=== PATIENT | female | born 1970 | race Caucasian/White ===

== ENCOUNTER 2018-07-07 16:03 | Emergency (ER) | payer SELFPAY ==
--- NOTE | 2018-07-07 17:45 | ER ---
Nurse's Notes [facility] Name: Lin Farley Age: 47 yrs Sex: Female : 1970 Arrival Date: 07/07/2018 Time: 16:04 Bed Waiting Private MD: Diagnosis: Presentation: 07/07 16:16 Presenting complaint: Productive cough with white sputum, body aches, headache, chills, hb sore throat x 3 days, N/V today. Not tolerating liquids. Transition of care: patient was not received from another setting of care. Onset of symptoms was July 04, 2018. Risk Assessment: Do you want to hurt yourself or someone else? Patient reports no desire to harm self or others. Care prior to arrival: None. 16:16 Method Of Arrival: Ambulatory hb 16:16 Acuity: IAN 3 hb Historical: - Allergies: 16:19 novahistamine; hb - PMHx: 16:19 gastric ulcer; GERD; hb - PSHx: 16:19 Cholecystectomy; hb - Immunization history:: Adult Immunizations up to date. - Social history:: Smoking status: Patient/guardian denies using tobacco. - Ebola Screening: : No symptoms or risks identified at this time. Vital Signs: 16:18 BP 156 / 102; Pulse 98; Resp 16; Temp 99(TE); Pulse Ox 100% on R/A; Pain 8/10; hb ED Course: 16:04 Patient arrived in ED. as 16:18 Triage completed. hb 16:19 Arm band placed on. hb 17:10 Patient's name was called from ER lobby. No response. aa5 17:25 Patient's name was called from ER lobby. No response. aa5 17:32 Sarah Crenshaw FNP-C [facility]. snw 17:32 Golden Souza MD is Attending Physician. snw 17:43 Patient's name was called from ER lobby. No response. aa5 Administered Medications: No medications were administered Outcome: 17:44 Patient left the ED. aa5 Signatures: Sarah Crenshaw FNP-C EXERCISE PHYSIOLOGIST-Leona Mari Audri RN RN aa5 Kelin Membreno RN RN hb
== END 2018-07-07 17:44 | disposition left against medical advice (07) ==
LOC: ER 16:03
DX: R05 Cough (principal); R11.2 Nausea with vomiting, unspecified; K21.9 Gastro-esophageal reflux disease without esophagitis; Z53.21 Procedure and treatment not carried out due to patient leaving prior to being seen by health care provider
CPT/HCPCS: 99281

== ENCOUNTER 2019-12-07 09:19 | Emergency (ER) | payer OTHER, SELFPAY ==
[2019-12-07] MEDS ORDERED: NA CHLORIDE 0.9% 1,000 ML ONE ×2 (09:47→12:19)
[2019-12-07] MEDS ORDERED: ONDANSETRON 4 MG/2 ML VIAL ONE ×2 (09:47→11:26)
[2019-12-07] MEDS ORDERED: MORPHINE 4 MG/ML SYR ONE (09:47)
[2019-12-07 09:53] LABS: Absolute Lymphocytes (CBC) 0.6 K/uL (0.7-4.9); Basophils % 0.3 % (0-1.3); Lymphocytes % 9.5 % (15.3-44.8); MPV 7.9 fL (7.6-11.3); RBC Red Blood Cell Count 4.05 M/uL (3.86-4.86)
[2019-12-07 09:58] LABS: Protime INR 1.36
[2019-12-07 10:30] LABS: ALT/SGPT 98 U/L (12-78); Albumin 2.8 g/dL (3.4-5.0); Alkaline Phosphatase 111 U/L (45-117); BUN Blood Urea Nitrogen 7 mg/dL (7-18); Bicarbonate 23 mmol/L (21-32); Bilirubin Direct 1.2 mg/dL (0-0.2); Bilirubin Total 2.4 mg/dL (0.2-1.0); Glucose Level 61 mg/dL (74-106); Lipase 91 U/L (73-393); NT PRO-BNP 149 pg/mL (<125); Protein, Total 6.9 g/dL (6.4-8.2); Sodium Level 141 mmol/L (136-145); Troponin (Emerg Dept Use Only) < 0.02 ng/mL (0.0-0.045)
[2019-12-07 10:37] LABS: Magnesium 2.2 mg/dL (1.8-2.4); Potassium 3.1 mmol/L (3.5-5.1)
[2019-12-07 10:39] LABS: AST/SGOT 366 U/L (15-37)
--- NOTE | 2019-12-07 10:44 | RAD REPORT ---
EXAM DESCRIPTION: RAD - Chest Single View - 12/07/2019 10:13 am CLINICAL HISTORY: chest pain COMPARISON: Portable December 2010 TECHNIQUE: AP portable chest image was obtained 12/07/2019 10:13 am . FINDINGS: No focal lung parenchymal process. Interstitial markings are accentuated due to a more sha llow inspiratory effort. No significant failure or volume overload. A minimal interstitial edema or i nfiltrate could be masked. Heart and vasculature are normal. No measurable pleural effusion and no pneumothorax. No acute bony abnormality seen. No acute aortic findings suspected. IMPRESSION: No focal lung parenchymal process and no significant failure or volume overload. Shallow inspiration accentuates lung markings potentially masking very minimal edema or infiltrate.
--- NOTE | 2019-12-07 11:40 | RAD REPORT ---
EXAM DESCRIPTION: CT - Abdomen Pelvis W Contrast - 12/07/2019 11:27 am CLINICAL HISTORY: Elevated liver enzymes;Abd pain COMPARISON: CT ABD PELVIS W CONTRAST dated 09/02/2011 TECHNIQUE: Biphasic, helical CT imaging of the abdomen and pelvis was performed following 100 ml non -ionic IV contrast. Oral contrast was given. All CT scans are performed using dose optimization technique as appropriate and may include automated exposure control or mA/KV adjustment according to patient size. FINDINGS: Lung base findings are detailed in separate CT chest report. Liver is grossly abnormal. No one focal suspicious liver lesions seen. Nodularity of the capsule is p resent. Fibrotic changes the liver are suspected and there is geographic fatty infiltration change. N o portal vein abnormality identified. Spleen and pancreas show no suspicious findings. Gallbladder is absent. Biliary tree within normal li mits for a post cholecystectomy patient. Symmetric renal function is seen with no hydronephrosis or suspicious renal mass. No pyelonephritis o r acute parenchymal process. Well filled urinary bladder shows no suspicious finding. No adrenal abno rmalities. No uterine or ovarian acute finding. Partially imaged distal esophagus shows circumferential wall thickening. Gastric antrum salmon are mil dly prominent. This can be true wall thickening or an artifact of peristalsis. Prominent wall thicken ing and edema present in the third and fourth portions of the duodenum. Multiple small bowel loops sh ow prominent wall thickening and edema. This is primarily jejunum. There is circumferential wall thic kening of the terminal ileum. Wall thickening and edema are present in the right-side of the colon wi th a more mild wall thickening and edema pattern seen in the sigmoid colon and rectum. A focal mass o f the colon is not identifiable although the cecum and ascending colon assessment are limited. No free air or pneumatosis. A mild to moderate volume of ascites is present. No omental thickening or bulky lymphadenopathy. No suspicious bony findings. Numerous dilated veins are seen around the liver. Umbilical vein is recannulized. IMPRESSION: Abnormal appearing liver with cirrhosis or other diffuse hepatic parenchymal disease pro cess present. Patient has geographic fatty infiltration but no focal liver lesion. Numerous large and small bowel loops show circumferential wall thickening and edema. This is probably secondary to the hepatic parenchymal disease and subsequent electrolyte or metabolic disorder. The c olon mass is not seen though the assessment of the cecum and ascending colon is somewhat limited. Mild to moderate amount of ascites.
--- NOTE | 2019-12-07 11:43 | RAD REPORT ---
EXAM DESCRIPTION: CT - Chest For Pe Angio - 12/07/2019 11:27 am CLINICAL HISTORY: Chest pain;SOB COMPARISON: Chest Single View dated 12/07/2019 TECHNIQUE: Dynamically enhanced 3 mm thick images of the chest were obtained during administration o f approximately 150mL Isovue 370 IV contrast. Coronal and oblique MIP reconstruction images were gene rated and reviewed. Exam utilizes a protocol to evaluate the pulmonary arterial tree. All CT scans are performed using dose optimization technique as appropriate and may include automated exposure control or mA/KV adjustment according to patient size. FINDINGS: No pulmonary emboli are identified. The aorta as imaged shows no acute or suspicious finding. No pericardial thickening or effusion. No infiltrate or mass in the lung parenchyma. No pleural effusion or pleural thickening. No mediastinal or hilar suspicious masses. No chest wall masses or abnormal axillary lymphadenopathy. Prominent circumferential wall thickening involves the distal 2/3 of the esophagus. The liver is alberto sly abnormal and detailed on the separate CT abdomen and pelvis report. IMPRESSION: No pulmonary emboli identified. No lung parenchymal, mediastinal or hilar acute chest finding seen. Patient has very prominent circumferential wall thickening of the distal esophagus. This is seen in c onjunction with large and small bowel wall thickening and edema. Infectious/ inflammatory bowel etiologies are certainly possible. The bowel changes are probably seco ndary to liver function abnormality.
--- NOTE | 2019-12-07 12:38 | EDPHYS ---
Physician Documentation [facility] Name: Lin Farley Age: 49 yrs Sex: Female : 1970 Arrival Date: 12/07/2019 Time: 09:22 Bed 8 Private MD: Keon Gant H ED Physician Claudio Patterson HPI: 12/06 09:58 This 49 yrs old Female presents to ER via Ambulatory with complaints of Chest pm1 Pain, Abdominal Pain. 09:58 The patient or guardian reports chest pain that is located primarily in the mid-sternal pm1 area. Onset: 2 day(s) ago. The pain does not radiate. Associated signs and symptoms: Pertinent positives: shortness of breath, Abdominal pain and diarrhea that started two days ago that has resolved. Patient with chronic abdominal pain for the past two years. Has appointment with Dr. Patel tomorrow for her abdominal pain, Pertinent negatives: cough, headache. Duration: The patient or guardian reports a single episode, that is still ongoing. Modifying factors: The symptoms are alleviated by nothing. the symptoms are aggravated by activity, deep breath, palpation of area. The patient has not recently seen a physician, has an appointment scheduled, tomorrow. Historical: - Allergies: 09:28 novahistamine; ph - PMHx: 09:28 gastric ulcer; GERD; ph - PSHx: 09:28 Cholecystectomy; ph - Immunization history:: Adult Immunizations up to date. - Social history:: Smoking status: Patient reports the use of cigarette tobacco products, 2 cigarettes/ day. ROS: 10:02 Constitutional: Negative for fever, chills, and weight loss. pm1 10:02 ENT: Negative for injury, pain, and discharge, Neck: Negative for injury, pain, and swelling. 10:02 Back: Negative for injury and pain, : Negative for injury, bleeding, discharge, and swelling, MS/Extremity: Negative for injury and deformity, Skin: Negative for injury, rash, and discoloration, Neuro: Negative for headache, weakness, numbness, tingling, and seizure. 10:02 Cardiovascular: Positive for chest pain, of the mid-sternal area, Negative for edema, orthopnea. 10:02 Respiratory: Positive for shortness of breath, Negative for cough. 10:02 Abdomen/GI: Positive for nausea, diarrhea, Negative for vomiting. 10:02 Abdomen/GI: Positive for abdominal pain, that has resolved. pm1 Exam: 10:02 Constitutional: This is a well developed, well nourished patient who is awake, alert, pm1 and in no acute distress. Head/Face: Normocephalic, atraumatic. 10:02 Back: No spinal tenderness. No costovertebral tenderness. Full range of motion. Skin: Warm, dry with normal turgor. Normal color with no rashes, no lesions, and no evidence of cellulitis. MS/ Extremity: Pulses equal, no cyanosis. Neurovascular intact. Full, normal range of motion. 10:02 Chest/axilla: Inspection: normal, Palpation: crepitus, is not appreciated, tenderness, that is moderate, of the mid-sternal area, that totally reproduces the patient's complaints. 10:02 Cardiovascular: Rate: tachycardic, Rhythm: regular, Pulses: no pulse deficits are appreciated, Heart sounds: normal, Edema: is not appreciated. 10:02 Respiratory: Exam negative for acute changes, respiratory distress, shortness of breath. 10:02 Abdomen/GI: Inspection: abdomen appears normal, Palpation: abdomen is soft and non-tender, in all quadrants, mass, is not appreciated, rebound tenderness, is not appreciated. 10:02 Neuro: Exam negative for acute changes, Orientation: is normal, Mentation: is normal, Motor: is normal, moves all fours. Vital Signs: 09:32 BP 109 / 91; Pulse 119; Resp 16; Temp 98.4(O); Pulse Ox 99% on R/A; Weight 47.63 kg; ss Height 5 ft. 4 in. (162.56 cm); Pain 10/10; 10:30 BP 115 / 77; Pulse 101; Resp 20; Pulse Ox 96% on R/A; ph 11:30 BP 126 / 84; Pulse 102; Resp 18; Pulse Ox 95% on R/A; ph 13:00 BP 118 / 78; Pulse 97; Resp 18; Temp 98.0; Pulse Ox 96% on R/A; ph 09:32 Body Mass Index 18.02 (47.63 kg, 162.56 cm) MDM: 09:24 Patient medically screened. pm1 11:52 ED course: Reviewed CT results and work up with Dr. Patterson. Patient without fever or pm1 white count elevation. He does not recommend antibiotics for the patient. Patient has follow up with GI tomorrow and recommends she needs to keep follow up and get EGD. 12:06 Data reviewed: vital signs. Data interpreted: Pulse oximetry: on room air is 95 %. pm1 Interpretation: normal. 12:06 Counseling: I had a detailed discussion with the patient and/or guardian regarding: the pm1 historical points, exam findings, and any diagnostic results supporting the discharge/admit diagnosis, lab results, radiology results, the need for outpatient follow up, for definitive care, a color strainer, EGD, to return to the emergency department if symptoms worsen or persist or if there are any questions or concerns that arise at home. 12/06 09:32 Order name: Basic Metabolic Panel pm1 12/06 09:32 Order name: CBC with Diff pm1 12/06 09:32 Order name: LFT's pm1 12/06 09:32 Order name: Magnesium pm12/06 09:32 Order name: NT PRO-BNP pm1 12/06 09:32 Order name: PT-INR pm1 12/06 09:32 Order name: Troponin (emerg Dept Use Only) pm1 12/06 09:32 Order name: Lipase pm1 12/06 09:53 Order name: CBC with Automated Diff; Complete Time: 09:56 EDMS 12/06 10:12 Order name: Protime (+INR); Complete Time: 10:37 EDMS 12/06 10:39 Order name: Basic Metabolic Panel; Complete Time: 10:55 EDMS 12/06 10:39 Order name: Liver (Hepatic) Function; Complete Time: 10:55 EDMS 12/06 10:39 Order name: Troponin (Emerg Dept Use Only); Complete Time: 10:55 EDMS 12/06 10:39 Order name: NT PRO-BNP; Complete Time: 10:55 EDMS 12/06 09:32 Order name: XRAY Chest (1 view) pm12/06 09:32 Order name: EKG; Complete Time: 10:46 pm1 12/06 10:39 Order name: Magnesium; Complete Time: 10:55 EDMS 12/06 10:39 Order name: Lipase; Complete Time: 10:55 EDMS 12/06 10:45 Order name: RAD; Complete Time: 10:55 EDMS 12/06 11:06 Order name: CT Chest For PE Angio pm1 12/06 11:06 Order name: CT Abd/Pelvis - IV Contrast Only pm1 12/06 11:41 Order name: CT; Complete Time: 11:42 EDMS 12/06 11:44 Order name: CT; Complete Time: 11:46 EDMS 12/06 09:32 Order name: Cardiac monitoring; Complete Time: 09:50 pm1 12/06 09:32 Order name: EKG - Nurse/Tech; Complete Time: 09:50 pm1 12/06 09:32 Order name: IV Saline Lock; Complete Time: 09:50 pm1 12/06 09:32 Order name: Labs collected and sent; Complete Time: 09:50 pm1 12/06 09:32 Order name: O2 Per Protocol; Complete Time: 09:50 pm1 12/06 09:32 Order name: O2 Sat Monitoring; Complete Time: 09:50 pm1 Administered Medications: 09:49 Drug: Zofran (Ondansetron) 4 mg Route: IVP; Site: right forearm; ph 11:23 Follow up: Response: No adverse reaction ph 12:14 Follow up: Response: No adverse reaction ph 09:49 Drug: NS 0.9% 1000 ml Route: IV; Rate: 1000 ml; Site: right forearm; ph 12:14 Follow up: Response: No adverse reaction; IV Status: Completed infusion; IV Intake: ph 1000ml 09:50 Drug: morphine 4 mg Route: IVP; Site: right forearm; ph 11:22 Follow up: Response: No adverse reaction ph 12:14 Follow up: Response: No adverse reaction ph 11:18 Drug: Zofran (Ondansetron) 4 mg Route: IVP; Site: right forearm; em 12:14 Follow up: Response: No adverse reaction; Nausea is decreased ph 12:00 Drug: NS 0.9% 1000 ml Route: IV; Rate: 1000 ml; Site: right forearm; ph 13:16 Drug: Phenergan 12.5 mg Route: IVP; Site: right antecubital; em 13:25 Follow up: Response: No adverse reaction; Marked relief of symptoms; Nausea is decreasedem 13:27 Drug: Bentyl 20 mg Route: PO; em 13:35 Follow up: Response: No adverse reaction ph Disposition: 19:00 Co-signature as Attending Physician, Claudio Patterson MD Signing chart for administrative ps1 purposes. Did not see or evaluate patient. Not an endorsement of care. . Disposition: 12/07/19 12:37 Discharged to Home. Impression: Chest pain, unspecified, Unspecified abdominal pain, Alcoholic cirrhosis of liver with ascites, Esophagitis. - Condition is Stable. - Discharge Instructions: Abdominal Pain, Adult, Nonspecific Chest Pain, Clear Liquid Diet, Adult. - Prescriptions for Zofran ODT 4 mg Oral tablet,disintegrating - place 1 tablet by TRANSLINGUAL route every 8 hours As needed; 12 tablet. Bentyl 20 mg Oral Tablet - take 1 tablet by ORAL route every 6 hours As needed; 20 tablet. promethazine 25 mg Oral Tablet - take 1 tablet by ORAL route every 6 hours As needed; 20 tablet. - Medication Reconciliation Form, Thank You Letter, Antibiotic Education, Prescription Opioid Use form. - Follow up: Emergency Department; When: As needed; Reason: Worsening of condition. Follow up: Private Physician; When: Tomorrow; Reason: Recheck today's complaints, Continuance of care, Re-evaluation by your physician. - Problem is new. - Symptoms have improved. Signatures: Dispatcher [employer] Lee Recio RN RN em Smirch, Shelby, RN RN ss Hall, Patricia, CODEY RN Sushant Gallardo, ATLASSIAN ADMINISTRATOR ATLASSIAN ADMINISTRATOR pm1 Claudio Patterson MD MD ps1 Corrections: (The following items were deleted from the chart) 14:15 12:37 12/07/2019 12:37 Discharged to Home. Impression: Chest pain, ss unspecifiedUnspecified abdominal pain; Alcoholic cirrhosis of liver with ascites; Esophagitis. Condition is Stable. Forms are Medication Reconciliation Form, Thank You Letter, Antibiotic Education, Prescription Opioid Use. Follow up: Emergency Department; When: As needed; Reason: Worsening of condition. Follow up: Private Physician; When: Tomorrow; Reason: Recheck today's complaints, Continuance of care, Re-evaluation by your physician. Problem is new. Symptoms have improved. pm1
--- NOTE | 2019-12-07 12:38 | ER ---
Nurse's Notes [facility] Name: Lin Farley Age: 49 yrs Sex: Female : 1970 Arrival Date: 12/07/2019 Time: 09:22 Bed 8 Private MD: Keon Gant H Diagnosis: Unspecified abdominal pain;Chest pain, unspecified;Alcoholic cirrhosis of liver with ascites;Esophagitis Presentation: 12/06 09:29 Ebola Screen: No symptoms or risks identified at this time. Risk Assessment: Do you want to hurt yourself or someone else? Patient reports no desire to harm self or others. Onset of symptoms was December 07, 2019. 09:29 Method Of Arrival: Ambulatory ph 09:32 Chief complaint: Patient states: abd pain, N/V/D that has been intermittent for 2 ss years, episode began 4 days ago. Chest pain that began 2 days ago is worrying her because she has never experienced chest pain with these GI symptoms. Coronavirus screen: Client denies travel out of the [place] in the last 14 days. Initial Sepsis Screen: Does the patient meet any 2 criteria? HR > 90 bpm. Does the patient have a suspected source of infection? No. Patient's initial sepsis screen is negative. 09:32 Acuity: IAN 3 ss Historical: - Allergies: 09:28 novahistamine; ph - PMHx: 09:28 gastric ulcer; GERD; ph - PSHx: 09:28 Cholecystectomy; ph - Immunization history:: Adult Immunizations up to date. - Social history:: Smoking status: Patient reports the use of cigarette tobacco products, 2 cigarettes/ day. Screenin:25 Abuse screen: Denies threats or abuse. Denies injuries from another. Nutritional ph screening: No deficits noted. Tuberculosis screening: No symptoms or risk factors identified. Fall Risk None identified. Assessment: 09:47 General: Appears in no apparent distress. uncomfortable, slender, well groomed, ph Behavior is calm, cooperative, appropriate for age, Denies fever. Pain: Complains of pain in chest and abdomen. Neuro: Level of Consciousness is awake, alert, obeys commands, Oriented to person, place, time, situation. Cardiovascular: Capillary refill < 3 seconds in bilateral fingers Patient's skin is warm and dry. Respiratory: Airway is patent Respiratory effort is even, unlabored, Respiratory pattern is regular, symmetrical, Denies cough. GI: Reports lower abdominal pain, upper abdominal pain, diarrhea, nausea, vomiting. Derm: Skin is intact, Skin is pink, warm \T\ dry. Musculoskeletal: Circulation, motion, and sensation intact. Range of motion: intact in all extremities. 11:14 Reassessment: inorganic chemical technician called and stated pt was in dept. vomiting prior to CT scan, em provider notified, received new verbal orders to repeat Zofran 4 mg IV x 1. 12:41 Reassessment: Patient appears in no apparent distress at this time. Patient and/or ph family updated on plan of care and expected duration. Pain level reassessed. Patient is alert, oriented x 3, equal unlabored respirations, skin warm/dry/pink. D/C pending completion of IV fluids. 13:20 Reassessment: Patient appears in no apparent distress at this time. Patient and/or ph family updated on plan of care and expected duration. Pain level reassessed. Patient is alert, oriented x 3, equal unlabored respirations, skin warm/dry/pink. Attempted to d/c pt, noted to be actively vomiting, ERP notified, see MAR. Vital Signs: 09:32 BP 109 / 91; Pulse 119; Resp 16; Temp 98.4(O); Pulse Ox 99% on R/A; Weight 47.63 kg; ss Height 5 ft. 4 in. (162.56 cm); Pain 10/10; 10:30 BP 115 / 77; Pulse 101; Resp 20; Pulse Ox 96% on R/A; ph 11:30 BP 126 / 84; Pulse 102; Resp 18; Pulse Ox 95% on R/A; ph 13:00 BP 118 / 78; Pulse 97; Resp 18; Temp 98.0; Pulse Ox 96% on R/A; ph 09:32 Body Mass Index 18.02 (47.63 kg, 162.56 cm) ED Course: 09:22 Patient arrived in ED. mr 09:22 Keon Gant DO is Private Physician. mr 09:24 Sushant Gallardo NP is PHCP. pm1 09:24 Claudio Patterson MD is Attending Physician. pm1 09:24 Sabillon, Od[place], RN is Primary Nurse. ph 09:28 Patient has correct armband on for positive identification. Placed in gown. Bed in low ph position. Call light in reach. Side rails up X 1. quality assurance monitor chassis on. Pulse ox on. NIBP on. Door closed. Noise minimized. Warm blanket given. 09:29 Arm band placed on Patient placed in an exam room. ph 09:33 Triage completed. ss 09:46 Initial lab(s) drawn, by ED staff, sent to lab. EKG done. Inserted saline lock: 22 ph gauge in right forearm, using aseptic technique. Blood collected. Patient maintains SpO2 saturation greater than 95% on room air. 12:05 No provider procedures requiring assistance completed. ph 14:00 IV discontinued, intact, bleeding controlled, No redness/swelling at site. Pressure ph dressing applied. Administered Medications: 09:49 Drug: Zofran (Ondansetron) 4 mg Route: IVP; Site: right forearm; ph 11:23 Follow up: Response: No adverse reaction ph 12:14 Follow up: Response: No adverse reaction ph 09:49 Drug: NS 0.9% 1000 ml Route: IV; Rate: 1000 ml; Site: right forearm; ph 12:14 Follow up: Response: No adverse reaction; IV Status: Completed infusion; IV Intake: ph 1000ml 09:50 Drug: morphine 4 mg Route: IVP; Site: right forearm; ph 11:22 Follow up: Response: No adverse reaction ph 12:14 Follow up: Response: No adverse reaction ph 11:18 Drug: Zofran (Ondansetron) 4 mg Route: IVP; Site: right forearm; em 12:14 Follow up: Response: No adverse reaction; Nausea is decreased ph 12:00 Drug: NS 0.9% 1000 ml Route: IV; Rate: 1000 ml; Site: right forearm; ph 13:16 Drug: Phenergan 12.5 mg Route: IVP; Site: right antecubital; em 13:25 Follow up: Response: No adverse reaction; Marked relief of symptoms; Nausea is decreasedem 13:27 Drug: Bentyl 20 mg Route: PO; em 13:35 Follow up: Response: No adverse reaction ph Intake: 12:14 IV: 1000ml; Total: 1000ml. ph Outcome: 12:37 Discharge ordered by . pm1 14:15 Patient left the ED. ss 14:15 Discharged to home via wheelchair, with family. 14:15 Condition: improved 14:15 Discharge instructions given to patient, Instructed on discharge instructions, follow up and referral plans. medication usage, Demonstrated understanding of instructions, follow-up care, medications, Prescriptions given X 3. Signatures: Rosalinda SingletaryozLee RN Chanell Polanco RN RN Odessa Sabillon RN RN Sushant Gallardo, PHILL SOLAR ENERGY SYSTEM INSTALLER pm1
[2019-12-07] MEDS ORDERED: PROMETHAZINE INJ 25 MG/ML AMP ONE (13:13)
[2019-12-07] MEDS ORDERED: DICYCLOMINE HCL 10 MG CAP ONE (13:13)
[2019-12-07 14:21] VITALS: TEMP 98.4
[2019-12-07 14:24] VITALS: BP 126/84; O2SAT 95
== END 2019-12-07 14:15 | disposition home or self-care (01) ==
LOC: ER 09:19
DX: K70.31 Alcoholic cirrhosis of liver with ascites (principal); K20.9 Esophagitis, unspecified; R10.9 Unspecified abdominal pain; F17.210 Nicotine dependence, cigarettes, uncomplicated; Z88.8 Allergy status to other drugs, medicaments and biological substances
CPT/HCPCS: 85025; 80048; 36415; 83735; 85610; 80076; 84484; 83690; 83880; 71275; 74177; 71045; Q9967; J2550; J7030 ×2; J2405 ×2; 93005; 99285

== ENCOUNTER 2020-01-20 21:45 | Observation (INO) | payer OTHER ==
[2020-01-20] MEDS ORDERED: METHYLPREDNISOLONE 125 MG INJ ONE (22:40)
[2020-01-20] MEDS ORDERED: NA CHLORIDE 0.9% 100 ML IV ONE (22:40)
[2020-01-20] MEDS ORDERED: NA CHLORIDE 0.9% 1,000 ML ONE (22:40)
[2020-01-20] MEDS ORDERED: FAMOTIDINE 20 MG/2 ML VIAL IV ONE (22:40)
[2020-01-20] MEDS ORDERED: DIPHENHYDRAMINE 50 MG/ML VIAL ONE (22:40)
[2020-01-20] MEDS ORDERED: ACETAMINOPHEN 500 MG TAB ONE (22:40)
[2020-01-20 23:04] LABS: BUN Blood Urea Nitrogen 6 mg/dL (7-18); Bicarbonate 23 mmol/L (21-32); Glucose Level 80 mg/dL (74-106); Potassium 3.6 mmol/L (3.5-5.1); Sodium Level 138 mmol/L (136-145)
[2020-01-20] MEDS ORDERED: ONDANSETRON 4 MG/2 ML VIAL ONE (23:10)
[2020-01-20 23:37] LABS: Absolute Lymphocytes (CBC) 0.7 K/uL (0.7-4.9); Basophils % 0.5 % (0-1.3); Hematocrit 34.1 % (36.0-45.0); Lymphocytes % 10.1 % (15.3-44.8); MPV 8.1 fL (7.6-11.3); RBC Red Blood Cell Count 3.63 M/uL (3.86-4.86)
--- NOTE | 2020-01-21 00:27 | EDPHYS ---
Physician Documentation [facility] Name: Lin Farley Age: 49 yrs Sex: Female : 1970 Arrival Date: 01/20/2020 Time: 21:48 Bed 13 Private MD: GILL Physician Meet Fink HPI: 01/20 00:07 This 49 yrs old Female presents to ER via Wheelchair with complaints of kb Swollen Face, Difficulty Breathing. 00:07 The patient presents with localized swelling, redness of skin. Onset: The kb symptoms/episode began/occurred yesterday. Associated signs and symptoms: Pertinent positives: rash, swelling. Possible causes: At home the patient or guardian has treated the symptoms with Benadryl. Severity of symptoms: At their worst the symptoms were moderate in the emergency department the symptoms are unchanged. The patient has not experienced similar symptoms in the past. The patient has not recently seen a physician. Pt reports they are having the bathroom remodeled and after they sprayed red paint in there her face started to swell. Reports cough for 2 weeks and low grade fever started yesterday. . 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 - Social history:: Smoking status: Patient reports the use of cigarette tobacco products, i stick, Patient/guardian denies using alcohol, street drugs, IV drugs. ROS: 01/20 00:06 Cardiovascular: Negative for chest pain, palpitations, and edema, Abdomen/GI: Negative kb for abdominal pain, nausea, vomiting, diarrhea, and constipation, Back: Negative for injury and pain, MS/Extremity: Negative for injury and deformity, Neuro: Negative for headache, weakness, numbness, tingling, and seizure. Constitutional: Positive for fever, Negative for body aches, chills, fatigue, malaise, poor PO intake, weight loss. Respiratory: Positive for cough, Negative for dyspnea on exertion, hemoptysis, orthopnea, pleurisy, shortness of breath, sputum production, wheezing. Skin: Positive for erythema, swelling, of the face. Exam: 00:06 Constitutional: This is a well developed, well nourished patient who is awake, alert, kb and in no acute distress. Head/Face: Normocephalic, atraumatic. Chest/axilla: Normal chest wall appearance and motion. Nontender with no deformity. No lesions are appreciated. Cardiovascular: Regular rate and rhythm with a normal S1 and S2. No gallops, murmurs, or rubs. Normal PMI, no JVD. No pulse deficits. Respiratory: Lungs have equal breath sounds bilaterally, clear to auscultation and percussion. No rales, rhonchi or wheezes noted. No increased work of breathing, no retractions or nasal flaring. Abdomen/GI: Soft, non-tender, with normal bowel sounds. No distension or tympany. No guarding or rebound. No evidence of tenderness throughout. MS/ Extremity: Pulses equal, no cyanosis. Neurovascular intact. Full, normal range of motion. Neuro: Awake and alert, GCS 15, oriented to person, place, time, and situation. Cranial nerves II-XII grossly intact. Motor strength 5/5 in all extremities. Sensory grossly intact. Cerebellar exam normal. Normal gait. 00:06 Skin: Appearance: normal except for affected area, Color: erythematous, swelling, noted on the face, that are moderate. Vital Signs: 01/19 22:04 BP 117 / 78; Pulse 115; Resp 18; Temp 100.7; Pulse Ox 98% on R/A; Weight 50.8 kg; mg2 Height 5 ft. 4 in. (162.56 cm); 23:42 BP 107 / 74; Pulse 82; Resp 18; Pulse Ox 98% on R/A; mg2 01/20 01:24 BP 104 / 76; Pulse 90; Resp 18; Temp 99.1; Pulse Ox 96% on R/A; mg2 02:47 BP 99 / 69; Pulse 85; Resp 18; Temp 99; Pulse Ox 95% on R/A; mg2 01/19 22:04 Body Mass Index 19.22 (50.80 kg, 162.56 cm) mg2 MDM: 01/19 22:16 Patient medically screened. kb 01/20 00:05 Data reviewed: vital signs, nurses notes. Data interpreted: Pulse oximetry: on room air kb is 98 %. Interpretation: normal. 00:20 Counseling: I had a detailed discussion with the patient and/or guardian regarding: the kb historical points, exam findings, and any diagnostic results supporting the discharge/admit diagnosis, lab results, radiology results, the need for further work-up and treatment in the hospital. 00:22 Physician consultation: Seth COE was contacted at 00:22, regarding kb admission, to the medical/surgical unit. patient's condition, and will see patient in ED, shortly. 01/19 22:23 Order name: CBC with Diff; Complete Time: 01:54 kb 01/19 22:23 Order name: Basic Metabolic Panel; Complete Time: 23:05 kb 01/19 22:25 Order name: Blood Culture Adult (2) 01/19 22:25 Order name: Procalcitonin; Complete Time: 23:49 kb 01/19 22:25 Order name: Flu; Complete Time: 23:15 kb 01/19 23:41 Order name: CBC Smear Scan; Complete Time: 01:54 ED[facility] 01/19 22:23 Order name: Chest Single View XRAY 01/20 01:52 Order name: SARS-COV-2 RT PCR [facility] 01/20 01:54 Order name: Urine Culture [facility] 01/20 02:29 Order name: Urine Dipstick--Ancillary (enter results) [facility] 01/20 02:29 Order name: Urine --Ancillary (enter results) [facility] 01/20 02:41 Order name: Vancomycin Level Trough [facility] 01/20 02:41 Order name: Vancomycin Peak [facility] 01/19 22:23 Order name: IV Start; Complete Time: 22:43 kb 01/20 00:10 Order name: Vital Signs; Complete Time: 00:13 kb Administered Medications: 01/19 22:43 Drug: Tylenol 1000 mg Route: PO; mg2 23:43 Follow up: Response: No adverse reaction mg2 22:43 Drug: SOLU-Medrol 125 mg Route: IVP; Site: left antecubital; mg2 23:43 Follow up: Response: No adverse reaction mg2 22:43 Drug: Pepcid 20 mg Route: IVP; Site: left antecubital; mg2 23:43 Follow up: Response: No adverse reaction mg2 22:43 Drug: NS 0.9% 1000 ml Route: IV; Rate: 1000 ml; Site: left antecubital; mg2 01/20 00:23 Follow up: Response: No adverse reaction; IV Status: Completed infusion; IV Intake: mg2 1000ml 01/19 23:03 Drug: Benadryl 25 mg Route: IVP; Site: left antecubital; mg2 23:42 Follow up: Response: No adverse reaction mg2 01/20 00:48 Drug: Unasyn 3 grams Route: IVPB; Infused Over: 30 mins; Site: left antecubital; mg2 02:21 Follow up: Response: No adverse reaction; IV Status: Completed infusion mg2 01:24 Drug: vancoMYCIN 1 grams Route: IVPB; Infused Over: 2 hrs; Site: left antecubital; mg2 03:37 Follow up: Response: No adverse reaction; IV Status: Completed infusion mg2 01:36 Drug: Zofran (Ondansetron) 4 mg Route: IVP; Site: left antecubital; mg2 02:20 Follow up: Response: No adverse reaction mg2 Disposition: 11:09 Co-signature as Attending Physician, Meet Fink MD I agree with the assessment and edgar plan of care. Disposition: 01/21/20 00:26 Hospitalization ordered by Antony Padilla for Inpatient Admission. Preliminary diagnosis are Cellulitis of face, Urinary tract infection, site not specified. - Bed requested for Telemetry/MedSurg (Inpatient). - Status is Inpatient Admission. mg2 - Condition is Stable. - Problem is new. - Symptoms are unchanged. Signatures: Dispatcher [employer] [facility]ILL[facility] Danyelle Romo, BUCKLE SEWER MACHINE-C BUCKLE SEWER MACHINE-Danieb Meet Fink MD MD cha Lasagna, Tonya RN RN tl1 Deon Yates RN RN mg2 Corrections: (The following items were deleted from the chart) 00:20 00:05 Counseling: I had a detailed discussion with the patient and/or guardian rica regarding: the historical points, exam findings, and any diagnostic results supporting the discharge/admit diagnosis, lab results, radiology results, the need for outpatient follow up, a family practitioner, to return to the emergency department if symptoms worsen or persist or if there are any questions or concerns that arise at home, rica 01:52 00:32 CORONAVIRUS+[facility]LAB[facility]26 Hospitalization Ordered by Antony Padilla for Inpatient Admission. Preliminary edgar diagnosis is Cellulitis of face. Bed requested for Telemetry/MedSurg (Inpatient). Status is Inpatient Admission. Condition is Stable. Problem is new. Symptoms are unchanged. kb 03:11 01:54 01/21/2020 00:26 Hospitalization Ordered by Antony Padilla for Inpatient tl1 Admission. Preliminary diagnosis is Cellulitis of face; Urinary tract infection, site not specified. Bed requested for Telemetry/MedSurg (Inpatient). Status is Inpatient Admission. Condition is Stable. Problem is new. Symptoms are unchanged. edgar 03:36 03:11 01/21/2020 00:26 Hospitalization Ordered by Antony Padilla for Inpatient mg2 Admission. Preliminary diagnosis is Cellulitis of face; Urinary tract infection, site not specified. Bed requested for Telemetry/MedSurg (Inpatient). Status is Inpatient Admission. Condition is Stable. Problem is new. Symptoms are unchanged. tl1
--- NOTE | 2020-01-21 00:27 | ER ---
Nurse's Notes [facility] Name: Lin Farley Age: 49 yrs Sex: Female : 1970 Arrival Date: 01/20/2020 Time: 21:48 Bed 13 Private MD: Diagnosis: Cellulitis of face;Urinary tract infection, site not specified Presentation: 01/19 22:04 Chief complaint: Patient states: we were doing construction at home and i think i was mg2 exposed to some chemical spray, dust or paint. my face is so swollen, breathing heavy. Coronavirus screen: Client denies travel out of the [place] in the last 14 days. At this time, the client does not indicate any symptoms associated with coronavirus-19. Ebola Screen: No symptoms or risks identified at this time. Initial Sepsis Screen:. Risk Assessment: Do you want to hurt yourself or someone else? Patient reports no desire to harm self or others. Onset of symptoms was January 20, 2020. 22:04 Method Of Arrival: Wheelchair mg2 22:04 Acuity: IAN 3 mg2 22:50 Initial Sepsis Screen: Does the patient meet any 2 criteria? Temp <36.0*C (96.8*F)) or mg2 > 38.3*C (100.9*F). HR > 90 bpm. Does the patient have a suspected source of infection? Yes: Productive cough/pneumonia. Triage Assessment: 22:50 General: Appears in no apparent distress. comfortable, Behavior is calm, cooperative. mg2 Pain: Denies pain. EENT: Reports throat pain. Neuro: Level of Consciousness is awake, alert, obeys commands, Oriented to person, place, time, situation. Cardiovascular: Capillary refill < 3 seconds Patient's skin is warm and dry. Respiratory: Airway is patent Respiratory effort is even, unlabored, Respiratory pattern is regular, symmetrical. Respiratory: Reports cough that is. GI: No signs and/or symptoms were reported involving the gastrointestinal system. : No signs and/or symptoms were reported regarding the genitourinary system. Derm: swelling and redness in the face noted. Musculoskeletal: Circulation, motion, and sensation intact. Capillary refill < 3 seconds. 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 - Social history:: Smoking status: Patient reports the use of cigarette tobacco products, i stick, Patient/guardian denies using alcohol, street drugs, IV drugs. Screenin:49 Abuse screen: Denies threats or abuse. Denies injuries from another. Nutritional mg2 screening: No deficits noted. Tuberculosis screening: No symptoms or risk factors identified. Fall Risk IV access (20 points). Assessment: 22:25 General: code sepsis called. mg2 22:25 General: Appears in no apparent distress. comfortable, Behavior is calm, cooperative. mg2 Pain: Denies pain. Neuro: Level of Consciousness is awake, alert, obeys commands, Oriented to person, place, time, situation. Cardiovascular: Capillary refill < 3 seconds Patient's skin is warm and dry. Respiratory: Airway is patent Respiratory effort is even, unlabored, Respiratory pattern is regular, symmetrical. Respiratory: Reports shortness of breath cough that is productive. GI: Reports nausea. : No signs and/or symptoms were reported regarding the genitourinary system. EENT: No signs and/or symptoms were reported regarding the EENT system. Derm: Skin is pink, warm \T\ dry. normal, Rash noted that is red, raised, on face. Musculoskeletal: Circulation, motion, and sensation intact. Capillary refill < 3 seconds. 01/20 01:25 Reassessment: Patient appears in no apparent distress at this time. Patient and/or mg2 family updated on plan of care and expected duration. Pain level reassessed. Patient is alert, oriented x 3, equal unlabored respirations, skin warm/dry/pink. patient still nauseated. agreed to be admitted. 02:23 Reassessment: Patient appears in no apparent distress at this time. Patient and/or mg2 family updated on plan of care and expected duration. Pain level reassessed. Patient is alert, oriented x 3, equal unlabored respirations, skin warm/dry/pink. 02:23 Reassessment: seen by hospitalist. mg2 Vital Signs: 01/19 22:04 BP 117 / 78; Pulse 115; Resp 18; Temp 100.7; Pulse Ox 98% on R/A; Weight 50.8 kg; mg2 Height 5 ft. 4 in. (162.56 cm); 23:42 BP 107 / 74; Pulse 82; Resp 18; Pulse Ox 98% on R/A; mg2 01/20 01:24 BP 104 / 76; Pulse 90; Resp 18; Temp 99.1; Pulse Ox 96% on R/A; mg2 02:47 BP 99 / 69; Pulse 85; Resp 18; Temp 99; Pulse Ox 95% on R/A; mg2 01/19 22:04 Body Mass Index 19.22 (50.80 kg, 162.56 cm) mg2 ED Course: 01/19 21:48 Patient arrived in ED. ag3 22:07 Triage completed. mg2 22:07 Arm band placed on. mg2 22:15 Deon Yates, CODEY is Primary Nurse. mg2 22:16 Danyelle Romo FNP-C is PHCP. kb 22:16 Meet Fink MD is Attending Physician. kb 22:45 Inserted saline lock: 20 gauge in left antecubital area, using aseptic technique. Blood mg2 collected. 22:49 No provider procedures requiring assistance completed. mg2 22:50 Patient has correct armband on for positive identification. front desk monitor on. Pulse mg2 ox on. NIBP on. 22:54 Chest Single View XRAY In Process Unspecified. EDMS 01/20 00:26 Antony Padilla is Hospitalizing Provider. kb 01:25 Patient admitted, IV remains in place. mg2 Administered Medications: 01/19 22:43 Drug: Tylenol 1000 mg Route: PO; mg2 23:43 Follow up: Response: No adverse reaction mg2 22:43 Drug: SOLU-Medrol 125 mg Route: IVP; Site: left antecubital; mg2 23:43 Follow up: Response: No adverse reaction mg2 22:43 Drug: Pepcid 20 mg Route: IVP; Site: left antecubital; mg2 23:43 Follow up: Response: No adverse reaction mg2 22:43 Drug: NS 0.9% 1000 ml Route: IV; Rate: 1000 ml; Site: left antecubital; mg2 01/20 00:23 Follow up: Response: No adverse reaction; IV Status: Completed infusion; IV Intake: mg2 1000ml 01/19 23:03 Drug: Benadryl 25 mg Route: IVP; Site: left antecubital; mg2 23:42 Follow up: Response: No adverse reaction mg2 01/20 00:48 Drug: Unasyn 3 grams Route: IVPB; Infused Over: 30 mins; Site: left antecubital; mg2 02:21 Follow up: Response: No adverse reaction; IV Status: Completed infusion mg2 01:24 Drug: vancoMYCIN 1 grams Route: IVPB; Infused Over: 2 hrs; Site: left antecubital; mg2 03:37 Follow up: Response: No adverse reaction; IV Status: Completed infusion mg2 01:36 Drug: Zofran (Ondansetron) 4 mg Route: IVP; Site: left antecubital; mg2 02:20 Follow up: Response: No adverse reaction mg2 Intake: 00:23 IV: 1000ml; Total: 1000ml. mg2 Outcome: 00:26 Decision to Hospitalize by Provider. kb 03:21 Admitted to Med/surg accompanied by tech, room 219, with chart, Report called to betty Potts RN 03:21 Condition: stable 03:21 Instructed on the need for admit, Demonstrated understanding of instructions. 03:36 Patient left the ED. mg2 Signatures: Dispatcher [employer] EDDanyelle Stahl, ZEKE-Craig ALANIS-Deon Tellez, CODEY RN [facility] Brandy Soto ag3
[2020-01-21] MEDS ORDERED: NA CHLORIDE 0.9% 100 ML IV ONE (00:45)
[2020-01-21] MEDS ORDERED: NA CHLORIDE 0.9% 250 ML ONE (00:45)
[2020-01-21] MEDS ORDERED: VANCOMYCIN 1 GM/VIAL ONE (00:45)
[2020-01-21] MEDS ORDERED: AMPICILLIN/SULBACTAM 3GM/VIAL ONE ×2 (00:45→06:01)
[2020-01-21 01:00] LABS: White Blood Cell Scan OK (OK)
[2020-01-21 01:01] LABS: Blood Morphology Comment NOT SEEN (NOT SEEN); Platelet Estimate DECR
[2020-01-21] MEDS ORDERED: ONDANSETRON 4 MG/2 ML VIAL ONE (01:38)
[2020-01-21 02:41] LABS: Urine Blood 1+ (NEG); Urine Glucose NEGATIVE (NEG); Urine Protein 1+ (NEG)
--- NOTE | 2020-01-21 02:42 | P.HP ---
Certification for Inpatient With expected LOS: >2 Midnights Patient will require the following post-hospital care: None Practitioner: I am a practitioner with admitting privileges, knowledge of patient current condition, hospital course, and medical plan of care. Services: Services provided to patient in accordance with Admission requirements found in Title 42 Section 412.3 of the Code of Federal Regulations <Seth Bonilla - Last Filed: 01/21/20 02:42> Patient History Date of Service: 01/21/20 Reason for admission: Facial cellulitis/UTI History of Present Illness: 49-year-old female with a past medical history of asthma, GERD and gastric ulcer disease on PPI presents to the emergency room with complaints of localized swelling of the face with erythema. Patient states they have been remodeling the house in particular her bathroom. States that she has been in and out of the remodeling area with no mask on. States that she started noticed some redness and swelling around the frontal area ever face down in to the cheeks on either side yesterday. States that it progressively worsened. She has also been complaining of a cough for 2 weeks. Also low-grade fever and urinary symptoms. In the emergency room patient is noted to have significant redness in the frontal area of her face extending down through the bridge of the nose into the right and left cheeks with some swelling around the left eyelid. No orbital swelling. Findings are consistent with facial cellulitis. Diffuse in the area described earlier. UA also shows a urinary tract infection. Rest of lab work is fairly unremarkable. Patient is alert and oriented x4. She is in no distress. She is calm and cooperative. Patient will be admitted and further evaluated. Home medications list reviewed: Yes - Past Medical/Surgical History -: Gerd -: Gastric ulcer -: Asthma -: Cholecystectomy Psychosocial/ Personal History: Lives at home with . - Family History Family History: Reviewed- Non-Contributory - Social History Smoking Status: Current every day smoker Smoking therapy provided: No (Refused) Patient receptive to therapy: No (No) Alcohol use: Yes CD- Drugs: No Caffeine use: No Place of Residence: Home <Seth Bonilla - Last Filed: 01/21/20 02:42> Date of Service: 01/22/20 <kathy baird - Last Filed: 01/22/20 07:59> Allergies novahistamine Allergy (Uncoded 01/21/20 04:10) Anaphylaxis Review of Systems General: Fever, As per HPI Eyes: Eyelid Inflammation, Redness, As per HPI ENT: As per HPI Respiratory: Cough, As per HPI Cardiovascular: Unremarkable Gastrointestinal: Unremarkable Genitourinary: Dysuria, As per HPI Musculoskeletal: Unremarkable Integumentary: Unremarkable Neurological: Unremarkable Lymphatics: Unremarkable <Seth Bonilla - Last Filed: 01/21/20 02:42> Physical Examination - Vital Signs Temperature: 100.7 F Blood Pressure: 117/78 Pulse: 115 Respirations: 18 Pulse Ox (%): 98 (RA) - Physical Exam General: Alert, In no apparent distress, Oriented x3 HEENT: Atraumatic, Normocephalic, PERRLA, Mucous membr. moist/pink, Other (Diffuse facial swelling in the forehead and bilateral cheeks) Neck: Supple, No Thyromegaly, Other (Trachea midline) Respiratory: Clear to auscultation bilaterally, Normal air movement, Other (Cough) Cardiovascular: No edema, Normal pulses, Normal S1 S2, Other (Tachycardia) Capillary refill: <2 Seconds Gastrointestinal: Normal bowel sounds, Soft and benign, Non-distended Musculoskeletal: No clubbing, No swelling, No contractures, No erythema Integumentary: Tenderness/swelling (Facial), Erythema (Facial) Neurological: Normal gait, Normal speech, Normal strength at 5/5 x4 extr, Normal tone - Studies Laboratory Data (last 24 hrs) 01/20/20 23:20: WBC 7.4, Hgb 11.8 L, Hct 34.1 L, Plt Count 71 L 01/20/20 22:35: Sodium 138, Potassium 3.6, BUN 6 L, Creatinine 0.53 L, Glucose 80 Microbiology Data (last 24 hrs): 01/20/20 22:25 Nasopharnyx Influenza Type A Antigen Screen - Final 01/20/20 22:25 Nasopharnyx Influenza Type B Antigen Screen - Final <Seth Bonilla - Last Filed: 01/21/20 02:42> Assessment and Plan - Plan Impression: Facial cellulitis: Urinary tract infection: Sepsis: Gastroesophageal reflux disease with history of gastric ulcer: Nicotine dependence with history of smoking half a pack of cigarettes a day and chronic cough: Plan: Facial cellulitis: Patient be started on IV antibiotics vancomycin and Unasyn. Monitor facial swelling. Urinary tract infection: UA positive for urinary tract infection. Covered with above antibiotics. Monitor Sepsis: Patient noted to have an elevated heart rate temperature above 100 and source of infection facial cellulitis an UTI. Patient received IV fluids in the ER. Will continue IV fluids and IV antibiotics as above. Continuous telemetry. Monitor. Gastroesophageal reflux disease with history of gastric ulcer: Will resume all medications once verified. No complaints of reflux disease at this time. Nicotine dependence with history of smoking half a pack of cigarettes a day and chronic cough: Counseled. Does not want nicotine patch. Discharge Plan: Home Plan to discharge in: Greater than 2 days - Advance Directives Does patient have a Living Will: No Does patient have a Durable POA for Healthcare: No - Code Status/Comfort Care Code Status Assessed: Yes Time Spent Managing Pts Care (In Minutes): 55 <Seth Bonilla - Last Filed: 01/21/20 02:42> - Problems (Diagnosis) (1) Contact dermatitis Status: Acute (2) Allergic reaction Status: Acute Physician Review: Patient Assessed, Agree with Above Assessment and Plan Physician Review Additional Text: Cellulitis versus contact dermatitis. I would favor contact dermatitis. UTI IV antibiotics Monitor. <kathy baird - Last Filed: 01/22/20 07:59>
--- NOTE | 2020-01-21 03:27 | P.INFCA ---
Sepsis Focused Assessment - Sepsis Screen Result Severe Sepsis: Positive - Evaluation Current stage of sepsis: Severe sepsis - Vital Signs Reviewed: Yes Temperature: 100.7 F Heart rate: 115 Blood Pressure: 117/78 Respiratory Rate: 18 O2 Sat by Pulse Oximetry: 98 (RA) - Examination Date exam was performed: 01/21/20 Time exam was performed: 03:26 Heart: Tachycardia Lungs: Clear bilaterally Peripheral pulses: 3+ Normal Peripheral pulse location: Posterior tibial Capillary refill: <2 Seconds Skin examination: Normal turgor
[2020-01-21] MEDS ORDERED: ACETAMINOPHEN 500 MG TAB PO PRN (03:46)
[2020-01-21] MEDS ORDERED: POTASSIUM 25 MEQ EFFERV TAB PO ONE (04:14)
[2020-01-21 04:29] VITALS: O2SAT 95
[2020-01-21] MEDS: NA CHLORIDE 0.9% 1,000 ML IV SCH ×2 (04:47→15:18)
[2020-01-21 05:36] VITALS: BMI 18.0
[2020-01-21] MEDS ORDERED: SODIUM CHL 0.9% 100 ML BAG IV ONE (06:00)
[2020-01-21] MEDS ORDERED: AMPICILLIN/SULBACTAM 3GM/VIAL IV ONE (06:00)
[2020-01-21] MEDS: WATER FOR INJ,STERILE 10 ML IV ONE (06:09)
[2020-01-21] MEDS ORDERED: NA CHLORIDE 0.9% 100 ML ONE (06:19)
--- NOTE | 2020-01-21 07:19 | RAD REPORT ---
EXAM DESCRIPTION: Marcela Single View01/20/2020 10:54 pm CLINICAL HISTORY: cough COMPARISON: November 2019 FINDINGS: The lungs appear clear of acute infiltrate. The heart is normal size IMPRESSION: No acute abnormalities displayed
[2020-01-21] MEDS ORDERED: VANCOMYCIN 1 GM in NA CHLORIDE 0.9% 500 ML IVPB SCH (09:00)
[2020-01-21] MEDS ORDERED: ENOXAPARIN 40 MG/0.4 ML SQ SCH (09:00)
[2020-01-21] MEDS ORDERED: VANCOMYCIN/NS 1 gm 1 GM/250 ML BAG IV SCH (12:00)
[2020-01-21] MEDS ORDERED: AMPICILLIN/SULBACT 3 GM in NA CHLORIDE 0.9% 100 ML IVPB SCH (12:00)
[2020-01-21 15:47] VITALS: BP 109/59; TEMP 98.5
--- NOTE | 2020-01-21 16:44 | P.DS ---
Admission Date: 01/21/20 Discharge Date: 01/21/20 Disposition: ROUTINE DISCHARGE Discharge Condition: FAIR Reason for Admission: Facial cellulitis/UTI Consultations: None - Problems (1) Contact dermatitis Current Visit: Yes Status: Acute (2) Allergic reaction Current Visit: Yes Status: Acute Brief History of Present Illness: 49-year-old woman presented to the emergency department because she did well redness and swelling of her face which occurred while she was tiling her bathroom. She also reported some shortness of breath. The swelling got worse over a matter of hours. She had low-grade fever on presentation. No leukocytosis. Her urinalysis suggested the presence of UTI. Patient is admitted for further management. Hospital Course: She was admitted to the medical floor and treated with antibiotic therapy. Her facial redness and swelling remarkably improved. Patient's symptoms small suggestive of allergic reaction/contact dermatitis rather than cellulitis given the rapid development followed by a rapid improvement. She had no leukocytosis. She she is now asymptomatic. Patient is discharged with antihistamine and oral prednisone to treat the allergic reaction. She is also prescribed Augmentin for UTI form to see her PCP within 1 week for follow up. Vital Signs/Physical Exam: Temp Pulse Resp BP Pulse Ox 98.5 F 90 16 109/59 L 100 01/21/20 15:46 01/21/20 15:46 01/21/20 15:46 01/21/20 15:46 01/21/20 15:46 General: Alert, In no apparent distress HEENT: Mucous membr. moist/pink Neck: Supple Respiratory: Clear to auscultation bilaterally, Normal air movement Cardiovascular: No edema, Regular rate/rhythm, Normal S1 S2 Capillary refill: <2 Seconds Gastrointestinal: Normal bowel sounds, Soft and benign, Non-distended, No tenderness Musculoskeletal: No swelling Integumentary: Erythema (Erythema-nose, forehead, and bilateral maxillary area) Neurological: Normal speech, Normal strength at 5/5 x4 extr Laboratory Data at Discharge: WBC 7.4 K/uL (4.3-10.9) 01/20/20 23:20 Hgb 11.8 g/dL (12.0-15.0) L 01/20/20 23:20 Hct 34.1 % (36.0-45.0) L 01/20/20 23:20 Plt Count 71 K/uL (152-406) L 01/20/20 23:20 Sodium 138 mmol/L (136-145) 01/20/20 22:35 Potassium 3.6 mmol/L (3.5-5.1) 01/20/20 22:35 BUN 6 mg/dL (7-18) L 01/20/20 22:35 Creatinine 0.53 mg/dL (0.55-1.3) L 01/20/20 22:35 Glucose 80 mg/dL (74-106) 01/20/20 22:35 Home Medications: Amox/Clavulanate [Augmentin 875-125 Tab] 1 each PO BID #10 tab 01/21/20 Cetirizine HCl [Zyrtec] 10 mg PO DAILY #5 tablet 01/21/20 Diphenhydramine [Benadryl Tab/Cap] 25 mg PO Q6HP PRN #20 tab 01/21/20 Omeprazole Magnesium 40 mg PO DAILY 01/21/20 predniSONE [Deltasone] 20 mg PO DAILY #3 tab 01/21/20 New Medications: Diphenhydramine [Benadryl Tab/Cap] 25 mg PO Q6HP PRN #20 tab PRN Reason: Itching Amox/Clavulanate [Augmentin 875-125 Tab] 1 each PO BID #10 tab predniSONE [Deltasone] 20 mg PO DAILY #3 tab Cetirizine HCl [Zyrtec] 10 mg PO DAILY #5 tablet Diet: Regular Activity: Ad leobardo Followup: Keon Gant DO, DO [Primary Care Provider] - 1-2 Weeks
[2020-01-21] MEDS ORDERED: ENSURE ENLIVE 237 ML CAN PO SCH (21:00)
[2020-01-22] MEDS ORDERED: OMEPRAZOLE MAGNESIUM 40 MG PO SCH (09:00)
[2020-01-22] MEDS ORDERED: PANTOPRAZOLE 40MG TABLET PO SCH (09:00)
== END 2020-01-21 18:00 | disposition home or self-care (01) ==
LOC: ER 21:45 → INTOOBSV 01-21 02:42 → ERHOLD 01-21 02:42 → 2ND 01-21 03:34
PROVIDERS: ADMIT Internal Medicine; ATTEND Internal Medicine
DX: L23.9 Allergic contact dermatitis, unspecified cause (principal); N39.0 Urinary tract infection, site not specified; A41.9 Sepsis, unspecified organism; R05 Cough; K21.9 Gastro-esophageal reflux disease without esophagitis; K25.9 Gastric ulcer, unspecified as acute or chronic, without hemorrhage or perforation; J45.909 Unspecified asthma, uncomplicated; F17.210 Nicotine dependence, cigarettes, uncomplicated; Z88.8 Allergy status to other drugs, medicaments and biological substances; Z90.49 Acquired absence of other specified parts of digestive tract; Z71.6 Tobacco abuse counseling; Z20.828 Contact with and (suspected) exposure to other viral communicable diseases
CPT/HCPCS: 96365; 96361; 87040 ×2; 87088; 85025; 87086; 80048; 36415; 81025; 83605 ×2; 87077; 87186; 81003; 80202 ×2; 84145; 87804 ×2; 71045; 96375; 99285; 96366; U0003; J1200; J1650; J3370 ×2; J7050; J7030 ×3; J2930; J0295 ×3; J2405 ×2; G0378 ×2

== ENCOUNTER 2020-02-24 10:47 | Emergency (ER) | payer OTHER ==
[2020-02-24 11:39] LABS: Absolute Lymphocytes (CBC) 1.1 K/uL (0.7-4.9); Basophils % 0.7 % (0-1.3); Hematocrit 40.4 % (36.0-45.0); Lymphocytes % 24.3 % (15.3-44.8); MPV 7.4 fL (7.6-11.3)
[2020-02-24 11:48] LABS: ALT/SGPT 47 U/L (12-78); AST/SGOT 99 U/L (15-37); Albumin 3.6 g/dL (3.4-5.0); Alkaline Phosphatase 133 U/L (45-117); BUN Blood Urea Nitrogen 9 mg/dL (7-18); Bicarbonate 27 mmol/L (21-32); Bilirubin Direct 0.5 mg/dL (0-0.2); Bilirubin Total 1.3 mg/dL (0.2-1.0); Glucose Level 72 mg/dL (74-106); Lipase 156 U/L (73-393); Potassium 3.2 mmol/L (3.5-5.1); Protein, Total 8.5 g/dL (6.4-8.2); Sodium Level 142 mmol/L (136-145)
[2020-02-24] MEDS ORDERED: ONDANSETRON 4 MG/2 ML VIAL ONE (11:51)
[2020-02-24] MEDS ORDERED: KETOROLAC 30 MG/ML INJ ONE (11:51)
[2020-02-24] MEDS ORDERED: NA CHLORIDE 0.9% 500 ML ONE (11:52)
[2020-02-24] MEDS ORDERED: FAMOTIDINE 20 MG/2 ML VIAL IV ONE (11:52)
--- NOTE | 2020-02-24 12:20 | RAD REPORT ---
EXAM DESCRIPTION: CT - Head Brain Wo Cont - 02/24/2020 11:53 am CLINICAL HISTORY: Headache COMPARISON: 2008 TECHNIQUE: Computed axial tomography of the head was obtained. IV contrast was not requested. All CT scans are performed using dose optimization technique as appropriate and may include automated exposure control or mA/KV adjustment according to patient size. FINDINGS: An intracranial bleed is not seen . The ventricles are normal in caliber. No extra-axial fluid collection is noted. Fluid within the sinuses/ mastoids is not seen. IMPRESSION: No acute intracranial abnormality is seen. If patient's symptoms persist MRI of the bra in would be recommended.
[2020-02-24] MEDS ORDERED: NA CHLORIDE 0.9% 1,000 ML ONE (12:49)
[2020-02-24] MEDS ORDERED: POTASSIUM CL SA 10 MEQ TAB PO ONE (12:49)
[2020-02-24] MEDS ORDERED: KCL 20 MEQ/100 mL IVPB 20 MEQ/100 ML BAG IV ONE (12:49)
--- NOTE | 2020-02-24 14:50 | ER ---
Nurse's Notes [facility] Name: Lin Farley Age: 49 yrs Sex: Female : 1970 Arrival Date: 02/24/2020 Time: 10:50 Bed 4 Private MD: Diagnosis: Nausea and vomiting;Diarrhea, unspecified;Hypokalemia Presentation: 02/23 10:57 Chief complaint: Patient states: generalized weakness, nausea, nose bleeds, dizziness x sv 2 days. Coronavirus screen: Client denies travel out of the [place] in the last 14 days. At this time, the client does not indicate any symptoms associated with coronavirus-19. Ebola Screen: No symptoms or risks identified at this time. Risk Assessment: Do you want to hurt yourself or someone else? Patient reports no desire to harm self or others. Onset of symptoms was February 22, 2020. 10:57 Method Of Arrival: Ambulatory sv 10:57 Acuity: IAN 2 sv 10:58 Initial Sepsis Screen: Does the patient meet any 2 criteria? HR > 90 bpm. No. Patient's sv initial sepsis screen is negative. Does the patient have a suspected source of infection? No. Patient's initial sepsis screen is negative. 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 - Social history:: Smoking status: Patient reports the use of cigarette tobacco products, denies chronic smoking, but will smoke occasionally. Screenin:13 Abuse screen: Denies threats or abuse. Nutritional screening: No deficits noted. ll1 Tuberculosis screening: No symptoms or risk factors identified. Fall Risk IV access (20 points). Total Schaeffer Fall Scale indicates No Risk (0-24 pts). Assessment: 11:11 General: Appears ill, Behavior is calm, cooperative. Pain: Complains of pain in abdomen ll1 Quality of pain is described as crampy, Pain began 2-3 days ago. Neuro: Level of Consciousness is awake, alert, obeys commands, Oriented to person, place, time, situation, Appropriate for age Chief Radiology are equal bilaterally Moves all extremities. Full function Gait is steady, Speech is normal, Facial symmetry appears normal, Reports dizziness, with position changes. Cardiovascular: No deficits noted. Respiratory: No deficits noted. GI: Abdomen is flat, Bowel sounds present X 4 quads. Abd is soft and non tender X 4 quads. Reports cramping, nausea, vomiting. : No signs and/or symptoms were reported regarding the genitourinary system. Denies burning with urination. 12:10 Reassessment: Patient and/or family updated on plan of care and expected duration. Pain ll1 level reassessed. Patient is alert, oriented x 3, equal unlabored respirations, skin warm/dry/pink. Patient states feeling better. 13:10 Reassessment: Patient and/or family updated on plan of care and expected duration. Pain ll1 level reassessed. Patient is alert, oriented x 3, equal unlabored respirations, skin warm/dry/pink. 14:10 Reassessment: Patient and/or family updated on plan of care and expected duration. Pain ll1 level reassessed. Patient is alert, oriented x 3, equal unlabored respirations, skin warm/dry/pink. Patient states feeling better. 15:00 General: Appears in no apparent distress. Behavior is calm, cooperative, appropriate ll1 for age. Pain: Denies pain. GI: Abdomen is flat, Bowel sounds present X 4 quads. Abd is soft and non tender X 4 quads. no N/V at this time. Vital Signs: 10:58 BP 135 / 89; Pulse 110; Resp 20; Temp 98.1(O); Pulse Ox 100% ; Height 5 ft. 4 in. sv (162.56 cm); 12:46 BP 117 / 85; Pulse 95; Resp 18; Pulse Ox 98% ; ll1 14:16 BP 113 / 72; Pulse 87; Resp 17; Pulse Ox 98% ; ll1 14:46 BP 119 / 81; Pulse 88; Resp 17; Pulse Ox 97% ; ll1 ED Course: 10:50 Patient arrived in ED. rg4 10:54 Juan Diego Cardona MD is Attending Physician. kdr 10:56 Arm band placed on. sv 10:57 Triage completed. sv 11:01 Joel Coluter RN is Primary Nurse. ll1 11:05 Inserted saline lock: 20 gauge in left forearm, using aseptic technique. Blood ll1 collected. 11:13 Patient has correct armband on for positive identification. Bed in low position. Call ll1 light in reach. Side rails up X 1. Pulse ox on. NIBP on. 11:53 CT Head Brain wo Cont In Process Unspecified. EDMS 12:05 EKG done, by ED staff, reviewed by Juan Diego Cardona MD. dh3 15:00 IV discontinued, intact, bleeding controlled, No redness/swelling at site. Pressure ll1 dressing applied. 15:01 No provider procedures requiring assistance completed. ll1 Administered Medications: 11:46 Drug: Zofran (Ondansetron) 4 mg Route: IVP; Site: left forearm; ll1 12:45 Follow up: Response: No adverse reaction; RASS: Alert and Calm (0) ll1 11:46 Drug: Pepcid 20 mg Route: IVP; Site: left forearm; ll1 12:45 Follow up: Response: No adverse reaction; RASS: Alert and Calm (0) ll1 11:46 Drug: TORadol - Ketorolac 15 mg Route: IVP; Site: left forearm; ll1 12:45 Follow up: Response: No adverse reaction; Pain is decreased; RASS: Alert and Calm (0) ll1 11:47 Drug: NS 0.9% 500 ml Route: IV; Rate: bolus; Site: left forearm; ll1 12:45 Follow up: Response: No adverse reaction; RASS: Alert and Calm (0); IV Status: ll1 Completed infusion; IV Intake: 500ml 12:44 Drug: Potassium Chloride 20 mEq Route: IV; Rate: 50 ml/hr; Site: left forearm; ll1 14:36 Follow up: Response: No adverse reaction; RASS: Alert and Calm (0); IV Status: ll1 Completed infusion; IV Intake: 100ml 12:44 Drug: Potassium Chloride 40 mEq Route: PO; ll1 14:37 Follow up: Response: No adverse reaction; RASS: Alert and Calm (0) ll1 Intake: 12:45 IV: 500ml; Total: 500ml. ll1 14:36 IV: 100ml; Total: 600ml. ll1 Outcome: 14:50 Discharge ordered by . kdr 15:01 Discharged to home ambulatory. ll1 15:01 Condition: stable 15:01 Discharge instructions given to patient, Instructed on discharge instructions, follow up and referral plans. medication usage, Demonstrated understanding of instructions, follow-up care, medications, Prescriptions given X 2. 15:02 Patient left the ED. ll1 Signatures: Dispatcher [employer] EDLeslie Mandel RN RN sv Juan Diego Cardona MD MD kdr Garcia, Rubi 4 Cynthia Walker [facility] Joel Coulter RN RN ll1 Corrections: (The following items were deleted from the chart) 11:00 10:57 Chief complaint: Patient states: generalized weakness, nausea, dizziness x 2 sv days. sv 11:00 10:57 Acuity: IAN 3 sv sv
--- NOTE | 2020-02-24 14:51 | EDPHYS ---
Physician Documentation [facility] Name: Lin Farley Age: 49 yrs Sex: Female : 1970 Arrival Date: 02/24/2020 Time: 10:50 Bed 4 Private MD: ED Physician Juan Diego Cardona HPI: 02/23 12:08 This 49 yrs old Female presents to ER via Ambulatory with complaints of kdr Doesn't Feel Right, Vomiting. 12:08 The patient presents to the emergency department with nausea, that is mild, vomiting, kdr that is intermittent, diarrhea, that is intermittent. Onset: The symptoms/episode began/occurred gradually, 3 day(s) ago. Possible causes: unknown. The symptoms are aggravated by food , The symptoms are alleviated by nothing. Associated signs and symptoms: Pertinent positives: diarrhea, nausea, vomiting. Severity of symptoms: At their worst the symptoms were mild just prior to arrival, in the emergency department the symptoms are unchanged. The patient has not recently seen a physician. 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 - Social history:: Smoking status: Patient reports the use of cigarette tobacco products, denies chronic smoking, but will smoke occasionally. ROS: 12:08 Constitutional: Negative for fever, chills, and weight loss, Eyes: Negative for injury, kdr pain, redness, and discharge, Neck: Negative for injury, pain, and swelling, Cardiovascular: Negative for chest pain, palpitations, and edema, Respiratory: Negative for shortness of breath, cough, wheezing, and pleuritic chest pain, Back: Negative for injury and pain, : Negative for injury, bleeding, discharge, and swelling, MS/Extremity: Negative for injury and deformity, Skin: Negative for injury, rash, and discoloration, Neuro: Negative for headache, weakness, numbness, tingling, and seizure activity. Psych: Negative for depression, anxiety, suicide ideation, homicidal ideation, and hallucinations, Allergy/Immunology: Negative for hives, rash, and allergies, Endocrine: Negative for neck swelling, polydipsia, polyuria, polyphagia, and marked weight changes, Hematologic/Lymphatic: Negative for swollen nodes, abnormal bleeding, and unusual bruising. 12:08 Abdomen/GI: Positive for nausea and vomiting, nausea, vomiting, and diarrhea, nausea, Negative for abdominal pain, abdominal cramps, abdominal distension, anorexia, dysphagia, hematemesis, black/tarry stool, rectal pain, rectal bleeding. Exam: 12:08 Constitutional: This is a well developed, well nourished patient who is awake, alert, kdr and in no acute distress. Head/Face: Normocephalic, atraumatic. Eyes: Pupils equal round and reactive to light, extra-ocular motions intact. Lids and lashes normal. Conjunctiva and sclera are non-icteric and not injected. Cornea within normal limits. Periorbital areas with no swelling, redness, or edema. Neck: Trachea midline, no thyromegaly or masses palpated, and no cervical lymphadenopathy. Supple, full range of motion without nuchal rigidity, or vertebral point tenderness. No Meningismus. Chest/axilla: Normal chest wall appearance and motion. Nontender with no deformity. No lesions are appreciated. Cardiovascular: Regular rate and rhythm with a normal S1 and S2. No gallops, murmurs, or rubs. Normal PMI, no JVD. No pulse deficits. Respiratory: Lungs have equal breath sounds bilaterally, clear to auscultation and percussion. No rales, rhonchi or wheezes noted. No increased work of breathing, no retractions or nasal flaring. Abdomen/GI: Soft, non-tender, with normal bowel sounds. No distension or tympany. No guarding or rebound. No evidence of tenderness throughout. Back: No spinal tenderness. No costovertebral tenderness. Full range of motion. Skin: Warm, dry with normal turgor. Normal color with no rashes, no lesions, and no evidence of cellulitis. MS/ Extremity: Pulses equal, no cyanosis. Neurovascular intact. Full, normal range of motion. Neuro: Awake and alert, GCS 15, oriented to person, place, time, and situation. Cranial nerves II-XII grossly intact. Motor strength 5/5 in all extremities. Sensory grossly intact. Cerebellar exam normal. Normal gait. Psych: Awake, alert, with orientation to person, place and time. Behavior, mood, and affect are within normal limits. 14:56 ECG was reviewed by the Attending Physician. kdr Vital Signs: 10:58 BP 135 / 89; Pulse 110; Resp 20; Temp 98.1(O); Pulse Ox 100% ; Height 5 ft. 4 in. sv (162.56 cm); 12:46 BP 117 / 85; Pulse 95; Resp 18; Pulse Ox 98% ; ll1 14:16 BP 113 / 72; Pulse 87; Resp 17; Pulse Ox 98% ; ll1 14:46 BP 119 / 81; Pulse 88; Resp 17; Pulse Ox 97% ; ll1 MDM: 12:08 Data reviewed: vital signs, nurses notes, lab test result(s), radiologic studies. kdr Counseling: I had a detailed discussion with the patient and/or guardian regarding: the historical points, exam findings, and any diagnostic results supporting the discharge/admit diagnosis, lab results, radiology results. 14:50 Patient medically screened. [facility] 02/23 11:18 Order name: Basic Metabolic Panel; Complete Time: 12:15 02/23 11:18 Order name: CBC with Diff; Complete Time: 12:15 02/23 11:18 Order name: Hepatic Function; Complete Time: 12:15 02/23 11:18 Order name: Lipase; Complete Time: 12:15 02/23 11:29 Order name: CT Head Brain wo Cont; Complete Time: 13:01 [facility] 02/23 11:30 Order name: Troponin (emerg Dept Use Only); Complete Time: 14:42 [facility] 02/23 11:18 Order name: IV Saline Lock; Complete Time: 11:20 02/23 11:18 Order name: Labs collected and sent; Complete Time: 11:20 02/23 11:30 Order name: EKG - Nurse/Tech; Complete Time: 12:06 kdr EC:56 Rate is 87 beats/min. Rhythm is regular, Sinus Rhythm with No ectopy. QRS [place] is kdr Normal. [place] interval is normal. QRS interval is normal. QT interval is normal. Clinical impression: NSR w/ Non-specific ST/T Changes. Administered Medications: 11:46 Drug: Zofran (Ondansetron) 4 mg Route: IVP; Site: left forearm; ll1 12:45 Follow up: Response: No adverse reaction; RASS: Alert and Calm (0) 1 11:46 Drug: Pepcid 20 mg Route: IVP; Site: left forearm; 1 12:45 Follow up: Response: No adverse reaction; RASS: Alert and Calm (0) 1 11:46 Drug: TORadol - Ketorolac 15 mg Route: IVP; Site: left forearm; 1 12:45 Follow up: Response: No adverse reaction; Pain is decreased; RASS: Alert and Calm (0) [facility] 11:47 Drug: NS 0.9% 500 ml Route: IV; Rate: bolus; Site: left forearm; 1 12:45 Follow up: Response: No adverse reaction; RASS: Alert and Calm (0); IV Status: ll1 Completed infusion; IV Intake: 500ml 12:44 Drug: Potassium Chloride 20 mEq Route: IV; Rate: 50 ml/hr; Site: left forearm; 1 14:36 Follow up: Response: No adverse reaction; RASS: Alert and Calm (0); IV Status: 1 Completed infusion; IV Intake: 100ml 12:44 Drug: Potassium Chloride 40 mEq Route: PO; 1 14:37 Follow up: Response: No adverse reaction; RASS: Alert and Calm (0) [facility] Disposition: 02/24/20 14:50 Discharged to Home. Impression: Nausea and vomiting, Diarrhea, unspecified, Hypokalemia. - Condition is Stable. - Discharge Instructions: Food Choices to Help Relieve Diarrhea, Adult, Potassium Content of Foods, Nausea and Vomiting, Adult, [id number], Diarrhea, Adult, [id number], Hypokalemia. - Prescriptions for Zofran 4 mg Oral Tablet - take 1 tablet by ORAL route every 4-6 hours As needed; 20 tablet. Pepcid 20 mg Oral Tablet - take 1 tablet by ORAL route once daily; 20 tablet. - Medication Reconciliation Form, Thank You Letter form. - Follow up: Private Physician; When: 2 - 3 days; Reason: If symptoms return, Further diagnostic work-up, Recheck today's complaints, Continuance of care, Re-evaluation by your physician. - Problem is an ongoing problem. - Symptoms have improved. Signatures: Dispatcher [employer] EDLeslie Mandel RN RN sv Rittger, Kevin, MD MD [facility] Membreno, Kelin, RN RN hb Yfn, Lynsay, RN RN ll1 Corrections: (The following items were deleted from the chart) 15:02 14:50 02/24/2020 14:50 Discharged to Home. Impression: Nausea and vomiting; Diarrhea, ll1 unspecified; Hypokalemia. Condition is Stable. Forms are Medication Reconciliation Form, Thank You Letter, Antibiotic Education, Prescription Opioid Use. Follow up: Private Physician; When: 2 - 3 days; Reason: If symptoms return, Further diagnostic work-up, Recheck today's complaints, Continuance of care, Re-evaluation by your physician. Problem is an ongoing problem. Symptoms have improved. kdr
[2020-02-24 15:16] VITALS: TEMP 98.1
[2020-02-24 15:21] VITALS: BP 119/81; O2SAT 97
--- NOTE | 2020-02-25 17:53 | EKG ---
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
== END 2020-02-24 15:02 | disposition home or self-care (01) ==
LOC: ER 10:47
DX: E87.6 Hypokalemia (principal); R19.7 Diarrhea, unspecified; F17.210 Nicotine dependence, cigarettes, uncomplicated; Z88.8 Allergy status to other drugs, medicaments and biological substances
CPT/HCPCS: 96365; 96361; 93005; 85025; 80048; 36415; 80076; 84484; 83690; 70450; 96375; 99284; 96366; J3480; J7040; J7030; J2405

== ENCOUNTER 2020-06-23 16:09 | Emergency (ER) | payer OTHER, SELFPAY ==
--- NOTE | 2020-06-23 16:52 | ER ---
Nurse's Notes [facility] Name: Lin Farley Age: 49 yrs Sex: Female : 1970 Arrival Date: 06/23/2020 Time: 16:12 Bed Waiting Private MD: Diagnosis: Presentation: 06/23 16:17 Chief complaint: Patient states: Cough, fever, fatigue, weak, body aches for 3 weeks. ll1 Covid positive 3 weeks ago. + SOB. Cant sleep or eat. Coronavirus screen: Client denies travel out of the [place] in the last 14 days. congestion, cough unrelated to allergies, difficulty breathing, fatigue, fever, shortness of breath, Client presents with at least one sign or symptom that may indicate coronavirus-19. Standard/surgical mask placed on the client. Ebola Screen: Patient denies travel to an Ebola-affected area in the 21 days before illness onset. Initial Sepsis Screen: Does the patient meet any 2 criteria? HR > 90 bpm. No. Patient's initial sepsis screen is negative. Does the patient have a suspected source of infection? Yes: Productive cough/pneumonia. Risk Assessment: Do you want to hurt yourself or someone else? Patient reports no desire to harm self or others. Onset of symptoms was June 02, 2020. 16:17 Method Of Arrival: Ambulatory [facility] 16:17 Acuity: IAN 3 ll1 Historical: - Allergies: 16:18 novahistamine; ll1 - PMHx: 16:18 gastric ulcer; GERD; ll1 - PSHx: 16:18 Cholecystectomy; ll1 - Immunization history:: Flu vaccine is not up to date. - Social history:: Smoking status: Patient reports the use of cigarette tobacco products, denies chronic smoking, but will smoke occasionally. Vital Signs: 16:17 BP 127 / 93; Pulse 112; Resp 17; Temp 98.4; Pulse Ox 96% ; Weight 48.99 kg; Height 5 ll1 ft. 4 in. (162.56 cm); Pain 10/10; 16:17 Body Mass Index 18.54 (48.99 kg, 162.56 cm) 1 ED Course: 16:12 Patient arrived in ED. mr 16:18 Triage completed. ll1 16:19 Arm band placed on Patient placed in an exam room, on a stretcher. ll1 16:23 Demetrius, Danyelle, LABEL PRINTING MACHINIST-C is [facility]. kb 16:23 Juan Diego Cardona MD is Attending Physician. kb Administered Medications: No medications were administered Outcome: 16:51 Patient left the ED. ll1 16:55 Patient left the ED. kb Signatures: Danyelle Romo FNP-C FNP-Ckb Rosalinda Singletary mr Joel Coulter, RN RN ll1
--- NOTE | 2020-06-23 16:55 | EDPHYS ---
Physician Documentation [facility] Name: Lin Farley Age: 49 yrs Sex: Female : 1970 Arrival Date: 06/23/2020 Time: 16:12 Bed Waiting Private MD: GILL Physician Historical: - Allergies: 06/23 16:18 novahistamine; ll1 - PMHx: 16:18 gastric ulcer; GERD; ll1 - PSHx: 16:18 Cholecystectomy; ll1 - Immunization history:: Flu vaccine is not up to date. - Social history:: Smoking status: Patient reports the use of cigarette tobacco products, denies chronic smoking, but will smoke occasionally. Vital Signs: 16:17 BP 127 / 93; Pulse 112; Resp 17; Temp 98.4; Pulse Ox 96% ; Weight 48.99 kg; Height 5 ll1 ft. 4 in. (162.56 cm); Pain 10/10; 16:17 Body Mass Index 18.54 (48.99 kg, 162.56 cm) ll1 MDM: 16:55 Medical screening is not applicable. kb Administered Medications: No medications were administered Disposition: 06/23/20 16:51 Patient left the facility post triage evaluation and consult. - Patient left due to feeling better. Signatures: Danyelle Romo, ZEKE-C PRODUCT MARKETING ENGINEER-Danieb Joel Coulter, RN RN ll1 Corrections: (The following items were deleted from the chart) 16:55 16:51 06/23/2020 16:51 Patient left the facility post triage evaluation and consult. kb Reason stated they are leaving due to feeling better. ll1
[2020-06-23 16:57] VITALS: BP 127/93; TEMP 98.4; O2SAT 96
== END 2020-06-23 16:55 | disposition left against medical advice (07) ==
LOC: ER 16:09
DX: R06.02 Shortness of breath (principal); Z86.16 Personal history of COVID-19; F17.210 Nicotine dependence, cigarettes, uncomplicated; Z88.8 Allergy status to other drugs, medicaments and biological substances
CPT/HCPCS: 99281

== ENCOUNTER 2020-06-26 12:30 | Emergency (ER) | payer SELFPAY ==
[2020-06-26] MEDS ORDERED: ONDANSETRON 4 MG/2 ML VIAL ONE (14:14)
[2020-06-26] MEDS ORDERED: NA CHLORIDE 0.9% 1,000 ML ONE ×2 (14:14→15:46)
[2020-06-26 14:43] LABS: BUN Blood Urea Nitrogen 8 mg/dL (7-18); Bicarbonate 25 mmol/L (21-32); Glucose Level 83 mg/dL (74-106); Potassium 3.4 mmol/L (3.5-5.1); Sodium Level 138 mmol/L (136-145)
[2020-06-26] MEDS ORDERED: CALCIUM GLUCONATE 1 GM IVPB 1 GM/50 ML BAG IV ONE (15:47)
[2020-06-26 15:51] LABS: Absolute Lymphocytes (CBC) 0.7 K/uL (0.7-4.9); Basophils % 0.7 % (0-1.3); Hematocrit 33.3 % (36.0-45.0); Lymphocytes % 15.9 % (15.3-44.8); MPV 8.4 fL (7.6-11.3); RBC Red Blood Cell Count 3.47 M/uL (3.86-4.86)
[2020-06-26 17:11] LABS: SARS-COV-2 RT PCR NEGATIVE (NEGATIVE)
[2020-06-26 17:13] LABS: Platelet Estimate DECR; White Blood Cell Scan OK (OK)
[2020-06-26 17:14] LABS: Anisocytosis 1+; Blood Morphology Comment NOT SEEN (NOT SEEN); Poikilocytosis 1+
[2020-06-26 17:59] LABS: Albumin 2.7 g/dL (3.4-5.0); Bilirubin Direct 1.4 mg/dL (0-0.2)
[2020-06-26 18:03] LABS: Protime INR 1.27
--- NOTE | 2020-06-26 19:17 | RAD REPORT ---
EXAM DESCRIPTION: CTAbdomen Pelvis W Contrast - 06/26/2020 6:45 pm CLINICAL HISTORY: Abdominal pain. ABD PAIN COMPARISON: Abdomen Pelvis W Contrast dated 12/07/2019 TECHNIQUE: Biphasic CT imaging of the abdomen and pelvis was performed with 100 ml non-ionic IV cont rast. All CT scans are performed using dose optimization technique as appropriate and may include automated exposure control or mA/KV adjustment according to patient size. FINDINGS: The lung bases are clear. Diffusely abnormal appearance to the liver parenchyma is again seen with poorly defined hypodensity t hroughout the liver parenchyma. Mild free fluid is seen along the right hepatic edge. The spleen, kidneys, adrenal glands are within normal limits. No hydronephrosis or solid renal mass. Moderate fluid is seen surrounding the pancreas and duodenal C-loop this could indicate pancreatitis. There are numerous varicosities seen throughout the abdomen pelvis. Several thickened small bowel and colon loops are present. Mild free fluid is seen in the abdomen. Normal appendix. No lytic or blastic bone lesion. IMPRESSION: Moderate acute pancreatitis is a possibility, advise correlation with amylase and lipase levels. Markedly abnormal parenchymal appearance to the liver with mild free fluid in the abdomen pelvis and numerous varicosities again noted, unchanged since prior study. The mild nonspecific small bowel and colon thickening may represent enteropathy or colopathy related to liver disease.
--- NOTE | 2020-06-26 19:43 | EDPHYS ---
Physician Documentation [facility] Name: Lin Farley Age: 49 yrs Sex: Female : 1970 Arrival Date: 06/26/2020 Time: 12:31 Bed 6 Private MD: ED Physician Golden Souza HPI: 06/26 17:27 This 49 yrs old Female presents to ER via Ambulatory with complaints of kb Nausea, Weakness. 17:27 The patient presents to the emergency department with nausea, diarrhea. Onset: The kb symptoms/episode began/occurred 2 week(s) ago. Possible causes: unknown. The symptoms are aggravated by nothing. The symptoms are alleviated by nothing. Associated signs and symptoms: Pertinent positives: diarrhea, nausea, weakness, dizziness. Severity of symptoms: At their worst the symptoms were moderate in the emergency department the symptoms are unchanged. The patient has not experienced similar symptoms in the past. The patient has not recently seen a physician. 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 - Social history:: Smoking status: Patient reports the use of cigarette tobacco products, denies chronic smoking, but will smoke occasionally. ROS: 17:23 Cardiovascular: Negative for chest pain, palpitations, and edema, Respiratory: Negative kb for shortness of breath, cough, wheezing, and pleuritic chest pain, MS/Extremity: Negative for injury and deformity, Skin: Negative for injury, rash, and discoloration. 17:23 Constitutional: Positive for body aches, fatigue, malaise. 17:23 Abdomen/GI: Positive for nausea, diarrhea. 17:23 Neuro: Positive for dizziness, weakness. Exam: 17:24 Head/Face: Normocephalic, atraumatic. Cardiovascular: Regular rate and rhythm with a kb normal S1 and S2. No gallops, murmurs, or rubs. Normal PMI, no JVD. No pulse deficits. Respiratory: Lungs have equal breath sounds bilaterally, clear to auscultation and percussion. No rales, rhonchi or wheezes noted. No increased work of breathing, no retractions or nasal flaring. Abdomen/GI: Soft, non-tender, with normal bowel sounds. No distension or tympany. No guarding or rebound. No evidence of tenderness throughout. Skin: Warm, dry with normal turgor. Normal color with no rashes, no lesions, and no evidence of cellulitis. MS/ Extremity: Pulses equal, no cyanosis. Neurovascular intact. Full, normal range of motion. Neuro: Awake and alert, GCS 15, oriented to person, place, time, and situation. Cranial nerves II-XII grossly intact. Motor strength 5/5 in all extremities. Sensory grossly intact. Cerebellar exam normal. Normal gait. 17:24 Constitutional: The patient appears alert, awake. Vital Signs: 12:51 BP 110 / 76; Pulse 93; Resp 16 S; Temp 97.8(TE); Pulse Ox 99% on R/A; Weight 48.99 kg ca1 (R); Height 5 ft. 4 in. (162.56 cm) (R); 13:11 BP 113 / 72 Supine; Pulse 82; Resp 16; Pulse Ox 100% on R/A; mh5 13:13 BP 109 / 69 Sitting; Pulse 92; Resp 17; Pulse Ox 100% on R/A; mh5 13:15 BP 86 / 63 Standing; Pulse 94; Resp 18; Pulse Ox 97% on R/A; mh5 14:30 BP 118 / 75; Pulse 71; Resp 16; Pulse Ox 100% ; bp 15:00 BP 114 / 77; Pulse 75; Resp 15; Pulse Ox 100% ; bp 16:00 BP 110 / 71; Pulse 75; Resp 17; Pulse Ox 100% ; bp 17:00 BP 103 / 72; Pulse 84; Resp 17; Pulse Ox 100% ; bp 18:00 BP 107 / 64; Pulse 77; Resp 15; Pulse Ox 99% ; bp 19:20 BP 102 / 65; Pulse 76; Resp 16; Pulse Ox 98% ; rr5 20:00 BP 115 / 70; Pulse 70; Resp 16; Temp 98; Pulse Ox 98% ; rr5 12:51 Body Mass Index 18.54 (48.99 kg, 162.56 cm) ca1 MDM: 13:06 Patient medically screened. kb 17:19 Data reviewed: vital signs, nurses notes. Data interpreted: Pulse oximetry: on room air kb is 100 %. Interpretation: normal. 17:49 ED course: Called for 3rd time to check on lab results. They stated they did not have kb the specimen for the test then called back and reported they do have it and will run it now. . 19:22 ED course: Lipase added after CT results reviewed. Spoke to Js about add-on. Pt kb denies abd pain.. 19:26 ED course: Pt appears much better after treatments. Pt states she is ready to go home kb and that she is feeling better. . 19:33 Counseling: I had a detailed discussion with the patient and/or guardian regarding: the kb historical points, exam findings, and any diagnostic results supporting the discharge/admit diagnosis, lab results, radiology results, the need for further work-up and treatment in the hospital. 19:44 Refusal of service: The patient/guardian displays adequate decision making capability kb and despite a detailed discussion of alternatives, benefits, risks, and consequences refuses: Admission to the hospital for further work-up and treatment. ED course: Discussed findings with Dr Fink, recommends admission. Discussed plan with pt, but she reports she is feeling better and is not staying in the hospital. Discussed risks of leaving AMA. Pt states she will return if symptoms worsen, but she cannot stay at this time. . 06/26 13:30 Order name: CBC with Diff; Complete Time: 17:15 kb 06/26 13:30 Order name: Basic Metabolic Panel; Complete Time: 15:05 kb 06/26 15:08 Order name: LFT's; Complete Time: 19:33 kb 06/26 15:08 Order name: PT-INR; Complete Time: 18:12 kb 06/26 15:58 Order name: CBC Smear Scan; Complete Time: 17:15 EDMS 06/26 17:12 Order name: COVID-19/FLU A+B; Complete Time: 17:14 EDMS 06/26 17:49 Order name: CT Abd/Pelvis - IV Contrast Only; Complete Time: 19:21 kb 06/26 19:24 Order name: Lipase; Complete Time: 19:33 EDMS 06/26 13:06 Order name: Orthostatics; Complete Time: 13:21 kb 06/26 13:30 Order name: IV Start; Complete Time: 14:24 kb Administered Medications: 13:45 Drug: NS 0.9% 1000 ml Route: IV; Rate: 1000 ml; Site: right antecubital; bp 13:45 Drug: Zofran (Ondansetron) 4 mg Route: IVP; Site: right antecubital; bp 16:18 Follow up: Response: Nausea is decreased bp 15:35 Drug: Calcium Gluconate 1 grams Route: IVPB; Infused Over: 60 mins; Site: right jl7 antecubital; 15:35 Drug: NS 0.9% 1000 ml Route: IV; Rate: 1000 ml; Site: right antecubital; jl7 Disposition: 06/27 07:02 Co-signature as Attending Physician, Golden Souza MD. rn Disposition: 06/26/20 19:43 Patient has left against medical advice. Impression: Abnormal results of liver function studies, Dehydration, Hypocalcemia. - Patients states they are going to Home. - Condition is Stable. - Discharge Instructions: Acute Pancreatitis, [id number], Dehydration, Adult, [id number]. - Prescriptions for Zofran 4 mg Oral Tablet - take 1 tablet by ORAL route every 6 hours As needed; 20 tablet. Follow up: Emergency Department; When: As needed; Reason: Worsening of condition. Follow up: Private Physician; When: 2 - 3 days; Reason: Recheck today's complaints, Continuance of care, Re-evaluation by your physician. - Problem is new. - Symptoms are unchanged. Signatures: Dispatcher [employer] EDNJ Danyelle Romo, FACE CLEANER-C FACE CLEANER-Ckb Golden Souza MD MD rn Leal, Jahala, RN RN jl7 Thuan Trevino RN RN Rakesh Francis, RN RN rr5 Megan Palma RN RN ca1 Corrections: (The following items were deleted from the chart) 03 16:26 13:32 CORONAVIRUS+MR.LAB.BRZ ordered. EDNJ EDMS 16:27 13:32 Influenza Screen (A \T\ B)+BA.LAB.BRZ ordered. [facility] EDN[facility] 17:24 17:23 Neuro: Positive for weakness, rica strauss 19:45 19:33 Counseling: I had a detailed discussion with the patient and/or guardian rica regarding: the historical points, exam findings, and any diagnostic results supporting the discharge/admit diagnosis, lab results, radiology results, the need for outpatient follow up, a family practitioner, a theatre instructor, to return to the emergency department if symptoms worsen or persist or if there are any questions or concerns that arise at home, kb 20:00 19:43 06/26/2020 19:43 Patients has left against medical advice. Impression: Abnormal rr5 results of liver function studies; Dehydration; Hypocalcemia. Patient states they are going to Home. Condition is Stable. Follow up: Emergency Department; When: As needed; Reason: Worsening of condition. Follow up: Private Physician; When: 2 - 3 days; Reason: Recheck today's complaints, Continuance of care, Re-evaluation by your physician. Problem is new. Symptoms are unchanged. kb
--- NOTE | 2020-06-26 19:43 | ER ---
Nurse's Notes [facility] Name: Lin Farley Age: 49 yrs Sex: Female : 1970 Arrival Date: 06/26/2020 Time: 12:31 Bed 6 Private MD: Diagnosis: Abnormal results of liver function studies;Dehydration;Hypocalcemia Presentation: 06/26 12:51 Chief complaint: Patient states: Can't eat, can't sleep, N/V. Dizzy when getting up. ca1 Diarrhea, aching all over. Coronavirus screen: Client denies travel out of the [place] in the last 14 days. diarrhea, fatigue, muscle pain, nausea, vomiting. Client presents with at least one sign or symptom that may indicate coronavirus-19. Standard/surgical mask placed on the client. Provider contacted for isolation considerations. Client reports previous positive COVID test result. Date of collection: May 2020. Ebola Screen: Patient negative for fever greater than or equal to 101.5 degrees Fahrenheit, and additional compatible Ebola Virus Disease symptoms Patient denies exposure to infectious person. Patient denies travel to an Ebola-affected area in the 21 days before illness onset. No symptoms or risks identified at this time. Initial Sepsis Screen: Does the patient meet any 2 criteria? No. Patient's initial sepsis screen is negative. Does the patient have a suspected source of infection? No. Patient's initial sepsis screen is negative. Risk Assessment: Do you want to hurt yourself or someone else? Patient reports no desire to harm self or others. Onset of symptoms was June 26, 2020. 12:51 Method Of Arrival: Ambulatory ca1 12:51 Acuity: IAN 3 ca1 Triage Assessment: 13:00 General: Appears distressed, uncomfortable, Behavior is cooperative, appropriate for bp age, anxious. Pain: Complains of pain in GENERAL [place]AL[place]. EENT: No deficits noted. Neuro: Reports dizziness. Cardiovascular: No deficits noted. Respiratory: No deficits noted. GI: Reports nausea, vomiting. : No signs and/or symptoms were reported regarding the genitourinary system. Derm: No deficits noted. Musculoskeletal: No deficits noted. 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 - Social history:: Smoking status: Patient reports the use of cigarette tobacco products, denies chronic smoking, but will smoke occasionally. Screenin:00 Abuse screen: Denies threats or abuse. Denies injuries from another. Nutritional bp screening: No deficits noted. Tuberculosis screening: No symptoms or risk factors identified. Fall Risk None identified. Assessment: 13:00 General: SEE TRIAGE NOTE. bp 14:00 Reassessment: No changes from previously documented assessment. Patient and/or family bp updated on plan of care and expected duration. Pain level reassessed. Patient is alert, oriented x 3, equal unlabored respirations, skin warm/dry/pink. GI: Abdomen is non-distended, Abd is soft X 4 quads. 15:00 Reassessment: No changes from previously documented assessment. Patient and/or family bp updated on plan of care and expected duration. Pain level reassessed. Patient is alert, oriented x 3, equal unlabored respirations, skin warm/dry/pink. IVF INFUSING. 16:00 Reassessment: No changes from previously documented assessment. Patient and/or family bp updated on plan of care and expected duration. Pain level reassessed. Patient is alert, oriented x 3, equal unlabored respirations, skin warm/dry/pink. 17:00 Reassessment: Patient appears in no apparent distress at this time. Patient is alert, bp oriented x 3, equal unlabored respirations, skin warm/dry/pink. Patient is alert/active/playful, equal unlabored respirations, skin warm/dry/pink. RESULTS PENDING FOR DISPO Patient states symptoms have improved. 18:00 Reassessment: No changes from previously documented assessment. Patient and/or family bp updated on plan of care and expected duration. Pain level reassessed. Patient is alert, oriented x 3, equal unlabored respirations, skin warm/dry/pink. CT A/P PENDING. 19:30 Reassessment: Patient appears in no apparent distress at this time. Patient and/or rr5 family updated on plan of care and expected duration. Pain level reassessed. Patient is alert, oriented x 3, equal unlabored respirations, skin warm/dry/pink. 20:00 Reassessment: Patient appears in no apparent distress at this time. Patient is alert, rr5 oriented x 3, equal unlabored respirations, skin warm/dry/pink. discharge instruction given and explained without complaints made, AMA form signed. Vital Signs: 12:51 BP 110 / 76; Pulse 93; Resp 16 S; Temp 97.8(TE); Pulse Ox 99% on R/A; Weight 48.99 kg ca1 (R); Height 5 ft. 4 in. (162.56 cm) (R); 13:11 BP 113 / 72 Supine; Pulse 82; Resp 16; Pulse Ox 100% on R/A; mh5 13:13 BP 109 / 69 Sitting; Pulse 92; Resp 17; Pulse Ox 100% on R/A; mh5 13:15 BP 86 / 63 Standing; Pulse 94; Resp 18; Pulse Ox 97% on R/A; mh5 14:30 BP 118 / 75; Pulse 71; Resp 16; Pulse Ox 100% ; bp 15:00 BP 114 / 77; Pulse 75; Resp 15; Pulse Ox 100% ; bp 16:00 BP 110 / 71; Pulse 75; Resp 17; Pulse Ox 100% ; bp 17:00 BP 103 / 72; Pulse 84; Resp 17; Pulse Ox 100% ; bp 18:00 BP 107 / 64; Pulse 77; Resp 15; Pulse Ox 99% ; bp 19:20 BP 102 / 65; Pulse 76; Resp 16; Pulse Ox 98% ; rr5 20:00 BP 115 / 70; Pulse 70; Resp 16; Temp 98; Pulse Ox 98% ; rr5 12:51 Body Mass Index 18.54 (48.99 kg, 162.56 cm) ca1 ED Course: 12:31 Patient arrived in ED. ds1 12:52 Triage completed. ca1 12:53 Arm band placed on right wrist. ca1 13:00 Patient has correct armband on for positive identification. Bed in low position. Call bp light in reach. Side rails up X2. 13:05 Danyelle Romo FNP-C is [facility]. kb 13:05 Golden Souza MD is Attending Physician. kb 13:09 Thuan Trevino, CODEY is Primary Nurse. bp 13:39 Warm blanket given. Socks provided to pt. bw 14:23 Initial lab(s) drawn, by me, sent to lab. COVID swab sent to lab. Flu and/or RSV swab [facility] sent to lab. Inserted saline lock: 22 gauge in right antecubital area, using aseptic technique. Blood collected. 14:24 Basic Metabolic Panel Sent. [facility] 14:24 CBC with Diff Sent. 5 18:45 CT Abd/Pelvis - IV Contrast Only In Process Unspecified. EDHI 19:07 Primary Nurse role handed off by Thuan Trevino, RN tt3 20:00 No provider procedures requiring assistance completed. IV discontinued, intact, rr5 bleeding controlled, No redness/swelling at site. Pressure dressing applied. Administered Medications: 13:45 Drug: NS 0.9% 1000 ml Route: IV; Rate: 1000 ml; Site: right antecubital; bp 13:45 Drug: Zofran (Ondansetron) 4 mg Route: IVP; Site: right antecubital; bp 16:18 Follow up: Response: Nausea is decreased bp 15:35 Drug: Calcium Gluconate 1 grams Route: IVPB; Infused Over: 60 mins; Site: right jl7 antecubital; 15:35 Drug: NS 0.9% 1000 ml Route: IV; Rate: 1000 ml; Site: right antecubital; jl7 Outcome: 20:00 Patient left the ED. rr5 20:00 AMA AMA form signed rr5 20:00 Condition: stable 20:00 Discharge instructions given to patient, Instructed on discharge instructions, follow up and referral plans. medication usage, Demonstrated understanding of instructions, follow-up care, medications, Prescriptions given X 1. Signatures: Dispatcher [employer] [facility] Danyelle Romo, TIRE BUFFER-C TIRE BUFFER-Danieb Alexandrea Chong dsClaudia Daniels 5 Tasha Hough RN RN jl7 Thuan Trevino, RN RN Rakesh Francis RN RN rr5 Megan Palma RN RN ca1 Ramon Whipple tt3 Rachael Ford RN RN Corrections: (The following items were deleted from the chart) 12:54 12:51 Coronavirus screen: Client denies travel out of the [place] in the last 14 days. ca1 diarrhea, fatigue, muscle pain, nausea, vomiting. Client presents with at least one sign or symptom that may indicate coronavirus-19. Standard/surgical mask placed on the client. Provider contacted for isolation considerations. ca1 16:26 14:24 CORONAVIRUS+MR.STACEY.EUSEBIO drawn and sent. 5 EDMS 16:27 14:23 Influenza Screen (A \T\ B)+BA.STACEY.EUSEBIO drawn and sent. [address]
== END 2020-06-26 20:00 | disposition left against medical advice (07) ==
LOC: ER 12:30
DX: E86.0 Dehydration (principal); E83.51 Hypocalcemia; R94.5 Abnormal results of liver function studies; F17.210 Nicotine dependence, cigarettes, uncomplicated; Z20.822 Contact with and (suspected) exposure to COVID-19; Z88.8 Allergy status to other drugs, medicaments and biological substances
CPT/HCPCS: 0240U; 36415; 74177; 80048; 80076; 83690; 85025; 85610; 96374; 96375; 99284; J0610; J2405; J7030; Q9967

== ENCOUNTER 2021-06-03 14:35 | Emergency (ER) | payer SELFPAY ==
[2021-06-03] MEDS ORDERED: ONDANSETRON 4 MG/2 ML VIAL ONE (15:15)
[2021-06-03] MEDS ORDERED: NA CHLORIDE 0.9% 1,000 ML ONE (15:15)
[2021-06-03 15:29] LABS: Absolute Lymphocytes (CBC) 1.1 K/uL (0.7-4.9); Hematocrit 41.3 % (36.0-45.0); Lymphocytes % 30.7 % (15.3-44.8); MPV 6.8 fL (7.6-11.3); RBC Red Blood Cell Count 4.35 M/uL (3.86-4.86)
[2021-06-03 15:48] LABS: ALT/SGPT 86 U/L (12-78); AST/SGOT 231 U/L (15-37); Albumin 3.4 g/dL (3.4-5.0); Alkaline Phosphatase 180 U/L (45-117); BUN Blood Urea Nitrogen 7 mg/dL (7-18); Bicarbonate 25 mmol/L (21-32); Bilirubin Direct 0.9 mg/dL (0-0.2); Bilirubin Total 1.4 mg/dL (0.2-1.0); Glucose Level 108 mg/dL (74-106); Lipase 116 U/L (73-393); Potassium 3.4 mmol/L (3.5-5.1); Protein, Total 7.9 g/dL (6.4-8.2); Sodium Level 142 mmol/L (136-145)
[2021-06-03 16:04] LABS: SARS-COV-2 RT PCR NEGATIVE (NEGATIVE)
--- NOTE | 2021-06-03 16:09 | EDPHYS ---
Physician Documentation [facility] Name: Lin Farley Age: 50 yrs Sex: Female : 1970 Arrival Date: 06/03/2021 Time: 14:36 Bed 19 Private MD: ED Physician Golden Souza HPI: 06/03 15:03 This 50 yrs old Female presents to ER via Wheelchair with complaints of Flu Symptoms, pm1 r/o covid. 15:03 The patient presents to the emergency department with weakness of the entire body, pm1 generalized weakness, diarrhea. Onset: The symptoms/episode began/occurred 5-6 weeks . Context: Patient's family members all sick with covid 5-6 weeks ago and they all got better but she has not improved since then. Associated signs and symptoms: Pertinent negatives: fever, cough, chest pain, shortness of breath. Severity of symptoms: in the emergency department the symptoms are unchanged. Patient's baseline: Neuro: alert and fully oriented, Motor: no deficits, Ambulation: walks without assistance. Current symptoms: generalized weakness and body aches, diarrhea. The patient has not recently seen a physician. Patient is presenting to the ER with complaints of flu-like symptoms and request to rule out covid. 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 - Social history:: Smoking status: Patient denies any tobacco usage or history of. Patient/guardian denies using alcohol. ROS: 15:03 Cardiovascular: Negative for chest pain, palpitations, and edema, Respiratory: Negative pm1 for shortness of breath, cough, wheezing, and pleuritic chest pain. 15:03 Back: Negative for injury and pain, MS/Extremity: Negative for injury and deformity, Skin: Negative for injury, rash, and discoloration. 15:03 Constitutional: Positive for body aches, poor PO intake. 15:03 Abdomen/GI: Positive for diarrhea, Negative for abdominal pain, nausea and vomiting. 15:03 Neuro: Positive for generalized weakness. 15:03 All other systems are negative. Exam: 15:03 Constitutional: This is a well developed, well nourished patient who is awake, alert, pm1 and in no acute distress. Head/Face: Normocephalic, atraumatic. Chest/axilla: Normal chest wall appearance and motion. Nontender with no deformity. No lesions are appreciated. Cardiovascular: Regular rate and rhythm with a normal S1 and S2. No gallops, murmurs, or rubs. Normal PMI, no JVD. No pulse deficits. 15:03 Back: No spinal tenderness. No costovertebral tenderness. Full range of motion. Skin: Warm, dry with normal turgor. Normal color with no rashes, no lesions, and no evidence of cellulitis. MS/ Extremity: Pulses equal, no cyanosis. Neurovascular intact. Full, normal range of motion. 15:03 Eyes: Exam is negative for acute changes, Pupils: no acute changes, Conjunctiva: no acute changes, no injection, Sclera: no acute changes, icterus, is not appreciated. 15:03 Respiratory: Exam negative for acute changes, respiratory distress, shortness of breath, Breath sounds: are clear throughout. 15:03 Abdomen/GI: Inspection: abdomen appears normal, Palpation: abdomen is soft and non-tender, in all quadrants. 15:03 Neuro: Exam negative for acute changes, Orientation: is normal, Mentation: is normal, Motor: is normal, moves all fours. Vital Signs: 14:44 BP 102 / 77; Pulse 113; Resp 20; Temp 98.6(O); Pulse Ox 99% on R/A; Weight 44 kg; ld1 Height 5 ft. 4 in. (162.56 cm); Pain 0/10; 14:44 Body Mass Index 16.65 (44.00 kg, 162.56 cm) ld1 MDM: 15:01 Patient medically screened. pm1 16:07 Data reviewed: vital signs. Data interpreted: Pulse oximetry: on room air is 99 %. pm1 Interpretation: normal. 16:07 Refusal of service: The patient/guardian displays adequate decision making capability pm1 and despite a detailed discussion of alternatives, benefits, risks, and consequences refuses: to wait for lab results and further evaluation and diagnosis. Patient left with her friend. Patient did not want to stay for lab results and treatment. Patient just wanted IV fluids and wanted to go home. 06/03 15:02 Order name: COVID-19/FLU A+B (Document "Date of Onset" if Symptomatic) pm1 06/03 15:02 Order name: Basic Metabolic Panel pm1 06/03 15:02 Order name: CBC with Diff pm1 06/03 15:02 Order name: Hepatic Function pm1 06/03 15:02 Order name: Lipase pm1 06/03 15:02 Order name: IV Saline Lock pm1 06/03 15:03 Order name: ETOH Level; Complete Time: 17:05 pm1 06/03 15:03 Order name: COVID-19/FLU A+B; Complete Time: 16:09 EDMS 06/03 15:03 Order name: Basic Metabolic Panel; Complete Time: 16:09 EDMS 06/03 15:03 Order name: Liver (Hepatic) Function; Complete Time: 16:09 EDMS 06/03 15:03 Order name: Lipase; Complete Time: 16:09 EDMS 06/03 15:02 Order name: Labs collected and sent pm1 06/03 15:03 Order name: Urine Dipstick-Ancillary (obtain specimen) pm1 Administered Medications: 15:23 Drug: NS 0.9% 1000 ml Route: IV; Rate: 1000 ml; Site: right forearm; [facility] 15:23 Drug: Zofran (Ondansetron) 4 mg Route: IVP; Site: right antecubital; 6 Disposition: 16:35 Co-signature as Attending Physician, Golden Souza MD. rn Disposition Summary: 06/03/21 16:09 Eloped Disposition: after being seen by provider pm1 Problem: new pm1 Symptoms: are unchanged pm1 Reason: (see nurse's notes) pm1 Condition: Undetermined pm1 Diagnosis - Weakness pm1 - Diarrhea, unspecified pm1 Followup: pm1 - With: Emergency Department - When: As needed - Reason: Worsening of condition Followup: pm1 - With: Private Physician - When: 2 - 3 days - Reason: Recheck today's complaints, Continuance of care, Re-evaluation by your physician Signatures: Dispatcher [employer] EDHI Golden Souza MD MD rn Marinas, Patrick, CRUSHER DRY GROUND MICA CRUSHER DRY GROUND MICA pm1 Jackie Jacques RN RN ld1 Randa Bryantnifer, RN RN jh6
--- NOTE | 2021-06-03 16:09 | ER ---
Nurse's Notes [facility] Name: Lin Farley Age: 50 yrs Sex: Female : 1970 Arrival Date: 06/03/2021 Time: 14:36 Bed 19 Private MD: Diagnosis: Weakness;Diarrhea, unspecified Presentation: 06/03 14:43 Chief complaint:. ld1 14:44 Chief complaint: Patient states: I am weak and I can't sleep. Reports N/V/D. Friend ld1 states pt has been sick for the past 4 weeks. Coronavirus screen: At this time, the client does not indicate any symptoms associated with coronavirus-19. Ebola Screen: No symptoms or risks identified at this time. Initial Sepsis Screen: Does the patient meet any 2 criteria? No. Patient's initial sepsis screen is negative. Does the patient have a suspected source of infection? No. Patient's initial sepsis screen is negative. Risk Assessment: Do you want to hurt yourself or someone else? Patient reports no desire to harm self or others. Onset of symptoms was June 03, 2021. 14:44 Method Of Arrival: Wheelchair ld1 14:44 Acuity: IAN 3 ld1 Triage Assessment: 14:44 General: Appears in no apparent distress. uncomfortable, slender, Behavior is ld1 cooperative, anxious, crying, drowsy, fussy. Pain: Denies pain. Neuro: Level of Consciousness is awake, alert, obeys commands, Oriented to person, place, time, situation. Cardiovascular: Capillary refill < 3 seconds Patient's skin is warm and dry. Respiratory: Airway is patent Respiratory effort is even, unlabored. GI: Abdomen is flat, non-distended. 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 - Social history:: Smoking status: Patient denies any tobacco usage or history of. Patient/guardian denies using alcohol. Screenin:00 Fall Risk Gait- Weak (10 pts.). Mental Status- Overestimates/Forgets Limitations (15 jh6 pts.). 15:00 Abuse screen: Denies threats or abuse. Nutritional screening: pt admits to ETOH abuse jh6 but also states that she has had nausea and unable to eat well for 2mo. Tuberculosis screening: No symptoms or risk factors identified. Assessment: 14:50 General: Appears uncomfortable, unkempt, Behavior is anxious, Reports feeling ill for > jh6 3 days. 15:50 Reassessment: Patient and/or family updated on plan of care and expected duration. Pain jh6 level reassessed. pt pulled out iv and stated that she was going to go home. When asked what she needed to go home for she said so she could sleep. Stated that she did not want to wait for ant further tests and that she will be fine. Vital Signs: 14:44 BP 102 / 77; Pulse 113; Resp 20; Temp 98.6(O); Pulse Ox 99% on R/A; Weight 44 kg; ld1 Height 5 ft. 4 in. (162.56 cm); Pain 0/10; 14:44 Body Mass Index 16.65 (44.00 kg, 162.56 cm) ld1 ED Course: 14:36 Patient arrived in ED. am2 14:44 Arm band placed on left wrist. ld1 14:46 Triage completed. ld1 14:52 Sushant Gallardo NP is PHCP. pm1 14:52 Golden Souza MD is Attending Physician. pm1 14:59 Inserted saline lock: 20 gauge in right forearm, using aseptic technique. jh6 15:00 Gia Bryant, CODEY is Primary Nurse. jh6 15:00 No provider procedures requiring assistance completed. jh6 15:55 IV discontinued, intact, bleeding controlled, Pressure dressing applied, Pt pulled iv jh6 out without knowledge of nursing staff. minimal swelling noted to rt fa. Administered Medications: 15:23 Drug: NS 0.9% 1000 ml Route: IV; Rate: 1000 ml; Site: right forearm; jh6 15:23 Drug: Zofran (Ondansetron) 4 mg Route: IVP; Site: right antecubital; jh6 Outcome: 16:10 Eloped from patient exam room, after seeing physician dhara 16:10 Condition: stable 16:19 Patient left the ED. ss Signatures: Chanell Lainez, RN RN ss Sushant Gallardo, MAINTENANCE ENGINEER MAINTENANCE ENGINEER pm1 Silke Kendrick am2 Jackie Jacques RN RN ld1 Gia Bryant RN RN jh6
[2021-06-03 16:37] VITALS: BP 102/77; TEMP 98.6; O2SAT 99
[2021-06-03 18:40] LABS: Blood Morphology Comment NOTED (NOT SEEN); Platelet Estimate DECR; Poikilocytosis 1+; White Blood Cell Scan OK (OK)
--- NOTE | 2021-06-04 11:32 | EKG ---
Test Date: 2021-06-03 Test Time: 15:18:39 Senior Insight Manager International: ARLINE MEASUREMENT RESULTS: Intervals: Rate: 94 MT: QRSD: 84 QT: 396 QTc: 495 [place]: P: MT: QRS: -8 T: 44 INTERPRETIVE STATEMENTS: Accelerated Junctional rhythm Low voltage QRS Cannot rule out Anterior infarct, age undetermined Abnormal ECG Compared to ECG 02/24/2020 12:01:15 Accelerated junctional rhythm now present Low QRS voltage now present Sinus rhythm no longer present Prolonged QT interval no longer present Myocardial infarct finding still present Electronically Signed On 06-04-21 11:30:28 [employer]ALL [employer]IRE [employer] by Bernardo Taveras
== END 2021-06-03 16:19 | disposition left against medical advice (07) ==
LOC: ER 14:35
DX: R53.1 Weakness (principal); R19.7 Diarrhea, unspecified; Z88.8 Allergy status to other drugs, medicaments and biological substances; Z20.822 Contact with and (suspected) exposure to COVID-19
CPT/HCPCS: 0240U; 36415; 80048; 80076; 80320; 83690; 85025; 93005; 96374; 99283; J2405; J7030

== ENCOUNTER 2021-12-27 04:01 | Emergency (ER) | payer SELFPAY ==
[2021-12-27] MEDS ORDERED: ONDANSETRON 4 MG/2 ML VIAL ONE ×2 (05:10→08:43)
[2021-12-27] MEDS ORDERED: PANTOPRAZOLE 40 MG INJ ONE (05:11)
[2021-12-27] MEDS ORDERED: NA CHLORIDE 0.9% 250 ML ONE ×2 (05:11→08:13)
[2021-12-27] MEDS ORDERED: NA CHLORIDE 0.9% 500 ML ONE (05:11)
[2021-12-27] MEDS ORDERED: OCTREOTIDE ACETATE 500 MCG/ML ONE (05:12)
[2021-12-27] MEDS ORDERED: OCTREOTIDE ACETATE 100 MCG/ML ONE (05:12)
[2021-12-27] MEDS ORDERED: NA CHLORIDE 0.9% 1,000 ML ONE (05:13)
[2021-12-27 05:15] LABS: Urine Blood Trace-lysed (Negative); Urine Glucose Negative (Negative); Urine Protein 1+ (Negative); Urine Specific Gravity 1.015 (1.005-1.030)
[2021-12-27 05:16] LABS: Absolute Lymphocytes (CBC) 1.8 K/uL (0.7-4.9); Hematocrit 29.7 % (36.0-45.0); Lymphocytes % 18.8 % (15.3-44.8); MCV 98.7 fL (80-100); MPV 7.5 fL (7.6-11.3); RBC Red Blood Cell Count 3.01 M/uL (3.86-4.86)
[2021-12-27 05:20] LABS: Protime INR 3.21
[2021-12-27 05:26] LABS: Urine Bacteria 20-50 /HPF (<20)
[2021-12-27 05:27] LABS: Urine RBC <5 /HPF (None Seen)
[2021-12-27 05:33] LABS: Albumin 1.9 g/dL (3.4-5.0); Potassium 3.2 mmol/L (3.5-5.1); Protein, Total 5.6 g/dL (6.4-8.2)
[2021-12-27 05:35] LABS: Bilirubin Total 11.2 mg/dL (0.2-1.0)
[2021-12-27 05:43] LABS: SARS-CoV-2 Antigen Rapid Res Negative (Negative)
--- NOTE | 2021-12-27 05:47 | EDPHYS ---
Physician Documentation [facility] Name: Lin Farley Age: 51 yrs Sex: Female : 1970 Arrival Date: 12/27/2021 Time: 04:03 Bed 5 Private MD: ED Physician Golden Souza HPI: 12/27 04:23 This 51 yrs old Female presents to ER via Unassigned with complaints of Vomiting blood. rn 04:24 The patient presents to the emergency department vomiting blood. Onset: The rn symptoms/episode began/occurred last night. Abdominal pain: none is appreciated. Modifying factors: The symptoms are alleviated by nothing, the symptoms are aggravated by nothing. Associated signs and symptoms: Pertinent negatives: chest pain, fever. Severity of symptoms: At their worst the symptoms were moderate in the emergency department the symptoms are unchanged. The patient has not experienced similar symptoms in the past. The patient has been recently seen by a physician:. Mother reports patient just discharged from [facility], diagnosed with urosepsis, spent 3 days in hospital, has not filled medication, came in tonight because of 3 episodes of hematemesis. Also reports dark black stool. Known stomach ulcer. . Historical: - Allergies: 04:27 novahistamine; as6 - PMHx: 04:27 Asthma; gastric ulcer; GERD; Alcoholism; elevated liver enzymes; as6 - PSHx: 04:27 Cholecystectomy; as6 - Immunization history:: Client reports having NOT received the Covid vaccine. - Social history:: Smoking status: Patient/guardian denies using tobacco, Stopped _ months ago 2. - Family history:: not pertinent. - Hospitalizations: : Patient was recently seen at. ROS: 04:24 Constitutional: Negative for fever, chills, and weight loss, Eyes: Negative for injury, rn pain, redness, and discharge, Neck: Negative for injury, pain, and swelling, Cardiovascular: Negative for chest pain, palpitations, and edema, Respiratory: Negative for shortness of breath, cough, wheezing, and pleuritic chest pain, Abdomen/GI: Negative for diarrhea, and constipation, Back: Negative for injury and pain, MS/Extremity: Negative for injury and deformity, Skin: Negative for injury, rash, and discoloration, Neuro: Negative for headache, numbness, tingling, and seizure. Exam: 04:24 Constitutional: Jaundiced patient, no acute distress Head/Face: Normocephalic, rn atraumatic. Eyes: + scleral icterus, Periorbital areas with no swelling, redness, or edema. ENT: dry MM Cardiovascular: Tachycardic, regular Respiratory: No increased work of breathing, no retractions or nasal flaring. Abdomen/GI: soft, non-tender Skin: + jaundice MS/ Extremity: Pulses equal, no cyanosis. Neuro: Awake and alert, GCS 15, oriented to person, place, time, and situation. 04:37 ECG was reviewed by the Attending Physician. rn Vital Signs: 04:23 BP 119 / 78; Pulse 116; Resp 12 S; Temp 98.7(O); Pulse Ox 100% on R/A; Weight 52.16 kg as6 (R); Height 5 ft. 4 in. (162.56 cm) (R); Pain 8/10; 05:28 BP 100 / 73; Pulse 98; Resp 14 S; Pulse Ox 100% on R/A; aa9 06:19 BP 99 / 70; Pulse 107; Resp 20 S; Pulse Ox 100% on R/A; aa9 06:52 BP 97 / 60; Pulse 105; Resp 24 S; Pulse Ox 96% on R/A; aa9 07:15 BP 90 / 61; Pulse 98; Resp 15; Pulse Ox 97% on R/A; vg1 08:15 BP 94 / 69; Pulse 102; Resp 16; Pulse Ox 96% on R/A; vg1 09:05 BP 100 / 66; Pulse 98; Resp 15; Temp 98.8; Pulse Ox 98% on R/A; vg1 04:23 Body Mass Index 19.74 (52.16 kg, 162.56 cm) as6 MDM: 04:05 Patient medically screened. rn 05:44 Differential diagnosis: gastritis, varices, liver failure, alcoholic cirrhosis. Data rn reviewed: vital signs, nurses notes, lab test result(s), radiologic studies, plain films, and as a result, I will admit patient. Counseling: I had a detailed discussion with the patient and/or guardian regarding: the historical points, exam findings, and any diagnostic results supporting the discharge/admit diagnosis, lab results, radiology results, the need for further work-up and treatment in the hospital, the need to transfer to another facility, for higher level of care. Response to treatment: the patient's symptoms have mildly improved after treatment, and as a result, I will admit patient. Admission orders: after a detailed discussion of the patient's condition and case, the admit orders are written by me. 12/27 04:22 Order name: Blood Culture Adult (2) rn 12/27 04:22 Order name: CBC with Diff; Complete Time: 05:21 rn 12/27 04:22 Order name: CMP; Complete Time: 05:35 rn 12/27 04:22 Order name: Lactate; Complete Time: 05:35 rn 12/27 04:22 Order name: Protime (+inr); Complete Time: 05:21 rn 12/27 04:22 Order name: Ptt, Activated; Complete Time: 05:21 rn 12/27 04:22 Order name: Urine Culture rn 12/27 04:22 Order name: Urine Microscopic Only; Complete Time: 05:32 rn 12/27 04:22 Order name: Lipase; Complete Time: 05:35 rn 12/27 04:23 Order name: ETOH Level; Complete Time: 05:35 rn 12/27 04:23 Order name: AMMONIA; Complete Time: 05:35 rn 12/27 04:37 Order name: SARS RAPID; Complete Time: 05:44 rn 12/27 05:15 Order name: Urine Dipstick-Ancillary; Complete Time: 05:21 EDMS 12/27 05:16 Order name: Glucose, Ancillary Testing; Complete Time: 05:21 EDMS 12/27 04:22 Order name: Chest Single View XRAY rn 12/27 04:22 Order name: Accucheck; Complete Time: 05:05 rn 12/27 05:43 Order name: Type And Screen ll3 12/27 05:54 Order name: Fresh Frozen Plasma EDMS 12/27 07:07 Order name: EKG Electrocardiogram EDMS 12/27 08:46 Order name: Lactate Sepsis 2 HR Follow-up EDMS 12/27 04:22 Order name: Cardiac monitoring; Complete Time: 04:23 rn 12/27 04:22 Order name: EKG - Nurse/Tech; Complete Time: 05:05 rn 12/27 04:22 Order name: IV Saline Lock - Large Bore; Complete Time: 05:05 rn 12/27 04:22 Order name: Labs collected and sent; Complete Time: 05:05 rn 12/27 04:22 Order name: O2 Per Protocol; Complete Time: 04:23 rn 12/27 04:22 Order name: O2 Sat Monitoring; Complete Time: 04:23 rn 12/27 04:22 Order name: Urine Dipstick-Ancillary (obtain specimen); Complete Time: 05:15 rn 12/27 04:37 Order name: NPO; Complete Time: 04:37 rn EC:37 Rate is 115 beats/min. Rhythm is regular. QRS [place] is Normal. [place] interval is normal. rn QRS interval is normal. QT interval is normal. No Q waves. T waves are Normal. No ST changes noted. Clinical impression: Sinus tachycardia. Interpreted by me. Reviewed by me. Administered Medications: 05:10 Drug: Zofran (Ondansetron) 4 mg Route: IVP; Site: left forearm; aa9 06:17 Follow up: Response: No adverse reaction aa9 05:15 Drug: ProTONIX (pantoprazole) 40 mg Route: IVP; Site: left forearm; aa9 06:17 Follow up: Response: No adverse reaction aa9 05:20 Drug: Octreotide 50 mcg Route: IV; Rate: calculated rate; Site: left forearm; aa9 06:17 Follow up: Response: No adverse reaction; IV Status: Completed infusion aa9 05:27 Drug: NS 0.9% 1000 ml Route: IV; Rate: 1000 ml; Site: left forearm; aa9 06:18 Follow up: Response: No adverse reaction; IV Status: Completed infusion; IV Intake: aa9 975ml 05:27 Drug: ProTONIX (pantoprazole) 8 mg/hr Route: IV; Rate: 25 ml/hr; Site: left forearm; aa9 09:11 Follow up: IV Status: Infusion continued upon transfer vg1 05:27 Drug: Octreotide Infusion (50 mcg/hr) - (Octreotide 500 mcg, NS 0.9% 500 ml) Route: IV; aa9 Rate: 50 ml/hr; Site: left antecubital; 09:11 Follow up: IV Status: Infusion continued upon transfer vg1 06:13 Drug: Rocephin (cefTRIAXone) 1 grams Route: IV; Rate: calculated rate; Site: left aa9 jugular; 06:17 Follow up: Response: No adverse reaction; IV Status: Completed infusion; IV Intake: [id number] 06:17 Drug: D5-1/2 NS with KCl 20 mEq/L 1000 ml Route: IV; Rate: 100 ml/hr; Site: left aa9 antecubital; 09:10 Follow up: IV Status: Infusion continued upon transfer vg1 08:40 Drug: Zofran (Ondansetron) 4 mg Route: IVP; Site: left forearm; vg1 09:10 Follow up: Response: No adverse reaction; Marked relief of symptoms vg1 Disposition Summary: 12/27/21 05:46 Transfer Ordered Transfer Location: [facility] rn Reason: Higher level of care rn Condition: Stable rn Problem: new rn Symptoms: have improved rn Accepting Physician: (12/27/21 09:35) vg1 Diagnosis - Alcoholic cirrhosis of liver rn - Hematemesis rn - UTI/ Urinary tract infection, site not specified pattern carrier Instructions: - Discharge Summary Sheet dh3 Forms: - Medication Reconciliation Form rn - SBAR form rn Signatures: Dispatcher [employer] Golden Maher MD MD rn Smirch, Shelby RN RN Anai Hernandez RN RN vg1 Min Mackey RN CODEY as6 Tisha Brown, RN RN aa9 Corrections: (The following items were deleted from the chart) 09:35 05:46 rn vg1
--- NOTE | 2021-12-27 05:47 | ER ---
Nurse's Notes [facility] Name: Lin Farley Age: 51 yrs Sex: Female : 1970 Arrival Date: 12/27/2021 Time: 04:03 Bed 5 Private MD: Diagnosis: Alcoholic cirrhosis of liver;Hematemesis;UTI/ Urinary tract infection, site not specified Presentation: 12/27 04:23 Chief complaint: Patient states: "I was just in the hospital with a UTI and I was as6 septic. They just discharged me and now I'm vomiting blood" pt is weak, jaundiced. Coronavirus screen: At this time, the client does not indicate any symptoms associated with coronavirus-19. Ebola Screen: No symptoms or risks identified at this time. Initial Sepsis Screen: Does the patient meet any 2 criteria? HR > 90 bpm. Does the patient have a suspected source of infection? No. Patient's initial sepsis screen is negative. Risk Assessment: Do you want to hurt yourself or someone else? Patient reports no desire to harm self or others. Onset of symptoms was December 27, 2021. 04:23 Method Of Arrival: Wheelchair as6 04:23 Acuity: IAN 2 as6 Historical: - Allergies: 04:27 novahistamine; as6 - PMHx: 04:27 Asthma; gastric ulcer; GERD; Alcoholism; elevated liver enzymes; as6 - PSHx: 04:27 Cholecystectomy; as6 - Immunization history:: Client reports having NOT received the Covid vaccine. - Social history:: Smoking status: Patient/guardian denies using tobacco, Stopped _ months ago 2. - Family history:: not pertinent. - Hospitalizations: : Patient was recently seen at. Screenin:55 Abuse screen: Denies threats or abuse. Denies injuries from another. Nutritional as6 screening: No deficits noted. Tuberculosis screening: No symptoms or risk factors identified. Fall Risk Gait- Weak (10 pts.). Total Schaeffer Fall Scale indicates No Risk (0-24 pts). Assessment: 04:38 General: Appears uncomfortable, ill, Behavior is cooperative, quiet. GI: Abdomen is aa9 distended. 05:34 Pain: Complains of pain in abdomen. Neuro: Level of Consciousness is lethargic. aa9 Respiratory: Respiratory effort is even, unlabored. Derm: Skin is jaundiced. 06:19 General: Appears uncomfortable, ill, Behavior is cooperative. Neuro: Level of aa9 Consciousness is lethargic. Derm: Skin is jaundiced. 06:51 General: Appears ill, Behavior is cooperative. Neuro: Level of Consciousness is aa9 lethargic. Respiratory: Respiratory effort is even, unlabored. Derm: Skin is jaundiced. 07:15 Reassessment: Patient appears in no apparent distress at this time. Patient and/or vg1 family updated on plan of care and expected duration. Pain level reassessed. Patient is alert, oriented x 3, equal unlabored respirations, skin warm/dry/pink. c/o ABD pain 7/10. 07:43 Reassessment: report given nAgel FUENTES at [facility]. jd3 07:54 Reassessment: Pt has signed consent for FFP. vg1 08:15 Reassessment: administer of FFP; please refer to Transfusion record for vitals. vg1 09:05 Reassessment: Patient appears in no apparent distress at this time. Patient and/or vg1 family updated on plan of care and expected duration. Pain level reassessed. Patient is alert, oriented x 3, equal unlabored respirations, skin warm/dry/pink. transfusion completed. Vital Signs: 04:23 BP 119 / 78; Pulse 116; Resp 12 S; Temp 98.7(O); Pulse Ox 100% on R/A; Weight 52.16 kg as6 (R); Height 5 ft. 4 in. (162.56 cm) (R); Pain 8/10; 05:28 BP 100 / 73; Pulse 98; Resp 14 S; Pulse Ox 100% on R/A; aa9 06:19 BP 99 / 70; Pulse 107; Resp 20 S; Pulse Ox 100% on R/A; aa9 06:52 BP 97 / 60; Pulse 105; Resp 24 S; Pulse Ox 96% on R/A; aa9 07:15 BP 90 / 61; Pulse 98; Resp 15; Pulse Ox 97% on R/A; vg1 08:15 BP 94 / 69; Pulse 102; Resp 16; Pulse Ox 96% on R/A; vg1 09:05 BP 100 / 66; Pulse 98; Resp 15; Temp 98.8; Pulse Ox 98% on R/A; vg1 04:23 Body Mass Index 19.74 (52.16 kg, 162.56 cm) as6 ED Course: 04:03 Patient arrived in ED. ja2 04:05 Golden Souza MD is Attending Physician. rn 04:16 Tisha Brown, CODEY is Primary Nurse. aa9 04:27 Triage completed. as6 04:28 Arm band placed on. as6 04:46 Chest Single View XRAY In Process Unspecified. EDMS 05:00 Inserted saline lock: 20 gauge in left forearm, using aseptic technique. Blood aa9 collected. Inserted saline lock: 20 gauge in left antecubital area, using aseptic technique. 05:05 AMMONIA Sent. lg3 05:05 ETOH Level Sent. lg3 05:05 Lipase Sent. lg3 05:05 Blood Culture Adult (2) Sent. lg3 05:05 CBC with Diff Sent. lg3 05:05 CMP Sent. lg3 05:05 Lactate Sent. lg3 05:05 Protime (+inr) Sent. lg3 05:06 Ptt, Activated Sent. lg3 05:29 SARS RAPID Sent. aa9 05:46 initiated a transfer with John from [facility]. mw2 05:46 Initiated a transfer with John from [facility]. mw2 05:55 Bed in low position. Call light in reach. Side rails up X2. Client placed on continuous as6 cardiac and pulse oximetry monitoring. NIBP monitoring applied. 05:55 Inserted saline lock: 18 gauge in left EJ, using aseptic technique. as6 06:[address] Souza with the [employer] Technician from [facility]. mw2 06:50 administrative approval given by John Cameron/ patient has been accepted to [address] [place] [address] bed [id number]/ Dr. Menard accepted the patient in transfer/report to be called to [phone]. 08:25 spoke with Leonard with [facility] to transfer pt to [facility], eta 25 dh3 minutes. 09:10 No provider procedures requiring assistance completed. Patient transferred, IV remains vg1 in place. Administered Medications: 05:10 Drug: Zofran (Ondansetron) 4 mg Route: IVP; Site: left forearm; aa9 06:17 Follow up: Response: No adverse reaction aa9 05:15 Drug: ProTONIX (pantoprazole) 40 mg Route: IVP; Site: left forearm; aa9 06:17 Follow up: Response: No adverse reaction aa9 05:20 Drug: Octreotide 50 mcg Route: IV; Rate: calculated rate; Site: left forearm; aa9 06:17 Follow up: Response: No adverse reaction; IV Status: Completed infusion aa9 05:27 Drug: NS 0.9% 1000 ml Route: IV; Rate: 1000 ml; Site: left forearm; aa9 06:18 Follow up: Response: No adverse reaction; IV Status: Completed infusion; IV Intake: aa9 975ml 05:27 Drug: ProTONIX (pantoprazole) 8 mg/hr Route: IV; Rate: 25 ml/hr; Site: left forearm; aa9 09:11 Follow up: IV Status: Infusion continued upon transfer vg1 05:27 Drug: Octreotide Infusion (50 mcg/hr) - (Octreotide 500 mcg, NS 0.9% 500 ml) Route: IV; aa9 Rate: 50 ml/hr; Site: left antecubital; 09:11 Follow up: IV Status: Infusion continued upon transfer vg1 06:13 Drug: Rocephin (cefTRIAXone) 1 grams Route: IV; Rate: calculated rate; Site: left aa9 jugular; 06:17 Follow up: Response: No adverse reaction; IV Status: Completed infusion; IV Intake: [id number] 06:17 Drug: D5-1/2 NS with KCl 20 mEq/L 1000 ml Route: IV; Rate: 100 ml/hr; Site: left aa9 antecubital; 09:10 Follow up: IV Status: Infusion continued upon transfer vg1 08:40 Drug: Zofran (Ondansetron) 4 mg Route: IVP; Site: left forearm; vg1 09:10 Follow up: Response: No adverse reaction; Marked relief of symptoms vg1 Medication: 09:10 VIS not applicable for this client. vg1 Intake: 06:17 IV: 10ml; Total: 10ml. aa9 06:18 IV: 975ml; Total: 985ml. aa9 Outcome: 05:46 ER care complete, transfer ordered by MD. fuentes 09:09 Transferred by ground EMS to [facility]. vg1 09:09 Condition: stable 09:09 Instructed on the need for transfer. 09:35 Patient left the ED. vg1 Signatures: Dispatcher [employer] EDMS Golden Souza MD MD rn Herrera, Cynthia 3 Sreedhar Elkins RN RN jd3 Avis, Tiffanie 2 Rupinder Lim, RN RN lg3 Anai Delatorre RN RN vg1 Comfort Urbina Ashby, RN RN as6 Tisha Brown RN RN aa9 Corrections: (The following items were deleted from the chart) 08:46 08:15 Reassessment: administer of FFP vg1 vg1
[2021-12-27] MEDS ORDERED: CEFTRIAXONE 1000 MG/VIAL ONE (06:04)
[2021-12-27] MEDS ORDERED: D5.45NS W/KCL 20MEQ 1,000 ML IV ONE (06:05)
[2021-12-27 10:31] VITALS: BP 100/66; TEMP 98.8; O2SAT 98
--- NOTE | 2021-12-27 13:56 | EKG ---
Test Date: 2021-12-27 Test Time: 04:32:17 Java Developer Consultant: CRISTOFER MEASUREMENT RESULTS: Intervals: Rate: 115 MD: 122 QRSD: 74 QT: 352 QTc: 486 [place]: P: 41 MD: 122 QRS: 7 T: 19 INTERPRETIVE STATEMENTS: Sinus tachycardia Low voltage QRS Borderline ECG Compared to ECG 06/03/2021 15:18:39 Accelerated junctional rhythm no longer present Myocardial infarct finding no longer present Electronically Signed On 12-27-21 13:55:00 CDT by Johnathan Schilling
--- NOTE | 2021-12-27 14:35 | RAD REPORT ---
EXAM DESCRIPTION: RAD - Chest Single View - 12/27/2021 4:44 am CLINICAL HISTORY: The patient is 51 years old and is Female; hematemesis, sob TECHNIQUE: Frontal view of the chest. COMPARISON: No pertinent prior images available for comparison at time of dictation FINDINGS: LUNGS: Low lung volumes bilaterally, presumably expiratory or related to portable techni que and patient positioning. Lungs are otherwise well-aerated and clear bilaterally. PLEURAL SPACE: The left costophrenic angle is obscured, suggesting a pleural effusion or scarring. No pneumothorax. HEART: The heart size is within normal limits. MEDIASTINUM: Unremarkable. BONES/JOINTS: Unremarkable. IMPRESSION: Blunting of left costophrenic angle, suggestive of a pleural effusion or scarring. Other turcios, no acute chest findings. Electronically signed by: Emeka Lundberg MD 12/27/2021 5:14 AM CDT Due to temporary technical issues with the PACS/Fluency reporting system, reports are being signed by the in house radiologists without review as a courtesy to insure prompt reporting. The interpreting radiologist is fully responsible for the content of the report.
== END 2021-12-27 09:35 | disposition short-term general hospital (02) ==
LOC: ER 04:01
PROC: 30233K1 Transfusion of Nonautologous Frozen Plasma into Peripheral Vein, Percutaneous Approach (ICD-10-PCS; principal; 2021-12-27)
DX: K70.30 Alcoholic cirrhosis of liver without ascites (principal); N39.0 Urinary tract infection, site not specified; F10.20 Alcohol dependence, uncomplicated; Z20.822 Contact with and (suspected) exposure to COVID-19; Z88.8 Allergy status to other drugs, medicaments and biological substances
CPT/HCPCS: 36415; 71045; 80053; 80320; 81003; 81015; 82140; 82947; 83605; 83690; 85025; 85610; 85730; 86850; 86900; 86901; 87040; 87086; 87088; 87811; 93005; 99285; C9113; J2354; J2405; J7030; J7040; J7050; P9059

== ENCOUNTER 2022-01-08 19:46 | Emergency (ER) | payer OTHER, SELFPAY ==
--- OUTSIDE RECORDS SUMMARY | 2022-01-08 19:50 | XMS REPORT | Continuity of Care Document ---
:1970 Author Organization [facility] t Address [address] [place] [address] Care Team Providers Name Role Phone JOSH MENARD Attending Clinician Unavailable MIKHAIL GOMEZ Attending Clinician Unavailable Josh Menard MD Attending Clinician Unavailable Dee Hale MD Attending Clinician Mikhail Gomez MD Attending Clinician Thea Chaudhry MD Attending Clinician THEA CHAUDHRY Attending Clinician Unavailable Deshawn Sher MD Attending Clinician Fei Garcia MD Attending Clinician Comfort Mcbride MD Attending Clinician [phone] THEA CHAUDHRY Admitting Clinician Unavailable Problems Condition Condition Condition Status Onset Resolution Last Treating Co mments Source Name Details Category Date Date Treatment Clinician Date Hemoptysis Hemoptysis Disease [facility] Hematemesi Hematemesi Disease Active [facility] Allergies, Adverse Reactions, Alerts Allergy Allergy Status Severity Reaction(s) Onset Inactive Treating Comm ents Source Name Type Date Date Clinician CHLORPHE Allergy Active High Swelling [facility] Medical PHRINE 00 Center Chlorphe Propensi Active Swelling [facility] -Phenyle adverse 00:00: Medical phrine reaction 00 Center s NO KNOWN Allergy Active [facility] Social History Social Habit Start Date Stop Date Quantity Comments Source History [facility]Med [facility] Alcohol intake 2021-12-28 2021-12-28 [facility]00 of alcohol Medical Center (finding) History [facility] 2021-12-28 2021-12-[address] [facility] Transport Med 00:00:00 00:00:[address] History [facility] 2021-12-28 2021-12-[address] [facility] Housing Unable to 00:00:00 00:00:00 Medical Center Pay History [facility] 2021-12-28 2021-12-[address] [facility] Housing Places 00:00:00 00:00:00 Medical Ce nter Lived History [facility] 2021-12-28 2021-12-[address] [facility] Housing Homeless 00:00:00 00:00:00 Medical Center Last Year Exposure to 2021-12-17 2021-12-[address] [facility] SARS-CoV-2 (event) 00:00:00 11:32:00 Medica l Center Tobacco use and 2021-12-27 2021-12-[address] [facility] exposure 00:00:00 00:00:00 Medical Center Sex Assigned At 1970 [address] [facility] 00:00:00 00:00:00 Medical Center Smoking Status Start Date Stop Date Source Never smoker [facility] Medications Ordered Filled Start Stop Current Ordering Indication Dosage Frequency Signature Comments Components Source Medication Medication Date Date Medication? Clinician (SIG) Name Name sertraline 2022- Yes 50mg QD Take [address] (ZOLOFT) 50 12-30 tablet (50 L [facility] MG tablet 00:00: 23:59 mg total) Me dical 00 :00 by mouth Center daily. ibuprofen 2021- No 800mg Take [address] (ADVIL,MOTR 12-29 mg by [facility] [place]) 800 MG 13:11: 00:00 mouth Medic al tablet 27 :00 every 6 Center (six) hours as needed for Pain. metoclopram 2021- Yes 10mg Take [address] [facility] 12-29 tablet (10 [facility] (REGLAN) 10 00:00: 23:59 mg total) Medical MG tablet 00 :00 by mouth 3 Cent er (three) times daily before meals for 30 days. pantoprazol 2021- Yes 40mg Q.5D Take [address] [facility] 12-29 tablet (40 [facility] (PROTONIX) 00:00: 23:59 mg total) M edical 40 MG 00 :00 by mouth 2 Center tablet (two) times daily for 30 days. simethicone 2021- Yes 80mg Take [address] (MYLICON) 12-29 tablet (80 Goran es 80 MG 00:00: 23:59 mg total) Medica l chewable 00 :00 by mouth Center tablet every 6 (six) hours as needed for Flatulence for up to 10 days. Vital Signs Vital Name Observation Time Observation Value Comments Source HEIGHT 2021-12-28 08:00:00 162 cm WEIGHT 2021-12-28 02:00:00 61.7 kg HEIGHT 2021-12-27 11:00:00 64 cm WEIGHT 2021-12-27 11:00:00 60.5 kg HEIGHT 2021-12-28 08:00:00 162 cm WEIGHT 2021-12-28 02:00:00 61.7 kg HEIGHT 2021-12-27 11:00:00 64 cm WEIGHT 2021-12-27 11:00:00 60.5 kg HEIGHT 2021-12-28 08:00:00 162 cm WEIGHT 2021-12-28 02:00:00 61.7 kg HEIGHT 2021-12-27 11:00:00 64 cm WEIGHT 2021-12-27 11:00:00 60.5 kg Systolic blood 2021-12-29 12:30:00 108 mm[Hg] [facility] pressure Medical Center Diastolic blood 2021-12-29 12:30:00 62 mm[Hg] [facility] Heart rate 2021-12-29 12:30:00 87 /min [facility] Body temperature 2021-12-29 12:30:00 36.83 [facility] Respiratory rate 2021-12-29 12:30:00 18 /min [facility] Oxygen saturation in 2021-12-29 12:30:00 97 /min [facility] Arterial blood by Medical Ce nter Pulse oximetry Body height 2021-12-28 08:00:00 162 cm [facility] Body weight 2021-12-28 02:00:00 61.7 kg [facility] BMI 2021-12-28 02:00:00 23.51 kg/m2 [facility] Procedures Procedure Date / Time Performing Source Performed Clinician PREPARE LEUKO-REDUCED RBC 2021-12-29 Jong Rosleine [facility] 23:54[facility]00 [facility] CBC (HEMOGRAM ONLY) 2021-12-29 [facility] 02:51:00 [facility] BASIC METABOLIC PANEL (7) 2021-12-[address] [facility] 02:51:00 [facility] MAGNESIUM 2021-12-[address] [facility] 02:51:00 [facility] HEPATITIS A ANTIBODY, IGG 2021-12-[address] [facility] 02:51:00 [facility] HEPATITIS B CORE ANTIBODY, IGM 2021-12-[address] [facility] 02:51:00 [facility] HEPATITIS B SURFACE ANTIGEN 2021-12-[address] [facility] 02:51:00 [facility] HEPATITIS C ANTIBODY 2021-12-[address] [facility] 02:51:00 [facility] ANTI-NUCLEAR ANTIBODY (MARLEN) 2021-12-[address] [facility] 02:51:00 [facility] HC LAB FLUORESC AB SCRN EA AB 2021-12-[address] [facility] 02:51:00 [facility] ACTIN (SMOOTH MUSCLE) ANTIBODY, IGG 2021-12-[address] [facility] 02:51:00 [facility] IRON, TIBC, % SAT. (WITHOUT 2021-12-29 [address] burch [facility] FERRITIN) 02:51:00 [facility] CERULOPLASMIN 2021-12-[address] [facility] 02:51:00 [facility] [id number]\, SERUM 2021-12-29 [address]urch [facility] 02:51:00 [facility] FERRITIN 2021-12-29 Geoffrey, Ahmed [facility] 02:51:00 [facility] PROTHROMBIN TIME/INR 2021-12-29 Geoffrey, Ahmed [facility] 02:51:00 [facility] HEPATIC FUNCTION PANEL 2021-12-29 Geoffrey, [facility] 02:51:00 [facility] MITOCHONDRIAL AB SCREEN 2021-12-29 Elizabeth Villafuerte Seth [facility] 02:51:00 [facility] MITOCHONDRIAL AB TITER 2021-12-29 Elizabeth Villafuerte Seth [facility] 02:51:00 [facility] HEMOGLOBIN AND HEMATOCRIT 2021-12-28 [facility] 15:50:00 [facility] CBC (HEMOGRAM ONLY) 2021-12-[address] [facility] 06:12:00 [facility] BASIC METABOLIC PANEL (7) 2021-12-[facility] 06:12:00 [facility] MAGNESIUM 2021-12-28 [facility] 06:12:00 [facility] HEPATIC FUNCTION PANEL 2021-12-28 [facility] 06:12:00 [facility] TRANSFUSE LEUKO-REDUCED RED BLOOD 2021-12-28 Allison Sunshine sa [facility] CELLS 02:30:00 [facility] HEMOGLOBIN AND HEMATOCRIT 2021-12-[address] [facility] 23:51:00 [facility] US ABDOMEN LIMITED 2021-12-[address] [facility] 22:35:00 [facility] ECG 12-LEAD 2021-12-27 Unknown, Hl7 [facility] 20:44:36 [facility] ECG 12-LEAD 2021-12-27 Unknown, Hl7 [facility] 20:44:36 [facility] HEMOGLOBIN AND HEMATOCRIT 2021-12-[address] [facility] 19:00:00 [facility] HEPATITIS PANEL, ACUTE 2021-12-[address] [facility] 19:00:00 [facility] URINALYSIS W/ REFLEX URINE CULTURE 2021-12-[address] [facility] 18:59:00 [facility] REPORT OF PROCEDURE - ENDOSCOPY URL 2021-12-[address] [facility] 18:15:56 [facility] ABORH, MANUAL 2021-12-[address] [facility] 17:06:00 [facility] ESOPHAGOGASTRODUODENOSCOPY 2021-12-[address] [facility] 16:25:00 [facility] TYPE AND SCREEN, AUTOMATED 2021-12-27 Vinh Ray [facility] 15:07:00 [facility] BLOOD CULTURE 2021-12-[address] [facility] 13:23:00 [facility] CBC (HEMOGRAM ONLY) 2021-12-[address] [facility] 13:20:00 [facility] BASIC METABOLIC PANEL (7) 2021-12-[address] [facility] 13:20:00 [facility] MAGNESIUM 2021-12-[address] [facility] 13:20:00 [facility] CALCIUM, IONIZED 2021-12-[address] [facility] 13:20:00 [facility] BLOOD GAS, VENOUS 2021-12-[address] [facility] 13:20:00 [facility] LACTIC ACID, VENOUS 2021-12-[address] [facility] 13:20:00 [facility] HEPATIC FUNCTION PANEL 2021-12-[address] [facility] 13:20:00 [facility] LIPASE 2021-12-27 [facility] 13:20:00 [facility] PROTHROMBIN TIME/INR 2021-12-27 Claudia Braun [facility] 13:20:00 [facility] APTT 2021-12-27 [facility] 13:20:00 [facility] FIBRINOGEN 2021-12-27 [facility] 13:20:00 [facility] PROCALCITONIN 2021-12-[address] [facility] 13:20:00 [facility] SARS-COV2/RT-PCR ([facility]) 2021-12-[address] [facility] 12:44:00 [facility] MRSA SCREEN 2021-12-27 [facility] 12:44:00 [facility] POCT-GLUCOSE METER 2021-12-[address] [facility] 12:22:00 [facility] XR CHEST 1 VIEW PORTABLE / BEDSIDE 2021-12-27 Misael Braun [address]risten [facility] 11:46:00 [facility] EKG-SCANNED 2021-12-27 Provider, Zulema [facility] 00:00:00 [facility] Plan of Care Planned Activity Planned Date Details Comments Source Future Scheduled 2021-12-27 INFLUENZA VACCINE (#1) [facility] 00:00:00 [code = INFLUENZA Medical Ce nter VACCINE (#1)] Future Scheduled 2021-04-[address] [facility] 00:00:00 (12+) [code = Medical Center DEPRESSION SCREENING (12+)] Future Scheduled 2018 SHINGLES VACCINES ([address] [facility] 00:00:00 2) [code = SHINGLES [facility] VACCINES (1 of 2)] Future Scheduled 2013 Lipid panel (procedure) [facility] 00:00:00 [code = 96158325] Medical Ce nter Future Scheduled 1989 Screening for malignant [facility] Test 00:00:00 neoplasm of cervix Medical C enter (procedure) [code = 661744511] Future Scheduled 1987-08-10 DTAP/TDAP/TD VACCINES [facility] 00:00:00 (1 - Tdap) [code = Medical C enter DTAP/TDAP/TD VACCINES (1 - Tdap)] Future Scheduled [address] [facility] 00:00:00 0-64 YRS (1 - PCV) Medical C enter [code = PNEUMOCOCCAL VACCINE 0-64 YRS (1 - PCV)] Future Scheduled 1969-02-08 COVID-19 VACCINE (#1) [facility] 00:00:00 [code = COVID-[address] VACCINE (#1)] Future Scheduled 1968 Screening for malignant [facility] Test 00:00:00 neoplasm of breast Medical C enter (procedure) [code = 264570232] Future Scheduled 1968 CT Colonography (combo) [facility] Test 00:00:00 [code = CT Colonography [facility] (combo)] Future Scheduled 1968 Screening for malignant [facility] Test 00:00:00 neoplasm of colon Medical Ce nter (procedure) [code = 982464821] Future Scheduled 1968 Screening for malignant [facility] Test 00:00:00 neoplasm of colon Medical Ce nter (procedure) [code = 049090988] Future Scheduled 1968 Screening for malignant [facility] Test 00:00:00 neoplasm of colon Medical Ce nter (procedure) [code = 297082294] Future Scheduled 1968 Screening for malignant [facility] Test 00:00:00 neoplasm of colon Medical Ce nter (procedure) [code = 550818763] Future Scheduled 1970 Sigmoidoscopy [code = [facility] 00:00:00 Sigmoidoscopy] Medical Cente r Encounters Start End Encounter Admission Attending Care Care Encounter Source Date/Time Date/Time Type Type Clinicians Facility Department ID 2022-01-11 2022-01-[address] [facility] [id number] [facility] 00:00:00 00:00:00 2021-12-27 2021-12-29 Inpatient ER PATRICIA [facility] Medical ICU 2 [id number] [facility] 10:33:00 16:22:00 MIKHAIL 2021-12-27 2021-12-[address] [facility] [id number] [facility] 10:33:00 16:22:00 [facility] 2021-12-28 2021-12-28 Outpatient LEXIS CHAUDHRY [id number] [facility] 00:00:00 00:00:00 [facility] Seybol d 2021-12-27 2021-12-[address] [facility] [id number] [facility] 16:25:00 17:27:00 Event GarciaDanny mancuso [facility] 2021-12-27 2021-12-[address] [facility] [id number] 16:05:00 16:54:00 [facility] 2021-12-27 2021-12-[address] [facility] [id number] 00:00:00 00:00:00 Only [facility] 2021-12-27 2021-12-27 Travel [facility] [id number] [facility] 00:[facility]00 00:00:00 [facility] Results Test Description Test Time Test Comments Results Result Comments Source ANTI-MITOCHONDRIAL AB, REFLEX TO TITER 2022-01-07 11:05:07 Test Item Value Reference Range Interpretation Comme nts SCAN RESULT (test code = 2566565) BLOOD [id number] 14:00:49 Test Item Value Reference Range Interpretation Comments CULTURE (BEAKER) (test No growth in 5 days code = 1095) BLOOD [id number] 14:00:49 Test Item Value Reference Range Interpretation Comments CULTURE (BEAKER) (test No growth in 5 days code = 1095) The specimen volume collected for this blood culture was below the optimum (10 mL per bottle or 20 mL total). Use of lower volumes may adversely affect recovery and/or detection times of some organisms.ANTI-NUCLEAR ANTIBODY (MARLEN) 2022-01-01 12:42:01 Test Item Value Reference Range Interpretation Comments ANTI-NUCLEAR ANTIBODY (MARLEN) (BEAKER) Negative Negative (test code = 418) Test performed by IFA method.Test performed by IFA method.Prepare Leuko-Red RBC 2021-12-29 23:54:00 Test Item Value Reference Range Interpretation Comments CROSSMATCH (test code = 2264) COMPATIBLE Unit ABO (test code = O Pos 4187856) UNIT NUMBER (test code = B526005557379 934-0) Status (test code = 2926187) [place]_TIMEINCHART Blood Bank Product (test code RED BLOOD CELLS = 2263) PRODUCT CODE (test code = E6278T28 933-2) [facility] [id number] 10:57:18 Test Item Value Reference Range Interpretation Comments Result (test code = 6463-4) No MRSA isolated [facility] [id number] 10:57:18 Test Item Value Reference Range Interpretation Comments CULTURE (BEAKER) (test code No MRSA isolated = 1095) [id number] 06:39:34 Test Item Value Reference Range Interpretation Comments FERRITIN (BEAKER) (test code = 428.99 ng/mL 5.00-275.00 H 361) Nibbler Operator ID - REYNALDO MHEPATITIS A ANTIBODY, [id number] 04:03:23 Test Item Value Reference Range Interpretation Comments HEPATITIS A IGG ANTIBODY (BEAKER) Reactive Nonreactive A (test code = 2797) Nibbler Operator ID - REYNALDO MBASIC METABOLIC [id number] 04:01:22 Test Item Value Reference Range Interpretation Comments SODIUM (BEAKER) 132 meq/L 136-145 L (test code = 381) POTASSIUM 3.6 meq/L 3.5-5.1 (BEAKER) (test code = 379) CHLORIDE (BEAKER) 102 meq/L 98-107 (test code = 382) CO2 (BEAKER) 23 meq/L 22-29 (test code = 355) BLOOD UREA 12 mg/dL 7-21 NITROGEN (BEAKER) (test code = 354) CREATININE 0.68 mg/dL 0.57-1.25 (BEAKER) (test code = 358) GLUCOSE RANDOM 98 mg/dL 70-105 (BEAKER) (test code = 652) CALCIUM (BEAKER) 6.8 mg/dL 8.4-10.2 L (test code = 697) EGFR (BEAKER) 104 Interpretatio n of eGFR (test code = mL/min/1.73 values Stage De scription 1092) sq m Result G1 Vee l or high >=90 G2 Mildly decreased 60-89 G3a Mildl y to moderately 45-5 9 G3b Moderately to s everely 30-44 G4 Severl y decreased 15-29 G5 Kidney failure <15Reported eGF R is based on the CKD-EPI 2020 equation that d oes not use a race coefficientEsti mated GFR is not as accur ate as Creatinine Francia jeremias in predicting glom erular filtration rate . Estimated GFR is not appl icable for dialysis patien ts Nibbler Operator ID - REYNALDO MSpecimen moderately ictericHEPATITIS B CORE ANTIBODY, IGM 2021-12-29 03:59:34 Test Item Value Reference Range Interpretation Comments HEPATITIS B CORE IGM ANTIBODY Nonreactive Nonreactive (BEAKER) (test code = 645) Nibbler Operator ID - REYNALDO MHEPATITIS C [id number] 03:59:34 Test Item Value Reference Range Interpretation Comments HEPATITIS C ANTIBODY (BEAKER) Nonreactive Nonreactive (test code = 367) Nibbler Operator ID - REYNALDO MHEPATITIS B SURFACE [id number] 03:59:33 Test Item Value Reference Range Interpretation Comments HEPATITIS B SURFACE ANTIGEN (2) Nonreactive Nonreactive (BEAKER) (test code = 2585) Specimen is considered negative for HBsAg.IRON, TIBC, % SAT. (WITHOUT FERRITIN) 2021-12-29 03:46:10 Test Item Value Reference Range Interpretation Comments IRON (BEAKER) (test code = 547) 64.0 ug/dL 40.0-160.0 TOTAL IRON BINDING CAPACITY 88 ug/dL 250-450 L (BEAKER) (test code = 769) IRON % SATURATION (2) (BEAKER) 73 % 20-55 H (test code = 2590) Nibbler Operator ID - REYNALDO [id number] 03:44:11 Test Item Value Reference Range Interpretation Comments MAGNESIUM (BEAKER) (test code = 1.9 mg/dL 1.6-2.6 627) Nibbler Operator ID - REYNALDO MHEPATIC FUNCTION [id number] 03:44:11 Test Item Value Reference Range Interpretation Comments TOTAL PROTEIN (BEAKER) (test code = 5.0 gm/dL 6.0-8.3 L 770) ALBUMIN (BEAKER) (test code = 1145) 2.1 g/dL 3.5-5.0 L BILIRUBIN TOTAL (BEAKER) (test code 9.9 mg/dL 0.2-1.2 H = 377) BILIRUBIN DIRECT (BEAKER) (test 6.2 mg/dL 0.1-0.5 H code = 706) ALKALINE PHOSPHATASE (BEAKER) (test 172 U/L 40-150 H code = 346) AST (SGOT) (BEAKER) (test code = 137 U/L 5-34 H 353) ALT (SGPT) (BEAKER) (test code = 51 U/L 6-55 347) Nibbler Operator ID - REYNALDO MSpecimen moderately [id number] 03:38:28 Test Item Value Reference Range Interpretation Comments ALPHA-1 ANTITRYPSIN (BEAKER) 217.60 mg/dL 90.00-200.00 H (test code = 502) Nibbler Operator ID - REYNALDO MPROTHROMBIN [id number] 03:28:23 Test Item Value Reference Range Interpretation Comments PROTIME (BEAKER) 21.8 seconds 11.9-14.2 H (test code = 759) INR (BEAKER) (test 2.04 See_Comment [Automat ed message] code = 370) The system [employer] generated this result transmitted ref erence range: <=5.90. The reference range was not used to int erpret this result as normal/abnormal . RECOMMENDED COUMADIN/WARFARIN INR THERAPY RANGESSTANDARD DOSE: 2.0 - 3.0 Includes: PROPHYLAXIS for venous thrombosis, systemic embolization; TREATMENT for venous thrombosis and/or pulmonary embolus.HIGH RISK: Target INR is 2.5-3.5 for patients with mechanical heart valves.CBC (HEMOGRAM ONLY)2021-12-29 03:18:37 Test Item Value Reference Range Interpretation Comments WHITE BLOOD CELL COUNT (BEAKER) 11.4 K/ L 3.5-10.5 H (test code = 775) RED BLOOD CELL COUNT (BEAKER) 2.46 M/ L 3.93-5.22 L (test code = 761) HEMOGLOBIN (BEAKER) (test code = 7.9 GM/DL 11.2-15.7 L 410) HEMATOCRIT (BEAKER) (test code = 23.2 % 34.1-44.9 L 411) MEAN CORPUSCULAR VOLUME (BEAKER) 94.3 fL 79.4-94.8 (test code = 753) MEAN CORPUSCULAR HEMOGLOBIN 32.1 pg 25.6-32.2 (BEAKER) (test code = 751) MEAN CORPUSCULAR HEMOGLOBIN CONC 34.1 GM/DL 32.2-35.5 (BEAKER) (test code = 752) RED CELL DISTRIBUTION WIDTH 23.3 % 11.7-14.4 H (BEAKER) (test code = 412) PLATELET COUNT (BEAKER) (test 103 K/CU MM 150-450 L code = 756) MEAN PLATELET VOLUME (BEAKER) 9.9 fL 9.4-12.3 (test code = 754) NUCLEATED RED BLOOD CELLS 0 /100 WBC 0-0 (BEAKER) (test code = 413) HEMOGLOBIN AND [id number] 15:58:32 Test Item Value Reference Range Interpretation Comments HEMOGLOBIN (BEAKER) (test code = 7.9 GM/DL 11.2-15.7 L 410) HEMATOCRIT (BEAKER) (test code = 22.0 % 34.1-44.9 L 411) Nibbler Operator ID - 6000HEPATIC FUNCTION [id number] 08:36:48 Test Item Value Reference Range Interpretation Comments TOTAL PROTEIN (BEAKER) 4.7 gm/dL 6.0-8.3 L Speci men slightly (test code = 770) hemolyzed ALBUMIN (BEAKER) (test 2.0 g/dL 3.5-5.0 L Speci men slightly code = 1145) hemolyzed BILIRUBIN TOTAL 9.4 mg/dL 0.2-1.2 H Specimen sli ghtly (BEAKER) (test code = hemoly zed 377) BILIRUBIN DIRECT 5.3 mg/dL 0.1-0.5 H Specimen sl ightly (BEAKER) (test code = hemoly zed 706) ALKALINE PHOSPHATASE 128 U/L 40-150 (BEAKER) (test code = 346) AST (SGOT) (BEAKER) 151 U/L 5-34 H Specimen slightly (test code = 353) hemolyzed ALT (SGPT) (BEAKER) 53 U/L 6-55 Specimen slightly (test code = 347) hemolyzed Nibbler Operator ID - REYNALDO Suazoecimeyasmeen moderately ictericU/S, ABDOMINAL, [id number] 08:02:00Abdomen limited area? Add comment if clarification is needed.->Right upper quadrantReason for exam:->Elevated LFTs, suspect cirrhosis [facility] : 1970 Sex: FFINALREPORT Right Upper Quadrant Ultrasound History: Abnormal liver function tests Comparison: none Findings:Liver appears echogenic, with a mildly nodular contour. No definite hepatic mass or intrahepatic biliary dilation. Patient is status post cholecystectomy per clinical history. Common bile duct measures ninemm. Main portal vein appears patent, with hepatofugal flow. The main portal vein [id number] in diameter. Pancreas not well seen due to overlying bowel gas. Right kidney demonstrates no hydronephrosis, shadowing calculus, or mass lesion. Right kidney measures 10.2 x 4.7 x 5.5cm. Small volume ascites is noted. Impression: 1. Hepatic steatosis. Mildly nodular contour of theliver, which may represent cirrhosis.2. Hepatofugal flow within the main portal vein, suggesting portal hypertension.3. Small volume ascites.4. Prior cholecystectomy. Signed: Wesley Woodward MDReport Verified Date/Time: 12/28/2021 08:02:53 BASIC METABOLIC PANEL 2021-12-28 06:55:43 Test Item Value Reference Range Interpretation Comments SODIUM (BEAKER) 132 meq/L 136-145 L (test code = 381) POTASSIUM 3.8 meq/L 3.5-5.1 Specimen slight ly (BEAKER) (test hemolyzed code = 379) CHLORIDE (BEAKER) 104 meq/L 98-107 (test code = 382) CO2 (BEAKER) 20 meq/L 22-29 L (test code = 355) BLOOD UREA 17 mg/dL 7-21 NITROGEN (BEAKER) (test code = 354) CREATININE 0.69 mg/dL 0.57-1.25 Specimen slight ly (BEAKER) (test hemolyzed code = 358) GLUCOSE RANDOM 126 mg/dL 70-105 H (BEAKER) (test code = 652) CALCIUM (BEAKER) 6.7 mg/dL 8.4-10.2 L (test code = 697) EGFR (BEAKER) 104 Interpretatio n of eGFR (test code = mL/min/1.73 values Stage De scription 1092) sq m Result G1 Vee l or high >=90 G2 Mildly decreased 60-89 G3a Mildl y to moderately 45-5 9 G3b Moderately to s everely 30-44 G4 Severl y decreased 15-29 G5 Kidney failure <15Reported eGF R is based on the CKD-EPI 2020 equation that d oes not use a race coefficientEsti mated GFR is not as accur ate as Creatinine Francia jeremias in predicting glom erular filtration rate . Estimated GFR is not appl icable for dialysis patien ts Nibbler Operator ID - PICHEY LSpecimen moderately [id number] 06:54:35 Test Item Value Reference Range Interpretation Comments MAGNESIUM (BEAKER) 1.9 mg/dL 1.6-2.6 Specimen slightly (test code = 627) hemolyzed Nibbler Operator ID - RONAL LCBC (HEMOGRAM ONLY)2021-12-28 06:40:17 Test Item Value Reference Range Interpretation Comments WHITE BLOOD CELL COUNT (BEAKER) 10.5 K/ L 3.5-10.5 (test code = 775) RED BLOOD CELL COUNT (BEAKER) 2.64 M/ L 3.93-5.22 L (test code = 761) HEMOGLOBIN (BEAKER) (test code = 8.3 GM/DL 11.2-15.7 L 410) HEMATOCRIT (BEAKER) (test code = 24.1 % 34.1-44.9 L 411) MEAN CORPUSCULAR VOLUME (BEAKER) 91.3 fL 79.4-94.8 (test code = 753) MEAN CORPUSCULAR HEMOGLOBIN 31.4 pg 25.6-32.2 (BEAKER) (test code = 751) MEAN CORPUSCULAR HEMOGLOBIN CONC 34.4 GM/DL 32.2-35.5 (BEAKER) (test code = 752) RED CELL DISTRIBUTION WIDTH 22.2 % 11.7-14.4 H (BEAKER) (test code = 412) PLATELET COUNT (BEAKER) (test 111 K/CU MM 150-450 L code = 756) MEAN PLATELET VOLUME (BEAKER) 10.2 fL 9.4-12.3 (test code = 754) NUCLEATED RED BLOOD CELLS 0 /100 WBC 0-0 (BEAKER) (test code = 413) HEMOGLOBIN AND [id number] 00:06:21 Test Item Value Reference Range Interpretation Comments HEMOGLOBIN (BEAKER) (test code = 6.7 GM/DL 11.2-15.7 L 410) HEMATOCRIT (BEAKER) (test code = 19.7 % 34.1-44.9 L 411) Nibbler Operator ID - [id number] w/Microscopic + Reflex to [id number] 20:58:23 Test Item Value Reference Range Interpretation Comments Color, UA (test code Brown = 5778-6) Clarity, UA (test Hazy code = 5767-9) Specific [place], UA 1.028 1.001-1.035 (test code = 5811-5) pH, UA (test code = 6.0 5.0-8.0 5803-2) Protein, UA (test 30 mg/dL Negative A code = 30375-9) Glucose, UA (test Negative Negative code = 365) Ketones, UA (test Negative Negative code = 2514-8) Bilirubin, UA (test Positive Negative A code = 88301-7) Blood, UA (test code Negative Negative = 05821-7) Nitrite, UA (test Negative Negative code = 5802-4) Leukocytes, UA (test Trace Negative A code = 5799-2) Urobilinogen, UA 0.2 mg/dL 0.2-1.0 (test code = 67893-8) RBC, UA (test code = <1 See_Comment [Autom ated 22832-6) message] The system which generated this result transmit mena reference range : /HPF. The reference range was not used to interpret this result as normal/abnormal . WBC, UA (test code = 2 See_Comment [Autom ated 5821-4) message] The system which generated this result transmit mena reference range : /HPF. The reference range was not used to interpret this result as normal/abnormal . Bacteria, UA (test Rare code = 18437-6) Squam Epithel, UA 10 See_Comment [Automate d (test code = 59013-6) messag e] The system which generated this result transmit mena reference range : /HPF. The reference range was not used to interpret this result as normal/abnormal . Crystals, Urine (test None Seen code = 66099-0) Specimen Source (test code = 2795) VALERIA (test code = VALERIA) Nibbler Operator ID - [auto]Nibbler Operator ID - tech Lab Interpretation Abnormal (test code = 57290-2) [facility] [id number] 20:58:23 Test Item Value Reference Range Interpretation Comments COLOR (BEAKER) (test code = 470) Brown CLARITY (BEAKER) (test code = 469) Hazy SPECIFIC GRAVITY UA (BEAKER) (test 1.028 1.001-1.035 code = 468) PH UA (BEAKER) (test code = 467) 6.0 5.0-8.0 PROTEIN UA (BEAKER) (test code = 30 mg/dL Negative A 464) GLUCOSE UA (BEAKER) (test code = Negative Negative 365) KETONES UA (BEAKER) (test code = Negative Negative 371) BILIRUBIN UA (BEAKER) (test code = Positive Negative A 462) BLOOD UA (BEAKER) (test code = 461) Negative Negative NITRITE UA (BEAKER) (test code = Negative Negative 465) LEUKOCYTE ESTERASE UA (BEAKER) Trace Negative A (test code = 466) UROBILINOGEN UA (BEAKER) (test code 0.2 mg/dL 0.2-1.0 = 463) RBC UA (BEAKER) (test code = 519) < /HPF WBC UA (BEAKER) (test code = 520) 2 /HPF BACTERIA (BEAKER) (test code = 517) Rare SQUAMOUS EPITHELIAL (BEAKER) (test 10 /HPF code = 516) CRYSTALS, URINE (BEAKER) (test code None Seen = 1521) SOURCE(BEAKER) (test code = 2795) Nibbler Operator ID - [auto]Nibbler Operator ID - techHEPATITIS PANEL, [id number] 20:23:48 Test Item Value Reference Range Interpretation Comments HEPATITIS A IGM ANTIBODY (BEAKER) Nonreactive Nonreactive (test code = 498) HEPATITIS B CORE IGM ANTIBODY Nonreactive Nonreactive (BEAKER) (test code = 645) HEPATITIS C ANTIBODY (BEAKER) Nonreactive Nonreactive (test code = 367) HEPATITIS B SURFACE ANTIGEN (2) Nonreactive Nonreactive (BEAKER) (test code = 2585) Nibbler Operator ID - ADMINHEMOGLOBIN AND [id number] 19:30:15 Test Item Value Reference Range Interpretation Comments HEMOGLOBIN (BEAKER) (test code = 7.3 GM/DL 11.2-15.7 L 410) HEMATOCRIT (BEAKER) (test code = 21.3 % 34.1-44.9 L 411) Nibbler Operator ID - [id number]-CoV2/RT-PCR (Asymptomatic ONLY)2021-12-27 17:24:43 Test Item Value Reference Interpretation Comments Range SARS-COV2/RT-PCR Positive Negative AA The SARS-Co V-2 (test code = target nucleic 23153-9) acids are detec mena in this specime n. The presence SARS-CoV-2 nucl eic acids cannot ru le out co-infectio ns or disease caus ed by other viral or bacterial pathogens. As w ith any molecular t est, mutations withi n the target ale ons of the Xpert Xp ress SARS-CoV-2 test could affect pr hugo and/or probe binding resulti ng in failure to detect the pres ence of virus or the virus being detected less predictably. Fa lse negative result s may occur if vi wilbert is present at levels below th e analytical limi t of detection. This SARS CoV-2 test is a rapid, real-t moises RT-PCR test intended for th e qualitative detection of nucleic acid fr om SARS-CoV-2 in a nasopharyngeal swab specimen collec mena from individual s suspected of COVID-19 by the ir healthcare provider. Resul ts from the Xpert Xpress SARS-CoV -2 test should be correlated with the clinical histor y, epidemiological data, and other data available to the clinician evaluating the patient. Viral nucleic acid ma y persist in vivo , independent of virus viability . Detection of analyte target( s) does not imply that the correspondi ng virus(es) are infectious or a re the causative agents for clin ical symptoms.This i s a corrected resul t. Previous result was Negative on 12/27/2021 at 163 0 CDT VALERIA (test code = This test has been VALERIA) authorized by FDA under an EUA for use by authorized laboratories. This test is only authorized for the duration of the declaration that circumstances exist justifying the authorization of emergency use of in vitro diagnostic tests for detection and/or diagnosis of COVID-19 under Section 564(b)(1) of the Federal Food, Drug and Cosmetic Act, 21 U.S.C. 360bbb-3(b)(1), unless the authorization is terminated or revoked sooner. Fact Sheet for Healthcare Providers: https://www.[employer]/Documents/Xp ert%20Xpress%20SAR S%20CoV-2/Fact%20S heets/302-3802%20S ARS-COV-2%20HEALTH CARE%20PROVIDERS%2 0FACT%20SHEET.pdf Fact Sheet for Healthcare Patients: https://www.[employer]/Documents/Xp ert%20Xpress%20SAR S%20CoV-2/Fact%20S heets/302-3801%20S ARS-COV-2%20PATIEN T%20FACT%20SHEET.p df Lab Interpretation Abnormal (test code = 04066-9) [facility]2021-12-27 17:24:43 Test Item Value Reference Range Interpretation Comments SARS-COV2/RT-PCR Positive Negative AA The SARS-Co V-2 target (test code = nucleic acids a re detected ) in this specime n. The presence SARS-C oV-2 nucleic acids cannot ru le out co-infections o r disease caused by other viral or bacterial patho gens. As with any molecular t est, mutations withi n the target regions of the Xpert Xpress SARS-CoV-2 test could affect primer and/or p robe binding resulting in fa ilure to detect the pres ence of virus or the virus be ing detected less predictabl y. False negative result s may occur if virus is pre sent at levels below th e analytical limit of detect ion. This SARS CoV-2 test is a rapid, real-time RT-PC R test intended for th e qualitative detection of nu cleic acid from SARS-CoV-2 in a nasopharyngeal swab specimen collected from individuals suspected of CO VID-19 [facility]. Results from th e Xpert Xpress SARS-CoV -2 test should be corre lated with the clinical hi story, epidemiological data, and other data avai lable to the clinician evalu ating the patient. Viral nucleic acid may persist in vivo, independent of virus viability. Dete ction of analyte target( s) does not imply that the corresponding virus(es) are i nfectious or are the causati ve agents for clinical sympto ms.This is a corrected resul t. Previous result was Nega tive on 12/27/2021 at 163 0 CDT This test has been authorized by FDA under an EUA for use by authorized laboratories. This test is only authorized for the duration of the declaration that circumstances exist justifying the authorization of emergency use of in vitro diagnostic tests for detection and/or diagnosis of COVID-19 under Section 564(b)(1) of the Federal Food, Drug and Cosmetic Act, 21 U.S.C. 360bbb-3(b)(1), unless the authorization is terminated or revoked sooner. Fact Sheet for Healthcare Providers: https://www.[[employer]/Documents/Xpert%20Xpress%20SARS%20CoV-2/Fact%20Sheets/670-3802%29DXOT-WBY-4%20 HEALTHCARE%20PROVIDERS%20FACT%20SHEET.pdf Fact Sheet for Healthcare Patients: https://www.[a][employer]/Documents/Xpert%20Xp ress%20SARS%20CoV-2/Fact%20Sheets/3023801%12EJON-NSB-2%20PATIENT%20FACT%20SHEET .[id number] 16:11:33 Test Item Value Reference Range Interpretation Comments PROCALCITONIN (BEAKER) (test code 0.91 ng/mL <0.05 H = 3036) SEPSIS RISK (ng/mL)Low: 0.05-0.50Intermediate: 0.51-2.00High: >=2.01RAD, CHEST, 1 VIEW, NON [id number] 15:12:00Post-intubationReason for exam:- >eval for pulmonary congestionShould this be performed at the [facility]?->YesCH[facility] : 1970 Sex: FFINALREPORT CLINICAL HISTORY: eval for pulmonary congestion TECHNIQUE: 1 view of thechest. COMPARISON: None IMPRESSION: There are bibasilar lung opacities with small left and trace right pleural effusions. The cardiomediastinal silhouette is magnified by technique. Signed: Chasidy Adhikari [facility] Hospital[facility] Verified Date/Time: 12/27/2021 15:12:33 Reading Location: [address] Reading Room BASI [employer] [id number] 14:25:25 Test Item Value Reference Range Interpretation Comments SODIUM (BEAKER) 134 meq/L 136-145 L (test code = 381) POTASSIUM 3.5 meq/L 3.5-5.1 (BEAKER) (test code = 379) CHLORIDE (BEAKER) 103 meq/L 98-107 (test code = 382) CO2 (BEAKER) 23 meq/L 22-29 (test code = 355) BLOOD UREA 23 mg/dL 7-21 H NITROGEN (BEAKER) (test code = 354) CREATININE 0.78 mg/dL 0.57-1.25 (BEAKER) (test code = 358) GLUCOSE RANDOM 101 mg/dL 70-105 (BEAKER) (test code = 652) CALCIUM (BEAKER) 6.6 mg/dL 8.4-10.2 L (test code = 697) EGFR (BEAKER) 91 Interpretatio n of eGFR (test code = mL/min/1.73 values Stage D escription 1092) sq m Result G1 Vee l or high >=90 G2 Mildly decreased 60-89 G3a Mildl y to moderately 45-5 9 G3b Moderately to s everely 30-44 G4 Severl y decreased 15-29 G5 Kidney failure <15Reported eGF R is based on the CKD-EPI 2020 equation that d oes not use a race coefficientEsti mated GFR is not as accur ate as Creatinine Francia jeremias in predicting glom erular filtration rate . Estimated GFR is not appl icable for dialysis patien ts Nibbler Operator ID - ADMINSpecimen markedly [id number] 14:20:21 Test Item Value Reference Range Interpretation Comments MAGNESIUM (BEAKER) (test code = 1.8 mg/dL 1.6-2.6 627) Nibbler Operator ID - ADMINHEPATIC FUNCTION [id number] 14:20:21 Test Item Value Reference Range Interpretation Comments TOTAL PROTEIN (BEAKER) (test code 5.1 gm/dL 6.0-8.3 L = 770) ALBUMIN (BEAKER) (test code = 2.2 g/dL 3.5-5.0 L 1145) BILIRUBIN TOTAL (BEAKER) (test 11.6 mg/dL 0.2-1.2 H code = 377) BILIRUBIN DIRECT (BEAKER) (test 7.0 mg/dL 0.1-0.5 H code = 706) ALKALINE PHOSPHATASE (BEAKER) 153 U/L 40-150 H (test code = 346) AST (SGOT) (BEAKER) (test code = 165 U/L 5-34 H 353) ALT (SGPT) (BEAKER) (test code = 54 U/L 6-55 347) Nibbler Operator ID - ADMINSpecimen markedly [id number] 14:20:21 Test Item Value Reference Range Interpretation Comments LIPASE (BEAKER) (test code = 749) 26 U/L 8-78 Nibbler Operator ID - ADMINSpecimen markedly ictericLACTIC ACID, [id number] 14:18:24 Test Item Value Reference Range Interpretation Comments LACTATE BLOOD VENOUS (2) (BEAKER) 1.25 mmol/L 0.50-2.20 (test code = 2872) Nibbler Operator ID - ADMINSpecimen markedly [id number] 14:07:20 Test Item Value Reference Range Interpretation Comments FIBRINOGEN LEVEL (BEAKER) (test 145 mg/dl 225-434 L code = 658) [id number] 14:02:54 Test Item Value Reference Range Interpretation Comments PARTIAL THROMBOPLASTIN TIME 45.1 seconds 22.5-36.0 H (BEAKER) (test code = 760) PROTHROMBIN TIME/[id number] 14:01:57 Test Item Value Reference Range Interpretation Comments PROTIME (BEAKER) 22.9 seconds 11.9-14.2 H (test code = 759) INR (BEAKER) (test 2.17 See_Comment [Automat ed message] code = 370) The system [employer] generated this result transmitted ref erence range: <=5.90. The reference range was not used to int erpret this result as normal/abnormal . RECOMMENDED COUMADIN/WARFARIN INR THERAPY RANGESSTANDARD DOSE: 2.0 - 3.0 Includes: PROPHYLAXIS for venous thrombosis, systemic embolization; TREATMENT for venous thrombosis and/or pulmonary embolus.HIGH RISK: Target INR is 2.5-3.5 for patients with mechanical heart valves.CBC (HEMOGRAM ONLY)2021-12-27 13:58:41 Test Item Value Reference Range Interpretation Comments WHITE BLOOD CELL COUNT (BEAKER) 7.9 K/ L 3.5-10.5 (test code = 775) RED BLOOD CELL COUNT (BEAKER) 2.34 M/ L 3.93-5.22 L (test code = 761) HEMOGLOBIN (BEAKER) (test code = 7.7 GM/DL 11.2-15.7 L 410) HEMATOCRIT (BEAKER) (test code = 22.1 % 34.1-44.9 L 411) MEAN CORPUSCULAR VOLUME (BEAKER) 94.4 fL 79.4-94.8 (test code = 753) MEAN CORPUSCULAR HEMOGLOBIN 32.9 pg 25.6-32.2 H (BEAKER) (test code = 751) MEAN CORPUSCULAR HEMOGLOBIN CONC 34.8 GM/DL 32.2-35.5 (BEAKER) (test code = 752) RED CELL DISTRIBUTION WIDTH 19.2 % 11.7-14.4 H (BEAKER) (test code = 412) PLATELET COUNT (BEAKER) (test 104 K/CU MM 150-450 L code = 756) MEAN PLATELET VOLUME (BEAKER) 10.3 fL 9.4-12.3 (test code = 754) NUCLEATED RED BLOOD CELLS 0 /100 WBC 0-0 (BEAKER) (test code = 413) BLOOD GAS, [id number] 13:40:28 Test Item Value Reference Range Interpretation Comments PH VENOUS (BEAKER) (test code = 7.48 7.32-7.42 H 701) PCO2 VENOUS (BEAKER) (test code = 39 mm Hg 41-51 L 755) PO2 VENOUS (BEAKER) (test code = 39 mm Hg 25-40 702) O2 SATURATION VENOUS (BEAKER) 77.7 % 40.0-70.0 H (test code = 703) HCO3 VENOUS (BEAKER) (test code = 29 mmol/L 21-29 705) BASE EXCESS VENOUS (BEAKER) (test 4.8 mmol/L -2.0-3.0 H code = 704) PATIENT TEMPERATURE (BEAKER) (test 37.0 code = 1818) FIO2 (BEAKER) (test code = 1819) 21.0 CALCIUM, [id number] 13:40:23 Test Item Value Reference Range Interpretation Comments CALCIUM IONIZED (BEAKER) (test 0.93 mmol/L 1.12-1.27 L code = 698) PH, BLOOD (BEAKER) (test code = 7.48 1810) POC-Glucose [id number] 12:34:41 Test Item Value Reference Range Interpretation Comments POC-Glucose Meter (test 121 mg/dL 70-110 H : TE STED AT [facility] code = 1538) [address] [facility], [address]70 30: Nibbler Operator/Techni alley ID = [id number] for BHAVNA BURNHAM Lab Interpretation (test Abnormal code = 30612-4) [facility]PO[facility] [id number] 12:34:41 Test Item Value Reference Range Interpretation Comments POC-GLUCOSE METER 121 mg/dL 70-110 H : TESTED A T [facility] 6720 (BEAKER) (test code = [place], 1538) [address]: Nibbler Operator/Techni alley ID = [id number] for ZION DE LA ROSA
[2022-01-08 21:43] LABS: Absolute Lymphocytes (CBC) 1.1 K/uL (0.7-4.9); Hematocrit 24.5 % (36.0-45.0); Lymphocytes % 13.1 % (15.3-44.8); MCV 100.4 fL (80-100); MPV 7.6 fL (7.6-11.3); RBC Red Blood Cell Count 2.44 M/uL (3.86-4.86)
[2022-01-08 22:08] LABS: Albumin 1.7 g/dL (3.4-5.0); Protein, Total 5.6 g/dL (6.4-8.2); Troponin High Sensitivity 9.2 pg/mL (<58.9)
--- NOTE | 2022-01-08 22:11 | RAD REPORT ---
EXAM DESCRIPTION: RAD - Chest Single View - 01/08/2022 9:54 pm CLINICAL HISTORY: SOB Chest pain. COMPARISON: Chest Single View dated 12/27/2021; Chest Single View dated 01/20/2020; Chest Single View d ated 12/07/2019; CHEST SINGLE VIEW dated 01/23/2011 FINDINGS: Portable technique limits examination quality. 2-3 cm opacity in the right upper lung suspicious for developing pneumonia. This is new since recent 12/27/2021 study. Mild atelectasis is present in the right lung base. Small bilateral pleural effusio ns. The heart is mildly enlarged in size.
[2022-01-08 22:13] LABS: Bilirubin Total 6.9 mg/dL (0.2-1.0)
[2022-01-08] MEDS ORDERED: ONDANSETRON 4 MG/2 ML VIAL ONE (22:33)
[2022-01-08] MEDS ORDERED: MORPHINE 4 MG/ML SYR ONE (22:33)
--- NOTE | 2022-01-08 22:51 | RAD REPORT ---
EXAM DESCRIPTION: CTAbdomen Pelvis W Contrast - 01/08/2022 10:41 pm CLINICAL HISTORY: Abdominal pain. Abdominal pain, acute, nonlocalized COMPARISON: Abdomen Pelvis W Contrast dated 06/26/2020; Abdomen Pelvis W Contrast dated 12/07/2019; CT ABD PELVIS W CONTRAST dated 09/02/2011 TECHNIQUE: Biphasic CT imaging of the abdomen and pelvis was performed with 100 ml non-ionic IV cont rast. All CT scans are performed using dose optimization technique as appropriate and may include automated exposure control or mA/KV adjustment according to patient size. FINDINGS: Small bilateral pleural effusions with bibasilar atelectasis. Mild heterogenous appearance to the liver parenchyma is seen. Small nonspecific 9 mm low-density lesi on is seen in the right lobe of the liver peripherally. Cholecystectomy clips are noted. The spleen, pancreas, adrenal glands and kidneys are within normal limits. Uimx-ly-fpnmmmqh ascites. No bowel obstruction is present. Numerous venous collateral vessels are see n in the right abdomen. Mild thickened appearance to the right colon is evident. Normal appendix. No suspicious bony findings. IMPRESSION: Bcqn-ow-nqzkthjl ascites. Heterogenous appearance to the liver parenchyma may be related to mild cirrhosis or underlying parenc hymal disease/ chronic inflammation. Small bilateral pleural effusions.
--- NOTE | 2022-01-08 23:14 | ER ---
Nurse's Notes [facility] Name: Lin Farley Age: 51 yrs Sex: Female : 1970 Arrival Date: 01/08/2022 Time: 19:50 Bed 5 Private MD: Diagnosis: Abdominal pain, Generalized;Alcoholic cirrhosis of liver with ascites;Edema, unspecified-Bilateral lower extremities Presentation: 01/08 20:18 Chief complaint: Patient states: Pt has swelling from abdomen down to feet. Unknown of [facility] CHF. Constipation as well. Coronavirus screen: Vaccine status: Patient reports being unvaccinated. Ebola Screen: Patient negative for fever greater than or equal to 101.5 degrees Fahrenheit, and additional compatible Ebola Virus Disease symptoms Patient denies exposure to infectious person. Patient denies travel to an Ebola-affected area in the 21 days before illness onset. Initial Sepsis Screen: Does the patient meet any 2 criteria? No. Patient's initial sepsis screen is negative. Does the patient have a suspected source of infection? No. Patient's initial sepsis screen is negative. Risk Assessment: Do you want to hurt yourself or someone else? Patient reports no desire to harm self or others. Onset of symptoms was January 01, 2022. 20:18 Method Of Arrival: Ambulatory [facility] 20:18 Acuity: INA 3 jh5 Triage Assessment: 20:23 General: Appears in no apparent distress. uncomfortable, Behavior is calm, cooperative, jh5 appropriate for age. Pain: Complains of pain in abdomen. GI: Abdomen is round. CLEANER CARPET AND UPHOLSTERY: 20:23 LMP N/A - Irregular menses 5 Historical: - Allergies: 20:23 novahistamine; jh5 - PMHx: 20:23 Alcoholism; Asthma; elevated liver enzymes; gastric ulcer; GERD; jh5 - PSHx: 20:23 Cholecystectomy; 5 - Immunization history:: Adult Immunizations up to date. - Social history:: Smoking status: Patient/guardian denies using tobacco, but has a distant history of tobacco abuse. Screenin:42 Abuse screen: Denies threats or abuse. Denies injuries from another. Nutritional aa9 screening: No deficits noted. Tuberculosis screening: No symptoms or risk factors identified. Fall Risk None identified. Assessment: 20:39 General: Appears uncomfortable, ill, Behavior is cooperative, drowsy, quiet. Pain: aa9 Complains of pain in abdomen Pain currently is 10 out of 10 on a pain scale. Neuro: Level of Consciousness is awake, alert, obeys commands, Oriented to person, place, time, situation. Cardiovascular: Edema pitting to left lower thigh, left knee, left midcalf, left ankle, left foot, left toes, right lower thigh, right knee, right midcalf, right ankle, right foot and right toes. GI: Abdomen is round distended, Bowel sounds present X 4 quads. Abd is soft X 4 quads Abdomen is tender to palpation X 4 quads. 20:39 GI: Patient currently denies diarrhea, nausea, vomiting. aa9 20:39 General: Appears jaundiced eyes . aa9 23:00 Reassessment: No changes from previously documented assessment. Patient and/or family ll3 updated on plan of care and expected duration. Pain level reassessed. Patient is alert, oriented x 3, equal unlabored respirations, skin warm/dry/pink. 01/09 01:00 Reassessment: No changes from previously documented assessment. Patient and/or family ll3 updated on plan of care and expected duration. Pain level reassessed. Patient is alert, oriented x 3, equal unlabored respirations, skin warm/dry/pink. 03:00 Reassessment: No changes from previously documented assessment. Patient and/or family ll3 updated on plan of care and expected duration. Pain level reassessed. Patient is alert, oriented x 3, equal unlabored respirations, skin warm/dry/pink. Vital Signs: 01/08 20:18 BP 110 / 57; Pulse 89; Resp 16; Temp 97.1; Pulse Ox 97% ; Weight 53.52 kg; Height 5 ft. jh5 3 in. (160.02 cm); Pain 9/10; 20:41 BP 116 / 69; Pulse 83; Resp 16 S; Pulse Ox 96% ; Pain 10/10; aa9 21:52 BP 118 / 68; Pulse 81; Resp 16 S; Pulse Ox 95% ; aa9 23:07 BP 104 / 58; Pulse 85; Pulse Ox 94% on R/A; aa9 01/09 02:41 BP 114 / 73; Pulse 82; Resp 17; Pulse Ox 94% on R/A; ll3 09/13 20:18 Body Mass Index 20.90 (53.52 kg, 160.02 cm) [facility] ED Course: 01/08 19:50 Patient arrived in ED. bp1 20:19 Juan Diego Cardona MD is Attending Physician. kdr 20:23 Triage completed. 5 20:23 Arm band placed on right wrist. 5 20:26 Tisha Brown, RN is Primary Nurse. aa9 20:43 Patient has correct armband on for positive identification. Bed in low position. Side aa9 rails up X2. Adult w/ patient. Warm blanket given. 21:00 Missed attempt(s): 20 gauge in left antecubital area. Bleeding controlled, band aid aa9 applied, catheter tip intact. 21:11 Inserted saline lock: 20 gauge in right forearm, using aseptic technique. Blood aa9 collected. 21:16 Basic Metabolic Panel Sent. aa9 21:16 CBC with Diff Sent. aa9 21:16 D-Dimer Sent. aa9 21:16 LFT's Sent. aa9 21:16 Troponin HS Sent. aa9 21:55 XRAY Chest (1 view) In Process Unspecified. EDMS 22:43 CT Abd/Pelvis - IV Contrast Only In Process Unspecified. EDMS 22:43 Notified ED physician of a critical lab result(s). D Dimer [id number]. kl 23:27 CT Chest For PE Angio In Process Unspecified. EDMS 01/09 00:35 Initiated transfer with Radha Wynn at [facility]. wm 00:53 Radha Wynn called to speak to Dr. Cardona regarding Pt. asking "what the problem is?". wm 02:36 Pt accepted for transfer by Dr. Pino Gupta at 0158, per Radha Wynn. wm 03:20 No provider procedures requiring assistance completed. Patient transferred, IV remains ll3 in place. Administered Medications: 01/08 22:28 Drug: morphine 4 mg Route: IVP; Infused Over: 4 mins; Site: right forearm; aa9 23:07 Follow up: Response: No adverse reaction; RASS: Alert and Calm (0) aa9 22:29 Drug: Zofran (Ondansetron) 4 mg Route: IVP; Site: right forearm; aa9 23:07 Follow up: Response: No adverse reaction aa9 01/09 01:33 Drug: Rocephin - (cefTRIAXone) 1 grams Route: IVPB; Infused Over: 30 mins; Site: right ll3 forearm; Medication: 03:21 VIS not applicable for this client. ll3 Outcome: 01/08 23:14 ER care complete, transfer ordered by . delbert 01/09 03:20 Transferred by ground EMS to [facility], Transfer form completed. ll3 X-rays sent w/ patient. Condition: stable Discharge instructions given to EMS, Instructed on the need for transfer, Demonstrated understanding of instructions. 03:27 Patient left the ED. ll3 Signatures: Dispatcher [employer] EDMS Agnieszka Coulter, RN RN Juan Diego Patel MD MD kdr [place]ia[place], Brittany bp1 Marsh, Wendy wm Rees, Jessica, RN RN jh5 Richi Langford RN RN ll3 Tisha Brown RN RN aa9
--- NOTE | 2022-01-08 23:14 | EDPHYS ---
Physician Documentation [facility] Name: Lin Farley Age: 51 yrs Sex: Female : 1970 Arrival Date: 01/08/2022 Time: 19:50 Bed 5 Private MD: ED Physician Juan Diego Cardnoa HPI: 01/09 00:46 This 51 yrs old Female presents to ER via Ambulatory with complaints of Feet Swelling, kdr Abdominal Swelling. 00:46 . kdr 00:49 Family brings the patient to the ED today for increased swelling from her abdomen down kdr to her toes. She was discharged from [facility] in [place] on Friday. Since then she has had increased swelling of her abdomen and lower extremities. The family states that normally there will be some diminishment of her swelling through the evening when she is laying down only to be recurrent and more severe the following day when she is up and around. She is also had some mild shortness of breath. She denies fever or any other related. Onset: The symptoms/episode began/occurred gradually, 4 day(s) ago. Severity of symptoms: At their worst the symptoms were mild moderate just prior to arrival. The patient has experienced similar episodes in the past, chronically, but today's symptoms are worse. The patient has been recently seen by a physician: Patient was discharged from [facility] on Friday. 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 - Social history:: Smoking status: Patient/guardian denies using tobacco, but has a distant history of tobacco abuse. ROS: 01/09 00:49 Constitutional: Negative for fever, chills, and weight loss, Eyes: Negative for injury, kdr pain, redness, and discharge, Neck: Negative for injury, pain, and swelling, Cardiovascular: Negative for chest pain, palpitations, and edema, Back: Negative for injury and pain, : Negative for injury, bleeding, discharge, and swelling, Skin: Negative for injury, rash, and discoloration, Neuro: Negative for headache, weakness, numbness, tingling, and seizure activity. Psych: Negative for depression, anxiety, suicide ideation, homicidal ideation, and hallucinations, Allergy/Immunology: Negative for hives, rash, and allergies, Endocrine: Negative for neck swelling, polydipsia, polyuria, polyphagia, and marked weight changes, Hematologic/Lymphatic: Negative for swollen nodes, abnormal bleeding, and unusual bruising. Respiratory: Positive for shortness of breath, Negative for cough, dyspnea on exertion, hemoptysis, orthopnea, pleurisy. Abdomen/GI: Positive for nausea, vomiting, Distention. MS/extremity: Positive for swelling. Exam: 00:49 Constitutional: This is a well developed, well nourished patient who is awake, alert, kdr and in no acute distress. Head/Face: Normocephalic, atraumatic. Eyes: Pupils equal round and reactive to light, extra-ocular motions intact. Lids and lashes normal. Conjunctiva and sclera are non-icteric and not injected. Cornea within normal limits. Periorbital areas with no swelling, redness, or edema. Neck: Trachea midline, no thyromegaly or masses palpated, and no cervical lymphadenopathy. Supple, full range of motion without nuchal rigidity, or vertebral point tenderness. No Meningismus. Chest/axilla: Normal chest wall appearance and motion. Nontender with no deformity. No lesions are appreciated. Cardiovascular: Regular rate and rhythm with a normal S1 and S2. No gallops, murmurs, or rubs. Normal PMI, no JVD. No pulse deficits. Back: No spinal tenderness. No costovertebral tenderness. Full range of motion. Skin: Warm, dry with normal turgor. Normal color with no rashes, no lesions, and no evidence of cellulitis. MS/ Extremity: Pulses equal, no cyanosis. Neurovascular intact. Full, normal range of motion. Neuro: Awake and alert, GCS 15, oriented to person, place, time, and situation. Cranial nerves II-XII grossly intact. Motor strength 5/5 in all extremities. Sensory grossly intact. Cerebellar exam normal. Normal gait. Psych: Awake, alert, with orientation to person, place and time. Behavior, mood, and affect are within normal limits. 00:49 Respiratory: the patient does not display signs of respiratory distress, Respirations: normal, Breath sounds: rales, bronchial sounds, that are mild. Vital Signs: 01/08 20:18 BP 110 / 57; Pulse 89; Resp 16; Temp 97.1; Pulse Ox 97% ; Weight 53.52 kg; Height 5 ft. jh5 3 in. (160.02 cm); Pain 9/10; 20:41 BP 116 / 69; Pulse 83; Resp 16 S; Pulse Ox 96% ; Pain 10/10; aa9 21:52 BP 118 / 68; Pulse 81; Resp 16 S; Pulse Ox 95% ; aa9 23:07 BP 104 / 58; Pulse 85; Pulse Ox 94% on R/A; aa9 01/09 02:41 BP 114 / 73; Pulse 82; Resp 17; Pulse Ox 94% on R/A; ll3 01/08 20:18 Body Mass Index 20.90 (53.52 kg, 160.02 cm) jh5 MDM: 01/08 23:14 Patient medically screened. kdr 01/09 00:59 ED course: In speaking with the transfer center agency sales representative, she felt that there kdr were no services required on this patient that were not available at this facility. She was going to consult with the hepatology and medicine folks to determine whether or not there would be any likely intervention or need for transfer.. 01:58 Data reviewed: vital signs, lab test result(s), radiologic studies. Counseling: I had a kdr detailed discussion with the patient and/or guardian regarding: the historical points, exam findings, and any diagnostic results supporting the discharge/admit diagnosis, lab results, radiology results. 01/08 20:50 Order name: Basic Metabolic Panel; Complete Time: 22:43 kdr 01/08 20:50 Order name: CBC with Diff; Complete Time: 22:43 kdr 01/08 20:50 Order name: D-Dimer; Complete Time: 00:20 kdr 01/08 20:50 Order name: LFT's; Complete Time: 22:29 kdr 01/08 20:50 Order name: Troponin HS; Complete Time: 22:43 kdr 01/08 20:50 Order name: XRAY Chest (1 view); Complete Time: 22:43 kdr 01/08 20:50 Order name: CT Abd/Pelvis - IV Contrast Only; Complete Time: 23:02 kdr 01/08 22:47 Order name: CT Chest For PE Angio; Complete Time: 00:20 kdr 01/08 23:08 Order name: Protime (+INR); Complete Time: 00:20 EDMS 01/08 23:08 Order name: PTT, Activated Partial Thromb; Complete Time: 00:20 EDMS 01/08 23:51 Order name: SARS RAPID wm 01/08 20:50 Order name: IV Saline Lock; Complete Time: 21:16 kdr 01/08 20:50 Order name: Labs collected and sent; Complete Time: 21:16 kdr 01/08 20:50 Order name: O2 Per Protocol; Complete Time: 21:16 kdr 01/08 20:50 Order name: O2 Sat Monitoring; Complete Time: 21:16 kdr Administered Medications: 01/08 22:28 Drug: morphine 4 mg Route: IVP; Infused Over: 4 mins; Site: right forearm; aa9 23:07 Follow up: Response: No adverse reaction; RASS: Alert and Calm (0) aa9 22:29 Drug: Zofran (Ondansetron) 4 mg Route: IVP; Site: right forearm; aa9 23:07 Follow up: Response: No adverse reaction aa9 01/09 01:33 Drug: Rocephin - (cefTRIAXone) 1 grams Route: IVPB; Infused Over: 30 mins; Site: right ll3 forearm; Disposition Summary: 01/08/22 23:14 Transfer Ordered Transfer Location: [facility] kdr Reason: Higher level of care kdr Condition: Serious kdr Problem: an acute exacerbation kdr Symptoms: are unchanged kdr Accepting Physician: maria ines(01/09/22 03:27) ll3 Diagnosis - Abdominal pain, Generalized kdr - Alcoholic cirrhosis of liver with ascites kdr - Edema, unspecified - Bilateral lower extremities kdr Forms: - Medication Reconciliation Form kdr - SBAR form kdr Signatures: Dispatcher [employer] EDME Juan Diego Cardona MD MD kdr Med Langford, AUTO DAMAGE ADJUSTER-C AUTO DAMAGE ADJUSTER-Cla1 Comfort Ahumada RN RN jh5 Richi Langford RN RN ll3 Tisha Brown, CODEY RN aa9 Corrections: (The following items were deleted from the chart) 01/08 23:08 22:53 PROTIME (+INR)+COAG.LAB.BRZ ordered. EDME EDMS 23:08 22:53 PTT, ACTIVATED+COAG.LAB.BRZ ordered. EDMS EDMS 23:14 g kdr kdr 01/09 03:27 01/08 23:15 g kdr ll3
--- NOTE | 2022-01-08 23:32 | RAD REPORT ---
EXAM DESCRIPTION: CT - Chest For Pe Angio - 01/08/2022 11:25 pm CLINICAL HISTORY: Chest pain. gdfg COMPARISON: Chest For Pe Angio dated 12/07/2019; Abdomen Pelvis W Contrast dated 01/08/2022 TECHNIQUE: CT angiogram of the pulmonary arteries was performed with MIP. All CT scans are performed using dose optimization technique as appropriate and may include automated exposure control or mA/KV adjustment according to patient size. FINDINGS: No evidence of pulmonary thromboembolism. No acute aortic finding demonstrated. There are 2 opacities in the anterior right upper lobe each measuring about 4 cm. These likely repres ent areas of infiltrate/developing pneumonia. Moderate atelectasis is present in both lung bases. Mil d opacities also noted in the lingula. Small bilateral pleural effusions. No concerning bony finding. Mild ascites in the upper abdomen. Patulous esophagus. IMPRESSION: No evidence of pulmonary thromboembolism. Airspace opacities particularly notable in the right upper lobe likely represent infection/pneumonia.
[2022-01-08 23:33] LABS: Protime INR 2.06
[2022-01-09] MEDS ORDERED: CEFTRIAXONE 1000 MG/VIAL ONE (01:34)
[2022-01-09 02:04] LABS: SARS-CoV-2 Antigen Rapid Res Negative (Negative)
[2022-01-09 18:05] VITALS: TEMP 97.1
[2022-01-09 18:12] VITALS: O2SAT 94
[2022-01-09 18:15] VITALS: BP 114/73
== END 2022-01-09 03:27 | disposition short-term general hospital (02) ==
LOC: ER 19:46
DX: K70.31 Alcoholic cirrhosis of liver with ascites (principal); R10.84 Generalized abdominal pain; R60.0 Localized edema; F10.20 Alcohol dependence, uncomplicated; Z20.822 Contact with and (suspected) exposure to COVID-19; Z88.8 Allergy status to other drugs, medicaments and biological substances
CPT/HCPCS: 85025; 80048; 36415; 85610; 85379; 80076; 85730; 84484; 71275; 74177; 71045; 96375; 96374; 99285; 87811; Q9967 ×2; J2405

== ENCOUNTER 2022-03-25 22:10 | Inpatient (IN) | payer OTHER ==
--- OUTSIDE RECORDS SUMMARY | 2022-03-25 22:33 | XMS REPORT | Continuity of Care Document ---
:1970 Author Organization [facility] t Address [address] [place] [address] Care Team Providers Name Role Phone Francine Mattson Attending Clinician Franny Argueta MD Attending Clinician FRANCINE HERNANDEZ Attending Clinician Unavailable FRANNY ARGUETA Attending Clinician Unavailable Anand Hurtado MA Attending Clinician Unavailable Mikhail Gomez MD Attending Clinician Irma Gupta MD Attending Clinician [phone] To Haynes MD Attending Clinician IRMA GUPTA Attending Clinician Unavailable MIKHAIL GOMEZ Attending Clinician Unavailable Josh Menard MD Attending Clinician Unavailable Dee Hale MD Attending Clinician Willi Chaudhry MD Attending Clinician WILLI CHAUDHRY Attending Clinician Unavailable Deshawn Sher MD Attending Clinician Fei Garcia MD Attending Clinician Comfort Mcbride MD Attending Clinician [phone] TO HAYNES Admitting Clinician Unavailable WILLI CHAUDHRY Admitting Clinician Unavailable Payers Payer Name Policy Type Policy Number Effective Date Expiration Date S cal [employer] [id number] 2022 00:00:00 Problems Condition Condition Condition Status Onset Resolution Last Treating Co mments Source Name Details Category Date Date Treatment Clinician Date Alcoholic Alcoholic Disease Active [facility] Medica l 00 Center Hemoptysis Hemoptysis Disease Active [facility] Hematemesi Hematemesi Disease Active [facility] 00 Center Allergies, Adverse Reactions, Alerts Allergy Allergy Status Severity Reaction(s) Onset Inactive Treating Comm ents Source Name Type Date Date Clinician CHLORPHE Allergy Active High Swelling [facility] -PHEN[facility] 00:[facility]: Medical PHRINE 00 Center Chlorphe Propensi Active Swelling [facility] niramine ty to 12-27 [facility] -Phenyle adverse 00:00: Medical phrine reaction 00 Center s NO KNOWN Allergy Active [facility] Social History Social Habit Start Date Stop Date Quantity Comments Source History SDOH [facility] Alcohol Frequency Medical Center History SDOH [facility] Alcohol Std Drinks Medica l Center History SDOH [facility] Alcohol Binge Medical Derick ter History SDIN [facility] Transport Non-Med Medical Center Alcohol intake 2022-03-12 2022-03-12 [facility] alcohol Medical Center (finding) History SDOH 2022-01-09 2022-01-09 2 weeks ago last [facility] Alcohol Comment 00:00:00 00:00:00 drink per Medical C enter patient History SDOH 2022-01-09 2022-01-[address] [facility] Transport Med 00:00:00 00:00:[address] History SDOH 2022-01-09 2022-01-[address] [facility] Housing Unable to 00:00:00 00:00:00 Medical Center Pay History SDOH 2022-01-09 2022-01-[address] [facility] Housing Places 00:00:00 00:00:00 Medical Ce nter Lived History SDOH 2022-01-09 2022-01-[address] [facility] Housing Homeless 00:00:00 00:00:00 Medical Center Last Year Exposure to 2021-12-17 2021-12-[address] [facility] SARS-CoV-2 (event) 00:00:00 11:32:00 Medica l [place] Tobacco use and 2021-12-27 2021-12-[address] [facility] exposure 00:00:00 00:00:00 Medical Center Sex Assigned At [address] [facility] 00:00:00 00:00:00 Medical Center Smoking Status Start Date Stop Date Source Never smoker [facility]ations Ordered Filled Start Stop Current Ordering Indication Dosage Frequency Signature Comments Components Source Medication Medication Date Date Medication? Clinician (SIG) Name Name pantoprazol 2021-04 Yes 40mg QD Take [address] 1-15 by mouth [facility] (PROTONIX) 15:18: daily. Medic al 40 MG 35 Center tablet furosemide 2021-04 Yes Alcoholic 40mg QD Take [address] (LASIX) 40 1-15 cirrhosis, tablet (40 [facility] MG tablet 00:00: unspecified mg total) Medical 00 whether by mouth Center ascites daily. present (HCC) spironolact 2021-04 Yes Alcoholic 100mg QD Take [address] [facility] one 1-15 cirrhosis, tablet [facility] (ALDACTONE) 00:00: unspecified (100 mg Medical 100 MG 00 whether total) by Cente r tablet ascites mouth present daily. (HCC) lactulose 2021-04- Yes Alcoholic 20g Q.[id number] Take [address] (CHRONULAC) 1-15 12-15 cirrhosis, [id number] mLs (20 g [facility] 10 gram/15 00:00: 23:59 unspecified 3D total) by Medical mL solution 00 :00 whether mouth 3 Ce nter ascites (three) present times (HCC) daily for 30 days. rifAXIMin 2021-04- Yes Alcoholic 550mg Q.5D Take [address] 550 mg Tab 1-15 12-15 cirrhosis, tablet [facility] 00:00: 23:59 unspecified (550 mg Me dical 00 :00 whether total) by Center ascites mouth 2 present (two) (HCC) times daily for 30 days. furosemide 2021-04- No TAKE ONE [facility] (LASIX) 40 0-25 11-15 TABLET BY [facility] MG tablet 00:00: 00:00 MOUTH Medica l 00 :00 DAILY Center spironolact 2021-04- No TAKE ONE [facility] one 0-25 11-15 TABLET BY [facility] (ALDACTONE) 00:00: 00:00 MOUTH Medi kailey 100 MG 00 :00 DAILY Center tablet furosemide 2021- No 40mg QD Take [address] (LASIX) 40 9-18 10-25 tablet (40 [facility] MG tablet 00:00: 00:00 mg total) Me dical 00 :00 by mouth Center daily for 30 days. spironolact 2021- No 100mg QD Take [address] one 9-18 10-25 tablet [facility] (ALDACTONE) 00:00: 00:00 (100 mg Me dical 100 MG 00 :00 total) by Center tablet mouth daily for 30 days. lactulose 2021- No 20g Q.5D Take [address] (CHRONULAC) 01-12-17 mLs (20 g [facility]la k[facility] 20 gram/30 00:00: 23:59 total) by melissa mL solution 00 :00 mouth 2 Cente r (two) times daily for 30 days. acetaminoph 2021- No 1{tbl} Take [address] en-codeine 01-12 tablet by Goran cruz (Tylenol-Co 00:00: 23:59 mouth Medi kailey deine #3) 00 :00 every 4 Center 300-30 mg (four) per tablet hours as needed for Pain for up to 10 days. Max Daily Amount: 6 tablets levoFLOXaci 2021- No 750mg QD Take [address] n 01-12 tablet [facility] (LEVAQUIN) 00:00: 23:59 (750 mg Med ical 750 MG 00 :00 total) by Center tablet mouth daily for 5 days. sertraline 2022- Yes 50mg QD Take [address] (ZOLOFT) 50 12-30 09-04 tablet (50 L [facility]kes MG tablet 00:00: 23:59 mg total) Me dical 00 :00 by mouth Center daily. sertraline 2022- Yes 50mg QD Take [address] (ZOLOFT) 50 12-30 tablet (50 [facility] MG tablet 00:00: 23:59 mg total) Me dical 00 :00 by mouth Center daily. ibuprofen 2021- No 800mg Take [address] (ADVIL,MOTR 12-29 09-03 mg by [facility] IN) 800 MG 13:11: 00:00 mouth Medic al tablet 27 :00 every 6 Center (six) hours as needed for Pain. ibuprofen 2021- No 800mg Take [address] (ADVIL,MOTR 12-29 09-03 mg by [facility] [place]) 800 MG 13:11: 00:00 mouth Medic al tablet 27 :00 every 6 Center (six) hours as needed for Pain. metoclopram 2021- Yes 10mg Take [address] [facility] sola 12-29- tablet (10 [facility] (REGLAN) 10 00:00: 23:59 mg total) Medical MG tablet 00 :00 by mouth 3 Cent er (three) times daily before meals for 30 days. pantoprazol 2021- Yes 40mg Q.5D Take [address] e 12-29 tablet (40 [facility] (PROTONIX) 00:00: 23:59 mg total) M edical 40 MG 00 :00 by mouth 2 Center tablet (two) times daily for 30 days. metoclopram 2021- No 10mg Take [address] [facility]a 12-29-03 tablet (10 [facility] (REGLAN) 10 00:00: 23:59 mg total) Medical MG tablet 00 :00 by mouth 3 Cent er (three) times daily before meals for 30 days. pantoprazol 2021-2021- No 40mg Q.5D Take [address] e 12-29- tablet (40 [facility] (PROTONIX) 00:00: 23:59 mg [...] for Flatulence for up to 10 days. simethicone 80mg Take [address] (MYLICON) 12-29 tablet (80 [facility] 80 MG 00:00: 23:59 mg total) Medica l chewable 00 :00 by mouth Center tablet every 6 (six) hours as needed for Flatulence for up to 10 days. Vital Signs Vital Name Observation Time Observation Value Comments Source HEIGHT 2022-03-12 13:55:00 162.6 cm WEIGHT 2022-03-12 13:55:00 51.801 kg HEIGHT 2022-03-12 13:55:00 162.6 cm WEIGHT 2022-03-12 13:55:00 51.801 kg HEIGHT 2022-03-12 13:55:00 162.6 cm WEIGHT 2022-03-12 13:55:00 51.801 kg HEIGHT 2022-01-09 06:00:00 161.3 cm WEIGHT 2022-01-09 06:00:00 66.951 kg HEIGHT 2022-01-09 06:00:00 161.3 cm WEIGHT 2022-01-09 06:00:00 66.951 kg HEIGHT 2022-01-09 06:00:00 161.3 cm WEIGHT 2022-01-09 06:00:00 66.951 kg HEIGHT 2021-12-28 08:00:00 162 cm WEIGHT 2021-12-28 02:00:00 61.7 kg HEIGHT 2021-12-27 11:00:00 64 cm WEIGHT 2021-12-27 11:00:00 60.5 kg HEIGHT 2021-12-28 08:00:00 162 cm WEIGHT 2021-12-28 02:00:00 61.7 kg HEIGHT 2021-12-27 11:00:00 64 cm WEIGHT 2021-12-27 11:00:00 60.5 kg HEIGHT 2021-12-28 08:00:00 162 cm WEIGHT 2021-12-28 02:00:00 61.7 kg HEIGHT 2021-12-27 11:00:00 64 cm WEIGHT 2021-12-27 11:00:00 60.5 kg Systolic blood 2022-03-12 13:55:00 137 mm[Hg] [facility] Diastolic blood 2022-03-12 13:55:00 78 mm[Hg] [facility] Heart rate 2022-03-12 13:55:00 89 /min [facility] Body temperature 2022-03-12 13:55:00 36.5 Palmira [facility] Body height 2022-03-12 13:55:00 162.6 cm [facility] Body weight 2022-03-12 13:55:00 51.801 kg [facility] BMI 2022-03-12 13:55:00 19.60 kg/m2 [facility] Oxygen saturation in 2022-03-12 13:55:00 100 /min [facility] Arterial blood by Medical Ce nter Pulse oximetry Respiratory rate 2022-01-12 11:32:00 19 /min [facility] Systolic blood 2021-12-29 12:30:00 108 mm[Hg] [facility] Diastolic blood 2021-12-29 12:30:00 62 mm[Hg] [facility] Heart rate 2021-12-29 12:30:00 87 /min [facility] Body temperature 2021-12-29 12:30:00 36.83 Palmira [facility] Respiratory rate 2021-12-29 12:30:00 18 /min [facility] Oxygen saturation in 2021-12-29 12:30:00 97 /min [facility] Arterial blood by Medical Ce nter Pulse oximetry Body height 2021-12-28 08:00:00 162 cm [facility] Body weight 2021-12-28 02:00:00 61.7 kg [facility] BMI 2021-12-28 02:00:00 23.51 kg/m2 [facility] Procedures Procedure Date / Time Performing Source Performed Clinician BASIC METABOLIC PANEL 2022-03-12 Francine Hernandez [facility] 15:05:00 [facility] HEPATIC FUNCTION PANEL 2022-03-[address] [facility] 15:05:00 A. Medical Center CBC W/PLT COUNT & AUTO DIFFERENTIAL 2022-03-12 Bernardino, Richi lockharti [facility] 15:05:[address] [facility] PROTHROMBIN TIME/INR 2022-03-12 Bernardino, Francine [facility] 15:05:[address] [facility] ALPHA FETOPROTEIN (AFP), TUMOR 2022-03-12 Bernardino, Chesteryi [facility] MARKER 15:05:[address] [facility] PHOSPHATIDYLETHANOL, BLOOD 2022-03-12 Bernardino, Chesteryi [facility] 15:05:[address] [facility] CBC W/PLT COUNT & AUTO DIFFERENTIAL 2022-03-12 Bernardino, Richi lockharti [facility] 15:05:[address] [facility] HEPATITIS B SURFACE ANTIBODY 2022-01-12 Dadlani, Apaar [facility] 04:36:[address] [facility] HEPATITIS B CORE ANTIBODY, TOTAL 2022-01-12 Dadlani, Apaar [facility] 04:36:00 Medical [place] BASIC METABOLIC PANEL 2022-01-12 [facility]ail [facility] 04:36:00 [facility] [place] CALCIUM, IONIZED 2022-01-12 [facility], Mikhail [facility] 04:36:00 Medical Center PHOSPHORUS 2022-01-12 [facility] Mikhail [facility] 04:36:00 Medical Center CBC W/PLT COUNT & AUTO DIFFERENTIAL 2022-01-12 Patricia, Jill lireza [facility] 04:36:00 Medical Center MAGNESIUM 2022-01-12 [facility] Mikhail [facility] 04:36:00 Medical Center CBC W/PLT COUNT & AUTO DIFFERENTIAL 2022-01-12 Darinsckassie, A lireza [facility] 04:36:00 [facility] Center POCT-GLUCOSE METER 2022-01-11 Patricia, Mikhail [facility] 20:54:00 [facility] [place] US PARACENTESIS 2022-01-[address] [facility] 14:37:00 Medical Center VANCOMYCIN LEVEL, TROUGH 2022-01-[address] [facility] 09:53:00 Medical Center BASIC METABOLIC PANEL 2022-01-11 [facility] Mikhail [facility] 04:05:00 Medical Center CALCIUM, IONIZED 2022-01-11 Darinsckassie, Mikhail [facility] 04:05:00 Medical Center PHOSPHORUS 2022-01-11 [facility] Mikhail [facility] 04:05:00 Medical Center CBC W/PLT COUNT & AUTO DIFFERENTIAL 2022-01-11 [address]za [facility] 04:05:00 Medical Center MAGNESIUM 2022-01-11 [facility], Mikhail [facility] 04:05:00 Medical Center CBC W/PLT COUNT & AUTO DIFFERENTIAL 2022-01-[address] [facility] 04:05:00 Medical Center SPUTUM CULTURE + GRAM STAIN 2022-01-10 Arif, To [facility] 09:56:00 Medical Center B-TYPE NATRIURETIC FACTOR (BNP) 2022-01-[address] [facility] 04:35:00 Medical Center BASIC METABOLIC PANEL 2022-01-10 Arif, To [facility] 04:35:00 Medical Center HEPATIC FUNCTION PANEL 2022-01-10 Arif, To [facility] 04:35:00 Medical Center MAGNESIUM 2022-01-10 Arif, Halir [facility] 04:35:00 Medical Center PROTHROMBIN TIME/INR 2022-01-10 Arif, To [facility] 04:35:00 Medical Center HEMOGLOBIN AND HEMATOCRIT 2022-01-10 Arireji, Halir [facility] 04:35:00 Medical Center US ABDOMINAL WITH DOPPLER 2022-01-10 Arif, Halir [facility] 04:00:00 Medical Center US PARACENTESIS 2022-01-09 Arif, Halir [facility] 17:00:00 Medical Center ANAEROBIC CULTURE 2022-01-09 Arif, Halir [facility] 16:29:00 Medical Center CYTOLOGY 2022-01-09 Arif, Halir [facility] 16:08:00 Medical Center BODY FLUID CELL COUNT WITH 2022-01-09 Gregg Halimerritt [facility] DIFFERENTIAL 16:07:00 Medical Center BODY FLUID CULTURE + GRAM STAIN 2022-01-09 Arif, Halir [facility] 16:07:00 Medical Center PROTEIN, BODY FLUID 2022-01-09 Arif, Sahar [facility] 16:07:00 Medical Center ALBUMIN, BODY FLUID 2022-01-09 Arif, Sahar [facility] 16:07:00 Medical [place] VENOUS DOPPLER LEGS BILATERAL 2022-01-09 Arif, [facility]ir [facility] 14:59:00 Medical Center SPUTUM CULTURE + GRAM STAIN 2022-01-09 Arif, Sahar [facility] 11:51:00 Medical Center LEGIONELLA ANTIGEN, URINE 2022-01-09 Arif, Halir [facility] 11:50:00 [facility] Center PHOSPHATIDYLETHANOL, BLOOD 2022-01-09 T[facility]roy [facility] 11:49:[address] [facility] HEREDITARY HEMOCHROMATOSIS 2022-01-09 T[facility]roy [facility] 11:49:[address] [facility] MRSA SCREEN 2022-01-09 Arif, Halimerritt [facility] 10:26:[address] [facility] BLOOD CULTURE 2022-01-[address] [facility] 06:16:00 [facility] COMPREHENSIVE METABOLIC PANEL 2022-01-[address] [facility] 06:02:00 [facility] CBC W/PLT COUNT & AUTO DIFFERENTIAL 2022-01-[address] [facility] 06:02:00 [facility] PROTHROMBIN TIME/INR 2022-01-[address] [facility] 06:02:00 [facility] CBC W/PLT COUNT & AUTO DIFFERENTIAL 2022-01-[address] [facility] 06:02:00 [facility] BLOOD CULTURE 2022-01-[address] [facility] 06:02:00 [facility] PREPARE LEUKO-REDUCED RBC 2021-12-29 Roseline Sunshine [facility] 23:54:[address] [facility] CBC (HEMOGRAM ONLY) 2021-12-[address] [facility] 02:51:00 [facility] BASIC METABOLIC PANEL (7) 2021-12-[address] [facility] 02:51:00 [facility] MAGNESIUM 2021-12-[address] [facility] 02:51:00 [facility] HEPATITIS A ANTIBODY, IGG 2021-12-29 Duanejeanna Gloriajill, Seth [facility] 02:51:[address] [facility] HEPATITIS B CORE ANTIBODY, IGM 2021-12-29 Nolanpasquale Gloriajill Kalyan ankit [facility] 02:51:[address] [facility] HEPATITIS B SURFACE ANTIGEN 2021-12-[address] [facility] 02:51:[address] [facility] HEPATITIS C ANTIBODY 2021-12-29 [address]Seth burch [facility] 02:51:[address] [facility] ANTI-NUCLEAR ANTIBODY (MARLEN) 2021-12-[address] [facility] 02:51:[address] [facility] HC LAB FLUORESC AB SCRN EA AB 2021-12-29 [address]eth burch [facility] 02:51:[address] [facility] ACTIN (SMOOTH MUSCLE) ANTIBODY, IGG 2021-12-29 Nolanpasquale [address]Seth burch [facility] 02:51:[address] [facility] IRON, TIBC, % SAT. (WITHOUT 2021-12-[address] [facility] FERRITIN) 02:51:[address] [facility] CERULOPLASMIN 2021-12-[address] [facility] 02:51:[address] [facility] XDPFT-2-YSLOCGZREFX\, SERUM 2021-12-[address] [facility] 02:51:[address] [facility] FERRITIN 2021-12-29 Geoffrey, Ahfela [facility] 02:51:00 [facility] PROTHROMBIN TIME/INR 2021-12-29 Geoffrey, Ahmed [facility] 02:51:00 [facility] HEPATIC FUNCTION PANEL 2021-12-29 Geoffrey, Ahmed [facility] 02:51:00 [facility] MITOCHONDRIAL AB SCREEN 2021-12-29 [facility]ral [facility] [facility] MITOCHONDRIAL AB TITER 2021-12-[address] [facility] 02:51:[address] [facility] ANTI-MITOCHONDRIAL AB, REFLEX TO 2021-12-29 [address] Corral iel [facility] TITER 02:51:[address] [facility] HEMOGLOBIN AND HEMATOCRIT 2021-12-[address] [facility] 15:50:00 [facility] CBC (HEMOGRAM ONLY) 2021-12-[address] [facility] 06:12:00 [facility] BASIC METABOLIC PANEL (7) 2021-12-28 [facility] 06:12:00 [facility] MAGNESIUM 2021-12-28 [facility] 06:12:00 [facility] HEPATIC FUNCTION PANEL 2021-12-28 [facility] 06:12:00 [facility] TRANSFUSE LEUKO-REDUCED RED BLOOD 2021-12-28 Allison Sunshine sa [facility] CELLS 02:30:[address] [facility] HEMOGLOBIN AND HEMATOCRIT 2021-12-27 Richa, Willi [facility] 23:51:00 [facility] US ABDOMEN LIMITED 2021-12-27 Richa, Willi [facility] 22:35:00 [facility] ECG 12-LEAD 2021-12-27 Unknown, Hl7 [facility] 20:44:36 [facility] ECG 12-LEAD 2021-12-27 Unknown, Hl7 [facility] 20:44:36 [facility] ECG 12-LEAD 2021-12-27 Unknown, Hl7 [facility] 20:44:36 [facility] HEMOGLOBIN AND HEMATOCRIT 2021-12-27 Richa, Willi [facility] 19:00:00 [facility] HEPATITIS PANEL, ACUTE 2021-12-27 Richa, Willi [facility] 19:00:00 [facility] URINALYSIS W/ REFLEX URINE CULTURE 2021-12-[address] [facility] 18:59:00 [facility] REPORT OF PROCEDURE - ENDOSCOPY URL 2021-12-[address] [facility] 18:15:56 [facility] ABORH, MANUAL 2021-12-[address] [facility] 17:06:00 [facility] ESOPHAGOGASTRODUODENOSCOPY 2021-12-[address] [facility] 16:25:00 [facility] TYPE AND SCREEN, AUTOMATED 2021-12-27 Vinh Ray [facility] 15:07:[address] [facility] BLOOD CULTURE 2021-12-[facility] 13:23:00 [facility] LIPASE 2021-12-27 [facility] 13:20:00 [facility] PROTHROMBIN TIME/INR 2021-12-27 [facility] 13:20:00 [facility] APTT 2021-12-27 [facility] 13:20:00 [facility] FIBRINOGEN 2021-12-27 [facility] 13:20:00 [facility] PROCALCITONIN 2021-12-27 [facility] 13:20:00 [facility] CBC (HEMOGRAM ONLY) 2021-12-27 [facility] 13:20:00 [facility] BASIC METABOLIC PANEL (7) 2021-12-[address] [facility] 13:20:00 [facility] MAGNESIUM 2021-12-27 [facility] 13:20:00 [facility] CALCIUM, IONIZED 2021-12-27 [facility] 13:20:00 [facility] BLOOD GAS, VENOUS 2021-12-27 [facility] 13:20:00 [facility] LACTIC ACID, VENOUS 2021-12-27 [facility] 13:20:00 [facility] HEPATIC FUNCTION PANEL 2021-12-27 [facility] 13:20:00 [facility] SARS-COV2/RT-PCR ([facility]) 2021-12-[address] [facility] 12:44:00 [facility] MRSA SCREEN 2021-12-27 [facility] 12:44:00 [facility] POCT-GLUCOSE METER 2021-12-[address] [facility] 12:22:00 [facility] XR CHEST 1 VIEW PORTABLE / BEDSIDE 2021-12-[address] [facility] 11:46:00 [facility] EKG-SCANNED 2021-12-27 Provider, Zulema [facility] 00:00:[address] [facility] Plan of Care Planned Activity Planned Date Details Comments Source Future Scheduled 2023-03-[address] [facility] Test 00:00:00 [facility]ing [facility] Medical Cente r Screening (12+) [code = Tobacco Cessation Counseling and Screening (12+)] Future Scheduled 2021-12-27 INFLUENZA VACCINE (#1) [facility] 00:00:00 [code = INFLUENZA Medical Ce nter VACCINE (#1)] Future Scheduled 2021-12-27 INFLUENZA VACCINE (#1) [facility] 00:00:00 [code = INFLUENZA Medical Ce nter VACCINE (#1)] Future Scheduled 2021-04-[address] [facility] Test 00:00:00 (12+) [code = [facility] Center DEPRESSION SCREENING (12+)] Future Scheduled 2021-04-[address] [facility] Test 00:00:00 (12+) [code = [facility] Center DEPRESSION SCREENING (12+)] Future Scheduled 2018 SHINGLES VACCINES ([address] [facility] Test 00:00:00 2) [code = SHINGLES [facility] Center VACCINES (1 of 2)] Future Scheduled 2018 SHINGLES VACCINES ([address] [facility] Test 00:00:00 2) [code = SHINGLES [facility] Center VACCINES (1 of 2)] Future Scheduled 2013 Lipid panel (procedure) [facility] Test 00:00:00 [code = 09632637] Medical Ce nter Future Scheduled 2013 Lipid panel (procedure) [facility] Test 00:00:00 [code = 54815316] Medical Ce nter Future Scheduled 1989 Screening for malignant [facility] Test 00:00:00 neoplasm of cervix Medical C enter (procedure) [code = 973881222] Future Scheduled 1989 Screening for malignant [facility] Test 00:00:00 neoplasm of cervix Medical C enter (procedure) [code = 592450551] Future Scheduled 1987-08-10 DTAP/TDAP/TD VACCINES [facility] 00:00:00 (1 - Tdap) [code = Medical C enter DTAP/TDAP/TD VACCINES (1 - Tdap)] Future Scheduled 1987-08-10 DTAP/TDAP/TD VACCINES CH I [...] Medical Derick ter VACCINE (#1)] Future Scheduled 1969-02-08 COVID-19 VACCINE (#1) [facility] 00:00:00 [code = COVID-[address] VACCINE (#1)] Future Scheduled 1968 Screening for malignant [facility] Test 00:00:00 neoplasm of breast Medical C enter (procedure) [code = 308090222] Future Scheduled 1968 CT Colonography (combo) [facility] Test 00:00:00 [code = CT Colonography [facility] (combo)] Future Scheduled 1968 Screening for malignant [facility] Test 00:00:00 neoplasm of colon Medical Ce nter (procedure) [code = 089380372] Future Scheduled 1968 Screening for malignant [facility] Test 00:00:00 neoplasm of colon Medical Ce nter (procedure) [code = [id number]] Future Scheduled 1968 Screening for malignant [facility] 00:00:00 neoplasm of colon Medical Ce nter (procedure) [code = 175437836] Future Scheduled 1968 Screening for malignant [facility] 00:00:00 neoplasm of colon Medical Ce nter (procedure) [code = 013125176] Future Scheduled 1970 Sigmoidoscopy [code = [facility]] [facility] Future Scheduled 1968 Screening for malignant [facility] Test 00:00:00 neoplasm of breast Medical C enter (procedure) [code = 987543145] Future Scheduled 1968 CT Colonography (combo) [facility] Test 00:00:00 [code = CT Colonography [facility] (combo)] Future Scheduled 1968 Screening for malignant [facility] Test 00:00:00 neoplasm of colon Medical Ce nter (procedure) [code = 050611594] Future Scheduled 1968 Screening for malignant [facility] Test 00:00:00 neoplasm of colon Medical Ce nter (procedure) [code = 932088066] Future Scheduled 1968 Screening for malignant [facility] Test 00:00:00 neoplasm of colon Medical Ce nter (procedure) [code = 682116969] Future Scheduled 1968 Screening for malignant [facility] Test 00:00:00 neoplasm of colon Medical Ce nter (procedure) [code = 326392112] Future Scheduled 1970 Sigmoidoscopy [code = [facility] S[facility]oscopy] Medical Justyne r Encounters Start End Encounter Admission Attending Care Care Encounter Source Date/Time Date/Time Type Type Clinicians Facility Department ID 2022-06-12 2022-06-12 Outpatient [facility] [id number] [facility] 00:00:00 00:00:00 2022-03-15 2022-03-[address] [facility] [id number] 00:00:00 00:00:00 [facility] 2022-03-13 2022-03-[address] [facility] [id number] 00:00:00 00:00:00 ion [facility] 2022-03-12 2022-03-[address] [facility] [id number] 13:30:00 14:30:00 Visit Chester Hernandezyi [facility] 2022-03-12 2022-03-12 Outpatient [facility] [id number] [facility] 13:34:37 13:34:37 FRANCINE 2022-03-12 2022-03-12 Outpatient EL [facility] [id number] [facility] 00:00:00 00:00:00 2022-03-11 2022-03-[address] [facility] [id number] [facility] 00:00:00 00:00:00 [facility] 2022-02-19 2022-02-19 [facility] [id number] [facility] 00:00:00 00:00:00 [facility] 2022-01-16 2022-01-16 Outpatient SLE SLE [id number] [facility] 00:00:00 00:00:00 2022-01-09 2022-01-12 [facility] Irma Gupta [facility] 1 [id number] [facility] 04:29:00 17:44:00 Encounter To Hay[facility] 2022-01-09 2022-01-12 Inpatient ER PATRICIA [facility] [id number] SLE 04:29:00 17:44:00 [facility] 2022-01-11 2022-01-11 Outpatient SLE SLE [id number] [facility] 00:00:00 00:00:00 2021-12-27 2021-12-[facility] [id number] [facility] 10:33[facility] 16:22:[address] [facility] 2021-12-27 [facility]-12-[address] [facility] [id number] [facility] 10:33[facility] 16:22[facility]00 [facility] 2021-12-27 2021-12-29 Inpatient ER PATRICIA [facility] Medical ICU 2 [id number] [facility] 10:33:00 16:22:00 MIKHAIL 2021-12-28 2021-12-[address] [id number] [place] 00:00:00 00:00:00 WILLI Seybol d 2021-12-27 2021-12-[address] [facility] [id number] [facility] 16:25:00 17:27:00 Event [facility] 2021-12-27 2021-12-[address] [facility] [id number] [facility] 16:25:00 17:27:00 Event [facility] 2021-12-27 2021-12-27 [facility] [id number] 16:05:00 16:54:00 [facility] 2021-12-27 2021-12-27 [facility] [id number] 16:05:00 16:54:00 [facility] 2021-12-27 2021-12-[address] [facility] [id number] 00:00:00 00:00:00 [facility] 2021-12-27 2021-12-[address] [facility] [id number] [facility] 2021-12-27 2021-12-[address] [facility] [id number] 00:00:00 00:00:00 [facility] 2021-12-27 2021-12-[address] [facility] [id number] [facility]00 [facility] Results Test Description Test Time Test Comments Results Result Comments Source PHOSPHATIDYLETHANOL, BLOOD 2022-03-18 08:53:53 Test Item Value Reference Range Interpretation Comme nts PHOSPHATIDYLETHANOL (PETH) (test code = 4771035) See scanned report See scanned reportALPHA FETOPROTEIN (AFP), TUMOR [id number] 17:49:55 Test Item Value Reference Range Interpretation Comments ALPHA-FETOPROTEIN (BEAKER) (test 5.0 ng/mL <10.0 code = 1094) Mill Helper ID - BSBASIC METABOLIC [id number] 17:26:12 Test Item Value Reference Range Interpretation Comments SODIUM (BEAKER) 138 meq/L 136-145 (test code = 381) POTASSIUM 3.7 meq/L 3.5-5.1 (BEAKER) (test code = 379) CHLORIDE (BEAKER) 101 meq/L 98-107 (test code = 382) CO2 (BEAKER) 29 meq/L 22-29 (test code = 355) BLOOD UREA 6 mg/dL 7-21 L NITROGEN (BEAKER) (test code = 354) CREATININE 0.69 mg/dL 0.57-1.25 (BEAKER) (test code = 358) GLUCOSE RANDOM 109 mg/dL 70-105 H (BEAKER) (test code = 652) CALCIUM (BEAKER) 8.5 mg/dL 8.4-10.2 (test code = 697) EGFR (BEAKER) 104 Interpretatio n of eGFR (test code = mL/min/1.73 values Stage De scription 1092) sq m Result G1 Vee l or high >=90 G2 Mildly decreased 60-89 G3a Mildl y to moderately 45-5 9 G3b Moderately to s everely 30-44 G4 Severl y decreased 15-29 G5 Kidney failure <15Reported eGF R is based on the CKD-EPI 2021 equation that d oes not use a race coefficientEsti mated GFR is not as accur ate as Creatinine Francia jeremias in predicting glom erular filtration rate . Estimated GFR is not appl icable for dialysis patien ts Mill Helper ID - BSSpecimen slightly ictericHEPATIC FUNCTION [id number] 17:26:12 Test Item Value Reference Range Interpretation Comments TOTAL PROTEIN (BEAKER) (test code = 6.9 gm/dL 6.0-8.3 770) ALBUMIN (BEAKER) (test code = 1145) 2.8 g/dL 3.5-5.0 L BILIRUBIN TOTAL (BEAKER) (test code 3.9 mg/dL 0.2-1.2 H = 377) BILIRUBIN DIRECT (BEAKER) (test 2.0 mg/dL 0.1-0.5 H code = 706) ALKALINE PHOSPHATASE (BEAKER) (test 186 U/L 40-150 H code = 346) AST (SGOT) (BEAKER) (test code = 88 U/L 5-34 H 353) ALT (SGPT) (BEAKER) (test code = 58 U/L 6-55 H 347) Mill Helper ID - BSSpecimen slightly ictericPROTHROMBIN TIME/[id number] 16:59:25 Test Item Value Reference Range Interpretation Comments PROTIME (BEAKER) 18.6 seconds 11.9-14.2 H (test code = 759) INR (BEAKER) (test 1.66 See_Comment [Automat ed message] code = 370) The system [employer] generated this result transmitted ref erence range: <=5.90. The reference range was not used to int erpret this result as normal/abnormal . RECOMMENDED COUMADIN/WARFARIN INR THERAPY RANGESSTANDARD DOSE: 2.0 - 3.0 Includes: PROPHYLAXIS for venous thrombosis, systemic embolization; TREATMENT for venous thrombosis and/or pulmonary embolus.HIGH RISK: Target INR is 2.5-3.5 for patients with mechanical heart valves.CBC W/PLT COUNT & AUTO [id number] 16:54:03 Test Item Value Reference Range Interpretation Comments WHITE BLOOD CELL COUNT (BEAKER) 8.0 K/ L 3.5-10.5 (test code = 775) RED BLOOD CELL COUNT (BEAKER) 3.14 M/ L 3.93-5.22 L (test code = 761) HEMOGLOBIN (BEAKER) (test code = 9.6 GM/DL 11.2-15.7 L 410) HEMATOCRIT (BEAKER) (test code = 29.7 % 34.1-44.9 L 411) MEAN CORPUSCULAR VOLUME (BEAKER) 95 fL 79-95 (test code = 753) MEAN CORPUSCULAR HEMOGLOBIN 30.6 pg 25.6-32.2 (BEAKER) (test code = 751) MEAN CORPUSCULAR HEMOGLOBIN CONC 32.3 GM/DL 32.2-35.5 (BEAKER) (test code = 752) RED CELL DISTRIBUTION WIDTH 16.8 % 11.7-14.4 H (BEAKER) (test code = 412) PLATELET COUNT (BEAKER) (test 137 K/CU MM 150-450 L code = 756) MEAN PLATELET VOLUME (BEAKER) 10.1 fL 9.4-12.3 (test code = 754) NUCLEATED RED BLOOD CELLS 0 /100 WBC 0-0 (BEAKER) (test code = 413) NEUTROPHILS RELATIVE PERCENT 60 % (BEAKER) (test code = 429) LYMPHOCYTES RELATIVE PERCENT 29 % (BEAKER) (test code = 430) MONOCYTES RELATIVE PERCENT 9 % (BEAKER) (test code = 431) EOSINOPHILS RELATIVE PERCENT 0 % (BEAKER) (test code = 432) BASOPHILS RELATIVE PERCENT 1 % (BEAKER) (test code = 437) NEUTROPHILS ABSOLUTE COUNT 4.81 K/ L 1.56-6.13 (BEAKER) (test code = 670) LYMPHOCYTES ABSOLUTE COUNT 2.33 K/ L 1.18-3.74 (BEAKER) (test code = 414) MONOCYTES ABSOLUTE COUNT (BEAKER) 0.75 K/ L 0.24-0.36 H (test code = 415) EOSINOPHILS ABSOLUTE COUNT 0.00 K/ L 0.04-0.36 L (BEAKER) (test code = 416) BASOPHILS ABSOLUTE COUNT (BEAKER) 0.08 K/ L 0.01-0.08 (test code = 417) IMMATURE GRANULOCYTES-RELATIVE 0.40 % 0.00-1.00 PERCENT (BEAKER) (test code = 2801) Anaerobic [id number] 10:16:44 Test Item Value Reference Range Interpretation Comments Result (test code = No anaerobes isolated 6463-4) [facility] [id number] 10:16:44 Test Item Value Reference Range Interpretation Comments CULTURE (BEAKER) (test No anaerobes isolated code = 1095) PHOSPHATIDYLETHANOL, [id number] 09:36:51 Test Item Value Reference Range Interpretation Comments PHOSPHATIDYLETHANOL (PETH) See scanned (test code = 7037557) report See scanned reportBLOOD [id number] 07:00:43 Test Item Value Reference Range Interpretation Comments CULTURE (BEAKER) (test No growth in 5 days code = 1095) BLOOD [id number] 07:00:43 Test Item Value Reference Range Interpretation Comments CULTURE (BEAKER) (test No growth in 5 days code = 1095) [id number] 18:18:27 Test Item Value Reference Range Interpretation Comments Case Report (test code Medical Cytology = 104) Report Case: [id number] Authorizing Provider: To Haynes MD Collected: 01/09/2022 04:08 PM Ordering Location: [address] Received: 01/10/2022 10:29 AM Service Pathologist: Lily Patino MD Specimen: Peritoneal Fluid DIAGNOSIS (test code = [id number] 3220) FuZzEwMzNcZnRuYmpcdWMx IHtccnRmMVxlcGljOTYwMl yhmyRhBRLwmAEmO8Wvemvv UCspXW4aAT3xoJsygZIsdB DbUITfPzZkw6jvo457bNYb q2xeUAPDdreifTo5eNmbV7 0nt2Z7NfiqU35lpHUvILP7 YTVhUFHoaNUwEMRlSQB5ZU HygTIsI8huEZBlPY7bjsae GLrrBJwoGMSptHU9WXAchU FwC8YuXTQqPEnxPUSckdg7 FjBhTp5voPWylCxvEKytTC JkXHBsYWluXGZzMjAgUEVS SVRPTkVBTCBGTFVJRCAoQ1 wOZ3XEHU2GUZJRRJCFSStE RKLHP6VVAQetdEbrMTYoZG BiQP9EE6MIMUYLRUBRJwRU XAlRO60RQbRJFZsDVHSpG4 9NTUVOVClccGFyfXtccnRm HBnvu5AlTMwtXEFkKI8qoB jdAJHqZK9qXVPcP9tzcN5z vrw7QqPqPGDkVmA2XUVxqo R3Zff0TXFdMMfth8wcs7Pq DIVhIXm8kNicBsPwYFCix3 lzcyBcZmNoYXJzZXQwIEFy hOImD119w2zro5xkjyLasW L3KEVjLCX0WBaalqRaxaB2 QGpswSTiIyG6LPnquiDoHA qyppReodCqUpd4XJLcQ922 NVK0mQubz5peIFN2XZTnNC VxPqWjQi3xtSNxM661QHIb TRDUBQIrzZu3FPAemdPydi KssTPTm262Q792l7upWBKg uaRjtSxGugnnt2tgM689OY BhcGVydzEyMjQwXHBhcGVy eBG8PDRtIE8bjptaIKtkGA qoXDEbgrF5OVYneHJhD1Vp KCMwXV6ztuchATM3UQxxIS WkJXO0YvWeBQElr6Qsnzp8 RqVuok8eoi79JSU6p4OawZ igIKA8NFI1QyAlSy4ruFSp MPSbMF4pKxBcvJEdVGAhig 57cQnhLZpvQPM3OMQsuqVj i8Arg9goRaJosnVqX1ewL7 JyZHJoZWFkXHBnYnJkcmZv g9Jnu8DvgXKtaQl9l4zxTQ IlXIUorRcid8gaXXZ7QKBb tOZoD2mdhT7bIQRpDZ1rhz tdd8wkYIqdFGphKRUepBN1 zyA1GRCyuORjN4ExvT2dYH OaCTnaFTUbtuh7GaGbJu8t dGVyeTcyMFxzYmtwYWdlXH BnbmNvbnRccGduZGVjXHBs YWluXHBsYWluXGYwXGZzMj RccWxcbGFuZzEwMzNcaGlj aFxmMVxkYmNoXGYxXGxvY2 cyPtWaSsRvQhe1GLDplQMl ZRFxDhj0WIEqoOKjIIVQhE uolZ5aHYZsyXsxeD7arNP1 GDEunkCsuFLVgN7yOGKXwW 3qWqJ1YTWpDiw7NRY8CvJv cGFyfX0= COMMENT (test code = u7qacAPkHGFspTG6FiLmYS 335) Ylv2lyn1MgcVBabLQyICib wGEklpQwrh52mHM6dJ48KR 1lHGItLlG6XAHcwfU4Mjp6 YTFjLNKocJCbQ982f7mdz6 uboaXkrAJ4rRwrOLKlxnoe OzC0YJteRRSwdcfnYGz2ZB jrNWYanHB6KLPhvRFxQ7Zt LYGtRX2acuw7NHR6WGzoQD UlYmU0OKOssIExTHUejAhu UWpda965TFB5MbLtZITive TfmVwqmN9pKaZyNOHOvILd j5FuJ5rxWG2wzVEyO79vwS 6iLZKhl2KuZjQirDsaPWMp NWZrIQSurJx5EGEqsSCmJL FrseffmNLgh2JjSOpoUMzg B1QhiHZpMTBhqTkkWZE0pQ ObZVWkQKapCCr5fTCrj8R8 dGVzLiBccGFyfQ== CPT Code(s) (test code x0zvpDOmOUYzzAV9HmBsBF = 3354) Utd6ntz4ButGUptGZbGSbs kKAdyoKpkh54bNM4bS69LV 9yVPLqTmM7UDIbokP3Nks5 DGMwGNZrvKFwN756o8tex4 luatQbfLT2wFyeTVRrocpx HoS0HDwvWGPqdozeXIn0NS gcNJOltKK0KFGjeXBwZ3Yn VLUoLT2hsqs4DLD2NWvfXC YzAzA3OSLuxSPmIQWozFhy QVztz828DZX8PyHqDVLway BzgRiogV0aAbUmOYP0BBIo OCwgODgzMDVccGFyfQ== CLINICAL DATA (test u7rotMAhRWZuxBD9TsVdOQ code = 3355) Uml1utg1EeaHKiaEIyNCli eWOyitBerh20jJN7qB21LH 2eRMJgRwA7WDClusH1Lry9 OFZgHSSnvKRiF189n7rrw7 zhjrVjqTO4lUhcBCJmczgs AqD6XWiwBMDyqkwlLEi6JN usKWXmsKQ6BHCziAYfB6Xm VUFxEF6xfyu6FOJ8QRqhQK MjPtO7PMIwpEWqJAEmuBzk WYfww561VRS9WjNnRGVljx WgcYagvF0iNjWrEEBMd4Da zGPeWHVqoVPfaN1biDVcHM SXUUMoh1KvMLHxHUQrW87i x7piZHN6b0AbXTUoE0DtxY GDUSWaMvJbsWQUN8ORBHv8 HBIrNnDrSmuujaWktxF2A4 OqZQGAHIrxfVRrs5VzjWAd DUjkgMheMUOqn01kegAiKI MdmL6tBFQig1EsXCCwFJR6 aSRhLWEda7HqhhNva15aVJ JMRSBlZGVtYSBhbmQgZHlz hU0lWB7bAy85rfCzqN7whW K6YUEmp6PtcHEnEJCgWKMu zJHyFBN4KLAxtT1jcE2hih lhLiBccGFyfQ== SPECIMEN SOURCE (test m3tfgPIiLULfoVE2CbKzLO code = 9941) Fll1olo0GtvENgkTDvNSyv aYRtfiWkzl22eIU1mX64CN 6lLDXmFvO8GFVhwjF4Kui2 DNTkJOFgmBUvX110a9npz0 xukvLomAF1rGxsBRLzxwbb SgE2BQcjWTUxkbjwZQg5KA asYTJdmXL3SLIdsTYnZ2Io FMGdLM6ahlk2MMA0QXlrDZ FcFdV5WYOnhPCvYYLobDyw LNcxb597FHW0MlIhKDWwyn PfdNbjpD8vOoWvLEDLMRCD GV0AUSSBNSWMYGoDHUGhpd 0= GROSS DESCRIPTION (test p3wbtGXhUUMlsUYLIVXbN8 code = [id number]) xlxzAuCEYnuMMhB4Vesydd TYspYB8sVF2lxYpacIYbtB IxSS9WYPNzDtIfKLDgcPIo vkLwHeBfSXEbwSRxzXM2FJ XwFH9lcewzXCpvBToxIXNt anF6RITwkUWwF4SqJTDcBB 3vqjpaALP1GAxcsR6jicLF CsfqBw4ybFDsvUvwUtIpGe NoYXJzZXQwXGZuaWwgQXJp GPj2mV9ZPfzkOVP3BPJVNk brLPZdZR0Wy6zlMQGqgQOh MJE0SCkusVFyESYbEEVxNB g2CIJfOQggaKGoTX2weCkf LovniBtqe4MwdWQwITdtJF JmEXPfMJwdZJZjML6IFcRo WAN3TJQmNfVqLDy5WOl9SV 5FGaBwXRXtTYFbFTn4EHZs GWa9CHlqDW6OYXJvPrYgXB UnUzE6CPU7YRIeIEZmCoCn XGYgQXJpYWwgXFxmbCBcXG 5jfVxwbGFpbiBBLiBQZXJp bA1bBWKeJRYqqTvsNufsLF EgCOheETEhM41mg3FTn5Ir UY1CCLy6jnTqductfL9eKS MobkExLTgedYSrG2nuXoNj MCBSZWNlaXZlZCAxNjAwIG 1sIGFtYmVyIGZsdWlkOyBw ovZcKQZvYBM2HAT0cT5cpE whguAjixMrH5RndXXpaO6i njeOHjomK32ttY8uvJ2uMO SnKbrfMCQ4eBMrV1SbaKYc nM2cqcH2RHZrJwk9AQUabR 6jIp4ccZOigG9vIGKmMVpz KuScgCCrmxS1AhH6NoUxEn INClxwbGFpblxlcGljTmVz oRNrJqCbtNkbtG17XAUiuO XlDQA6XX9cGFCxamgnXKOp RLPdIGB7ZKopdK64vQYaBW ZbJGLgsSLsfA7SXUSpOUN8 DSquzN45uCDzNV7LPZUlLY O4MWOkkYPtFEO7SA7oyO6R fQ== MICROSCOPIC DESCRIPTION d7cegUFtXLTwoYL3PpJpZH (test code = 3371) Qjg0lzx3AweKTlnMBxIVpq xUMdmnFifg83aMX8bH17HS 3qSRXeHvF5FXZjrvQ9Clg4 QBHtIITziTAsR930k0ymk6 qctwOzlSA3pIajSUSkwqsl ZfW4YImqNFAmzzazCGl6NF loTBKlqXE7FCHqhYDgK1Zp QPTxVK0wbdp4IKH3WMpnEU ZrXxU9CCRyrGJqETXtqHtm BYaht717WXO1EtAeKXIyft RueJhekB1uPoTiARVZOYKa p9UhUUYaAGgcDCB6 STATEMENT OF ADEQUACY Satisfactory (test code = 2757) Gross assessment was [facility] performed at (test [facility], = 2777) Department of Pathology, [address] [place] [address], Technical component was [facility] performed at ([facility], = 2778) Department of Pathology, [address] [place] [address] 609[address], Professional component [facility] was performed at ([facility], code = 2779) Department of Pathology, [address] [place] [address], [facility]2022[facility]17 18:18:27Medical Cytology Report Case: [id number] Authorizing Provider: To Haynes MD Collected: 01/09/2022 0 4:08 PM Ordering Location: [address] Received: 01/10/2022 10:29 AM Service Pathologist: Lily Patino MD Specimen: Peritoneal Fluid PERITONEAL FLUID (CYTOSPINS AND CELL BLOCK): - NEGATIVE FOR MALIGNANCY (SEE COMMENT) Signing Pathologist Direct Phone Line: [phone] signed by Lily Patino MD on 01/12/2022 at 6:18 PMThe specimen is composed of benign and reactive appearing mesothelial cells admixed with small lymphocytes. 44535, 24269Swfrkho, cirrhosis, ESLD sec to Alcohol abuse, recent GIB from NSAID's induced PUD, presented with abdominal pain associated with distension, BLE edema and dyspnea. Found to have ascites and suspected pneumonia. PERITONEAL FLUIDA. Peritoneal Fluid.Received 1600 ml mainor fluid; prepared 4 cytospins and cell block(A2)(collodion bag) - the cell block was fixed in formalin at 5:03 pm on 01/10/2022erformed. [facility], [facility] of [facility]ology, [address] [place] [address], [facility], [address] [place] [address], [facility], Department of Pathology, [address] [place], [place] [id number], Psbwle Culture + Gram [id number] 13:56:33 Test Item Value Reference Range Interpretation Comments Result (test code = 2+ Normal respiratory 6463-4) meghna present Gram Stain Result <1+ yeast (test code = 1123) [facility] [id number] 13:56:33 Test Item Value Reference Range Interpretation Comments CULTURE (BEAKER) 2+ Normal respiratory (test code = 1095) meghna present GRAM STAIN RESULT <1+ WBCs (BEAKER) (test code = 1123) GRAM STAIN RESULT 0-5 epithelial cells (BEAKER) (test code = 37882) GRAM STAIN RESULT <1+ gram negative rods (BEAKER) (test code = 47261) GRAM STAIN RESULT <1+ gram positive rods (BEAKER) (test code = 172120) GRAM STAIN RESULT <1+ gram negative cocci (BEAKER) (test code = in pairs 989686) GRAM STAIN RESULT <1+ gram positive cocci (BEAKER) (test code = in pairs 428435) GRAM STAIN RESULT <1+ yeast (BEAKER) (test code = 334387) U/S, [id number] 13:01:00Labs to be ordered:->No Labs NeededReason for exam:->ascites [facility] : 1970 Sex: FFINALREPORT Ultrasound guided paracentesis. Clinical History: Ascites. Sedation: None. Electronic Imaging System Operator: Comfort Estevez PA-C Environmental Law Professor: None. Estimated Blood Loss: < 1 cc. Specimen: 3800 cc of clear yellow fluid, samples sent to laboratory. Technique: Informed consent was obtained. The risks of pain, bleeding, infection, bowel perforation, injury to adjacent structures, and adversemedication reactions were discussed with the patient. After informed consent was obtained, the patient's abdomen was scanned. The right lower quadrant of the abdomen was selected for paracentesis. After the largest fluid pocket area was marked, and the anterior abdominal wall was evaluated with color Doppler to exclude presence of blood vessels traversing the area, the skin was prepped and draped in the usual sterile manner. After local anesthesia was achieved with 2% lidocaine, a 5 Greek one-step catheter was advanced into the peritoneal cavity under ultrasound guidance. After completion of drainage, the catheter was removed. There was no evidence of complication. Impression:Successful ultrasound guided paracentesis. Signed: Ty Melgar Verified Date/Time: 01/12/2022 13:01:26 Reading Location: [address] Ultrasound Reading Room Electronically signed by: TY MELGAR M.D. on 01:01 PMHEPATITIS B SURFACE [id number] 06:10:13 Test Item Value Reference Range Interpretation Comments HEPATITIS B SURFACE ANTIBODY < mIU/mL <8.0 (BEAKER) (test code = 647) Mill Helper ID - REYNALDO MCALCIUM, [id number] 05:57:54 Test Item Value Reference Range Interpretation Comments CALCIUM IONIZED (BEAKER) (test 1.04 mmol/L 1.12-1.27 L code = 698) PH, BLOOD (BEAKER) (test code = 7.45 1810) HEPATITIS B CORE ANTIBODY, [id number] 05:54:43 Test Item Value Reference Range Interpretation Comments HEPATITIS B CORE TOTAL ANTIBODY Nonreactive Nonreactive (BEAKER) (test code = 497) [employer] ID - REYNALDO MBASIC METABOLIC [id number] 05:53:19 Test Item Value Reference Range Interpretation Comments SODIUM (BEAKER) 135 meq/L 136-145 L (test code = 381) POTASSIUM 3.6 meq/L 3.5-5.1 (BEAKER) (test code = 379) CHLORIDE (BEAKER) 107 meq/L 98-107 (test code = 382) CO2 (BEAKER) 24 meq/L 22-29 (test code = 355) BLOOD UREA 6 mg/dL 7-21 L NITROGEN (BEAKER) (test code = 354) CREATININE 0.59 mg/dL 0.57-1.25 (BEAKER) (test code = 358) GLUCOSE RANDOM 112 mg/dL 70-105 H (BEAKER) (test code = 652) CALCIUM (BEAKER) 7.0 mg/dL 8.4-10.2 L (test code = 697) EGFR (BEAKER) 108 Interpretatio n of eGFR (test code = [...] not appl icable for dialysis patien ts [employer] ID - REYNALDO MSpecimen moderately [id number] 05:50:40 Test Item Value Reference Range Interpretation Comments MAGNESIUM (BEAKER) (test code = 1.8 mg/dL 1.6-2.6 627) [employer] ID - REYNALDO [id number] 05:50:40 Test Item Value Reference Range Interpretation Comments PHOSPHORUS (BEAKER) (test code = 2.3 mg/dL 2.3-4.7 604) [employer] ID - REYNALDO MCBC W/PLT COUNT & AUTO [id number] 05:12:03 Test Item Value Reference Range Interpretation Comments WHITE BLOOD CELL COUNT (BEAKER) 5.9 K/ L 3.5-10.5 (test code = 775) RED BLOOD CELL COUNT (BEAKER) 2.30 M/ L 3.93-5.22 L (test code = 761) HEMOGLOBIN (BEAKER) (test code = 7.8 GM/DL 11.2-15.7 L 410) HEMATOCRIT (BEAKER) (test code = 22.9 % 34.1-44.9 L 411) MEAN CORPUSCULAR VOLUME (BEAKER) 99.6 fL 79.4-94.8 H (test code = 753) MEAN CORPUSCULAR HEMOGLOBIN 33.9 pg 25.6-32.2 H (BEAKER) (test code = 751) MEAN CORPUSCULAR HEMOGLOBIN CONC 34.1 GM/DL 32.2-35.5 (BEAKER) (test code = 752) RED CELL DISTRIBUTION WIDTH 20.2 % 11.7-14.4 H (BEAKER) (test code = 412) PLATELET COUNT (BEAKER) (test 110 K/CU MM 150-450 L code = 756) MEAN PLATELET VOLUME (BEAKER) 9.9 fL 9.4-12.3 (test code = 754) NUCLEATED RED BLOOD CELLS 0 /100 WBC 0-0 (BEAKER) (test code = 413) NEUTROPHILS RELATIVE PERCENT 62 % (BEAKER) (test code = 429) LYMPHOCYTES RELATIVE PERCENT 21 % (BEAKER) (test code = 430) MONOCYTES RELATIVE PERCENT 13 % (BEAKER) (test code = 431) EOSINOPHILS RELATIVE PERCENT 1 % (BEAKER) (test code = 432) BASOPHILS RELATIVE PERCENT 2 % (BEAKER) (test code = 437) NEUTROPHILS ABSOLUTE COUNT 3.68 K/ L 1.56-6.13 (BEAKER) (test code = 670) LYMPHOCYTES ABSOLUTE COUNT 1.26 K/ L 1.18-3.74 (BEAKER) (test code = 414) MONOCYTES ABSOLUTE COUNT (BEAKER) 0.77 K/ L 0.24-0.36 H (test code = 415) EOSINOPHILS ABSOLUTE COUNT 0.04 K/ L 0.04-0.36 (BEAKER) (test code = 416) BASOPHILS ABSOLUTE COUNT (BEAKER) 0.11 K/ L 0.01-0.08 H (test code = 417) IMMATURE GRANULOCYTES-RELATIVE 1 % 0-1 PERCENT (BEAKER) (test code = 2801) POC-Glucose [id number] 21:06:32 Test Item Value Reference Range Interpretation Comments POC-Glucose Meter (test 127 mg/dL 70-110 H : TE STED AT [facility] code = 1538) [address] [facility], [address]: Mill Helper/Techni alley ID = [id number] for AUDREY, TIA Lab Interpretation (test Abnormal code = 58966-6) [facility] [place] [id number] 21:06:32 Test Item Value Reference Range Interpretation Comments POC-GLUCOSE METER 127 mg/dL 70-110 H : TESTED A T [facility] 67[address] (BEAKER) (test code = [facility], 1538) [address]: Mill Helper/Techni alley ID = [id number] for CR ISWELL, TIA Body fluid culture + gram [id number] 18:14:25 Test Item Value Reference Range Interpretation Comments Result (test code = 6463-4) [facility] [place] [facility] + GRAM [id number] 18:14:25 Test Item Value Reference Range Interpretation Comments CULTURE (BEAKER) (test code = 1095) No growth MRSA [id number] 12:25:48 Test Item Value Reference Range Interpretation Comments Result (test code = 6463-4) No [facility] [place] [id number] 12:25:48 Test Item Value Reference Range Interpretation Comments CULTURE (BEAKER) (test code No MRSA isolated = 1095) VANCOMYCIN LEVEL, [id number] 10:26:28 Test Item Value Reference Range Interpretation Comments VANCOMYCIN TROUGH (BEAKER) (test 11.7 ug/mL 10.0-20.0 code = 522) Mill Helper ID - LMU/S, [id number] 07:46:00Labs to be ordered:->Body Fluid Culture (w/Gram Stain, C\T\S)Labs to be ordered:->Anaerobic Culture (w/Gram Stain)Reason for exam:->diagnostic and therapeutic [facility] : 1970 Sex: FFINALREPORT Ultrasound guided paracentesis Clinical History: Ascites. Sedation: None. Electronic Imaging System Operator: Sallie Hill PA-C Supervising Physician: Jacek Santo MD Environmental Law Professor: None. Estimated Blood Loss: < 1 mL. Specimen: 2700 mL of clear yellow fluid, samples sent to laboratory. Technique: Informed consent was obtained. The risks of pain, bleeding, infection, bowel perforation, injury to adjacent structures, and adverse medication reactions were discussed with the patient. After informed consent was obtained, the patient's abdomen was scanned. The right lower quadrant of the abdomen was selected for paracentesis. After the largest fluid pocket area was marked, and the anterior abdominal wall was evaluated with color Doppler to exclude presence of blood vessels traversing the area, the skin was prepped and draped in the usual sterile manner. After local anesthesia was achieved with lidocaine, a 5 Greek one-step catheter was advanced into the peritoneal cavity under ultrasoundguidance. After completion of drainage, the catheter was removed. There was no evidence of complication. Impression:Successful ultrasound guided paracentesis. Signed: Jacek Santo MDReport Verified Date/Time: 01/11/2022 07:46:45 Reading Location: [address] Ultrasound Reading Room BASIC METABOLIC [id number] 05:42:30 Test Item Value Reference Range Interpretation Comments SODIUM (BEAKER) 137 meq/L 136-145 (test code = 381) POTASSIUM 3.6 meq/L 3.5-5.1 (BEAKER) (test code = 379) CHLORIDE (BEAKER) 108 meq/L 98-107 H (test code = 382) CO2 (BEAKER) 22 meq/L 22-29 (test code = 355) BLOOD UREA 6 mg/dL 7-21 L NITROGEN (BEAKER) (test code = 354) CREATININE 0.60 mg/dL 0.57-1.25 (BEAKER) (test code = 358) GLUCOSE RANDOM 91 mg/dL 70-105 (BEAKER) (test code = 652) CALCIUM (BEAKER) 7.2 mg/dL 8.4-10.2 L (test code = 697) EGFR (BEAKER) 107 Interpretatio n of eGFR (test code = [...] not appl icable for dialysis patien ts Mill Helper ID - HÉCTOR WSpecimen moderately [id number] 05:38:42 Test Item Value Reference Range Interpretation Comments MAGNESIUM (BEAKER) (test code = 1.5 mg/dL 1.6-2.6 L 627) Mill Helper ID Luca ANAYA [id number] 05:38:42 Test Item Value Reference Range Interpretation Comments PHOSPHORUS (BEAKER) (test code = 2.7 mg/dL 2.3-4.7 604) Mill Helper ID - HÉCTOR WCBC W/PLT COUNT & AUTO [id number] 05:16:45 Test Item Value Reference Range Interpretation Comments WHITE BLOOD CELL COUNT (BEAKER) 5.8 K/ L 3.5-10.5 (test code = 775) RED BLOOD CELL COUNT (BEAKER) 2.35 M/ L 3.93-5.22 L (test code = 761) HEMOGLOBIN (BEAKER) (test code = 7.9 GM/DL 11.2-15.7 L 410) HEMATOCRIT (BEAKER) (test code = 23.0 % 34.1-44.9 L 411) MEAN CORPUSCULAR VOLUME (BEAKER) 97.9 fL 79.4-94.8 H (test code = 753) MEAN CORPUSCULAR HEMOGLOBIN 33.6 pg 25.6-32.2 H (BEAKER) (test code = 751) MEAN CORPUSCULAR HEMOGLOBIN CONC 34.3 GM/DL 32.2-35.5 (BEAKER) (test code = 752) RED CELL DISTRIBUTION WIDTH 20.6 % 11.7-14.4 H (BEAKER) (test code = 412) PLATELET COUNT (BEAKER) (test 111 K/CU MM 150-450 L code = 756) MEAN PLATELET VOLUME (BEAKER) 10.3 fL 9.4-12.3 (test code = 754) NUCLEATED RED BLOOD CELLS 0 /100 WBC 0-0 (BEAKER) (test code = 413) NEUTROPHILS RELATIVE PERCENT 66 % (BEAKER) (test code = 429) LYMPHOCYTES RELATIVE PERCENT 20 % (BEAKER) (test code = 430) MONOCYTES RELATIVE PERCENT 12 % (BEAKER) (test code = 431) EOSINOPHILS RELATIVE PERCENT 0 % (BEAKER) (test code = 432) BASOPHILS RELATIVE PERCENT 2 % (BEAKER) (test code = 437) NEUTROPHILS ABSOLUTE COUNT 3.83 K/ L 1.56-6.13 (BEAKER) (test code = 670) LYMPHOCYTES ABSOLUTE COUNT 1.13 K/ L 1.18-3.74 L (BEAKER) (test code = 414) MONOCYTES ABSOLUTE COUNT (BEAKER) 0.67 K/ L 0.24-0.36 H (test code = 415) EOSINOPHILS ABSOLUTE COUNT 0.02 K/ L 0.04-0.36 L (BEAKER) (test code = 416) BASOPHILS ABSOLUTE COUNT (BEAKER) 0.10 K/ L 0.01-0.08 H (test code = 417) IMMATURE GRANULOCYTES-RELATIVE 1 % 0-1 PERCENT (BEAKER) (test code = 2801) CALCIUM, [id number] 05:06:00 Test Item Value Reference Range Interpretation Comments CALCIUM IONIZED (BEAKER) (test 1.01 mmol/L 1.12-1.27 L code = 698) PH, BLOOD (BEAKER) (test code = 7.45 1810) Venous doppler legs [id number] 15:35:44Ejection FractionSLEH ECHO HEARTLAB MKCKESSON [facility] SacramentoProtein, body [id number] 09:30:46 Test Item Value Reference Range Interpretation Comments Protein, Fluid (test <0.6 g/dL code = 2881-1) VALERIA (test code = Absence of reference VALERIA) range indicates that normals have not been defined.Assay performance has not been validated for this type of specimen. Mill Helper ID - JORGE [facility], SacramentoPROTEIN, BODY [id number] 09:30:46 Test Item Value Reference Range Interpretation Comments PROTEIN FLUID (BEAKER) (test code = < g/dL 579) Absence of reference range indicates that normals have not been defined.Assay performance has not been validated for this type of specimen.Mill Helper ID - JORGEAlbumin, body [id number] 09:28:34 Test Item Value Reference Range Interpretation Comments Albumin, Fluid (test <0.5 gm/dL code = 1747-5) VALERIA (test code = Reference Range: No VALERIA) Normals Assay performance has not been validated for this type of specimen.Mill Helper ID - JORGE [facility] SacramentoALBUMIN, BODY [id number] 09:28:34 Test Item Value Reference Range Interpretation Comments ALBUMIN FLUID (BEAKER) (test code = < gm/dL 501) Reference Range: No Normals Assay performance has not been validated for this type of specimen.Mill Helper ID - PAULIEENSONBASIC METABOLIC [id number] 07:42:35 Test Item Value Reference Range Interpretation Comments SODIUM (BEAKER) 134 meq/L 136-145 L (test code = 381) POTASSIUM 3.8 meq/L 3.5-5.1 (BEAKER) (test code = 379) CHLORIDE (BEAKER) 105 meq/L 98-107 (test code = 382) CO2 (BEAKER) 24 meq/L 22-29 (test code = 355) BLOOD UREA 5 mg/dL 7-21 L NITROGEN (BEAKER) (test code = 354) CREATININE 0.65 mg/dL 0.57-1.25 (BEAKER) (test code = 358) GLUCOSE RANDOM 99 mg/dL 70-105 (BEAKER) (test code = 652) CALCIUM (BEAKER) 7.1 mg/dL 8.4-10.2 L (test code = 697) EGFR (BEAKER) 105 Interpretatio n of eGFR (test code = [...] not as accur ate as Creatinine Francia mcdowell in predicting glom erular filtration rate . Estimated GFR is not appl icable for dialysis patien ts Mill Helper ID - PIAYA LSpecimen moderately [id number] 06:43:54 Test Item Value Reference Range Interpretation Comments MAGNESIUM (BEAKER) (test code = 1.6 mg/dL 1.6-2.6 627) Mill Helper ID - PICHEY LHEPATIC FUNCTION [id number] 06:43:54 Test Item Value Reference Range Interpretation Comments TOTAL PROTEIN (BEAKER) (test code = 5.2 gm/dL 6.0-8.3 L 770) ALBUMIN (BEAKER) (test code = 1145) 2.3 g/dL 3.5-5.0 L BILIRUBIN TOTAL (BEAKER) (test code 8.6 mg/dL 0.2-1.2 H = 377) BILIRUBIN DIRECT (BEAKER) (test 5.0 mg/dL 0.1-0.5 H code = 706) ALKALINE PHOSPHATASE (BEAKER) (test 125 U/L 40-150 code = 346) AST (SGOT) (BEAKER) (test code = 73 U/L 5-34 H 353) ALT (SGPT) (BEAKER) (test code = 39 U/L 6-55 347) Mill Helper ID - RONAL LSpecimen moderately ictericB-TYPE NATRIURETIC FACTOR (BNP) 2022-01-10 06:17:21 Test Item Value Reference Range Interpretation Comments B-TYPE NATRIURETIC PEPTIDE (BEAKER) 421 pg/mL 0-100 H (test code = 700) Mill Helper ID - RONAL LHEMOGLOBIN AND [id number] 06:00:04 Test Item Value Reference Range Interpretation Comments HEMOGLOBIN (BEAKER) (test code = 7.9 GM/DL 11.2-15.7 L 410) HEMATOCRIT (BEAKER) (test code = 23.6 % 34.1-44.9 L 411) Mill Helper ID - 6000Operator ID - 6000PROTHROMBIN TIME/[id number] 05:34:34 Test Item Value Reference Range Interpretation Comments PROTIME (BEAKER) 22.6 seconds 11.9-14.2 H (test code = 759) INR (BEAKER) (test 2.14 See_Comment [Automat ed message] code = 370) The system [employer] generated this result transmitted ref erence range: <=5.90. The reference range was not used to int erpret this result as normal/abnormal . RECOMMENDED COUMADIN/WARFARIN INR THERAPY RANGESSTANDARD DOSE: 2.0 - 3.0 Includes: PROPHYLAXIS for venous thrombosis, systemic embolization; TREATMENT for venous thrombosis and/or pulmonary embolus.HIGH RISK: Target INR is 2.5-3.5 for patients with mechanical heart valves.U/S, ABDOMINAL, WITH [id number] 04:49:00Reason for exam:->new onset ascites, rule out PVT [facility] : 1970 Sex: FFINALREPORT History: new onset ascites, rule out PVT Abdominal ultrasound dated 01/10/2022 Comparison: 12/28/2021 Comment: Real-time transabdominal ultrasound of the abdomen was performed.Liver: 17.2 cm , prominent. Elevated parenchymal echogenicity suggesting steatosis. Subtle nodular contour, suggesting underlying cirrhosis. Gallbladder: Absent. Biliary tree: No intrahepatic ductal dilatation. CBD: 8 mm. Spleen: Enlarged, measuring 13.8 cm in maximum dimension. Pancreas: Unremarkable. Right kidney: 11.2 x 5.4 x 5.6 cm. Normal echogenicity.Left kidney: 10.7 x 5.0 x 5.0 cm. Normal echogenicity. Moderate volume ascites is present in the abdomen. Real-time Johnson scale, color and spectral doppler ultrasound of the abdomen was performed to evaluate visceral blood flow. Main portal vein measures 1.0 cm in diameter. There is hepatofugal flow in the main portal vein with velocity 25.5 cm/sec. The right and left intrahepatic portal veins are patent with hepatofugal flow. There is a recanalized umbilical vein. Proper hepatic artery, right hepatic artery, and left hepatic artery are patent with resistive indices 0.6, 0.6, and 0.7 respectively. IVC, Hepatic venous confluence, right HV, middle HV and left HV are patent with appropriate flow. The visualized abdominal aorta is normal in caliber. Impression: Elevated hepatic parenchyma echogenicity, possibly steatosis. Cirrhotic hepatic morpho logy. Evidence of portal hypertension, including ascites, splenomegaly and and a recanalized umbilical vein. No portal venous thrombosis. Hepatofugal flow in the intrahepatic and main portal veins. Prior cholecystectomy. Signed: Ashu Nguyen MDReport Verified Date/Time: 01/10/2022 04:49:14 Body fluid cell count with differential 2022-01-09 19:01:00 Test Item Value Reference Range Interpretation Comments Appearance (test code = Clear Clear 9335-1) Color (test code = Yellow Colorless, Straw A 6824-7) RBCs (test code = 50 See_Comment H [Automate d message] 25131-6) The system [employer] generated this result transmit mena reference range : <=1 /cu mm. The reference range was not used to interpret this result as normal/abnormal . Adjusted WBC Count 50 See_Comment H [Automat ed message] (test code = 69514-8) The sy stem which generated this result transmit mena reference range : <=5 /cu mm. The reference range was not used to interpret this result as normal/abnormal . Lining Cells (test code 2 See_Comment H [Au tomated message] = 84666-8) The system [employer] generated this result transmit mena reference range : <=1 /cu mm. The reference range was not used to interpret this result as normal/abnormal . % Segs (test code = 9 % 14939-7) % Lymphs (test code = 10 % 04871-7) % Monos (test code = 81 % 17725-1) % Eos (test code = 0 % 67589-6) % Baso (test code = 0 % 29222-5) Container Body Fluid EDTA Tube (test code = 2873) Lab Interpretation Abnormal (test code = 67881-7) [facility] SacramentoBODY FLUID CELL COUNT WITH [id number] 19:01:00 Test Item Value Reference Range Interpretation Comments APPEARANCE FLUID Clear Clear (BEAKER) (test code = 510) COLOR FLUID (BEAKER) Yellow Colorless, Straw A (test code = 511) RBC FLUID (BEAKER) 50 /cu mm See_Comment H [Automat ed message] (test code = 513) The system which generated this result transmitted ref erence range: <=1. The reference range was not used to int erpret this result as normal/abnormal . ADJUSTED WBC FLUID 50 /cu mm See_Comment H [Automat ed message] (BEAKER) (test code = The sy stem which 1693) generated this result transmitted ref erence range: <=5. The reference range was not used to int erpret this result as normal/abnormal . LINING CELLS (BEAKER) 2 /cu mm See_Comment H [Auto mated message] (test code = 1590) The syste m which generated this result transmitted ref erence range: <=1. The reference range was not used to int erpret this result as normal/abnormal . NEUTROPHILS FLUID 9 % (BEAKER) (test code = 1656) LYMPHS FLUID (BEAKER) 10 % (test code = 488) MONO/MACROPHAGE FLUID 81 % (BEAKER) (test code = 489) EOSINOPHILS FLUID 0 % (BEAKER) (test code = 491) BASO FLUID (BEAKER) 0 % (test code = 492) CONTAINER BODY FLUID EDTA Tube (BEAKER) (test code = 2873) SPUTUM CULTURE + GRAM [id number] 17:53:29 Test Item Value Reference Range Interpretation Comments CULTURE (BEAKER) Oropharyngeal (test code = 1095) contamination, specimen rejected. Recollect requested. GRAM STAIN RESULT 1+ WBCs (BEAKER) (test code = 1123) GRAM STAIN RESULT >25/LPF epithelial cells (BEAKER) (test code = 30153) GRAM STAIN RESULT 1+ gram negative rods (BEAKER) (test code = 91632) GRAM STAIN RESULT 1+ gram positive rods (BEAKER) (test code = 502967) GRAM STAIN RESULT 1+ gram negative cocci in (BEAKER) (test code pairs = 220832) GRAM STAIN RESULT 2+ gram positive cocci in (BEAKER) (test code chains, pairs and = 090749) clusters Strep pneumoniae [id number] 17:04:46 Test Item Value Reference Range Interpretation Comments Strep pneumoniae Presumptive negative Presumptive Antigen (test code = [place] [address]-3) pneumonia - see pneumococcal comment pneumonia - see comment, Presumptive negative for pneumococcal meningitis - see comment VALERIA (test code = AVLERIA) Presumptive negative for pneumococcal pneumonia, suggesting no current or recent pneumococcal infection. Infection due to S. pneumoniae cannot be ruled out since the antigen present in the sample may be below the detection limit of the test. Lab Interpretation Normal (test code = 35836-8) [facility] [id number] 17:04:46 Test Item Value Reference Range Interpretation Comments STREP PNEUMONIAE Presumptive negative Presumptive negative ANTIGEN (BEAKER) for pneumococcal for pneumococcal (test code = 1615) pneumonia - see pneumonia - see comment commen Presumptive negative for pneumococcal pneumonia, suggesting no current or recent pneumococcal infection. Infection due to S. pneumoniae cannot be ruled out since the antigen present in the sample may be below the detection limit of the test. Legionella antigen, [id number] 17:03:49 Test Item Value Reference Range Interpretation Comments Legionella Urine Negative - see Negative for L. Antigen (test code comment pneumophi la = 51331-2) serogroup 1 ant igen, suggesting no r ecent or current infe ction with this serog roup. Legionellosis c annot be ruled out si nce other serogroup s and species may cau se disease. [facility] SacramentoLEGIONELLA ANTIGEN, [id number] 17:03:49 Test Item Value Reference Range Interpretation Comments L. PNEUMOPHILA Negative - see Negative fo r L. SEROGP 1 UR AG comment pneumophila (BEAKER) (test code serogrou p 1 antigen, = 1156) suggesting no r ecent or current infe ction with this serog roup. Legionellosis c annot be ruled out si nce other serogroup s and species may cau se disease. CBC W/PLT COUNT & AUTO [id number] 07:35:58 Test Item Value Reference Range Interpretation Comments WHITE BLOOD CELL COUNT (BEAKER) 7.3 K/ L 3.5-10.5 (test code = 775) RED BLOOD CELL COUNT (BEAKER) 2.52 M/ L 3.93-5.22 L (test code = 761) HEMOGLOBIN (BEAKER) (test code = 8.6 GM/DL 11.2-15.7 L 410) HEMATOCRIT (BEAKER) (test code = 25.3 % 34.1-44.9 L 411) MEAN CORPUSCULAR VOLUME (BEAKER) 100.4 fL 79.4-94.8 H (test code = 753) MEAN CORPUSCULAR HEMOGLOBIN 34.1 pg 25.6-32.2 H (BEAKER) (test code = 751) MEAN CORPUSCULAR HEMOGLOBIN CONC 34.0 GM/DL 32.2-35.5 (BEAKER) (test code = 752) RED CELL DISTRIBUTION WIDTH 21.8 % 11.7-14.4 H (BEAKER) (test code = 412) PLATELET COUNT (BEAKER) (test 131 K/CU MM 150-450 L code = 756) MEAN PLATELET VOLUME (BEAKER) 10.1 fL 9.4-12.3 (test code = 754) NUCLEATED RED BLOOD CELLS 0 /100 WBC 0-0 (BEAKER) (test code = 413) NEUTROPHILS RELATIVE PERCENT 73 % (BEAKER) (test code = 429) LYMPHOCYTES RELATIVE PERCENT 14 % (BEAKER) (test code = 430) MONOCYTES RELATIVE PERCENT 11 % (BEAKER) (test code = 431) EOSINOPHILS RELATIVE PERCENT 0 % (BEAKER) (test code = 432) BASOPHILS RELATIVE PERCENT 2 % (BEAKER) (test code = 437) NEUTROPHILS ABSOLUTE COUNT 5.33 K/ L 1.56-6.13 (BEAKER) (test code = 670) LYMPHOCYTES ABSOLUTE COUNT 1.01 K/ L 1.18-3.74 L (BEAKER) (test code = 414) MONOCYTES ABSOLUTE COUNT (BEAKER) 0.82 K/ L 0.24-0.36 H (test code = 415) EOSINOPHILS ABSOLUTE COUNT 0.00 K/ L 0.04-0.36 L (BEAKER) (test code = 416) BASOPHILS ABSOLUTE COUNT (BEAKER) 0.11 K/ L 0.01-0.08 H (test code = 417) IMMATURE GRANULOCYTES-RELATIVE 0 % 0-1 PERCENT (BEAKER) (test code = 2801) COMPREHENSIVE METABOLIC [id number] 07:06:40 Test Item Value Reference Range Interpretation Comments TOTAL PROTEIN 5.4 gm/dL 6.0-8.3 L (BEAKER) (test code = 770) ALBUMIN (BEAKER) 2.1 g/dL 3.5-5.0 L (test code = 1145) ALKALINE 151 U/L 40-150 H PHOSPHATASE (BEAKER) (test code = 346) BILIRUBIN TOTAL 7.9 mg/dL 0.2-1.2 H (BEAKER) (test code = 377) SODIUM (BEAKER) 133 meq/L 136-145 L (test code = 381) POTASSIUM (BEAKER) 3.2 meq/L 3.5-5.1 L (test code = 379) CHLORIDE (BEAKER) 103 meq/L 98-107 (test code = 382) CO2 (BEAKER) (test 23 meq/L 22-29 code = 355) BLOOD UREA 4 mg/dL 7-21 L NITROGEN (BEAKER) (test code = 354) CREATININE 0.63 mg/dL 0.57-1.25 (BEAKER) (test code = 358) GLUCOSE RANDOM 113 mg/dL 70-105 H (BEAKER) (test code = 652) CALCIUM (BEAKER) 7.3 mg/dL 8.4-10.2 L (test code = 697) AST (SGOT) 96 U/L 5-34 H (BEAKER) (test code = 353) ALT (SGPT) 51 U/L 6-55 (BEAKER) (test code = 347) EGFR (BEAKER) 106 Interpretatio n of eGFR (test code = 1092) mL/min/1.[address] age Description sq m Result G1 Vee l or high >=90 G2 Mildly decreased 60-89 G3a Mildl y to moderately 45-5 9 G3b Moderately to s everely 30-44 G4 Severl y decreased 15-29 G5 Kidney failure <15Reported eGF R is based on the CKD-EPI 202 equation that d oes not use a race coefficientEsti mated GFR is not as accur ate as Creatinine Francia jeremias in predicting glom erular filtration rate . Estimated GFR is not appl icable for dialysis patien ts Mill Helper ID - REYNALDO MSpecimen moderately ictericPROTHROMBIN TIME/[id number] 06:48:07 Test Item Value Reference Range Interpretation Comments PROTIME (BEAKER) 21.2 seconds 11.9-14.2 H (test code = 759) INR (BEAKER) (test 1.89 See_Comment [Automat ed message] code = 370) The system [employer] generated this result transmitted ref erence range: <=5.90. The reference range was not used to int erpret this result as normal/abnormal . RECOMMENDED COUMADIN/WARFARIN INR THERAPY RANGESSTANDARD DOSE: 2.0 - 3.0 Includes: PROPHYLAXIS for venous thrombosis, systemic embolization; TREATMENT for venous thrombosis and/or pulmonary embolus.HIGH RISK: Target INR is 2.5-3.5 for patients with mechanical heart valves.ANTI-MITOCHONDRIAL AB, REFLEX TO TITER 2022-01-07 11:05:07 Test Item Value Reference Range Interpretation Comments SCAN RESULT (test code = 1616888) BLOOD [id number] 14:00:49 Test Item Value Reference Range Interpretation Comments CULTURE (BEAKER) (test No growth in 5 days code = 1095) BLOOD [id number] 14:00:49 Test Item Value Reference Range Interpretation [...] Unit ABO (test code = O Pos 2174129) UNIT NUMBER (test code = [id number] 934-0) Status (test code = 4205232) TX_TIMEINCHART Blood Bank Product (test code RED BLOOD CELLS = 2263) PRODUCT CODE (test code = B0519F36 933-2) [facility] [place]Prep[facility] Leuko-Red [id number] 23:54:00 Test Item Value Reference Range Interpretation Comments CROSSMATCH (test code = 2264) COMPATIBLE Unit ABO (test code = O Pos 1150101) UNIT NUMBER (test code = [id number] 934-0) Status (test code = 9369010) TX_TIMEINCHART Blood Bank Product (test code RED BLOOD CELLS = 2263) PRODUCT CODE (test code = T0730A32 933-2) [facility] [id number] 10:57:18 Test Item Value Reference Range Interpretation Comments Result (test code = 6463-4) No MRSA isolated [facility] [id number] 10:57:18 Test Item Value Reference Range Interpretation Comments CULTURE (BEAKER) (test code No MRSA isolated = 1095) [id number] 06:39:34 Test Item Value Reference Range Interpretation Comments FERRITIN (BEAKER) (test code = 428.99 ng/mL 5.00-275.00 H 361) Mill Helper ID - REYNALDO MHEPATITIS A ANTIBODY, [id number] 04:03:23 Test Item Value Reference Range Interpretation Comments HEPATITIS A IGG ANTIBODY (BEAKER) Reactive Nonreactive A (test code = 2797) Mill Helper ID - REYNALDO MBASIC METABOLIC [id number] 04:01:22 Test Item Value Reference Range Interpretation [...] eGF R is based on the CKD-EPI 2021 equation that d oes not use a race coefficientEsti mated GFR is not as accur ate as Creatinine Francia jeremias in predicting glom erular filtration rate . Estimated GFR is not appl icable for dialysis patien ts Mill Helper ID - REYNALDO MSpecimen moderately ictericHEPATITIS B CORE ANTIBODY, IGM 2021-12-29 03:59:34 Test Item Value Reference Range Interpretation Comments HEPATITIS B CORE IGM ANTIBODY Nonreactive Nonreactive (BEAKER) (test code = 645) Mill Helper ID - REYNALDO MHEPATITIS C [id number] 03:59:34 Test Item Value Reference Range Interpretation Comments HEPATITIS C ANTIBODY (BEAKER) Nonreactive Nonreactive (test code = 367) Mill Helper ID - REYNALDO MHEPATITIS B SURFACE [id number] 03:59:33 Test Item Value Reference Range Interpretation [...] % 20-55 H (test code = 2590) Mill Helper ID - REYNALDO [id number] 03:44:11 Test Item Value Reference Range Interpretation Comments MAGNESIUM (BEAKER) (test code = 1.9 mg/dL 1.6-2.6 627) Mill Helper ID - REYNALDO MHEPATIC FUNCTION [id number] 03:44:11 Test Item Value Reference Range Interpretation [...] (test code = 51 U/L 6-55 347) Mill Helper ID - REYNALDO MSpecimen moderately aoccyxoTSKHF-1-[id number] 03:38:28 Test Item Value Reference Range Interpretation Comments ALPHA-1 ANTITRYPSIN (BEAKER) 217.60 mg/dL 90.00-200.00 H (test code = 502) Mill Helper [place]ACOBS MPROTHROMBIN TIME/[id number] 03:28:23 Test Item Value Reference Range Interpretation Comments PROTIME (BEAKER) 21.8 seconds 11.9-14.2 H (test code = 759) INR (BEAKER) (test 2.04 See_Comment [Automat ed message] code = 370) The system [employer] generated this result transmitted ref erence range: [...] (BEAKER) (test code = 413) HEMOGLOBIN AND [id number] 15:58:32 Test Item Value Reference Range Interpretation Comments HEMOGLOBIN (BEAKER) (test code = 7.9 GM/DL 11.2-15.7 L 410) HEMATOCRIT (BEAKER) (test code = 22.0 % 34.1-44.9 L 411) Mill Helper ID - 6000HEPATIC FUNCTION [id number] 08:36:48 Test Item Value Reference Range Interpretation [...] Specimen slightly (test code = 347) hemolyzed [employer] Helper ID - REYNALDO MSpecimen moderately ictericU/S, ABDOMINAL, [id number] 08:02:00Abdomen limited area? Add comment if clarification is needed.->Right upper quadrantReason for exam:->Elevated LFTs, suspect cirrhosis [facility] ESTEBANCHAPARRITA MARTHA : 1970 Sex: FFINALREPORT Right Upper Quadrant Ultrasound History: Abnormal liver function tests Comparison: none Findings:Liver appears echogenic, with a mildly nodular contour. No definite hepatic mass or intrahepatic biliary dilation. Patient is status post cholecystectomy per clinical history. Common bile duct measures ninemm. Main portal vein appears patent, with hepatofugal flow. The main portal vein [id number] in diameter. Pancreas not well seen due [...] not appl icable for dialysis patien ts Mill [facility]per ID - RONAL LSpecimen moderately [id number] 06:54:35 Test Item Value Reference Range Interpretation Comments MAGNESIUM (BEAKER) 1.9 mg/dL 1.6-2.6 Specimen slightly (test code = 627) hemolyzed Mill Helper ID - RONAL LCBC (HEMOGRAM ONLY)2021-12-28 06:40:17 [...] (BEAKER) (test code = 413) HEMOGLOBIN AND [id number] 00:06:21 Test Item Value Reference Range Interpretation Comments HEMOGLOBIN (BEAKER) (test code = 6.7 GM/DL 11.2-15.7 L 410) HEMATOCRIT (BEAKER) (test code = 19.7 % 34.1-44.9 L 411) Mill Helper ID - 6000Urinalysis w/Microscopic + Reflex to [id number] 20:58:23 Test Item Value Reference Range Interpretation Comments Color, UA (test code Brown = 5778-6) Clarity, UA (test Hazy code = 5767-9) Specific [place], UA 1.028 1.001-1.035 (test code = 5811-5) pH, UA (test code = 6.0 5.0-8.0 5803-2) Protein, UA (test 30 mg/dL Negative A code = 27291-6) Glucose, UA (test Negative Negative code = 365) Ketones, UA (test Negative Negative code = 2514-8) Bilirubin, UA (test Positive Negative A code = 46951-7) Blood, UA (test code Negative Negative = 63447-6) Nitrite, UA (test Negative Negative code = 5802-4) Leukocytes, UA (test Trace Negative A code = 5799-2) Urobilinogen, UA 0.2 mg/dL 0.2-1.0 (test code = 21263-0) RBC, UA (test code = <1 See_Comment [Autom ated 28693-9) message] The system which generated this result [...] . Bacteria, UA (test Rare code = 41079-6) Squam Epithel, UA 10 See_Comment [Automate d (test code = 32116-6) messag e] The system which generated this result transmit mena reference range : /HPF. The reference range was not used to interpret this result as normal/abnormal . Crystals, Urine (test None Seen code = 88846-4) Specimen Source (test code = 2795) VALERIA (test code = VALERIA) Mill Helper ID - [auto]Mill Helper ID - tech Lab Interpretation Abnormal (test code = 02955-6) [facility] [place] [facility] + Reflex to Culture 2021-12-27 20:58:23 Test Item Value Reference Range Interpretation Comments Color, UA (test code Brown = 5778-6) Clarity, UA (test Hazy code = 5767-9) Specific [place], UA 1.028 1.001-1.035 (test code = 5811-5) pH, UA (test code = 6.0 5.0-8.0 5803-2) Protein, UA (test 30 mg/dL Negative A code = 83588-3) Glucose, UA (test Negative Negative code = 365) Ketones, UA (test Negative Negative code = 2514-8) Bilirubin, UA (test Positive Negative A code = 92573-5) Blood, UA (test code Negative Negative = 19654-6) Nitrite, UA (test Negative Negative code = 5802-4) Leukocytes, UA (test Trace Negative A code = 5799-2) Urobilinogen, UA 0.2 mg/dL 0.2-1.0 (test code = 98949-4) RBC, UA (test code = <1 See_Comment [Autom ated 36111-4) message] The system which generated this result [...] . Bacteria, UA (test Rare code = 09995-4) Squam Epithel, UA 10 See_Comment [Automate d (test code = 55483-6) messag e] The system which generated this result transmit mena reference range : /HPF. The reference range was not used to interpret this result as normal/abnormal . Crystals, Urine (test None Seen code = 38453-5) Specimen Source (test code = 2795) VALERIA (test code = VALERIA) Mill Helper ID - [auto]Mill Helper ID - tech Lab Interpretation Abnormal (test code = 49971-8) [facility] [place] [facility] REFLEX URINE [id number] 20:58:23 Test Item Value Reference Range Interpretation [...] = 1521) SOURCE(BEAKER) (test code = 2795) Mill Helper ID - [auto]Mill Helper ID - techHEPATITIS PANEL, [id number] 20:23:48 Test Item Value Reference Range Interpretation Comments HEPATITIS A IGM ANTIBODY (BEAKER) Nonreactive Nonreactive (test code = 498) HEPATITIS B CORE IGM ANTIBODY Nonreactive Nonreactive (BEAKER) (test code = 645) HEPATITIS C ANTIBODY (BEAKER) Nonreactive Nonreactive (test code = 367) HEPATITIS B SURFACE ANTIGEN (2) Nonreactive Nonreactive (BEAKER) (test code = 2585) Mill Helper ID - ADMINHEMOGLOBIN AND [id number] 19:30:15 Test Item Value Reference Range Interpretation Comments HEMOGLOBIN (BEAKER) (test code = 7.3 GM/DL 11.2-15.7 L 410) HEMATOCRIT (BEAKER) (test code = 21.3 % 34.1-44.9 L 411) Mill Helper ID - 6000SARS-CoV2/RT-PCR (Asymptomatic ONLY)2021-12-27 17:24:43 Test Item Value Reference Interpretation Comments Range SARS-COV2/RT-PCR Positive Negative AA The SARS-Co V-2 (test code = target nucleic 04404-5) acids are detec mena in this specime [...] revoked sooner. Fact Sheet for Healthcare Providers: https://www.[employer]/Documents/Xp ert%20Xpress%20SAR S%20CoV-2/Fact%20S heets/302-3802%20S ARS-COV-2%20HEALTH CARE%20PROVIDERS%2 0FACT%20SHEET.pdf Fact Sheet for Healthcare Patients: https://www.[employer]/Documents/Xp ert%20Xpress%20SAR S%20CoV-2/Fact%20S heets/302-3801%20S ARS-COV-2%20PATIEN T%20FACT%20SHEET.p df Lab Interpretation Abnormal (test code = 08412-8) [facility]21-12-27 17:24:43 Test Item Value Reference Interpretation Comments Range SARS-COV2/RT-PCR Positive Negative AA The SARS-Co V-2 (test code = target nucleic 04603-8) acids are detec mena in this specime [...] revoked sooner. Fact Sheet for Healthcare Providers: https://www.[employer]/Documents/Xp ert%20Xpress%20SAR S%20CoV-2/Fact%20S heets/302-3802%20S ARS-COV-2%20HEALTH CARE%20PROVIDERS%2 0FACT%20SHEET.pdf Fact Sheet for Healthcare Patients: https://www.[employer]/Documents/Xp ert%20Xpress%20SAR S%20CoV-2/Fact%20S heets/302-3801%20S ARS-COV-2%20PATIEN T%20FACT%20SHEET.p df Lab Interpretation Abnormal (test code = 08817-7) [facility])2021-12-27 17:24:43 Test Item Value Reference Range Interpretation Comments SARS-COV2/RT-PCR Positive Negative AA The SARS-Co V-2 target (test code = nucleic acids a re detected 8109120) in this specime n. The presence SARS-C [...] individuals suspected of CO VID-19 by their healthcar e provider. Results from e Xpert Xpress SARS-CoV -2 test should [...] revoked sooner. Fact Sheet for Healthcare Providers: https://www.[employer] m/Documents/Xpert%20Xpress%20SARS%20CoV-2/Fact%20Sheets/302-3802%13JIQQ-XAL-7%20 HEALTHCARE%20PROVIDERS%20FACT%20SHEET.pdf Fact Sheet for Healthcare Patients: https://www.[employer]/Documents/Xpert%20Xp ress%20SARS%20CoV-2/Fact%20Sheets/302-3801%34NNDE-OGA-8%20PATIENT%20FACT%20SHEET .[id number] 16:11:33 Test Item Value Reference Range Interpretation Comments PROCALCITONIN (BEAKER) (test code 0.91 ng/mL <0.05 H = 3036) SEPSIS RISK (ng/mL)Low: 0.05-0.50Intermediate: 0.51-2.00High: >=2.01RAD, CHEST, 1 VIEW, NON [id number] 15:12:00Post-intubationReason for exam:- >eval for pulmonary congestionShould this be performed at the [facility]?->YesCH[facility] : 1970 Sex: FFINALREPORT CLINICAL HISTORY: eval for pulmonary congestion TECHNIQUE: 1 view of thechest. COMPARISON: None IMPRESSION: There are bibasilar lung opacities with small left and trace right pleural effusions. The cardiomediastinal silhouette is magnified by technique. Signed: Chasidy Adhikari MDReptwo rivers psychiatric hospital Verified Date/Time: 12/27/2021 15:12:33 Reading Location: [address] Reading Room BASI METABOLIC [id number] 14:25:25 Test Item Value Reference Range Interpretation [...] De scription 1092) sq m Result G1 Norm al or high >=90 G2 Mildly decreased 60-89 [...] not appl icable for dialysis patien ts [place] Helper ID - ADMINSpecimen markedly ictericHEPATIC FUNCTION [id number] 14:20:21 Test Item Value Reference Range Interpretation [...] (test code = 54 U/L 6-55 347) [place] [facility]per ID - ADMINSpecimen markedly [id number] 14:20:21 Test Item Value Reference Range Interpretation Comments LIPASE (BEAKER) (test code = 749) 26 U/L 8-78 Mill Helper ID - ADMINSpecimen markedly [id number] 14:20:21 Test Item Value Reference Range Interpretation Comments MAGNESIUM (BEAKER) (test code = 1.8 mg/dL 1.6-2.6 627) Mill Helper ID - ADMINLACTIC ACID, [id number] 14:18:24 Test Item Value Reference Range Interpretation Comments LACTATE BLOOD VENOUS (2) (BEAKER) 1.25 mmol/L 0.50-2.20 (test code = 2872) Mill Helper ID - ADMINSpecimen markedly [id number] 14:07:20 Test Item Value Reference Range Interpretation Comments FIBRINOGEN LEVEL (BEAKER) (test 145 mg/dl 225-434 L code = 658) [id number] 14:02:54 Test Item Value Reference Range Interpretation Comments PARTIAL THROMBOPLASTIN TIME 45.1 seconds 22.5-36.0 H (BEAKER) (test code = 760) PROTHROMBIN TIME/[id number] 14:01:57 Test Item Value Reference Range Interpretation Comments PROTIME (BEAKER) 22.9 seconds 11.9-14.2 H (test code = 759) INR (BEAKER) (test 2.17 See_Comment [Automat ed message] code = 370) The system [employer] generated this result transmitted ref erence range: [...] (BEAKER) (test code = 413) BLOOD GAS, [id number] 13:40:28 Test Item Value Reference Range Interpretation [...] (BEAKER) (test code = 1819) 21.0 CALCIUM, [id number] 13:40:23 Test Item Value Reference Range Interpretation Comments CALCIUM IONIZED (BEAKER) (test 0.93 mmol/L 1.12-1.27 L code = 698) PH, BLOOD (BEAKER) (test code = 7.48 1810) POC-Glucose [id number] 12:34:41 Test Item Value Reference Range Interpretation Comments POC-Glucose Meter (test 121 mg/dL 70-110 H : TE STED AT [facility] code = 1538) [address] [facility], [address] 30: Mill Helper/Techni alley ID = [id number] for BHAVNA BURNHAM Lab Interpretation (test Abnormal code = 84980-7) [facility] [place]U[facility] [id number] 12:34:41 Test Item Value Reference Range Interpretation Comments POC-GLUCOSE METER 121 mg/dL 70-110 H : TESTED A T [facility] 6720 (BEAKER) (test code = [facility], 1538) [address]: Mill Helper/Techni alley ID = [id number] for ZION DE LA ROSA
[2022-03-25] MEDS ORDERED: ONDANSETRON 4 MG/2 ML VIAL ONE (23:12)
[2022-03-25 23:44] LABS: Absolute Lymphocytes (CBC) 1.4 K/uL (0.7-4.9); Hematocrit 25.1 % (36.0-45.0); Lymphocytes % 31.7 % (15.3-44.8); MCV 93.5 fL (80-100); MPV 6.8 fL (7.6-11.3); RBC Red Blood Cell Count 2.68 M/uL (3.86-4.86)
[2022-03-25 23:53] LABS: Bilirubin Total 2.5 mg/dL (0.2-1.0); Potassium 3.5 mmol/L (3.5-5.1); Protein, Total 5.7 g/dL (6.4-8.2)
[2022-03-26 03:10] LABS: Urine Blood Negative (Negative); Urine Glucose Negative (Negative); Urine Protein Negative (Negative); Urine Specific Gravity 1.015 (1.005-1.030); Urine pH 8.5 (5.0-7.0)
[2022-03-26 03:44] LABS: Barbiturates NEGATIVE (NEGATIVE); Benzodiazepines NEGATIVE (NEGATIVE); Cocaine NEGATIVE (NEGATIVE); METHAMPHETAM NEGATIVE (NEGATIVE); Methadone NEGATIVE (NEGATIVE); Opiates NEGATIVE (NEGATIVE); Phencyclidine NEGATIVE (NEGATIVE); THC Cannibis NEGATIVE (NEGATIVE)
[2022-03-26] MEDS ORDERED: LACTULOSE 20 GM/30 ML UCUP ONE ×3 (04:05→16:02)
[2022-03-26 04:14] LABS: Specific Gravity 1.013 (1.005-1.030); Urine Bilirubin NEGATIVE (Negative); Urine Blood Negative (Negative); Urine Clarity Clear (Clear); Urine Color Yellow (Yellow); Urine Glucose NEGATIVE (Negative); Urine Protein NEGATIVE (Negative); Urine Urobilinogen Normal (Normal); Urine pH 8.5 (5.0-7.0)
--- NOTE | 2022-03-26 04:17 | EDPHYS ---
Physician Documentation [facility] Name: Lin Farley Age: 51 yrs Sex: Female : 1970 Arrival Date: 03/25/2022 Time: 22:13 Bed 26 Private MD: ED Physician Ray Steward HPI: 03/25 23:30 This 51 yrs old Female presents to ER via Ambulatory with complaints of Altered Mental rt Status, Nose Pain. 23:30 The patient presents with confusion. Onset: The symptoms/episode began/occurred 1 rt week(s) ago. Possible causes: head injury. Associated signs and symptoms: Pertinent positives: nausea. Patient was recently admitted to [facility] in the [facility] for anasarca, was placed on diuretics with significant improvement of the anasarca. Of note, the patient fell and hit her head about 1 week ago. The patient significant other states that she has been confused since then, seemingly to be delirious. The patient complains of nausea, states that she does not feel well. Denies other acute complaints at this time, symptoms are moderate in severity, no other aggravating or alleviating factors.. 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 - Social history:: Smoking status: Patient denies any tobacco usage or history of. - Family history:: not pertinent. ROS: 23:30 Constitutional: Negative for fever, chills, and weight loss, Eyes: Negative for injury, rt pain, redness, and discharge, Neck: Negative for injury, pain, and swelling, Cardiovascular: Negative for chest pain, palpitations, and edema, Respiratory: Negative for shortness of breath, cough, wheezing, and pleuritic chest pain, Back: Negative for injury and pain, MS/Extremity: Negative for injury and deformity, Skin: Negative for injury, rash, and discoloration, Psych: Negative for depression, anxiety, suicide ideation, homicidal ideation, and hallucinations. 23:30 Abdomen/GI: Positive for nausea, Negative for abdominal pain. 23:30 Neuro: Positive for altered mental status, Negative for headache. Exam: 23:30 Constitutional: This is a well developed, well nourished patient who is awake, alert, rt and in no acute distress. Eyes: Pupils equal round and reactive to light, extra-ocular motions intact. Lids and lashes normal. Conjunctiva and sclera are non-icteric and not injected. Cornea within normal limits. Periorbital areas with no swelling, redness, or edema. ENT: Nares patent. No nasal discharge, no septal abnormalities noted. Tympanic membranes are normal and external auditory canals are clear. Oropharynx with no redness, swelling, or masses, exudates, or evidence of obstruction, uvula midline. Mucous membranes moist. Neck: Trachea midline, no thyromegaly or masses palpated, and no cervical lymphadenopathy. Supple, full range of motion without nuchal rigidity, or vertebral point tenderness. No Meningismus. Chest/axilla: Normal chest wall appearance and motion. Nontender with no deformity. No lesions are appreciated. Cardiovascular: Regular rate and rhythm with a normal S1 and S2. No gallops, murmurs, or rubs. Normal PMI, no JVD. No pulse deficits. Respiratory: Lungs have equal breath sounds bilaterally, clear to auscultation and percussion. No rales, rhonchi or wheezes noted. No increased work of breathing, no retractions or nasal flaring. Abdomen/GI: Soft, non-tender, with normal bowel sounds. No distension or tympany. No guarding or rebound. No evidence of tenderness throughout. Skin: Warm, dry with normal turgor. Normal color with no rashes, no lesions, and no evidence of cellulitis. MS/ Extremity: Pulses equal, no cyanosis. Neurovascular intact. Full, normal range of motion. Psych: Awake, alert, with orientation to person, place and time. Behavior, mood, and affect are within normal limits. 23:30 Head/face: Bruising noted to the bridge of the nose, no other external evidence of trauma.. 23:30 Neuro: Confused, speech normal, cranial nerves II through XII intact, strength and sensation intact in upper and lower extremities. 23:36 ECG was reviewed by the Attending Physician. rt Vital Signs: 22:24 BP 135 / 95; Pulse 110; Resp 18; Temp 98.4; Pulse Ox 100% ; Weight 47.63 kg; Height 5 tw5 ft. 4 in. (162.56 cm); Pain 0/10; 23:48 BP 139 / 79; Pulse 108; Resp 17 S; Pulse Ox 98% on R/A; as6 03/26 01:30 BP 119 / 66; Pulse 110; Resp 16 S; Pulse Ox 97% on R/A; as6 03:20 BP 95 / 66; Pulse 106; Resp 12; Pulse Ox 96% on R/A; as6 04:47 BP 120 / 64; Pulse 108; Resp 13 S; Pulse Ox 95% on R/A; as6 03/25 22:24 Body Mass Index 18.02 (47.63 kg, 162.56 cm) tw5 MDM: 03/25 22:39 Patient medically screened. rt 03/26 04:17 Differential Diagnosis: CVA, electrolyte abnormality, alcohol intoxication, rt hypoglycemia, Hepatic encephalopathy. Data reviewed: vital signs, nurses notes, old medical records, lab test result(s), EKG, radiologic studies. ED course: Patient presents to the ED with altered mental status. Of note, patient does have cirrhosis. Patient appears to have a metabolic encephalopathy with elevated ammonia. CT scan of the head is unremarkable. Patient will be admitted for further care. Lactulose given.. 03/25 22:52 Order name: CBC with Diff; Complete Time: 01:20 rt 03/25 22:52 Order name: CMP; Complete Time: 01:20 rt 03/25 22:52 Order name: Alcohol Level; Complete Time: 01:20 rt 03/25 22:52 Order name: AMMONIA; Complete Time: 01:20 rt 03/25 22:52 Order name: UDS; Complete Time: 04:11 rt 03/25 22:52 Order name: Head Brain Wo Cont CT; Complete Time: 19:49 rt 03/25 22:52 Order name: Chest Single View XRAY; Complete Time: 19:49 rt 03/26 03:10 Order name: Urine Dipstick-Ancillary; Complete Time: 03:20 EDMS 03/26 03:47 Order name: Urinalysis W/Microscopic; Complete Time: 04:49 EDMS 03/26 04:12 Order name: PT-INR; Complete Time: 04:49 la1 03/26 04:12 Order name: SARS RAPID; Complete Time: 04:49 la1 03/25 22:52 Order name: EKG; Complete Time: 22:53 rt 03/25 22:52 Order name: EKG - Nurse/Tech; Complete Time: 23:34 rt EC/28 23:36 Rate is 107 beats/min. Rhythm is regular, Sinus tachycardia with No ectopy. QRS [place] is rt Normal. MN interval is normal. QRS interval is normal. QT interval is normal. No Q waves. T waves are Normal. No ST changes noted. Clinical impression: Sinus tachycardia. Interpreted by me. Administered Medications: 23:34 Drug: Zofran (Ondansetron) 4 mg Route: IVP; Site: right forearm; as6 03/26 03:18 Follow up: Response: No adverse reaction as6 04:24 Drug: Lactulose 20 grams Volume: 30 ml; Route: PO; as6 04:48 Follow up: Response: No adverse reaction as6 Disposition: 04:17 Critical Care:. rt Disposition Summary: 03/26/22 04:16 Hospitalization Ordered Hospitalization Status: Observation rt Provider: Jessica Garcia rt Condition: Fair rt Problem: an acute exacerbation rt Symptoms: are unchanged rt Bed/Room Type: Standard rt Location: Telemetry/MedSurg (Inpatient)(03/26/22 17:59) bd Room Assignment: 204(03/26/22 17:59) bd Diagnosis - Metabolic encephalopathy rt Forms: - Medication Reconciliation Form rt - SBAR form rt Critical care time excluding procedures: 04:17 Critical care time: Bedside Care: 30 minutes, Consultation: 5 minutes. Total time: 35 rt minutes Signatures: Dispatcher [employer] EDChristiane Penn Lee, TRAVEL ASSISTANT-C TRAVEL ASSISTANT-Cla1 Thea Delatorre, RN Karime Briceño tw5 Min Mackey RN RN as6 Ray Steward MD MD rt Corrections: (The following items were deleted from the chart) 03/25 22:28 22:28 Allergies: novahistamine; tw5 tw5 03/26 03:47 03/25 22:53 UA MICROSCOPIC+U.LAB.BRZ ordered. EDMS EDMS 03/26 03:47 03/25 22:53 URINALYSIS+U.LAB.BRZ ordered. EDMS EDMS 03/26 04:47 04:16 Telemetry/MedSurg (observation) rt cg 04:47 04:16 rt cg 04:47 BR ER HOLD cg bd 04:47 ERHOLD- cg bd
--- NOTE | 2022-03-26 04:17 | ER ---
Nurse's Notes [facility] Name: Lin Farley Age: 51 yrs Sex: Female : 1970 Arrival Date: 03/25/2022 Time: 22:13 Bed 26 Private MD: Diagnosis: Metabolic encephalopathy Presentation: 03/25 22:24 Chief complaint: Spouse and/or significant other states: "She is delirious, we just got tw5 her back from [facility]. She is doing stuff that she does not normally do.". Coronavirus screen: Vaccine status: Patient reports being unvaccinated. Ebola Screen: Patient negative for fever greater than or equal to 101.5 degrees Fahrenheit, and additional compatible Ebola Virus Disease symptoms Patient denies exposure to infectious person. Patient denies travel to an Ebola-affected area in the 21 days before illness onset. Initial Sepsis Screen: Does the patient meet any 2 criteria? Altered Mental Status. HR > 90 bpm. Does the patient have a suspected source of infection? No. Patient's initial sepsis screen is negative. Risk Assessment: Do you want to hurt yourself or someone else? Patient reports no desire to harm self or others. Onset of symptoms is unknown. 22:24 Method Of Arrival: Ambulatory tw5 22:24 Acuity: IAN 3 tw5 Triage Assessment: 22:28 General: Appears slender, unkempt, Behavior is cooperative, restless. General: Reports tw5 "I am here because I had a concussion, and I am feeling loopy". Pain: Denies pain. Neuro: Level of Consciousness is awake, alert, obeys commands, Oriented to person, place, time, situation. 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 - Social history:: Smoking status: Patient denies any tobacco usage or history of. - Family history:: not pertinent. Screenin:34 Abuse screen: Denies threats or abuse. Denies injuries from another. Nutritional as6 screening: No deficits noted. Tuberculosis screening: No symptoms or risk factors identified. Fall Risk None identified. Assessment: 23:20 General: Appears slender, Behavior is drowsy. Pain: Denies pain. Neuro: Level of as6 Consciousness is awake, alert, obeys commands, Oriented to person. Respiratory: Respiratory effort is even, unlabored. Vital Signs: 22:24 BP 135 / 95; Pulse 110; Resp 18; Temp 98.4; Pulse Ox 100% ; Weight 47.63 kg; Height 5 tw5 ft. 4 in. (162.56 cm); Pain 0/10; 23:48 BP 139 / 79; Pulse 108; Resp 17 S; Pulse Ox 98% on R/A; as6 03/26 01:30 BP 119 / 66; Pulse 110; Resp 16 S; Pulse Ox 97% on R/A; as6 03:20 BP 95 / 66; Pulse 106; Resp 12; Pulse Ox 96% on R/A; as6 04:47 BP 120 / 64; Pulse 108; Resp 13 S; Pulse Ox 95% on R/A; as6 03/25 22:24 Body Mass Index 18.02 (47.63 kg, 162.56 cm) tw5 ED Course: 03/25 22:13 Patient arrived in ED. ja2 22:27 Triage completed. tw5 22:28 Arm band placed on. tw5 22:35 Ray Steward MD is Attending Physician. rt 22:53 Min Mackey, CODEY is Primary Nurse. as6 23:24 Chest Single View XRAY In Process Unspecified. EDMS 23:30 Inserted saline lock: 20 gauge in right forearm, using aseptic technique. Blood as6 collected. 23:35 Placed in gown. Bed in low position. Call light in reach. Side rails up X2. as6 23:59 Head Brain Wo Cont CT In Process Unspecified. EDMS 03/26 04:16 Jessica Garcia MD is Hospitalizing Provider. rt 04:24 SARS RAPID Sent. as6 04:24 PT-INR Sent. as6 04:47 No provider procedures requiring assistance completed. Patient admitted, IV remains in as6 place. Administered Medications: 03/25 23:34 Drug: Zofran (Ondansetron) 4 mg Route: IVP; Site: right forearm; as6 03/26 03:18 Follow up: Response: No adverse reaction as6 04:24 Drug: Lactulose 20 grams Volume: 30 ml; Route: PO; as6 04:48 Follow up: Response: No adverse reaction as6 Medication: 03/25 23:35 VIS not applicable for this client. as6 Outcome: 03/26 04:16 Decision to Hospitalize by Provider. rt 04:47 Admitted to ER Hold. Please see [facility] for further documentation. as6 04:47 Condition: stable 04:47 Instructed on the need for admit. 20:16 Patient left the ED. bb Signatures: Dispatcher [employer] Lawanda Cerna RN RN bb Comfort Urbina Tiffany tw5 Min Mackey RN RN as6 Ray tSeward MD MD rt Corrections: (The following items were deleted from the chart) 03/25 22:28 22:28 Allergies: novahistamine; tw5 tw5
--- NOTE | 2022-03-26 04:30 | P.HP ---
Certification for Inpatient Patient admitted to: Observation With expected LOS: <2 Midnights Patient will require the following post-hospital care: None Practitioner: I am a practitioner with admitting privileges, knowledge of patient current condition, hospital course, and medical plan of care. Services: Services provided to patient in accordance with Admission requirements found in Title 42 Section 412.3 of the Code of Federal Regulations Patient History Date of Service: 03/26/22 Reason for admission: Hepatic encephalopathy History of Present Illness: 51-year-old female with history of alcoholic cirrhosis of liver, asthma presents the emergency department for altered mental status. She is brought in by her spouse who reports that over the course last 1 week she had increasing confusion, reports she been using her purse for her shoes, rambling etc. He reports that typically she is been coming off about once a month for similar symptoms he reports compliance with home dose of lactulose but decreased bowel movements. She was evaluated in the emergency department labs were significant for elevated ammonia level 125 mild elevations in AST, ALT, alk phos, T bili. Iron level was ordered and pending hemoglobin 8.5 hematocrit 25.[address] head negative for acute findings emergency department. Patient is alert but drowsy, oriented x2 currently. She is received a dose of lactulose in the ED, ED provider wishes to admit under observation for hepatic encephalopathy. Allergies novahistamine Allergy (Uncoded 01/21/20 04:10) Anaphylaxis Home Medications: Amox/Clavulanate [Augmentin 875-125 Tab] 1 each PO BID #10 tab 01/21/20 Cetirizine HCl [Zyrtec] 10 mg PO DAILY #5 tablet 01/21/20 Diphenhydramine [Benadryl Tab/Cap] 25 mg PO Q6HP PRN #20 tab 01/21/20 Omeprazole Magnesium 40 mg PO DAILY 01/21/20 predniSONE [Deltasone] 20 mg PO DAILY #3 tab 01/21/20 - Past Medical/Surgical History Diabetic: No -: Gerd -: Gastric ulcer -: Asthma -: Alcoholic cirrhosis of liver -: Cholecystectomy Psychosocial/ Personal History: Lives at home with . - Family History Family History: Reviewed- Non-Contributory - Social History Smoking Status: Never smoker Alcohol use: Yes CD- Drugs: No Caffeine use: Yes Place of Residence: Home Review of Systems is unable to be obtained Physical Examination - Physical Exam General: Alert, In no apparent distress, Oriented x2, Confused HEENT: Atraumatic, PERRLA, Mucous membr. moist/pink, EOMI, Sclerae nonicteric Neck: Supple, 2+ carotid pulse no bruit, No LAD, Without JVD or thyroid abnormality Respiratory: Clear to auscultation bilaterally, Normal air movement Cardiovascular: Regular rate/rhythm, Normal S1 S2 Capillary refill: <2 Seconds Gastrointestinal: Normal bowel sounds, No tenderness Musculoskeletal: No tenderness Integumentary: No rashes Neurological: Normal gait, Normal speech, Normal strength at 5/5 x4 extr, Normal tone, Normal affect - Studies Laboratory Data (last 24 hrs) 03/25/22 23:28: Sodium 138, Potassium 3.5, BUN 10, Creatinine 0.72, Glucose 120 H, Total Bilirubin 2.5 H, AST 154 H, ALT 85 H, Alkaline Phosphatase 228 H 03/25/22 23:28: WBC 4.30, Hgb 8.5 L, Hct 25.1 L, Plt Count 102 L Assessment and Plan - Plan Assessment: Hepatic encephalopathy Alcoholic cirrhosis of liver Plan: Hepatic encephalopathy: Continue with scheduled lactulose, patient reports decreased bowel movements, family reports that she has been compliant with her h ome dose of lactulose. INR ordered and pending we will follow LFTs daily. Mildly confused, oriented x2 but alert. Alcoholic cirrhosis of liver: Continue as above. DVT PPX: Lovenox Code status: Full Discharge Plan: Home Plan to discharge in: 24 Hours - Advance Directives Does patient have a Living Will: No Does patient have a Durable POA for Healthcare: No - Code Status/Comfort Care Code Status Assessed: Yes (Full code) Critical Care: No Time Spent Managing Pts Care (In Minutes): 70
[2022-03-26 04:33] LABS: Protime INR 1.59
[2022-03-26 04:49] LABS: SARS-CoV-2 Antigen Rapid Res Negative (Negative)
[2022-03-26] MEDS ORDERED: ONDANSETRON 4 MG/2 ML VIAL IV PRN (04:51)
[2022-03-26 05:38] VITALS: BMI 18.0
[2022-03-26] MEDS: ENOXAPARIN 40 MG/0.4 ML SQ SCH (09:00)
[2022-03-26] MEDS: LACTULOSE 20 GM/30 ML UCUP PO SCH ×3 (09:00→22:19)
[2022-03-26] MEDS: CEFTRIAXONE 1,000 MG in NA CHLORIDE 0.9% 50 ML IVPB SCH (09:00)
[2022-03-26] MEDS ORDERED: NA CHLORIDE 0.9% 100 ML IV ONE (10:34)
[2022-03-26] MEDS ORDERED: ENOXAPARIN 40 MG/0.4 ML SQ ONE (10:34)
[2022-03-26] MEDS ORDERED: CEFTRIAXONE 1000 MG/VIAL ONE (10:34)
--- NOTE | 2022-03-26 11:15 | RAD REPORT ---
EXAM DESCRIPTION: RAD - Chest Single View - 03/25/2022 11:23 pm CLINICAL HISTORY: The patient is 51 years old and is Female; TRAUMA TECHNIQUE: Frontal view of the chest. COMPARISON: No relevant prior studies available. FINDINGS: Lungs: Unremarkable. No consolidation. Pleural space: Unremarkable. No pneumothorax. Heart: Unremarkable. Mediastinum: Unremarkable. Bones/joints: Unremarkable. IMPRESSION: No acute findings in the chest. Electronically signed by: Milton Nielsen MD 03/25/2022 11:47 PM ANTENNA MACHINE OPERATOR Due to temporary technical issues with the PACS/Fluency reporting system, reports are being signed by the in house radiologists without review as a courtesy to insure prompt reporting. The interpreting radiologist is fully responsible for the content of the report.
--- NOTE | 2022-03-26 12:55 | RAD REPORT ---
EXAM DESCRIPTION: CT - Head Brain Wo Cont - 03/26/2022 6:54 am CLINICAL HISTORY: Delirium TECHNIQUE: Axial computed tomography images of the head/brain without intravenous contrast. Sagitt al and coronal reformatted images were created and reviewed. This CT exam was performed using one o r more of the following dose reduction techniques: automated exposure control, adjustment of the mA and/or kV according to patient size, and/or use of iterative reconstruction technique. COMPARISON: CT Head dated 02/24/2020 FINDINGS: Brain: Mild cerebral atrophy similar to the prior. No hemorrhage. No significant whi te matter disease. Ventricles: Unremarkable. No ventriculomegaly. Bones/joints: Unremarkable. No acute fracture. Soft tissues: Unremarkable. Vasculature: There is atherosclerotic disease of the internal carotid arteries bilaterally. Sinuses: Unremarkable as visualized. No acute sinusitis. Mastoid air cells: Unremarkable as visualized. No mastoid effusion. IMPRESSION: No acute intracranial or extra-axial abnormality. Electronically signed by: Torsten Valdez MD 03/26/2022 12:14 AM [employer] SALES REPRESENTATIVE Due to temporary technical issues with the PACS/Fluency reporting system, reports are being signed by the in house radiologists without review as a courtesy to insure prompt reporting. The interpreting radiologist is fully responsible for the content of the report.
[2022-03-26 20:37] VITALS: O2SAT 95
[2022-03-26 20:51] LABS: SARS-COV-2 RT PCR NEGATIVE (NEGATIVE)
[2022-03-27] MEDS ORDERED: LACTULOSE 20 GM/30 ML UCUP PR ONE (01:33)
[2022-03-27 04:19] LABS: Hematocrit 27.9 % (36.0-45.0); Lymphocytes % 17.8 % (15.3-44.8); MCV 93.5 fL (80-100); MPV 6.4 fL (7.6-11.3); RBC Red Blood Cell Count 2.98 M/uL (3.86-4.86)
[2022-03-27 04:28] LABS: Protime INR 1.56
[2022-03-27 04:41] LABS: Albumin 2.1 g/dL (3.4-5.0); Bilirubin Total 3.7 mg/dL (0.2-1.0); Protein, Total 6.1 g/dL (6.4-8.2)
[2022-03-27] MEDS: LACTULOSE 20 GM/30 ML UCUP PO SCH ×3 (09:52→20:31)
[2022-03-27] MEDS: ENOXAPARIN 40 MG/0.4 ML SQ SCH (09:52)
[2022-03-27] MEDS: CEFTRIAXONE 1,000 MG in NA CHLORIDE 0.9% 50 ML IVPB SCH (09:53)
[2022-03-27] MEDS ORDERED: ACETAMINOPHEN 500 MG TAB PO ONE (10:48)
[2022-03-27] MEDS: CEFEPIME 1 GM in NA CHLORIDE 0.9% 100 ML IV SCH ×2 (12:58→20:31)
--- NOTE | 2022-03-27 16:03 | CON ---
History Of Present Illness: This is a 51-year-old female with longstanding history of alcoholic live r cirrhosis. According to the family, the patient has stopped drinking since November. The patient al so has history of gastric ulcer, asthma, and reflux, coming into the hospital with altered mental sta tus and increasing confusion over a period of 1 week. The patient complains of headaches at the time of examination. She is running fever of 101 to 102. Denies any chest pain, back ache, or abdominal pain. Past Medical History: As per HPI. Social History: Nonsmoker. Positive for alcohol. As per family and patient, no alcoholic beverages since November. Medications: Rocephin. See MAR for other medications. Allergies: NO KNOWN DRUG ALLERGIES EXCEPT NOVAHISTINE. Review of Systems: A 10-point review was performed. Physical Examination: General: This is a 51-year-old female, lying in bed, not in any acute cardiopulmonary distress. Vital Signs: Temperature 100.5, T-max of 101.8, pulse of 137, respirations 18, blood pressure 106/56 . HEENT: Unremarkable. Neck: Supple. Lungs: Basal crackles. Heart: S1, S2. Regular. Abdomen: Moderate ascites noted, otherwise unremarkable. Extremities: No edema. Laboratory Data: Shows WBC 5.5, hemoglobin 9.4, platelets are 91. Chemistry shows sodium 137, potas sium 4, chloride 108, bicarb 21, BUN 10, creatinine 0.8. Her total bilirubin is 3.7, AST is 115, ALT is 176, alkaline phosphatase is 137, ammonia level from 125 has gone down to 57, albumin level is 2. 1. Assessment And Plan: A 51-year-old female with significant history of liver cirrhosis and metabolic encephalopathy, coming in with altered mental status and ammonia level of 125. Complains of headache , concerned regarding current treatment with Rocephin. We will discontinue Rocephin as it clears fro m liver. We will start the patient on cefepime 1 g q.12 hours. Also recommend to get blood cultures x2. Consider getting a paracentesis and sending ascitic fluid for cultures and cell count to rule o ut subacute bacterial peritonitis. Thrombocytopenia secondary to liver failure. Anemia of chronic d isease. Hyperbilirubinemia and severe protein-calorie malnourishment. We will follow the patient as needed. Thank you Dr. Garcia for consult. NF/MODL Voice ID: [id number] Report ID: [id number]
--- NOTE | 2022-03-27 16:28 | EKG ---
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
[2022-03-27 18:27] VITALS: BP 112/70; TEMP 98.8
[2022-03-27] MEDS ORDERED: ENSURE ENLIVE 237 ML CAN PO SCH (21:00)
--- NOTE | 2022-03-28 05:14 | P.DS ---
Admission Date: 03/26/22 Discharge Date: 03/27/22 Disposition: AMA-LEFT AGAINST MEDICAL ADVIC Discharge Condition: FAIR Reason for Admission: Hepatic encephalopathy Consultations: Dr. Márquez Infectious disease Procedures: CT HEAD 03/26/22 FINDINGS: Brain: Mild cerebral atrophy similar to the prior. No hemorrhage. No significant white matter disease. Ventricles: Unremarkable. No ventriculomegaly. Bones/joints: Unremarkable. No acute fracture. Soft tissues: Unremarkable. Vasculature: There is atherosclerotic disease of the internal carotid arteries bilaterally. Sinuses: Unremarkable as visualized. No acute sinusitis. Mastoid air cells: Unremarkable as visualized. No mastoid effusion. IMPRESSION: No acute intracranial or extra-axial abnormality. CXR 03/25/22 FINDINGS: Lungs: Unremarkable. No consolidation. Pleural space: Unremarkable. No pneumothorax. Heart: Unremarkable. Mediastinum: Unremarkable. Bones/joints: Unremarkable. IMPRESSION: No acute findings in the chest. Brief History of Present Illness: 51-year-old female with history of alcoholic cirrhosis of liver, asthma presents the emergency department for altered mental status. She is brought in by her spouse who reports that over the course last 1 week she had increasing confusion, reports she been using her purse for her shoes, rambling etc. He reports that typically she is been coming off about once a month for similar symptoms he reports compliance with home dose of lactulose but decreased bowel movements. She was evaluated in the emergency department labs were significant for elevated ammonia level 125 mild elevations in AST, ALT, alk phos, T bili. Iron level was ordered and pending hemoglobin 8.5 hematocrit 25.[address] head negative for acute findings emergency department. Patient is alert but drowsy, oriented x2 currently. She is received a dose of lactulose in the ED, ED provider wishes to admit under observation for hepatic encephalopathy. Hospital Course: Patient was treated with p.o. and PA lactulose had complete resolution of her altered mentation resulting from her hepatic encephalopathy. She did run low- grade fever around 100.4-100.5 during her hospitalization, there were plans to further investigate the cause of her fever including blood cultures, possible paracentesis to rule out SBP but patient elected to leave AGAINST MEDICAL ADVICE. She was of sound mind at time of making this decision along with her spouse at bedside, they are counseled on risks of leaving AMA including serious infection/, return precautions given. Verbalized understanding. Patient sitting up in bed, oriented x4. Vital Signs/Physical Exam: Temp Pulse Resp BP Pulse Ox 98.8 F 108 H 18 112/70 100 03/27/22 16:00 03/27/22 16:00 03/27/22 16:00 03/27/22 16:00 03/27/22 16:00 General: Alert, In no apparent distress, Oriented x3 HEENT: Atraumatic, PERRLA, EOMI Neck: Supple, JVD not distended Respiratory: Clear to auscultation bilaterally, Normal air movement Cardiovascular: Regular rate/rhythm, Normal S1 S2 Capillary refill: <2 Seconds Gastrointestinal: Normal bowel sounds, No tenderness Musculoskeletal: No tenderness Integumentary: No rashes Neurological: Normal speech, Normal tone, Normal affect Laboratory Data at Discharge: WBC 5.50 K/uL (4.3-10.9) 03/27/22 04:00 Hgb 9.4 g/dL (12.0-15.0) L 03/27/22 04:00 Hct 27.9 % (36.0-45.0) L 03/27/22 04:00 Plt Count 91 K/uL (152-406) L 03/27/22 04:00 PT 17.2 SECONDS (9.5-12.5) H 03/27/22 04:00 INR 1.56 03/27/22 04:00 Sodium 137 mmol/L (136-145) 03/27/22 04:00 Potassium 4.0 mmol/L (3.5-5.1) 03/27/22 04:00 BUN 10 mg/dL (7-18) 03/27/22 04:00 Creatinine 0.80 mg/dL (0.55-1.3) 03/27/22 04:00 Glucose 106 mg/dL (74-106) 03/27/22 04:00 Total Bilirubin 3.7 mg/dL (0.2-1.0) H 03/27/22 04:00 AST 115 U/L (15-37) H 03/27/22 04:00 ALT 76 U/L (12-78) 03/27/22 04:00 Alkaline Phosphatase 137 U/L (45-117) H 03/27/22 04:00 Followup: Unknown,U [Primary Care Provider] - Time spent managing pt's care (in minutes): 20
== END 2022-03-27 20:25 | disposition left against medical advice (07) | DRG 441 ==
LOC: ER 22:10 → ERHOLD 03-26 04:21 → OBSVTOIN 03-26 16:42 → 2ND 03-26 20:15
PROVIDERS: ADMIT Hospitalist; ATTEND Hospitalist
DX: K76.82 Hepatic encephalopathy (principal); E43 Unspecified severe protein-calorie malnutrition; Z68.1 Body mass index [BMI] 19.9 or less, adult; K70.30 Alcoholic cirrhosis of liver without ascites; Z53.29 Procedure and treatment not carried out because of patient's decision for other reasons; D69.6 Thrombocytopenia, unspecified; E80.6 Other disorders of bilirubin metabolism; D63.8 Anemia in other chronic diseases classified elsewhere; K21.9 Gastro-esophageal reflux disease without esophagitis; J45.909 Unspecified asthma, uncomplicated; Z79.52 Long term (current) use of systemic steroids; Z88.8 Allergy status to other drugs, medicaments and biological substances; Z87.11 Personal history of peptic ulcer disease; Z90.49 Acquired absence of other specified parts of digestive tract
CPT/HCPCS: 0240U; 36415; 70450; 71045; 80053; 80307; 80320; 81001; 81003; 82140; 85025; 85610; 87040; 87811; 93005; 96374; 99285; G0378; J0692; J1650; J2405

== ENCOUNTER 2022-04-17 09:28 | Emergency (ER) | payer OTHER ==
--- OUTSIDE RECORDS SUMMARY | 2022-04-17 09:35 | XMS REPORT | Continuity of Care Document ---
:1970 Author Organization [facility] t Address [address] [place] [address] Care Team Providers Name Role Phone Mikhail Gomez MD Attending Clinician Francine Mattson Attending Clinician Pipo Clifford MD Attending Clinician FRANCINE HERNANDEZ Attending Clinician Unavailable Anand Hurtado MA Attending Clinician Unavailable Alonso SAM, Irma Cervantes Attending Clinician [phone] To Haynes MD Attending Clinician MIKHAIL GOMEZ Attending Clinician Unavailable Josh Menard MD Attending Clinician Unavailable Dee Hale MD Attending Clinician Willi Chaudhry MD Attending Clinician WILLI CHAUDHRY Attending Clinician Unavailable Deshawn Sher MD Attending Clinician Fei Garcia MD Attending Clinician Comfort Mcbride MD Attending Clinician [phone] TO HAYNES Admitting Clinician Unavailable WILLI CHAUDHRY Admitting Clinician Unavailable Payers Payer Name Policy Type Policy Number Effective Date Expiration Date S ource [employer] [id number] 2022 00:00:00 Problems Condition Condition Condition Status [...] NO KNOWN Allergy Active [facility] Social History Social Habit Start Date Stop Date Quantity Comments Source History SDCT [facility] Alcohol Frequency Medical Center History SDOH [facility] Alcohol Std Drinks Medica l Center History SDCT [facility] Alcohol Binge Medical Derick ter History [facility] Transport [facility]-Med Medical [facility] Alcohol intake 2022-03-12 2022-03-12 [facility]00 of alcohol Medical Center (finding) History SDCT 2022-01-09 2022-01-09 2 weeks ago last [facility] Alcohol Comment 00:00:00 00:00:00 drink per Medical C enter patient History SDCT 2022-01-09 2022-01-[address] [facility] Transport Med 00:00:00 00:00:[address] History SDCT 2022-01-09 2022-01-[address] [facility] Housing Unable to 00:00:00 00:00:00 Medical Center Pay History SDCT 2022-01-09 2022-01-[address] [facility] Housing Places 00:00:00 00:00:00 Medical Ce nter Lived History SDCT 2022-01-09 2022-01-[address] [facility] Housing Homeless 00:00:00 00:00:00 Medical Center Last Year Exposure to 2021-12-17 2021-12-[address] [facility] SARS-CoV-2 (event) 00:00:00 11:32:00 Medica l Center Tobacco use and 2021-12-27 2021-12-27 Never used [facility] exposure 00:00:00 00:00:00 Medical Center Sex Ass[birth year] At [birth year] F [facility]LA[facility] Burd[facility] 00:00:00 00:00:00 Medical Center Smoking Status Start Date Stop Date Source Never smoker [facility] Medications Ordered Filled Start Stop Current Ordering Indication Dosage Frequency Signature Comments Components Source Medication Medication Date Date Medication? Clinician (SIG) Name Name pantoprazol 2021-04- 40mg QD Take [address] [facility] 2-09 12-09 by mouth [facility] (PROTONIX) 12:31: 00:00 daily. Medi kailey 40 MG 55 :00 Center tablet metoclopram 2021-04 Yes TAKE ONE [facility] HCl 2-09 TABLET BY Luruss (REGLAN) 10 00:00: MOUTH Medic al MG tablet 00 THREE Center TIMES A DAY BEFORE A MEAL sertraline 2021-04 Yes TAKE ONE [facility] (ZOLOFT) 50 2-09 TABLET BY Goran [facility] MG tablet 00:00: MOUTH Medical 00 DAILY Center pantoprazol 2021-04 Yes TAKE ONE [facility] 2-09 TABLET BY Una (PROTONIX) 00:00: MOUTH Medica l 40 MG 00 TWICE A Center tablet DAY acetaminoph 2021-04 Yes TAKE ONE [facility] en-codeine 2-09 TABLET BY Kevin s (TYLENOL 00:00: MOUTH Medical #3) 300-30 00 EVERY 4 Center mg per HOURS tablet NEEDED FOR PAIN FOR UP TO 10 DAYS (MAX 6 TABLETS PER DAY) levoFLOXaci 2021-04 Yes TAKE ONE [facility] 2-09 TABLET BY Una (LEVAQUIN) 00:00: MOUTH Medica l 750 MG 00 DAILY FOR Center tablet 5 DAYS lactulose 2021-04- Yes Alcoholic 20g Q.[id number] Take [address] (CHRONULAC) -12 27- cirrhosis, [id number] mLs (20 g [facility] 10 gram/15 00:00: 23:59 unspecified 3D total) by Medical mL solution 00 :00 whether mouth 3 Ce nter ascites (three) present times (HCC) daily for 30 days. pantoprazol 2021-04 Yes 40mg QD Take 40 [...] r tablet ascites mouth present daily. (HCC) furosemide 2021-04 Yes Alcoholic 40mg QD Take [...] daily. (HCC) lactulose 2021-04- Yes Alcoholic 20g Q.[id number] Take [address] (CHRONULAC) 1-15 12-15 cirrhosis, [id number] mLs (20 g [facility] 10 gram/15 00:00: [...] (two) (HCC) times daily for 30 days. rifAXIMin 2021-04- No Alcoholic 550mg Q.5D Take [address] 550 mg Tab 1-15 12-15 cirrhosis, tablet [facility] 00:00: 23:59 unspecified (550 mg Me dical 00 :00 whether total) by Center ascites mouth 2 present (two) (HCC) times daily for 30 days. lactulose 2021-04 Alcoholic 20g Q.[id number] Take [address] (CHRONULAC) 1-15 12-09 cirrhosis, [id number] mLs (20 g [facility] 10 gram/15 00:00: 00:00 unspecified 3D total) by Medical mL solution 00 :00 whether mouth 3 Ce nter ascites (three) present times (HCC) daily for 30 days. furosemide 2021-04- No TAKE ONE [facility] (LASIX) 40 0-25 11-15 TABLET BY Goran es MG tablet 00:00: 00:00 MOUTH Medica l 00 :00 DAILY Center spironolact 2021-04- No TAKE ONE [facility] one 0-25 11-15 TABLET BY [facility] (ALDACTONE) 00:00: 00:00 MOUTH Medi kailey 100 MG 00 :00 DAILY Center tablet furosemide 2021-04- No TAKE ONE CH I [...] Center tablet mouth daily for 30 days. furosemide 2021- No 40mg QD Take [address] (LASIX) 40 9-18 10-25 tablet (40 Shayla kes MG tablet 00:00: 00:00 mg total) Me dical 00 :00 by mouth Center daily for 30 days. spironolact 2021- No 100mg QD Take [address] one 01-13-25 tablet [facility] (ALDACTONE) 00:00: 00:00 (100 mg Me dical 100 MG 00 :00 total) by Center tablet mouth daily for 30 days. levoFLOXaci 2021-2021- No 750mg QD Take [address] [facility] 01-12 tablet [facility] (LEVAQUIN) 00:00: 00:00 (750 mg Med ical 750 MG 00 :00 total) by Center tablet mouth daily for 5 days. acetaminoph 2021- No 1{tbl} Take [address] en-codeine 01-12 tablet by Goran es (Tylenol-Co 00:00: 00:00 mouth Medi kailey deine #3) 00 :00 every 4 Center 300-30 mg (four) per tablet hours as needed for Pain for up to 10 days. Max Daily Amount: 6 tablets lactulose 2021-2021- No 20g Q.5D Take [address] (CHRONULAC) 9- 10-17 mLs (20 g Shayla kes 20 gram/30 00:00: 23:59 total) by M edical mL solution 00 :00 mouth 2 Cente r (two) times daily for 30 days. lactulose 2021-0 2021- No 20g Q.5D Take [address] (CHRONULAC) 9-17 10-17 mLs (20 g Shayla kes 20 gram/30 00:00: 23:59 total) by M edical mL solution 00 :00 mouth 2 Cente r (two) times daily for 30 days. acetaminoph 2021-2021- No 1{tbl} Take [address] en-codeine 01-12 tablet by Goran es (Tylenol-Co 00:00: 23:59 mouth Medi kailey deine #3) 00 :00 every 4 Center 300-30 mg (four) per tablet hours as needed for Pain for up to 10 days. Max Daily Amount: 6 tablets levoFLOXaci 2021-2021- No 750mg QD Take [address] [facility] 9-17 09-22 tablet [facility] (LEVAQUIN) 00:00: 23:59 (750 mg Med ical 750 MG 00 :00 total) by Center tablet mouth daily for 5 days. sertraline 2022- No 50mg QD Take [address] (ZOLOFT) 50 - 09-04 tablet (50 L ukes MG tablet 00:00: 23:59 mg total) Me dical 00 :00 by mouth Center daily. sertraline 2021-2022- No 50mg QD Take [address] (ZOLOFT) 50 12-30-04 tablet (50 L ukes MG tablet 00:00: 23:59 mg total) Me dical 00 :00 by mouth Center daily. sertraline 2021-2021- No 50mg QD Take [address] (ZOLOFT) 50 12-30- tablet (50 L ukes MG tablet 00:00: 00:00 mg total) Me dical 00 :00 by mouth Center daily. ibuprofen 2021- No 800mg Take [address] (ADVIL,MOTR - 09-03 mg by [facility] IN) 800 MG 13:11: 00:00 mouth Medic al tablet 27 :00 every 6 Center (six) hours as needed for Pain. ibuprofen 2021- No 800mg Take [address] (ADVIL,MOTR 9-03 09-03 mg by [facility] IN) 800 MG 13:11: 00:00 mouth Medic al tablet 27 :00 every 6 Center (six) hours as needed for Pain. ibuprofen 2021- No 800mg Take [address] (ADVIL,MOTR 9- 09-03 mg by [facility] IN) 800 MG 13:11: 00:00 mouth Medic al tablet 27 :00 every 6 Center (six) hours as needed for Pain. metoclopram 2021-2021- No 10mg Take [address] [facility] [facility] 12-29 12- tablet (10 [facility] (REGLAN) 10 00:00: 00:00 mg total) Medical MG tablet 00 :00 by mouth 3 Cent er (three) times daily before meals for 30 days. metoclopram 2021-2021- No 10mg Take [address] [facility] [facility] 12-29 10-03 tablet (10 [facility] (REGLAN) 10 00:00: 23:59 mg total) Medical MG tablet 00 :00 by mouth 3 Cent er (three) times daily before meals for 30 days. pantoprazol 2022-0 2022- No 40mg Q.5D Take [address] [facility] 12-29 10-03 tablet (40 [facility] (PROTONIX) 00:00: 23:59 mg total) M edical 40 MG 00 :00 by mouth 2 Center tablet (two) times daily for 30 days. metoclopram 2022-0 2022- No 10mg Take [address] [facility] 12-29- tablet (10 [facility] (REGLAN) 10 00:00: 23:59 mg total) Medical MG tablet 00 :00 by mouth 3 Cent er (three) times daily before meals for 30 days. pantoprazol 2022-0 2022- No 40mg Q.5D Take [address] [facility] 12-29- tablet (40 [facility] (PROTONIX) 00:00: 23:59 mg total) M edical 40 MG 00 :00 by mouth 2 Center tablet (two) times daily for 30 days. pantoprazol 2022-0 2022- No 40mg Q.5D Take [address] [facility] 12-29- tablet (40 [facility] (PROTONIX) 00:00: 23:59 mg total) M edical 40 MG 00 :00 by mouth 2 Center tablet (two) times daily for 30 days. simethicone 2022-0 2022- No 80mg Take [address] [facility] (MYLICON) 12-29 tablet (80 Goran es 80 MG 00:00: 23:59 mg total) Medica l chewable 00 :00 by mouth Center tablet every 6 (six) hours as needed for Flatulence for up to 10 days. simethicone 2022-0 2022- No 80mg Take [address] [facility] (MYLICON) 12-29 tablet (80 Goran es 80 MG 00:00: 23:59 mg total) Medica l chewable 00 :00 by mouth Center tablet every 6 (six) hours as needed for Flatulence for up to 10 days. simethicone 2022-0 2022- No 80mg Take [address] [facility] (MYLICON) 12-29 [...] kg Systolic blood 2022-03-12 13:55:00 137 mm[Hg] [facility] Diastolic blood 2022-03-12 13:55:00 78 mm[Hg] [facility] Heart rate 2022-03-12 13:55:00 89 /min [facility] Body temperature 2022-03-12 13:55:00 36.5 [facility] Body height 2022-03-12 13:55:00 162.6 cm [facility] Body weight 2022-03-12 13:55:00 51.801 kg [facility] BMI 2022-03-12 13:55:00 19.60 kg/m2 [facility] Oxygen saturation in 2022-03-12 13:55:00 100 /min [facility] Arterial blood by Medical Ce nter Pulse oximetry Respiratory rate 2022-01-12 11:32:00 19 /min [facility] Systolic blood 2021-12-29 12:30:00 108 mm[Hg] [facility] Diastolic blood 2021-12-29 12:30:00 62 mm[Hg] [facility] Heart rate 2021-12-29 12:30:00 87 /min [facility] Body temperature 2021-12-29 12:30:00 36.83 [facility] Respiratory rate 2021-12-29 12:30:00 18 /min [facility] Oxygen saturation in 2021-12-29 12:30:00 97 /min [facility] Arterial blood by Medical Ce nter Pulse oximetry Body height 2021-12-28 08:00:00 162 cm [facility] Body weight 2021-12-28 02:00:00 61.7 kg [facility] BMI 2021-12-28 02:00:00 23.51 kg/m2 [facility] Procedures Procedure Date / Time Performing Source Performed Clinician BASIC METABOLIC PANEL 2022-03-12 Francine Hernandez [facility] Sh[facility]la kes 15:05:00 A. [facility] HEPATIC FUNCTION PANEL 2022-03-12 Francine Hernandez [facility] 15:05:00 A. [facility] CBC W/PLT COUNT & AUTO DIFFERENTIAL 2022-03-[address] [facility] 15:05:00 A. [facility] PROTHROMBIN TIME/INR 2022-03-12 Francine Hernandez [facility] 15:05:00 A. [facility] ALPHA FETOPROTEIN (AFP), TUMOR 2022-03-[address] [facility] MARKER 15:05:00 A. Medical Center PHOSPHATIDYLETHANOL, BLOOD 2022-03-12 Mary, Tanmayi [facility] 15:05:00 A. Medical Center CBC W/PLT COUNT & AUTO DIFFERENTIAL 2022-03-[address] [facility] 15:05:00 A. [facility] HEPATITIS B SURFACE ANTIBODY 2022-01-12 Dadlani, Apaar [facility] 04:36:00 [facility] HEPATITIS B CORE ANTIBODY, TOTAL 2022-01-12 Dadlani, Apaar [facility] 04:36:00 Medical Center BASIC METABOLIC PANEL 2022-01-[address] [facility] 04:36:00 [facility] CALCIUM, IONIZED 2022-01-12 Deanne, Mikhail [facility] 04:36:00 [facility] PHOSPHORUS 2022-01-[address] [facility] 04:36:00 Medical Center CBC W/PLT COUNT & AUTO DIFFERENTIAL 2022-01-12 Deanne [address] l[address]za [facility] 04:36:00 Medical Center MAGNESIUM 2022-01-[address] [facility] 04:36:00 Medical Center CBC W/PLT COUNT & AUTO DIFFERENTIAL 2022-01-12 Deanne A lireza [facility] 04:36:00 [facility] POCT-GLUCOSE METER 2022-01-[address] [facility] 20:54:00 Medical Center US PARACENTESIS 2022-01-[address] [facility] 14:37:00 Medical Center VANCOMYCIN LEVEL, TROUGH 2022-01-[address] [facility] 09:53:00 Medical Center BASIC METABOLIC PANEL 2022-01-11 Deanne, Mikhail [facility] 04:05:00 Medical Center CALCIUM, IONIZED 2022-01-11 Deanne, Mikhail [facility] 04:05:00 Medical Center PHOSPHORUS 2022-01-[address] [facility] 04:05:00 Medical Center CBC W/PLT COUNT & AUTO DIFFERENTIAL 2022-01-[address] [facility] 04:05:00 Medical Center MAGNESIUM 2022-01-[address] [facility] 04:05:00 Medical Center CBC W/PLT COUNT & AUTO DIFFERENTIAL 2022-01-[address] [facility] 04:05:00 Medical Center SPUTUM CULTURE + GRAM STAIN 2022-01-10 Arif[facility] 09:56:00 Medical Center B-TYPE NATRIURETIC FACTOR (BNP) 2022-01-10 Arif, To [facility] 04:35:00 Medical Center BASIC METABOLIC PANEL 2022-01-10 Ari, To [facility] 04:35:00 Medical Center HEPATIC FUNCTION PANEL 2022-01-10 Arif, To [facility] 04:35:00 Medical Center MAGNESIUM 2022-01-10 Arif, To [facility] 04:35:00 Medical Center PROTHROMBIN TIME/INR 2022-01-10 [facility] 04:35:00 Medical Center HEMOGLOBIN AND HEMATOCRIT 2022-01-10 Arif, To [facility] 04:35:00 Medical Center US ABDOMINAL WITH DOPPLER 2022-01-10 Arireji, [facility] 04:00:00 Medical Center US PARACENTESIS 2022-01-09 Arif, To [facility] 17:00:00 Medical Center ANAEROBIC CULTURE 2022-01-09 Arireji, To [facility] 16:29:00 Medical Center CYTOLOGY 2022-01-09 Arif, [facility] 16:08:00 Medical Center BODY FLUID CELL COUNT WITH 2022-01-09 AriTo mendoza [facility] DIFFERENTIAL 16:07:00 Medical Center BODY FLUID CULTURE + GRAM STAIN 2022-01-09 Arif, Halir [facility] 16:07:00 Medical Center PROTEIN, BODY FLUID 2022-01-09 Arif, Halir [facility] 16:07:00 Medical Center ALBUMIN, BODY FLUID 2022-01-09 Arif, Halir [facility] 16:07:00 Medical Center VENOUS DOPPLER LEGS BILATERAL 2022-01-09 Arif, [facility] 14:59:00 Medical Center SPUTUM CULTURE + GRAM STAIN 2022-01-09 Arif, Halir [facility] 11:51:00 [facility] LEGIONELLA ANTIGEN, URINE 2022-01-09 Arif, Sahar [facility] 11:50:00 [facility] PHOSPHATIDYLETHANOL, BLOOD 2022-01-09 Toni [facility]roy [facility] 11:49:00 [facility] HEREDITARY HEMOCHROMATOSIS 2022-01-09 Toni [facility]roy [facility] 11:49:00 [facility] MRSA SCREEN 2022-01-09 Gregg, Halir [facility] 10:26:00 [facility] BLOOD CULTURE 2022-01-[address] [facility] 06:16:00 [facility] BLOOD CULTURE 2022-01-09 Alonso, Irma [facility] 06:02:00 [facility] COMPREHENSIVE METABOLIC PANEL 2022-01-[address] [facility] 06:02:00 [facility] CBC W/PLT COUNT & AUTO DIFFERENTIAL 2022-01-[address] [facility] 06:02:00 [facility] PROTHROMBIN TIME/INR 2022-01-[address] [facility] 06:02:00 [facility] CBC W/PLT COUNT & AUTO DIFFERENTIAL 2022-01-09 Alonso, Osvaldo magana [facility] 06:02:00 [facility] PREPARE LEUKO-REDUCED RBC 2021-12-29 Roseline Sunshine [facility] 23:54:00 [facility] CBC (HEMOGRAM ONLY) 2021-12-29 [facility] 02:51:00 [facility] BASIC METABOLIC PANEL 2021-12-[address] [facility] 02:51:00 [facility] MAGNESIUM 2021-12-[address] [facility] 02:51:00 [facility] HEPATITIS A ANTIBODY, IGG 2021-12-[address] [facility] 02:51:00 [facility] HEPATITIS B CORE ANTIBODY, IGM 2021-12-[address] [facility] 02:51:00 [facility] HEPATITIS B SURFACE ANTIGEN 2021-12-29 [address] GloriaSeth burch [facility] 02:51:00 E. [facility] HEPATITIS C ANTIBODY 2021-12-[address] [facility] 02:51:00 E. [facility] ANTI-NUCLEAR ANTIBODY (MARLEN) 2021-12-[address] [facility] 02:51:00 . [facility] HC LAB FLUORESC AB SCRN EA AB 2021-12-[address] [facility] 02:51:00 E. [facility] ACTIN (SMOOTH MUSCLE) ANTIBODY, IGG 2021-12-[address] [facility] 02:51:00 . [facility] IRON, TIBC, % SAT. (WITHOUT 2021-12-29 [address]Seth burch [facility] FERRITIN) 02:51:00 . [facility] CERULOPLASMIN 2021-12-[address] [facility] 02:51:00 . [facility] MIIQA-7-JGIITGDEBRI\, SERUM 2021-12-[address] [facility] 02:51:00 [facility] FERRITIN 2021-12-29 Geoffrey, Ahmed [facility] 02:51:00 [facility] PROTHROMBIN TIME/INR 2021-12-29 Geoffrey, Ahmed [facility] 02:51:00 [facility] HEPATIC FUNCTION PANEL 2021-12-29 Geoffrey, Ahmed [facility] 02:51:00 [facility] MITOCHONDRIAL AB SCREEN 2021-12-29 Elizabeth GloriaSeth burch [facility] 02:51:00 . [facility] MITOCHONDRIAL AB TITER 2021-12-29 Nolanpasquale GloriaSeth burch [facility] 02:51:00 [facility] ANTI-MITOCHONDRIAL AB, REFLEX TO 2021-12-29 Nolanpasquale GloriaJonatan burch [facility] TITER 02:51:00 [facility] HEMOGLOBIN AND HEMATOCRIT 2021-12-[address] [facility] 15:50:00 [facility] CBC (HEMOGRAM ONLY) 2021-12-[address] [facility] 06:12:00 [facility] BASIC METABOLIC PANEL 2021-12-28 [facility] 06:12:00 [facility] MAGNESIUM 2021-12-28 [facility] 06:12:00 [facility] HEPATIC FUNCTION PANEL 2021-12-28 [facility] 06:12:00 [facility] TRANSFUSE LEUKO-REDUCED RED BLOOD 2021-12-28 Allison Sunshine sa [facility] CELLS 02:30:00 [facility] HEMOGLOBIN AND HEMATOCRIT 2021-12-27 Renan, Willi [facility] 23:51:00 [facility] US ABDOMEN LIMITED 2021-12-27 Renan, Willi [facility] 22:35:00 [facility] ECG 12-LEAD 2021-12-27 Unknown, Hl7 [facility] 20:44:36 [facility] ECG 12-LEAD 2021-12-27 Unknown, Hl7 [facility] 20:44:36 [facility] ECG 12-LEAD 2021-12-27 Unknown, Hl7 [facility] 20:44:36 [facility] HEMOGLOBIN AND HEMATOCRIT 2021-12-27 Renan, Willi [facility] 19:00:00 [facility] HEPATITIS PANEL, ACUTE 2021-12-27 Renan, Willi [facility] 19:00:00 [facility] URINALYSIS W/ REFLEX URINE CULTURE 2021-12-[address] [facility] 18:59:00 [facility] REPORT OF PROCEDURE - ENDOSCOPY URL 2021-12-[address] [facility] 18:15:56 [facility] ABORH, MANUAL 2021-12-[address] [facility] 17:06:00 [facility] ESOPHAGOGASTRODUODENOSCOPY 2021-12-[address] [facility] 16:25:00 [facility] TYPE AND SCREEN, AUTOMATED 2021-12-27 Vinh Ray [facility] 15:07:00 [facility] BLOOD CULTURE 2021-12-[address] [facility] 13:23:00 [facility] LIPASE 2021-12-[address] [facility] 13:20:00 [facility] PROTHROMBIN TIME/INR 2021-12-[address] [facility] 13:20:00 [facility] APTT 2021-12-[address] [facility] 13:20:00 [facility] FIBRINOGEN 2021-12-[address] [facility] 13:20:00 [facility] PROCALCITONIN 2021-12-27 [facility] 13:20:00 [facility] CBC (HEMOGRAM ONLY) 2021-12-[address] [facility] 13:20:00 [facility] BASIC METABOLIC PANEL 2021-12-27 [facility] 13:20:00 [facility] MAGNESIUM 2021-12-27 [facility] 13:20:00 [facility] CALCIUM, IONIZED 2021-12-27 [facility] 13:20:00 [facility] BLOOD GAS, VENOUS 2021-12-27 [facility] 13:20:00 [facility] LACTIC ACID, VENOUS 2021-12-27 [facility] 13:20:00 [facility] HEPATIC FUNCTION PANEL 2021-12-27 [facility] 13:20:00 [facility] SARS-COV2/RT-PCR ([facility]) 2021-12-[address] [facility] 12:44:00 [facility] MRSA SCREEN 2021-12-[address] [facility] 12:44:00 [facility] POCT-GLUCOSE METER 2021-12-[address] [facility] 12:22:00 [facility] XR CHEST 1 VIEW PORTABLE / BEDSIDE 2021-12-[address] [facility] 11:46:00 [facility] EKG-SCANNED 2021-12-27 Provider, Default [facility] 00:00:00 [facility] Plan of Care Planned Activity Planned Date Details Comments Source Future Scheduled 2023-03-[address] [facility] Test 00:00:00 [facility] Screening (12+) [code = Tobacco Cessation Counseling and Screening (12+)] Future Scheduled 2023-03-[address] [facility] 00:00:00 (12+) [code = [facility] DEPRESSION SCREENING (12+)] Future Scheduled 2021-04-[address] [facility] Test 00:00:00 (12+) [code = [facility] DEPRESSION SCREENING (12+)] Future Scheduled 2021-04-[address] [facility] Test 00:00:00 (12+) [code = [facility] DEPRESSION SCREENING (12+)] Future Scheduled 2018 SHINGLES VACCINES ([address] [facility] Test 00:00:00 2) [code = [facility] VACCINES (1 of 2)] Future Scheduled 2018 SHINGLES VACCINES ([address] [facility] Test 00:00:00 2) [facility] Future Scheduled 2018 SHINGLES VACCINES ([address] [facility] Test 00:00:00 2) [facility] Future Scheduled 2013 Lipid panel (procedure) [facility] Test 00:00:00 [code = [id number]] Medical Ce nter Future Scheduled 2013 Lipid panel (procedure) [facility] Test 00:00:00 [code = [id number]] Medical Ce nter Future Scheduled 2013 Lipid panel (procedure) [facility] Test 00:00:00 [code = [id number]] Medical Ce nter Future Scheduled 1989 Screening for malignant [facility] Test 00:00:00 neoplasm of cervix Medical C enter (procedure) [code = 274057853] Future Scheduled 1989 Screening for malignant [facility] 00:00:00 neoplasm of cervix Medical C enter (procedure) [code = 278380750] Future Scheduled 1989 Screening for malignant [facility] 00:00:00 neoplasm of cervix Medical C enter (procedure) [code = 191294798] Future Scheduled 1987-08-10 DTAP/TDAP/TD VACCINES [facility] I [...] breast Medical C enter (procedure) [code = 688200779] Future Scheduled 1968 CT Colonography (combo) [facility] 00:00:00 [code = CT Colonography [facility] (combo)] Future Scheduled 1968 Screening for malignant [facility] 00:00:00 neoplasm of colon Medical Ce nter (procedure) [code = 828355887] Future Scheduled 1968 Screening for malignant [facility] 00:00:00 neoplasm of colon Medical Ce nter (procedure) [code = 633110143] Future Scheduled 1968 Screening for malignant [facility] 00:00:00 neoplasm of colon Medical Ce nter (procedure) [code = 219966006] Future Scheduled 1968 Screening for malignant [facility] 00:00:00 neoplasm of colon Medical Ce nter (procedure) [code = 264202309] Future Scheduled 1968 Sigmoidoscopy [code = [facility]] Medical Cent[facility] Future Scheduled 1968 Screening for malignant [facility] 00:00:00 neoplasm of breast Medical C enter (procedure) [code = 449161268] Future Scheduled 1968 CT Colonography (combo) [facility] 00:00:00 [code = CT Colonography [facility] (combo)] Future Scheduled 1968 Screening for malignant [facility] 00:00:00 neoplasm of colon Medical Ce nter (procedure) [code = 550922998] Future Scheduled 1968 Screening for malignant [facility] 00:00:00 neoplasm of colon Medical Ce nter (procedure) [code = 157607102] Future Scheduled 1968 Screening for malignant [facility] 00:00:00 neoplasm of colon Medical Ce nter (procedure) [code = 827588234] Future Scheduled 1968 Screening for malignant [facility] 00:00:00 neoplasm of colon Medical Ce nter (procedure) [code = 096574457] Future Scheduled 1968 Sigmoidoscopy [code = [facility]] Medical Cente r Future Scheduled 1968 Screening for malignant [facility] 00:00:00 neoplasm of breast Medical C enter (procedure) [code = 926931026] Future Scheduled 1968 CT Colonography (combo) [facility] 00:00:00 [code = CT Colonography [facility] (combo)] Future Scheduled 1968 Screening for malignant [facility] 00:00:00 neoplasm of colon Medical Ce nter (procedure) [code = 055955166] Future Scheduled 1968 Screening for malignant [facility] 00:00:00 neoplasm of colon Medical Ce nter (procedure) [code = 008831785] Future Scheduled 1968 Screening for malignant [facility] 00:00:00 neoplasm of colon Medical Ce nter (procedure) [code = 281697940] Future Scheduled 1968 Screening for malignant [facility] 00:00:00 neoplasm of colon Medical Ce nter (procedure) [code = 885088803] Future Scheduled 1968 Sigmoidoscopy [code = [facility]] Medical Justyne r Encounters Start End Encounter Admission Attending Care Care Encounter Source Date/Time Date/Time Type Type Clinicians Facility Department ID 2022-06-12 2022-06-[address] [facility] SLE [id number] [facility]ly [facility], [facility] SLE 00:00:00 00:00:00 2022-03-29 2022-03-29 Refill Deanne [facility] [id number] [facility] 00[facility]00 [facility] 2022-03-15 2022-03-15 Telephone Mary [facility] [id number] 00:00:00 00:00:00 [facility] 2022-03-15 2022-03-15 Telephone Mary [facility] [id number] 00:00:00 00:00:00 [facility] 2022-03-13 2022-03-13 Documentat Mary [facility] [id number] 00:[facility] 00:00:00 ion [facility] 2022-03-13 2022-03-13 Documentat Mary [facility] [id number] 00:[facility] 00:00:00 ion [facility] 2022-03-12 2022-03-12 Office DarrinPipo [facility] [id number] 13:30:00 14:30:00 Visit Mary, [facility] 2022-03-12 2022-03-12 Office Pipo Carballo [facility] [id number] 13:30[facility]22-03-12 Outpatient [facility] SLE [id number] [facility] 13:34:37 13:34:37 [facility] 2022-03-12 2022-03-12 Outpatient EL SLE SLE [id number] [facility] 00:00:00 00:00:00 2022-03-11 2022-03-11 Telephone Bryant [facility] [id number] 00:[facility] 00:00:00 [facility] 2022-03-11 2022-03-11 [id number] 00:[facility]00 00:00:00 [facility] 2022-02-19 2022-02-19 Refill Deanne [facility] [id number] 00:00:00 00:00:00 [facility] 2022-02-19 2022-02-19 Priyanka Gomez [facility] [id number] 00:00[facility]00 00:00:00 [facility] 2022-01-16 2022-01-16 Outpatient EL [facility] [id number] [facility] 00:00:00 00:00:00 2022-01-09 2022-01-12 [facility] Irma Gupta [facility] [id number] 04:29:00 17:44:[address] [facility] 2022-01-09 2022-01-12 [facility] Irma Gupta [facility] [id number] 04:29:00 17:44:[address] [facility] 2022-01-09 2022-01-12 Inpatient ER Psychiatric [id number] SLE 04:29:00 17:44:00 [facility] 2022-01-11 2022-01-11 Outpatient [facility] [id number] [facility] 00:00:00 00:00:00 2021-12-27 2021-12-29 [facility] [id number] [facility] 10:33[facility]00 16:22:00 [facility] 2021-12-27 2021-12-29 [facility] Ehsan [facility] [id number] [facility] 10:33:00 16:22:00 Encounter Dee Hale [facility] 2021-12-27 2021-12-29 Inpatient ER [facility] Medical ICU 2 [id number] SLE 10:33:00 16:22:00 [facility] 2021-12-28 2021-12-28 Outpatient LEXIS CHAUDHRY [id number] [facility] 00:00:00 00:00:00 [facility] Seybol d 2021-12-27 2021-12-27 Anesthesia Deshawn Sher [facility] [id number] [facility] 16:25:00 17:27:00 Event Garcia, [facility] 2021-12-27 2021-12-27 Anesthesia Deshawn Sher [facility] [id number] [facility] 16:25:00 17:27:00 [facility] 2021-12-27 2021-12-27 [facility], [facility] [id number] 16:05:00 16:54:00 [facility] 2021-12-27 2021-12-27 Surgery [facility], [facility] [id number] 16:05:00 16:54:00 [facility] 2021-12-27 2021-12-27 Orders [facility] [id number] 00:00:00 00:00:00 Only [facility] 2021-12-27 2021-12-27 Travel [facility] [id number] [facility] 00:[facility]00 00:00:00 [facility] 2021-12-27 2021-12-27 Orders [facility] [id number] 00:00:00 00:00:[address] [facility] 2021-12-27 2021-12-27 Travel [facility] [id number] [facility] 00:00:00 00:00:00 [facility] Results Test Description Test Time Test Comments Results Result Comments Source PHOSPHATIDYLETHANOL, BLOOD 2022-03-18 08:53:53 Test Item Value Reference Range Interpretation Comme nts PHOSPHATIDYLETHANOL (PETH) (test code = 9129044) See scanned report See scanned reportALPHA FETOPROTEIN (AFP), TUMOR [id number] 17:49:55 Test Item Value Reference Range Interpretation Comments ALPHA-FETOPROTEIN (BEAKER) (test 5.0 ng/mL <10.0 code = 1094) [employer] ID - BSBASIC METABOLIC [id number] 17:26:12 Test Item Value Reference Range Interpretation [...] not appl icable for dialysis patien ts [employer] ID - BSSpecimen slightly ictericHEPATIC FUNCTION [id number] 17:26:12 Test Item Value Reference Range Interpretation [...] code = 58 U/L 6-55 H 347) [employer] ID - BSSpecimen slightly ictericPROTHROMBIN TIME/[id number] 16:59:25 Test Item Value Reference Range Interpretation Comments PROTIME (BEAKER) 18.6 seconds 11.9-14.2 H (test code = 759) INR (BEAKER) (test 1.66 See_Comment [Automat ed message] code = 370) The system [employer] generated this result transmitted ref erence range: <=5.90. The reference range was not used to int erpret this result as normal/abnormal . RECOMMENDED COUMADIN/WARFARIN INR THERAPY RANGESSTANDARD DOSE: 2.0 - 3.0 Includes: PROPHYLAXIS for venous thrombosis, systemic embolization; TREATMENT for venous thrombosis and/or pulmonary embolus.HIGH RISK: Target INR is 2.5-3.5 for patients with mechanical heart valves.CBC W/PLT COUNT & AUTO [id number] 16:54:03 Test Item Value Reference Range Interpretation [...] PERCENT (BEAKER) (test code = 2801) Anaerobic [id number] 10:16:44 Test Item Value Reference Range Interpretation Comments Result (test code = No anaerobes isolated 6463-4) [facility] [id number] 10:16:44 Test Item Value Reference Range Interpretation Comments Result (test code = No anaerobes isolated 6463-4) [facility] [id number] 10:16:44 Test Item Value Reference Range Interpretation Comments CULTURE (BEAKER) (test No anaerobes isolated code = 1095) PHOSPHATIDYLETHANOL, [id number] 09:36:51 Test Item Value Reference Range Interpretation Comments PHOSPHATIDYLETHANOL (PETH) See scanned (test code = 6310865) report See scanned reportBLOOD [id number] 07:00:43 Test Item Value Reference Range Interpretation Comments CULTURE (BEAKER) (test No growth in 5 days code = 1095) BLOOD [id number] 07:00:43 Test Item Value Reference Range Interpretation Comments CULTURE (BEAKER) (test No growth in 5 days code = 1095) [id number] 18:18:27 Test Item Value Reference Range Interpretation Comments Case Report (test code Medical Cytology = 104) Report Case: [id number] Authorizing Provider: To Haynes MD Collected: 01/09/2022 04:08 PM Ordering Location: [address] Received: 01/10/2022 10:29 AM Service Pathologist: Lily Patino MD Specimen: Peritoneal Fluid DIAGNOSIS (test code = [id number] 3220) FuZzEwMzNcZnRuYmpcdWMx IHtccnRmMVxlcGljOTYwMl cjnhAtJKBnmVHxI9Qtfccl YJkrEX8sUJ7qqWektPVgsB WfMXLdWfJad4ghj922sAEm h1gcHODOxtoqzDi8gYmkB6 6mm1U3RxgpM79anRLaZYX8 OVMmMWYvmXLwDCMeXMF4TK HyxWCwB4fbFQZpZI5rzxmy XNbvBOxaKFXnjTR7WHWeqP PvG4KyFJQiQTrwJSOgwea6 VtJcTh9erRIfnGyqPQovCO JkXHBsYWluXGZzMjAgUEVS SVRPTkVBTCBGTFVJRCAoQ1 sAH9FOEL7QHURUCTBPFJiL MLBBH5LVSPgkiMimOGZuAE LkEX4QI4BNZWUSXGHXFxBR SVsXQ66WKnJSSSoVDXErJ5 9NTUVOVClccGFyfXtccnRm NUxam2EoCDmhGVLgAP5wmB tvNGBaRQ8tOVPrZ5nvzD7n ban6BfQgRAVoCbO8KICmht K5Rnp1QOMqPDjlh1ggo2Zj VUJlNFi8nDywTnAbPSCas7 lzcyBcZmNoYXJzZXQwIEFy rSZqS204z0gkd0whbkXpxE L8HDPuTMX5WUmcmzGsmvC5 AGjyiHTzUaZ0PAcwsgUoPJ hvouUhbcOlMtk9ARQrZ492 OZV8cKkvj1tqUEG4BOLbTX UoGpZkMp1ugBLuA460DNSz SBIMMZQetZh8OYKuknJolm RzqCTWl702B357d1nnPMGa efDxhEtBnyurg8yyI237AR BhcGVydzEyMjQwXHBhcGVy aXJ5YKCqVU8rfsvoTPiePU rxOBXqlfH8TWMcxOVgH7Bt FVHkRT4lmlqcWMK9SDldSF BiEJS6JaUyHCOnr9Ctray1 SkLlli2hbb93XJP5n4QxxF dpARN6VVU6BbUeBr3dqZUv ELKjTS7xRwVihSEgIFKrbm 31pQhgZQpfOYW8LUClefFd q3Bql3cmXlBzwkSkW2xsR9 JyZHJoZWFkXHBnYnJkcmZv h2Fln2SkdPDofIg8v2isXJ ZlYDGyjRewv0imJCP1OYKc sZAnI5lbkL7gJMIrEK3kjy iqa6ebGBecRWeyAZOzoZI1 oeE1WCNkhMJhD2AcbR6eOB QxOAdyHPDhzhz6KcAqJg0p dGVyeTcyMFxzYmtwYWdlXH BnbmNvbnRccGduZGVjXHBs YWluXHBsYWluXGYwXGZzMj RccWxcbGFuZzEwMzNcaGlj aFxmMVxkYmNoXGYxXGxvY2 pvCrYmWxIcZwb2AWHkwPHd DPLvWsv4ZQFffTUrAUWJvQ nqeO9rKUZmqXteiO0hqPB6 VFXhacPrmKVYaN6gCTXGaK 8yXiP9LPIaXbb1VIF6HkRp cGFyfX0= COMMENT (test code = c3zvuDVuRDBbkZB0YxHkXD 3612) Dga5vhb2EzhQUlgOMiXUvu rBFvbyWref98hRX4sU57KJ 6jEZSsPwT7DHKkiyT4Dlf7 ZLNpGQBskPPwW593n6jic9 qxwbSskHS3uZjaOKBicjiu BbT9OKxcIEKycdslZZt3DI vaVSIirTY2DXVvpDXbJ4Ob MFEdDQ4rcxb0LIH6TRslSW ScQzT7WEHxuNOqYJBlrNfu QXlqr133ZUD2IsHjVPKtcu CxlDuwdR5bJqXcHANGpBTs i2CdP9nqBX4dwANyG82veQ 1sJIOep4WiSoPohBxoZYUc DKRtFRXdjCf0AGZruLKeEC RcxhahnRHhb4LqZCowWPgh O5JtpVPwZYLvuWbrVNU0cH DgHBSuVNbqBAs6pKJos6Z9 dGVzLiBccGFyfQ== CPT Code(s) (test code o0hxkBLhGJTavYZ9ZaJbPH = 3357) Mlc4bfo0NbxSDqmPCdIJvt qYWmmxKltb59jIJ2xX11VZ 6tDXVwZrC2GHTmrqJ3Syv1 TVGcEFGmdDIfQ362s8edh4 xwqwPkiYB6oVtrTKJhvwba UrK4CJzrQRZgcjtzPSc6NU fpQTUaiLS3REKbaWQgE3Bl JNDbQQ3jhct9HLA6AScbIF SxYaT1TXJglWUyJHGpoXsx UIuwe522YEX6HhUpYEEkty LbyVshnX7rElMvDPO1QVXe OCwgODgzMDVccGFyfQ== CLINICAL DATA (test o5pofIQfZTYkzVN9XhMdKO code = 3355) Cbf0ydl4TjbYKtyXMeCYxm jCRyywRbdq45fFU9rI60SS 1xTSUiNuM0OTPwmmJ1Ujl2 LSLvDJMhfARjH841t9trq4 lzaxKmnUY6fTbtMGNrhwmb WaA7HYshPIUhptqlQRr0LQ xoYXQqrIL0ETVmtZKvR1Bj GTGoKG2akih2HNJ2MTriCJ QbKsY1HZUlcKFyTYBohQwn XSfzh475EPJ6YpLqUPRzpe JcsPqfgH6zKvYzRRESw2Ty mKXvWYWbgRJpvX1smSWzSL IRDGIjz7CjILMaRICmZ20z a9ogRFM7a7PtDNVzB4AtaK OWANDyDiAgdQYPJ8AVMLx4 SZKfYkIrCqlhcvPvtmR9C5 BbUCYLJHhmmPIou2TpnUSi CAuzaBrzJDUer51nczKsPJ YsiL2uJWXep3QwHXXzIXP4 qUAtNFGua6GugtRgl30bZF JMRSBlZGVtYSBhbmQgZHlz tG2qOL1rBa75fcNcwW5gjV Y8KZMyw4DitHKaEGUiTPCw bKKcBGM9DTMkrH8fkY6zse lhLiBccGFyfQ== SPECIMEN SOURCE (test a1owxHRcCHTxvUN8UsSrRI code = 3377) Kid3vmw8LtxLDkzSInBWru mSMgtdHbqv37nRX5bS19YZ 2qQKFoTqX9LVBxdfS4Zaw9 CIXaXQGlrGOoB106g4ueh9 werlVjmMF7rUdoFVPxoday XbS5ZSolUOVwmfaiXFq4QT ogCNHjoXV2AUJioONeL4Ez HWWdUR8qdns3BKL5QNubMB AdYhX6LUTusUOoMNIgaWji UGdgq635ZRP2CeApXSKqbr BvmRpvgI0dStSeTQLYKAZV OL8VKNQLPDEKTQrROSAeqj 0= GROSS DESCRIPTION (test b6qmpHEqVAVthVGLDNEdS0 code = 9176004671) iczxPdIAEilBDhG8Iwrhns EDnwMJ3gYF1jhUnfkOSrrM UnLG5UFREaUwZrXKQofZMn zxUgGfKwZUPciYLakYW2VN EoTW2xjbxsWRczSVadFDWy ezN1GLSdgZQuT6SyDHFsUG 6moaejMIW0ALbsjS9spqXI YutySv5ucAAzpKtjYmQoFt NoYXJzZXQwXGZuaWwgQXJp POz3oQ7UJqiuGWC1HFPSWk puJUFwRD6Sd1tjGDVemDSr PWU9ANbegCRyDDUxQELtJQ l3XZWbXMbpyRExIG6xoFld IqofbQigi6QhiMReUHpoJY MrBPJaHEwsMWFiAG6TSdTt POV6HYFbCbVxNLl6MNm7BE 9YLpWjPJUhQFUmMDr5LRIy PSz8RMczZU0BNNAyErRcWY ApOeW5BXH4OGJqDABlMoCn XGYgQXJpYWwgXFxmbCBcXG 5jfVxwbGFpbiBBLiBQZXJp kA8tAOCaYHAreQarQuoeFJ HpPZiuJYNwG44az9VWu6Yi BV9BXZu6kcOhmmdqqP7vMT PrwcNfNUgefJCwC9ffKrXn MCBSZWNlaXZlZCAxNjAwIG 1sIGFtYmVyIGZsdWlkOyBw cfMvIRGuXOS7TMD6uB8nwX mhraSwjmQwS0SfdDJeuS7k skuMXgqjH65kkW4lrD5gMD WbFpeqUFQ3bXMcS1PppRHt gA3xwvO9VZSeZxz3KZTajJ 2sKz0jwISlqD7eNYClOUko HfLswQBgubT3GiY7VeThGt INClxwbGFpblxlcGljTmVz pTOwYkRpwJyfdA90SIXtzR LiOCY7FS3vVDGpfdgyDKBa ONPxEQC2JDnqrZ50uNKiIW KgDTTsjULwhH8ORAIoLOK4 NGcrfE80dRPuNK9KPVDjVB S4BDYjuAJlNLW4TX3rfR0R fQ== MICROSCOPIC DESCRIPTION s6otsXKmADNfzMU5RmFsIK (test code = 3371) Wrx4ceq9RqpSSvzGNkFYcg gRLebfMqib18hYO2iM13RD 0qQNBfGbO8GFNwfwV0Jwm9 BSCiHUDomUYgG237b3zll7 jnhrZzjZO6gXiiOKRdofjd KyK4NEubJMVijcwiCIp5GW pgQEWmwIU9EKTadXCtM7Gw LGJfKA1gvon8GMY4XZzvAZ OlDgA3JBAkaKYhLAAirWwu OIhio670TLQ1AyIeXAKtsi WmnOpdpX7rPiCfOTUCSISp v1ZyIQRhUGvoKYX3 STATEMENT OF ADEQUACY Satisfactory (test code = 2757) Gross assessment was [facility] performed at ([facility], = 2777) Department of Pathology, [address] [place], [place] [address], Technical component was [facility] performed at ([facility], = 2778) Department of Pathology, [address] [place] [address], Professional component [facility] was performed at ([facility], code = 2779) Department of Pathology, [address] [place] [address], [facility]:18[facility]27 Test Item Value Reference Range Interpretation Comments Case Report (test code Medical Cytology = 104) Report Case: [id number] Authorizing Provider: To Haynes MD Collected: 01/09/2022 04:08 PM Ordering Location: [address] Received: 01/10/2022 10:29 AM Service Pathologist: Lily Patino MD Specimen: Peritoneal Fluid DIAGNOSIS (test code = b0jfpFVyCWBix0ykKHCjrZ 3220) FuZzEwMzNcZnRuYmpcdWMx IHtccnRmMVxlcGljOTYwMl oozwSoWJRnpVLqT3Vlczak XYpfXL6nOI1esWuouFYqxE LuNYYlXfWvf9hyb318uHCz d7onAWTKmfhedRv2xGeeM3 4oy8J5LylcV56krSZvDOC2 ZCLbANVorJEgRUDmVLC6MD JujFYpX6wjEPVsUO7gmtjh RPjcPJopKVVipZU1XQUuzC GsF1FfYEPrBCkkLWJcxsr1 CrTjXs5oxNUdyPowTNlzUD JkXHBsYWluXGZzMjAgUEVS SVRPTkVBTCBGTFVJRCAoQ1 rBF1MHUO3OXGVPGIOSPJdX YXWVV8TSVJibvUjhRYMlXF EgZY5SD6RVQBWXIBPBBcNL SZyNQ11GBbKOYUuCGUMeM2 9NTUVOVClccGFyfXtccnRm UDxbu1JuGDmtZTFkTT7qsT nsQNFiIG5wNBSqK5lnwL8b nra1BiVjTPKmByB2HNMloi I3Ymc3PFEhOMtga1dfa0Dj KBNaGNd4sGdoVwZiDIEej8 lzcyBcZmNoYXJzZXQwIEFy iPPgB083t7pkq3lgjqPatZ N5CEGiRFU1CPaqubKkkdE4 DTslmPMjKrU2DJdipvFpWE kjcuCopaCpBiu9NEKoC030 IIJ5aBehz0yvTSV5FVEvEK XoQsRgYp5mfBJqB044HDAm AIEGFCVywSw8SHVrppSezz WaaGAMs983U832q3bnXCPn usKavKyVkibjb6xxU964FN BhcGVydzEyMjQwXHBhcGVy nGA0EXVeLH7rkkkgZDagCK jySKLqzvO0IZRjuKSfL8Zy UMQgLN4alyskLWO8PBeuDX SlFEC3ItBqEBEzf8Flmge7 PcBulg8wcg51MFA4c1SngY etFZK4APJ3BpMxZg7fkHEs FQCxZU9uUuWcjLZuIUZyus 26mZhuKVhgXEV5SBMkddOa x1Lvc3luEnXidlIoE9wpK4 JyZHJoZWFkXHBnYnJkcmZv k4Thl6BpaVFxqUj2b2ncMT BmZCYciWynk2sjYRP4XMXu lMRuR3ytfH4vISUtWJ4rtd oae1gkGLupWLbqOQXxmQM5 mxE0JOJxvNJeS8UbqA6xDY UnJXxmQVDxkav0ApEeOy7m dGVyeTcyMFxzYmtwYWdlXH BnbmNvbnRccGduZGVjXHBs YWluXHBsYWluXGYwXGZzMj RccWxcbGFuZzEwMzNcaGlj aFxmMVxkYmNoXGYxXGxvY2 hjTdWhFvPmEad9EWQzwNKs UQIzPzy9VSNsxGPmHQNDgR wjmK9gMXEjlLueeE7bpCA5 SPXolmLsfBCBeW6qKKOSnM 1tVjC4UTKoVcb3YFU9DuYa cGFyfX0= COMMENT (test code = b8zmkEEfVSTlmEZ8TsIwVI 0959) Uol9xiz6WcxEMcsPGfBZoi dARbxuUshn11vVU9sY84US 8nAWJzEyO4MWEwyzT3Ikz3 DWGiCXLslIYiU168j9zxp7 pasvFmfYM6iHkqXJMkrpic CsQ9ZCnmRKXanwbgBYl4NV rcKWZlaUL1CHGfcCSwU3Ef PQKpRH8sypi0NKZ5EShhZZ NzPgM0JYPwmVOdMCUvjNle KQfns967WNG4EvTxHSEhps NudDwnrQ2dBxDnGFATgBAj w9MwW1ufHY7dwRNhS54qaK 8gKSPdh9TeUhXocVixFRTf IESeLPDqxSi3MZAdaFEiXD NrdrpjxKDnj8EmSYihZGil F8GlhCCkFBDfuEhnRYB4kP BwPVZgZTsaMKz3rLDyr5S1 dGVzLiBccGFyfQ== CPT Code(s) (test code n7odhAJeARHuhPV8HmRrZE = 3357) Agl1zgr0TpoLYluGGfGPjg fRPcviXqkp56cAZ8jM05DN 2nADReGpC4UZRoizH5Ftv2 JRFkDEFnhJMhK283o6wsa1 fkirKseSF8cErpYTBhonkn BgQ4LDetVEYefcsdJVi7PM biNGRdlOF2XDWezBHoC6Yl CHGzKS3nukm6HUF1TGvsQD DkAyZ4LMUrkDTeLTRclCix BLevp872TLI3XvDsPXBsty AdkEfnaH9eBhLtJXB3MHUc OCwgODgzMDVccGFyfQ== CLINICAL DATA (test h9gktKBrQZVdfSD8MqOcKH code = 3355) Znl6pgk9LvkNCaqXDpFDqc eEAggtNjyo04zTS3iL05OH 7aQRJgKiT7ZVBvvfN8Tmv8 PRVlMEFsfUZlL175d3xud5 zjakEwmLB4vUmiFLScmsjd OiA1AMotONGvqhgsZHg8RL beWLGjtBL2QDKxlIWxS1Ep RUIjOP2kjcv3XQK1YGdaNA IpRcE6KREcxPVgKTHgkLkg BRhtp181OHM2IlBeGVKtjy PzmVmjzL7uLePdAKVIq2Mt kOLvNHMvoIShtE3flFCwXZ YBVSVdb7StQYOcIAIqL66j v2pmHVK8p7XtIALcR6VcrM NGYHYsKlHyjXKCF8KPEAm9 SDSoWpVwHrfrnvTbhuW1W1 GkVPUZHHfnwYYwc8ScvLWr XPbgzTckVKTnz02ywfGpMN YwaJ1dMQByc3VoTBDaVEU2 pBOrMHCik3HhjjLnm79tUX JMRSBlZGVtYSBhbmQgZHlz sK7dGL9vEy02snUkbT9jkC M3MUCfy0DelWJuVDQsELNf yRBsOCF7HMFfiS2jmI1nqp lhLiBccGFyfQ== SPECIMEN SOURCE (test p1fkrQQsIBAvpPB9WwOxZG code = 3377) Enb2yos7NquPGibWLfMDme fGLlqnIzmc98sJV5tT62RC 8cQSOaFyE5ELPolgV3Mzh7 TLLzZHBsyCXnU113q4say6 uhvzUeoLC9eBbdVERflsxi SeG8XJouGQAplyflMPq9GF qvAAHreJL4WVAroYCaP4Fh VKDuAS9fkne4XVT1KIewKP EuUvP2NWIewHLyAVCnkErx PNutu054LBL1NgBrJMCnqa OsgWzhvF1lOhJoSEXJGPFQ JU0ENWLBXPSOGPjBCYDxkq 0= GROSS DESCRIPTION (test q5llcQFiPXDbhGETLEGcE5 code = [id number]) iiscZcUJXjeQGzW9Khqtzk OIthVU8bHD1icElbcOHleN KnEY0HAGZaZfTdDHZbcGOf kvNkUhLpPIKbtODpjQE7HF UpWQ3zjtjuRMtmXYjkUXTl jcK7JWPutKWvJ2UjBYNtSI 6igwciKGH8CQrbhR7egcNH NlfbAy3wjOBqwSsfHcUhCd NoYXJzZXQwXGZuaWwgQXJp UWj4mS6GEhlbQHO3BIBNEe knCRYdQG1Zf0waYDXepXYs YPO3FXdphGCyISYcOEFzFQ r3GRSvEHqakMIuRM5rpGzh HolyfUljw3DkiXNwTEezVC QtSRJkSIltHDEwWX1VHsDk QPX8JBIqTwVbBOg5CJo2TF 1QZdXfOUKcBVKmYOz8GUOg HVu7HJxtVN9ICIBcZvLwLQ RjUcC2CQE7IWKuHDCcNfXk XGYgQXJpYWwgXFxmbCBcXG 5jfVxwbGFpbiBBLiBQZXJp aC0eAPJiULOahLrvHpohLA YdMKxoLIRmW39co7NCi0Uz SC2DPMx4dzGhbtnlqV2sRW PuibGkFBxifPNrP9ltPkAq MCBSZWNlaXZlZCAxNjAwIG 1sIGFtYmVyIGZsdWlkOyBw ppEmYWFiHHA1PXH8rR5iaG bjeoSdmfJoZ7XgrNFxsL6t osrMUktjZ79xgB0xoZ3bLV QwVoauNVW9zYKeT4SzkQOo yR9glxG1BRObPjh5OCBhhK 8fTy4ptPZtiB6mXGZxROep KuEigRVitaH9LnT3XnRqDt INClxwbGFpblxlcGljTmVz pSItJfPfuIrftN31IYWmsT RnJOP7LL4jTVWwxwyvHWNg CLAzPIM3ELivjT14tVHlEC QuUEEfvPFsfY5HZVBiVGX6 PSnewE81gPUyPS6PNYNzUA N2DKAglVJoKHJ1UD8uhS5A fQ== MICROSCOPIC DESCRIPTION x0zqdXMmQWLqpJS6MrDdPA (test code = 3371) Ore3cxy5XfuDSudREwFAel aBDatsSmgi04tBN4iG46JZ 6eVPCrHkA6OCXcjoS7Pxw4 RPHzPWKcxOEyI689h4bpf3 uhysDbiGJ3uZbqIDDywubd EnA2NIuyCMKaxkuqSXu8VN laWPHlnVJ6OTHgbRBoM3Ka LXTiTE7oswd5LUZ4VAevRJ VeZeR6ARYqaNKcSREunTjb UXpte628CGM5EsFlSHHdyk JazIojqI5mAvAeXHEZOMFa f3CcHSJmCNdtMOY3 STATEMENT OF ADEQUACY Satisfactory (test code = 2757) Gross assessment was [facility] performed at ([facility], = 2777) Department of Pathology, [address] [place] [address], Technical component was [facility] performed at ([facility], = 2778) Department of Pathology, [address] [place], [place] [id number], Professional component [facility] was performed at ([facility], code = 2779) Department of Pathology, [address] [place] [address], [facility] 18:18:27Medical Cytology Report Case: [id number] Authorizing Provider: To Haynes MD Collected: 01/09/2022 0 4:08 PM Ordering Location: [address] Received: 01/10/2022 10:29 AM Service Pathologist: Lily Patino MD Specimen: Peritoneal Fluid PERITONEAL FLUID (CYTOSPINS AND CELL BLOCK): - NEGATIVE FOR MALIGNANCY (SEE COMMENT) Signing Pathologist Direct Phone Line: [phone] signed by Lily Patino MD on 01/12/2022 at 6:18 PMThe specimen is composed of benign and reactive appearing mesothelial cells admixed with small lymphocytes. [address], 40[address]Yezyujk, cirrhosis, ESLD sec to Alcohol abuse, recent GIB from NSAID's induced PUD, presented with abdominal pain associated with distension, BLE edema and dyspnea. Found to have ascites and suspected pneumonia. PERITONEAL FLUIDA. Peritoneal Fluid.Received 1600 ml mainor fluid; prepared 4 cytospins and cell block(A2)(collodion bag) - the cell block was fixed in formalin at 5:03 pm on 01/10/2022erformed. [facility], Department of Pathology, [address] [place] [address], [facility], [address] [place] [address], [facility], [facility], [address] [place], [place] [id number], Iddujp Culture + Gram [id number] 13:56:33 Test Item Value Reference Range Interpretation Comments Result (test code = 2+ Normal respiratory 6463-4) meghna present Gram Stain Result <1+ yeast (test code = 1123) [facility] [id number] 13:56:33 Test Item Value Reference Range Interpretation Comments Result (test code = 2+ Normal respiratory 6463-4) meghna present Gram Stain Result <1+ yeast (test code = 1123) [facility] [id number] 13:56:33 Test Item Value Reference Range Interpretation Comments CULTURE (BEAKER) 2+ Normal respiratory (test code = 1095) meghna present GRAM STAIN RESULT <1+ WBCs (BEAKER) (test code = 1123) GRAM STAIN RESULT 0-5 epithelial cells (BEAKER) (test code = 37749) GRAM STAIN RESULT <1+ gram negative rods (BEAKER) (test code = 10094) GRAM STAIN RESULT <1+ gram positive rods (BEAKER) (test code = 911434) GRAM STAIN RESULT <1+ gram negative cocci (BEAKER) (test code = in pairs 165725) GRAM STAIN RESULT <1+ gram positive cocci (BEAKER) (test code = in pairs 662357) GRAM STAIN RESULT <1+ yeast (BEAKER) (test code = 461733) U/S, [id number] 13:01:00Labs to be ordered:->No Labs NeededReason for exam:->ascites [facility] : 1970 Sex: FFINALREPORT Ultrasound guided paracentesis. Clinical History: Ascites. Sedation: None. Manager Vehicle: Comfort Estevez PA-C Gun Stock Maker: None. Estimated Blood Loss: < 1 cc. [...] was achieved with 2% lidocaine, a 5 Citizen [place] one-step catheter was advanced into the peritoneal cavity under ultrasound guidance. After completion of drainage, the catheter was removed. There was no evidence of complication. Impression:Successful ultrasound guided paracentesis. Signed: Talia, Ty MDReport Verified Date/Time: 01/12/2022 13:01:26 Reading Location: [facility] [id number] Ultrasound Reading Room Electronically signed by: TY EMERSON M.D. on 01:01 PMHEPATITIS B SURFACE [id number] 06:10:13 Test Item Value Reference Range Interpretation Comments HEPATITIS B SURFACE ANTIBODY < mIU/mL <8.0 (BEAKER) (test code = 647) Dedicated Local Truck Driver ID - REYNALDO MCALCIUM, [id number] 05:57:54 Test Item Value Reference Range Interpretation Comments CALCIUM IONIZED (BEAKER) (test 1.04 mmol/L 1.12-1.27 L code = 698) PH, BLOOD (BEAKER) (test code = 7.45 1810) HEPATITIS B CORE ANTIBODY, [id number] 05:54:43 Test Item Value Reference Range Interpretation Comments HEPATITIS B CORE TOTAL ANTIBODY Nonreactive Nonreactive (BEAKER) (test code = 497) Dedicated Local Truck Driver ID - REYNALDO MBASIC METABOLIC [id number] 05:53:19 Test Item Value Reference Range Interpretation [...] not appl icable for dialysis patien ts [employer]icated Local Truck Driver ID - REYNALDO MSpecimen moderately zbwxohfDOMFXXVPF4756-44-08 05:50:40 Test Item Value Reference Range Interpretation Comments MAGNESIUM (BEAKER) (test code = 1.8 mg/dL 1.6-2.6 627) Dedicated Local Truck Driver ID - REYNALDO OAINAFSDVQD3183-63-43 05:50:40 Test Item Value Reference Range Interpretation Comments PHOSPHORUS (BEAKER) (test code = 2.3 mg/dL 2.3-4.7 604) Dedicated Local Truck Driver ID - REYNALDO MCBC W/PLT COUNT & AUTO [id number] 05:12:03 Test Item Value Reference Range Interpretation [...] PERCENT (BEAKER) (test code = 2801) POC-Glucose [id number] 21:06:32 Test Item Value Reference Range Interpretation Comments POC-Glucose Meter (test 127 mg/dL 70-110 H : TE STED AT [facility] code = 1538) [address] [facility], 770 30: Dedicated Local Truck Driver/Techni alley ID = [id number] for AUDREY, TIA Lab Interpretation (test Abnormal code = 03526-9) [facility]-Glucose [id number] 21:06:32 Test Item Value Reference Range Interpretation Comments POC-Glucose Meter (test 127 mg/dL 70-110 H : TE STED AT [facility] code = 1538) [address] [facility], 770 30: Dedicated Local Truck Driver/Techni alley ID = [id number] for AUDREY, TIA Lab Interpretation (test Abnormal code = 93783-3) [facility]-GLUCOSE [id number] 21:06:32 Test Item Value Reference Range Interpretation Comments POC-GLUCOSE METER 127 mg/dL 70-110 H : TESTED A T [facility] 6720 (BEAKER) (test code = [facility], 1538) [address]: Dedicated Local Truck Driver/Techni alley ID = [id number] for CR ISWELL, TIA Body fluid culture + gram [id number] 18:14:25 Test Item Value Reference Range Interpretation Comments Result (test code = 6463-4) No growth [facility] + gram [id number] 18:14:25 Test Item Value Reference Range Interpretation Comments Result (test code = 6463-4) No growth [facility] CenterBODY FLUID CULTURE + GRAM [id number] 18:14:25 Test Item Value Reference Range Interpretation Comments CULTURE (BEAKER) (test code = 1095) No growth MRSA [id number] 12:25:48 Test Item Value Reference Range Interpretation Comments Result (test code = 6463-4) No MRSA isolated [facility] CenterMRSA [id number] 12:25:48 Test Item Value Reference Range Interpretation Comments Result (test code = 6463-4) No MRSA isolated [facility] CenterMRSA [id number] 12:25:48 Test Item Value Reference Range Interpretation Comments CULTURE (BEAKER) (test code No MRSA isolated = 1095) VANCOMYCIN LEVEL, [id number] 10:26:28 Test Item Value Reference Range Interpretation Comments VANCOMYCIN TROUGH (BEAKER) (test 11.7 ug/mL 10.0-20.0 code = 522) Dedicated Local Truck Driver ID - LMU/S, EMLIYBMEPVYX3913-52-00 07:46:00Labs to be ordered:->Body Fluid Culture (w/Gram Stain, C\T\S)Labs to be ordered:->Anaerobic Culture (w/Gram Stain)Reason for exam:->diagnostic and therapeutic [facility] : 1970 Sex: FFINALREPORT Ultrasound guided paracentesis Clinical History: Ascites. Sedation: None. Manager Vehicle: Sallie Hill PA-C Supervising Physician: Jacek Santo MD Gun Stock Maker: None. Estimated Blood Loss: < 1 mL. [...] anesthesia was achieved with lidocaine, a 5 Citizen [place] one-step catheter was advanced into the peritoneal cavity under ultrasoundguidance. After completion of drainage, the catheter was removed. There was no evidence of complication. Impression:Successful ultrasound guided paracentesis. Signed: Jacek Santo MDRepun[facility] Verified Date/Time: 01/11/2022 07:46:45 Reading Location: [address] Ultrasound Reading Room BASIC METABOLIC [id number] 05:42:30 Test Item Value Reference Range Interpretation [...] not appl icable for dialysis patien ts Dedicated Local Truck Driver LOUIS ANAYA WSpecimen moderately [id number] 05:38:42 Test Item Value Reference Range Interpretation Comments MAGNESIUM (BEAKER) (test code = 1.5 mg/dL 1.6-2.6 L 627) Dedicated Local Truck Driver [place] ANAYA [id number] 05:38:42 Test Item Value Reference Range Interpretation Comments PHOSPHORUS (BEAKER) (test code = 2.7 mg/dL 2.3-4.7 604) Dedicated Local Truck Driver L[place] ANAYA WCBC W/PLT COUNT & AUTO [id number] 05:16:45 Test Item Value Reference Range Interpretation [...] PERCENT (BEAKER) (test code = 2801) CALCIUM, [id number] 05:06:00 Test Item Value Reference Range Interpretation Comments CALCIUM IONIZED (BEAKER) (test 1.01 mmol/L 1.12-1.27 L code = 698) PH, BLOOD (BEAKER) (test code = 7.45 1810) Venous doppler legs [id number] 15:35:44Ejection FractionSLEH ECHO [facility]LAB [facility] bilateral 2022-01-10 15:35:44Ejection FractionSLE ECHO [facility] HospitalProtein, body [id number] 09:30:46 Test Item Value Reference Range Interpretation Comments Protein, Fluid (test <0.6 g/dL code = 2881-1) VALERIA (test code = Absence of reference VALERIA) range indicates that normals have not been defined.Assay performance has not been validated for this type of specimen. Dedicated Local Truck Driver ID - JORGE MOTA [facility] HospitalProtein, body [id number] 09:30:46 Test Item Value Reference Range Interpretation Comments Protein, Fluid (test <0.6 g/dL code = 2881-1) VALERIA (test code = Absence of reference VALERIA) range indicates that normals have not been defined.Assay performance has not been validated for this type of specimen. Dedicated Local Truck Driver ID - JORGE MOTA [facility] HospitalPROTEIN, BODY [id number] 09:30:46 Test Item Value Reference Range Interpretation Comments PROTEIN FLUID (BEAKER) (test code = < g/dL 579) Absence of reference range indicates that normals have not been defined.Assay performance has not been validated for this type of specimen.Dedicated Local Truck Driver ID - JORGEAlbumin, body metum6459-10-22 09:28:34 Test Item Value Reference Range Interpretation Comments Albumin, Fluid (test <0.5 gm/dL code = 1747-5) VALERIA (test code = Reference Range: No VALERIA) Normals Assay performance has not been validated for this type of specimen.Dedicated Local Truck Driver ID - JORGE MOTA [facility] HospitalAlbumin, body [id number] 09:28:34 Test Item Value Reference Range Interpretation Comments Albumin, Fluid (test <0.5 gm/dL code = 1747-5) VALERIA (test code = Reference Range: No VALERIA) Normals Assay performance has not been validated for this type of specimen.Dedicated Local Truck Driver ID - JORGE MOTA [facility] HospitalALBUMIN, BODY [id number] 09:28:34 Test Item Value Reference Range Interpretation Comments ALBUMIN FLUID (BEAKER) (test code = < gm/dL 501) Reference Range: No Normals Assay performance has not been validated for this type of specimen.Dedicated Local Truck Driver ID - JORGEBASIC METABOLIC [id number] 07:42:35 Test Item Value Reference Range Interpretation [...] not appl icable for dialysis patien ts Dedicated Local Truck Driver ID - RONAL ANDERSENpecimen moderately dftdebwCPJMKRRTT5243-78-20 06:43:54 Test Item Value Reference Range Interpretation Comments MAGNESIUM (BEAKER) (test code = 1.6 mg/dL 1.6-2.6 627) Dedicated Local Truck Driver ID Luca SILVACHEY LHEPATIC FUNCTION [id number] 06:43:54 Test Item Value Reference Range Interpretation [...] (test code = 39 U/L 6-55 347) Dedicated Local Truck Driver ID Luca ANDERSNEpecimen moderately ictericB-TYPE NATRIURETIC FACTOR (BNP) 2022-01-10 06:17:21 Test Item Value Reference Range Interpretation Comments B-TYPE NATRIURETIC PEPTIDE (BEAKER) 421 pg/mL 0-100 H (test code = 700) Dedicated Local Truck Driver ID - PIAYA LHEMOGLOBIN AND [id number] 06:00:04 Test Item Value Reference Range Interpretation Comments HEMOGLOBIN (BEAKER) (test code = 7.9 GM/DL 11.2-15.7 L 410) HEMATOCRIT (BEAKER) (test code = 23.6 % 34.1-44.9 L 411) Dedicated Local Truck Driver ID - [id number] ID - [id number] TIME/[id number] 05:34:34 Test Item Value Reference Range Interpretation Comments PROTIME (BEAKER) 22.6 seconds 11.9-14.2 H (test code = 759) INR (BEAKER) (test 2.14 See_Comment [Automat ed message] code = 370) The system [employer] generated this result transmitted ref erence range: <=5.90. The reference range was not used to int erpret this result as normal/abnormal . RECOMMENDED COUMADIN/WARFARIN INR THERAPY RANGESSTANDARD DOSE: 2.0 - 3.0 Includes: PROPHYLAXIS for venous thrombosis, systemic embolization; TREATMENT for venous thrombosis and/or pulmonary embolus.HIGH RISK: Target INR is 2.5-3.5 for patients with mechanical heart valves.U/S, ABDOMINAL, WITH [id number] 04:49:00Reason for exam:->new onset ascites, rule out PVT [facility] : 1970 Sex: [...] = 50 See_Comment H [Automate d message] 04457-2) The system [employer] generated this result transmit mena reference range : <=1 /cu mm. The reference range was not used to interpret this result as normal/abnormal . Adjusted WBC Count 50 See_Comment H [Automat ed message] (test code = 70582-5) The sy stem which generated this result transmit mena reference range : <=5 /cu mm. The reference range was not used to interpret this result as normal/abnormal . Lining Cells (test code 2 See_Comment H [Au tomated message] = 04273-6) The system [employer] generated this result transmit mena reference range : <=1 /cu mm. The reference range was not used to interpret this result as normal/abnormal . % Segs (test code = 9 % 33994-1) % Lymphs (test code = 10 % 14016-2) % Monos (test code = 81 % 60696-8) % Eos (test code = 0 % 39633-6) % Baso (test code = 0 % 12613-9) Container Body Fluid EDTA Tube (test code = 2873) Lab Interpretation Abnormal (test code = 49372-9) [facility] CenterBody fluid cell count with ujuiudjyqkxg5110-03-02 19:01:00 Test Item Value Reference Range Interpretation Comments Appearance (test code = Clear Clear 9335-1) Color (test code = Yellow Colorless, Straw A 6824-7) RBCs (test code = 50 See_Comment H [Automate d message] 08293-6) The system [employer] generated this result transmit mena reference range : <=1 /cu mm. The reference range was not used to interpret this result as normal/abnormal . Adjusted WBC Count 50 See_Comment H [Automat ed message] (test code = 11136-9) The sy stem which generated this result transmit mena reference range : <=5 /cu mm. The reference range was not used to interpret this result as normal/abnormal . Lining Cells (test code 2 See_Comment H [Au tomated message] = 27458-3) The system [employer] generated this result transmit mena reference range : <=1 /cu mm. The reference range was not used to interpret this result as normal/abnormal . % Segs (test code = 9 % 26485-8) % Lymphs (test code = 10 % 67258-3) % Monos (test code = 81 % 96758-9) % Eos (test code = 0 % 72224-8) % Baso (test code = 0 % 80320-9) Container Body Fluid EDTA Tube (test code = 2873) Lab Interpretation Abnormal (test code = 32006-9) [facility] CenterBODY FLUID CELL COUNT WITH [id number] 19:01:00 Test Item Value Reference Range Interpretation [...] (test code = The sy stem which 1690) generated this result transmitted ref erence range: [...] code = 2873) SPUTUM CULTURE + GRAM [id number] 17:53:29 Test Item Value Reference Range Interpretation Comments CULTURE (BEAKER) Oropharyngeal (test code = 1095) contamination, specimen rejected. Recollect requested. GRAM STAIN RESULT 1+ WBCs (BEAKER) (test code = 1123) GRAM STAIN RESULT >25/LPF epithelial cells (BEAKER) (test code = 86708) GRAM STAIN RESULT 1+ gram negative rods (BEAKER) (test code = 15419) GRAM STAIN RESULT 1+ gram positive rods (BEAKER) (test code = 208936) GRAM STAIN RESULT 1+ gram negative cocci in (BEAKER) (test code pairs = 634520) GRAM STAIN RESULT 2+ gram positive cocci in (BEAKER) (test code chains, pairs and = 619435) clusters Strep pneumoniae [id number] 17:04:46 Test Item Value Reference Range Interpretation Comments Strep pneumoniae Presumptive negative Presumptive Antigen (test code = [place] [address]-5) pneumonia - see pneumococcal comment pneumonia - see comment, Presumptive negative for pneumococcal meningitis - see comment VALERIA (test code = VALERIA) Presumptive negative for pneumococcal pneumonia, suggesting no current or recent pneumococcal infection. Infection due to S. pneumoniae cannot be ruled out since the antigen present in the sample may be below the detection limit of the test. Lab Interpretation Normal (test code = 08752-6) [facility] [id number] 17:04:46 Test Item Value Reference Range Interpretation Comments Strep pneumoniae Presumptive negative Presumptive Antigen (test code = [place] [address]-2) pneumonia - see pneumococcal comment pneumonia - see comment, Presumptive negative for pneumococcal meningitis - see comment VALERIA (test code = VALERIA) Presumptive negative for pneumococcal pneumonia, suggesting no current or recent pneumococcal infection. Infection due to S. pneumoniae cannot be ruled out since the antigen present in the sample may be below the detection limit of the test. Lab Interpretation Normal (test code = 97697-6) [facility] CenterTRE PNEUMONIAE [id number] 17:04:46 Test Item Value Reference Range Interpretation [...] detection limit of the test. Legionella antigen, [id number] 17:03:49 Test Item Value Reference Range Interpretation Comments Legionella Urine Negative - see Negative for L. Antigen (test code comment pneumophi la = 73853-4) serogroup 1 ant igen, suggesting no r ecent or current infe ction with this serog roup. Legionellosis c annot be ruled out si nce other serogroup s and species may cau se disease. [facility] CenterLegionella antigen, [id number] 17:03:49 Test Item Value Reference Range Interpretation Comments Legionella Urine Negative - see Negative for L. Antigen (test code comment pneumophi la = 88693-6) serogroup 1 ant igen, suggesting no r ecent or current infe ction with this serog roup. Legionellosis c annot be ruled out si nce other serogroup s and species may cau se disease. [facility] HospitalLEGION[facility]LLA ANTIGEN, [id number] 17:03:49 Test Item Value Reference Range Interpretation [...] se disease. CBC W/PLT COUNT & AUTO [id number] 07:35:58 Test Item Value Reference Range Interpretation [...] (BEAKER) (test code = 2801) COMPREHENSIVE METABOLIC [id number] 07:06:40 Test Item Value Reference Range Interpretation [...] not appl icable for dialysis patien ts Dedicated Local Truck Driver ID - REYNALDO MSpecimen moderately ictericPROTHROMBIN TIME/ITM2011-10-54 06:48:07 Test Item Value Reference Range Interpretation Comments PROTIME (BEAKER) 21.2 seconds 11.9-14.2 H (test code = 759) INR (BEAKER) (test 1.89 See_Comment [Automat ed message] code = 370) The system [employer] generated this result transmitted ref erence range: [...] Interpretation Comments SCAN RESULT (test code = 8371882) BLOOD [id number] 14:00:49 Test Item Value Reference Range Interpretation Comments CULTURE (BEAKER) (test No growth in 5 days code = 1095) BLOOD [id number] 14:00:49 Test Item Value Reference Range Interpretation [...] Unit ABO (test code = O Pos 6917717) UNIT NUMBER (test code = [id number] 934-0) Status (test code = 6909898) TX_TIMEINCHART Blood Bank Product (test code RED BLOOD CELLS = 2263) PRODUCT CODE (test code = J0836F44 933-2) [facility] CenterPrepare Leuko-Red [id number] 23:54:00 Test Item Value Reference Range Interpretation Comments CROSSMATCH (test code = 2264) COMPATIBLE Unit ABO (test code = O Pos 4701424) UNIT NUMBER (test code = [id number] 934-0) Status (test code = 9647145) [facility]INCB[facility]ALT Blood Bank Product (test code RED BLOOD CELLS = 2263) PRODUCT CODE (test code = [id number] 933-2) [facility] CenterPrepare Leuko-Red [id number] 23:54:00 Test Item Value Reference Range Interpretation Comments CROSSMATCH (test code = 2264) COMPATIBLE Unit ABO (test code = O Pos 4256879) UNIT NUMBER (test code = [id number] 934-0) Status (test code = 0674896) TX_TIMEINCHART Blood Bank Product (test code RED BLOOD CELLS = 2263) PRODUCT CODE (test code = B0357S81 933-2) [facility] CenterMRSA [id number] 10:57:18 Test Item Value Reference Range Interpretation Comments Result (test code = 6463-4) No MRSA isolated [facility] [id number] 10:57:18 Test Item Value Reference Range Interpretation Comments CULTURE (BEAKER) (test code No MRSA isolated = 1095) [id number] 06:39:34 Test Item Value Reference Range Interpretation Comments FERRITIN (BEAKER) (test code = 428.99 ng/mL 5.00-275.00 H 361) Dedicated Local Truck Driver ID - REYNALDO MHEPATITIS A ANTIBODY, [id number] 04:03:23 Test Item Value Reference Range Interpretation Comments HEPATITIS A IGG ANTIBODY (BEAKER) Reactive Nonreactive A (test code = 2797) Dedicated Local Truck Driver ID - REYNALDO MBASIC METABOLIC [id number] 04:01:22 Test Item Value Reference Range Interpretation [...] not appl icable for dialysis patien ts Dedicated Local Truck Driver ID - REYNALDO MSpecimen moderately ictericHEPATITIS B CORE ANTIBODY, IGM 2021-12-29 03:59:34 Test Item Value Reference Range Interpretation Comments HEPATITIS B CORE IGM ANTIBODY Nonreactive Nonreactive (BEAKER) (test code = 645) Dedicated Local Truck Driver ID - REYNALDO MHEPATITIS C [id number] 03:59:34 Test Item Value Reference Range Interpretation Comments HEPATITIS C ANTIBODY (BEAKER) Nonreactive Nonreactive (test code = 367) Dedicated Local Truck Driver ID - REYNALDO MHEPATITIS B SURFACE [id number] 03:59:33 Test Item Value Reference Range Interpretation [...] % 20-55 H (test code = 2590) Dedicated Local Truck Driver ID - REYNALDO [id number] 03:44:11 Test Item Value Reference Range Interpretation Comments MAGNESIUM (BEAKER) (test code = 1.9 mg/dL 1.6-2.6 627) Dedicated Local Truck Driver ID - REYNALDO MHEPATIC FUNCTION [id number] 03:44:11 Test Item Value Reference Range Interpretation [...] (test code = 51 U/L 6-55 347) Dedicated Local Truck Driver ID - REYNALDO MSpecimen moderately fkjvgtqCENEX-4-SLPCNIQCKYK3037-09-03 03:38:28 Test Item Value Reference Range Interpretation Comments ALPHA-1 ANTITRYPSIN (BEAKER) 217.60 mg/dL 90.00-200.00 H (test code = 502) Dedicated Local Truck Driver ID - REYNALDO MPROTHROMBIN TIME/[id number] 03:28:23 Test Item Value Reference Range Interpretation Comments PROTIME (BEAKER) 21.8 seconds 11.9-14.2 H (test code = 759) INR (BEAKER) (test 2.04 See_Comment [Automat ed message] code = 370) The system [employer] generated this result transmitted ref erence range: [...] (BEAKER) (test code = 413) HEMOGLOBIN AND [id number] 15:58:32 Test Item Value Reference Range Interpretation Comments HEMOGLOBIN (BEAKER) (test code = 7.9 GM/DL 11.2-15.7 L 410) HEMATOCRIT (BEAKER) (test code = 22.0 % 34.1-44.9 L 411) Dedicated Local Truck Driver ID - [id number] FUNCTION [id number] 08:36:48 Test Item Value Reference Range Interpretation [...] Specimen slightly (test code = 347) hemolyzed Dedicated Local Truck Driver ID - REYNALDO MSpecimen moderately ictericU/S, ABDOMINAL, [id number] 08:02:00Abdomen limited area? Add comment if clarification is needed.->Right upper quadrantReason for exam:->Elevated LFTs, suspect cirrhosis [facility] : 1970 Sex: FFINALREPORT Right Upper Quadrant Ultrasound History: Abnormal liver function tests Comparison: none Findings:Liver appears echogenic, with a mildly nodular contour. No definite hepatic mass or intrahepatic biliary dilation. Patient is status post cholecystectomy per clinical history. Common bile duct measures ninemm. Main portal vein appears patent, with hepatofugal flow. The main portal vein dxvuedky33go in diameter. Pancreas not well seen due [...] not appl icable for dialysis patien ts Dedicated Local Truck Driver ID - RONAL LSpecimen moderately uqlpcnhIOALXKXDN9487-50-47 06:54:35 Test Item Value Reference Range Interpretation Comments MAGNESIUM (BEAKER) 1.9 mg/dL 1.6-2.6 Specimen slightly (test code = 627) hemolyzed Dedicated Local Truck Driver ID - RONAL LCBC (HEMOGRAM ONLY)2021-12-28 06:40:17 [...] (BEAKER) (test code = 413) HEMOGLOBIN AND [id number] 00:06:21 Test Item Value Reference Range Interpretation Comments HEMOGLOBIN (BEAKER) (test code = 6.7 GM/DL 11.2-15.7 L 410) HEMATOCRIT (BEAKER) (test code = 19.7 % 34.1-44.9 L 411) Dedicated Local Truck Driver ID - [id number] w/Microscopic + Reflex to [id number] 20:58:23 Test Item Value Reference Range Interpretation Comments Color, UA (test code Brown = 5778-6) Clarity, UA (test Hazy code = 5767-9) Specific [place], UA 1.028 1.001-1.035 (test code = 5811-5) pH, UA (test code = 6.0 5.0-8.0 5803-2) Protein, UA (test 30 mg/dL Negative A code = 21229-9) Glucose, UA (test Negative Negative code = 365) Ketones, UA (test Negative Negative code = 2514-8) Bilirubin, UA (test Positive Negative A code = 32904-3) Blood, UA (test code Negative Negative = 89775-2) Nitrite, UA (test Negative Negative code = 5802-4) Leukocytes, UA (test Trace Negative A code = 5799-2) Urobilinogen, UA 0.2 mg/dL 0.2-1.0 (test code = 78398-4) RBC, UA (test code = <1 See_Comment [Autom ated 39186-3) message] The system which generated this result [...] . Bacteria, UA (test Rare code = 71220-2) Squam Epithel, UA 10 See_Comment [Automate d (test code = 66064-5) messag e] The system which generated this result transmit mena reference range : /HPF. The reference range was not used to interpret this result as normal/abnormal . Crystals, Urine (test None Seen code = 71216-7) Specimen Source (test code = 2795) VALERIA (test code = VALERIA) Dedicated Local Truck Driver ID - [auto]Dedicated Local Truck Driver ID - tech Lab Interpretation Abnormal (test code = 62266-6) [facility] CenterUrinalysis w/Microscopic + Reflex to Culture 2021-12-27 20:58:23 Test Item Value Reference Range Interpretation Comments Color, UA (test code Brown = 5778-6) Clarity, UA (test Hazy code = 5767-9) Specific [place], UA 1.028 1.001-1.035 (test code = 5811-5) pH, UA (test code = 6.0 5.0-8.0 5803-2) Protein, UA (test 30 mg/dL Negative A code = 14603-1) Glucose, UA (test Negative Negative code = 365) Ketones, UA (test Negative Negative code = 2514-8) Bilirubin, UA (test Positive Negative A code = 37252-4) Blood, UA (test code Negative Negative = 16112-0) Nitrite, UA (test Negative Negative code = 5802-4) Leukocytes, UA (test Trace Negative A code = 5799-2) Urobilinogen, UA 0.2 mg/dL 0.2-1.0 (test code = 72553-9) RBC, UA (test code = <1 See_Comment [Autom ated 23954-3) message] The system which generated this result [...] . Bacteria, UA (test Rare code = 09890-7) Squam Epithel, UA 10 See_Comment [Automate d (test code = 76618-5) messag e] The system which generated this result transmit mena reference range : /HPF. The reference range was not used to interpret this result as normal/abnormal . Crystals, Urine (test None Seen code = 03243-5) Specimen Source (test code = 2795) VALERIA (test code = VALERIA) [employer] ID - [auto]D[employer] Local [employer] ID - tech Lab Interpretation Abnormal (test code = 71402-2) [facility] Culture 2021-12-27 20:58:23 Test Item Value Reference Range Interpretation Comments Color, UA (test code Brown = 5778-6) Clarity, UA (test Hazy code = 5767-9) Specific [place], UA 1.028 1.001-1.035 (test code = 5811-5) pH, UA (test code = 6.0 5.0-8.0 5803-2) Protein, UA (test 30 mg/dL Negative A code = 74245-1) Glucose, UA (test Negative Negative code = 365) Ketones, UA (test Negative Negative code = 2514-8) Bilirubin, UA (test Positive Negative A code = 30621-1) Blood, UA (test code Negative Negative = 97633-3) Nitrite, UA (test Negative Negative code = 5802-4) Leukocytes, UA (test Trace Negative A code = 5799-2) Urobilinogen, UA 0.2 mg/dL 0.2-1.0 (test code = 11906-9) RBC, UA (test code = <1 See_Comment [Autom ated 44933-6) message] The system which generated this result [...] . Bacteria, UA (test Rare code = 91964-8) Squam Epithel, UA 10 See_Comment [Automate d (test code = 80700-2) messag e] The system which generated this result transmit mena reference range : /HPF. The reference range was not used to interpret this result as normal/abnormal . Crystals, Urine (test None Seen code = 84374-6) Specimen Source (test code = 2795) VALERIA (test code = VALERIA) [employer] ID - [auto][employer] Local [employer] ID - tech Lab Interpretation Abnormal (test code = 18739-3) [facility] [id number] 20:58:23 Test Item Value Reference Range Interpretation [...] = 1521) SOURCE(BEAKER) (test code = 2795) [employer] ID - [auto][employer] ID - techHEPATITIS PANEL, [id number] 20:23:48 Test Item Value Reference Range Interpretation Comments HEPATITIS A IGM ANTIBODY (BEAKER) Nonreactive Nonreactive (test code = 498) HEPATITIS B CORE IGM ANTIBODY Nonreactive Nonreactive (BEAKER) (test code = 645) HEPATITIS C ANTIBODY (BEAKER) Nonreactive Nonreactive (test code = 367) HEPATITIS B SURFACE ANTIGEN (2) Nonreactive Nonreactive (BEAKER) (test code = 2585) [employer] ID - ADMINHEMOGLOBIN AND [id number] 19:30:15 Test Item Value Reference Range Interpretation Comments HEMOGLOBIN (BEAKER) (test code = 7.3 GM/DL 11.2-15.7 L 410) HEMATOCRIT (BEAKER) (test code = 21.3 % 34.1-44.9 L 411) [employer] ID - 6000SARS-CoV2/RT-PCR (Asymptomatic ONLY)2021-12-27 17:24:43 Test Item Value Reference Interpretation Comments Range SARS-COV2/RT-PCR Positive Negative AA The SARS-Co V-2 (test code = target nucleic 59383-6) acids are detec mena in this specime [...] revoked sooner. Fact Sheet for Healthcare Providers: https://www.[employer]/Documents/Xp ert%20Xpress%20SAR S%20CoV-2/Fact%20S heets/302-3041%20S ARS-COV-2%20HEALTH CARE%20PROVIDERS%2 0FACT%20SHEET.pdf Fact Sheet for Healthcare Patients: https://www.[employer]/Documents/Xp ert%20Xpress%20SAR S%20CoV-2/Fact%20S heets/302-3801%20S ARS-COV-2%20PATIEN T%20FACT%20SHEET.p df Lab Interpretation Abnormal (test code = 72157-9) [facility]2021-12-27 17:24:43 Test Item Value Reference Interpretation Comments Range SARS-COV2/RT-PCR Positive Negative AA The SARS-Co V-2 (test code = target nucleic 62807-4) acids are detec mena in this specime [...] revoked sooner. Fact Sheet for Healthcare Providers: https://www.[employer]/Documents/Xp ert%20Xpress%20SAR S%20CoV-2/Fact%20S heets/302-3802%20S ARS-COV-2%20HEALTH CARE%20PROVIDERS%2 0FACT%20SHEET.pdf Fact Sheet for Healthcare Patients: https://www.[employer]/Documents/Xp ert%20Xpress%20SAR S%20CoV-2/Fact%20S heets/302-3801%20S ARS-COV-2%20PATIEN T%20FACT%20SHEET.p df Lab Interpretation Abnormal (test code = 66454-3) [facility] ONLY)2021-12-27 17:24:43 Test Item Value Reference Interpretation Comments Range SARS-COV2/RT-PCR Positive Negative AA The SARS-Co V-2 (test code = target nucleic 38992-6) acids are detec mena in this specime [...] revoked sooner. Fact Sheet for Healthcare Providers: https://www.[employer]/Documents/Xp ert%20Xpress%20SAR S%20CoV-2/Fact%20S heets/302-3802%20S ARS-COV-2%20HEALTH CARE%20PROVIDERS%2 0FACT%20SHEET.pdf Fact Sheet for Healthcare Patients: https://[employer]/Documents/Xp ert%20Xpress%20SAR S%20CoV-2/Fact%20S heets/302-3801%20S ARS-COV-2%20PATIEN T%20FACT%20SHEET.p df Lab Interpretation Abnormal (test code = 19239-1) [facility])2021-12-27 17:24:43 Test Item [...] rapid, real-time RT-PC R test intended for e qualitative detection of nu cleic acid from SARS-CoV-2 in a nasopharyngeal swab specimen collected from individuals suspected of CO VID-19 [facility]. Results from e Xpert Xpress [...] revoked sooner. Fact Sheet for Healthcare Providers: https://www.[employer] m/Documents/Xpert%20Xpress%20SARS%20CoV-2/Fact%20Sheets/302-5452%59SREK-ZMJ-1%20 HEALTHCARE%20PROVIDERS%20FACT%20SHEET.pdf Fact Sheet for Healthcare Patients: https://www.[employer]/Documents/Xpert%20Xp ress%20SARS%20CoV-2/Fact%20Sheets/302-2871%57IWPJ-YUL-8%20PATIENT%20FACT%20SHEET .[id number] 16:11:33 Test Item Value Reference Range Interpretation Comments PROCALCITONIN (BEAKER) (test code 0.91 ng/mL <0.05 H = 3036) SEPSIS RISK (ng/mL)Low: 0.05-0.50Intermediate: 0.51-2.00High: >=2.01RAD, CHEST, 1 VIEW, NON [id number] 15:12:00Post-intubationReason for exam:- >eval for pulmonary congestionShould this be performed at the [facility]?->YesCH[facility] : 1970 Sex: FFINALREPORT CLINICAL HISTORY: eval for pulmonary congestion TECHNIQUE: 1 view of thechest. COMPARISON: None IMPRESSION: There are bibasilar lung opacities with small left and trace right pleural effusions. The cardiomediastinal silhouette is magnified by technique. Signed: Chasidy Adhikari [facility] Verified Date/Time: 12/27/2021 15:12:33 Reading Location: [address] Reading Room [employer]I [employer] [id number] 14:25:25 Test Item Value Reference Range Interpretation [...] not appl icable for dialysis patien ts [employer] ID - ADMINSpecimen markedly [id number] 14:20:21 Test Item Value Reference Range Interpretation Comments MAGNESIUM (BEAKER) (test code = 1.8 mg/dL 1.6-2.6 627) [employer] ID - ADMINHEPATIC FUNCTION [id number] 14:20:21 Test Item Value Reference Range Interpretation [...] (test code = 54 U/L 6-55 347) [employer] ID - ADMINSpecimen markedly [id number] 14:20:21 Test Item Value Reference Range Interpretation Comments LIPASE (BEAKER) (test code = 749) 26 U/L 8-78 [employer] ID - ADMINSpecimen markedly ictericLACTIC ACID, [id number] 14:18:24 Test Item Value Reference Range Interpretation Comments LACTATE BLOOD VENOUS (2) (BEAKER) 1.25 mmol/L 0.50-2.20 (test code = 2872) [employer] ID - ADMINSpecimen markedly [id number] 14:07:20 Test Item Value Reference Range Interpretation Comments FIBRINOGEN LEVEL (BEAKER) (test 145 mg/dl 225-434 L code = 658) [id number] 14:02:54 Test Item Value Reference Range Interpretation Comments PARTIAL THROMBOPLASTIN TIME 45.1 seconds 22.5-36.0 H (BEAKER) (test code = 760) PROTHROMBIN TIME/[id number] 14:01:57 Test Item Value Reference Range Interpretation Comments PROTIME (BEAKER) 22.9 seconds 11.9-14.2 H (test code = 759) INR (BEAKER) (test 2.17 See_Comment [Automat ed message] code = 370) The system [employer] generated this result transmitted ref erence range: [...] (BEAKER) (test code = 413) BLOOD GAS, [id number] 13:40:28 Test Item Value Reference Range Interpretation [...] (BEAKER) (test code = 1819) 21.0 CALCIUM, [id number] 13:40:23 Test Item Value Reference Range Interpretation Comments CALCIUM IONIZED (BEAKER) (test 0.93 mmol/L 1.12-1.27 L code = 698) PH, BLOOD (BEAKER) (test code = 7.48 1810) POC-Glucose [id number] 12:34:41 Test Item Value Reference Range Interpretation Comments POC-Glucose Meter (test 121 mg/dL 70-110 H : TE STED AT [facility] code = 1538) [address] [facility] [place] [address]: Dedicated Local Truck Driver/Techni alley ID = [id number] for BHAVNA BURNHAM Lab Interpretation (test Abnormal code = 73110-7) [facility] CenterPOCT[facility]UCOSE [id number] 12:34:41 Test Item Value Reference Range Interpretation Comments POC-GLUCOSE METER 121 mg/dL 70-110 H : TESTED A T [facility] [address] ([facility]) (test code = [place], 1538) [address]: Dedicated Local Truck Driver/Techni alley ID = [id number] for ZION DE LA ROSA
[2022-04-17 10:05] LABS: Urine Blood Negative (Negative); Urine Glucose Negative (Negative); Urine Protein Negative (Negative)
[2022-04-17 10:28] LABS: Absolute Lymphocytes (CBC) 1.4 K/uL (0.7-4.9); Hematocrit 31.2 % (36.0-45.0); Lymphocytes % 28.5 % (15.3-44.8); MCV 91.8 fL (80-100); MPV 6.8 fL (7.6-11.3)
--- NOTE | 2022-04-17 10:30 | RAD REPORT ---
EXAM DESCRIPTION: CT - Head Brain Wo Cont - 04/17/2022 10:17 am CLINICAL HISTORY: Seizure disorder, clinical change Headache, drowsiness COMPARISON: Head Brain Wo Cont dated 03/25/2022; Head Brain Wo Cont dated 02/24/2020 TECHNIQUE: All CT scans are performed using dose optimization technique as appropriate and may inclu de automated exposure control or mA/KV adjustment according to patient size. FINDINGS: No intracranial hemorrhage, hydrocephalus or extra-axial fluid collection.Mild generalized brain atrophy.No areas of brain edema or evidence of midline shift. Small amount of fluid is seen in the right maxillary antrum. The paranasal sinuses and mastoids are o therwise clear. The calvarium is intact. IMPRESSION: No acute intracranial abnormality.
--- NOTE | 2022-04-17 10:47 | RAD REPORT ---
EXAM DESCRIPTION: RAD - Chest Single View - 04/17/2022 10:22 am CLINICAL HISTORY: seizure Chest pain. COMPARISON: Chest Single View dated 03/25/2022; Chest Single View dated 01/08/2022; Chest Single View dated 12/27/2021; Chest Single View dated 01/20/2020 FINDINGS: Portable technique limits examination quality. The lungs are grossly clear. The heart is normal in size. No displaced fractures. IMPRESSION: No acute intrathoracic process suspected.
[2022-04-17 10:56] LABS: Albumin 2.6 g/dL (3.4-5.0); Bilirubin Total 2.4 mg/dL (0.2-1.0); Magnesium 2.6 mg/dL (1.6-2.4); Protein, Total 7.3 g/dL (6.4-8.2); Troponin High Sensitivity 18.3 pg/mL (<58.9)
[2022-04-17 10:58] LABS: Potassium 2.5 mmol/L (3.5-5.1)
[2022-04-17] MEDS ORDERED: POTASSIUM 25 MEQ EFFERV TAB ONE (11:14)
[2022-04-17] MEDS ORDERED: D10W 250 ML IV ONE (11:14)
--- NOTE | 2022-04-17 12:41 | EDPHYS ---
Physician Documentation [facility] Name: Lin Farley Age: 51 yrs Sex: Female : 1970 Arrival Date: 04/17/2022 Time: 09:31 Bed 7 Private MD: ED Physician Ray Steward HPI: 04/17 10:29 This 51 yrs old Female presents to ER via EMS with complaints of Seizure. rt 10:29 Seizure onset: just prior to arrival. Patient presents to the ED with reported rt seizure-like activity. The patient has been having muscle cramps for several days. Patient states that she has had seizures in the past but this was remote, many years ago and is not currently taking any antiepileptic medications. Denies recent alcohol or benzodiazepine cessation. The patient reportedly had a shaking activity for several minutes. She has returned to baseline mental status. She did reportedly bite her lip. Denies other acute complaints at this time, symptoms are moderate severity, no other aggravating or alleviating factors.. Historical: - Allergies: 09:32 Codeine; aa5 - Home Meds: 12:07 furosemide 40 mg Oral tab 1 tab once daily [Active]; spironolactone 100 mg Oral tab 1 aa5 tab once daily [Active]; - PMHx: 09:32 Alcoholism; Asthma; elevated liver enzymes; gastric ulcer; GERD; Sepsis; aa5 09:32 Seizure; aa5 12:07 Fluid Retention (leg swelling); aa5 - PSHx: 09:32 Cholecystectomy; aa5 - Immunization history:: Adult Immunizations unknown. - Social history:: Smoking status: Patient/guardian denies using tobacco. - Family history:: not pertinent. ROS: 10:29 Constitutional: Negative for fever, chills, and weight loss, Eyes: Negative for injury, rt pain, redness, and discharge, ENT: Negative for injury, pain, and discharge, Neck: Negative for injury, pain, and swelling, Cardiovascular: Negative for chest pain, palpitations, and edema, Respiratory: Negative for shortness of breath, cough, wheezing, and pleuritic chest pain, Abdomen/GI: Negative for abdominal pain, nausea, vomiting, diarrhea, and constipation, Back: Negative for injury and pain, Skin: Negative for injury, rash, and discoloration, Psych: Negative for depression, anxiety, suicide ideation, homicidal ideation, and hallucinations. 10:29 MS/extremity: Positive for cramping, Negative for injury or acute deformity. 10:29 Neuro: Positive for seizure activity, Negative for altered mental status. Exam: 10:29 Constitutional: This is a well developed, well nourished patient who is awake, alert, rt and in no acute distress. Head/Face: Normocephalic, atraumatic. ENT: Nares patent. No nasal discharge, no septal abnormalities noted. Tympanic membranes are normal and external auditory canals are clear. Oropharynx with no redness, swelling, or masses, exudates, or evidence of obstruction, uvula midline. Mucous membranes moist. Neck: Trachea midline, no thyromegaly or masses palpated, and no cervical lymphadenopathy. Supple, full range of motion without nuchal rigidity, or vertebral point tenderness. No Meningismus. Chest/axilla: Normal chest wall appearance and motion. Nontender with no deformity. No lesions are appreciated. Cardiovascular: Regular rate and rhythm with a normal S1 and S2. No gallops, murmurs, or rubs. Normal PMI, no JVD. No pulse deficits. Respiratory: Lungs have equal breath sounds bilaterally, clear to auscultation and percussion. No rales, rhonchi or wheezes noted. No increased work of breathing, no retractions or nasal flaring. Abdomen/GI: Soft, non-tender, with normal bowel sounds. No distension or tympany. No guarding or rebound. No evidence of tenderness throughout. Skin: Warm, dry with normal turgor. Normal color with no rashes, no lesions, and no evidence of cellulitis. MS/ Extremity: Pulses equal, no cyanosis. Neurovascular intact. Full, normal range of motion. Neuro: Awake and alert, GCS 15, oriented to person, place, time, and situation. Cranial nerves II-XII grossly intact. Motor strength 5/5 in all extremities. Sensory grossly intact. Cerebellar exam normal. Normal gait. Psych: Awake, alert, with orientation to person, place and time. Behavior, mood, and affect are within normal limits. 10:29 ENT: Bite To the lip with minimal active bleeding, moist mucous membranes. 10:29 ECG was reviewed by the Attending Physician. Vital Signs: 09:31 BP 127 / 60; Pulse 118; Resp 20 S; Temp 97.6(O); Pulse Ox 100% on R/A; Weight 47.63 kg aa5 (R); Height 5 ft. 4 in. (162.56 cm) (R); 11:25 BP 118 / 60; Pulse 123; Resp 15 S; Pulse Ox 99% on R/A; aa5 13:15 BP 110 / 61; Pulse 118; Resp 16; Pulse Ox 96% on R/A; kr3 09:31 Body Mass Index 18.02 (47.63 kg, 162.56 cm) aa5 Pily Coma Score: 13:17 Eye Response: spontaneous(4). Verbal Response: oriented(5). Motor Response: obeys kr3 commands(6). Total: 15. MDM: 09:50 Patient medically screened. rt 12:41 Differential diagnosis: Dysrhythmia, seizure, electrolyte abnormality, withdrawal rt syndrome.. Data reviewed: vital signs, nurses notes, old medical records, lab test result(s), EKG, radiologic studies. Refusal of service: The patient/guardian displays adequate decision making capability and despite a detailed discussion of alternatives, benefits, risks, and consequences refuses: Admission to the hospital for further work-up and treatment. ED course: Presents to the ED with reported seizure-like activity. The symptoms do not seem to be typical of an acute seizure. She is found to be significantly hypokalemic with EKG changes. Patient also with a sinus tachycardia, mildly improving with IV fluids. Patient was given 40 mill equivalents of potassium in the ED. Given symptoms, degree of hypokalemia, I strongly recommended that the patient be admitted to the hospital. Patient refuses admission, risks and benefits were discussed with the patient, she has decisional making capacity. Patient was instructed to double her potassium several days, states that she has sufficient potassium at home. Patient instructed to follow-up with primary care for recheck. Return precautions were given to the patient. She understands that she may return anytime if she changes her mind regarding admission.. 04/17 10:01 Order name: AMMONIA; Complete Time: 10:52 rt 04/17 10:01 Order name: CMP; Complete Time: 11:01 rt 04/17 10:01 Order name: CBC with Diff; Complete Time: 10:52 rt 04/17 10:01 Order name: CPK; Complete Time: 11:01 rt 04/17 10:01 Order name: Troponin High Sensitivity; Complete Time: 11:01 rt 04/17 10:01 Order name: Magnesium; Complete Time: 11:01 rt 04/17 10:01 Order name: Head Brain Wo Cont CT; Complete Time: 10:52 rt 04/17 10:01 Order name: Chest Single View XRAY; Complete Time: 10:52 rt 04/17 10:02 Order name: Prolactin EDMS 04/17 10:05 Order name: Urine Dipstick-Ancillary; Complete Time: 10:52 EDMS 04/17 12:03 Order name: Glucose, Ancillary Testing; Complete Time: 12: EDMS 04/17 10:01 Order name: EKG - Nurse/Tech; Complete Time: 10:04 rt 04/17 10:04 Order name: Urine Dipstick-Ancillary (obtain specimen); Complete Time: 10:04 aa5 04/17 11:08 Order name: Diet Regular; Complete Time: 11:09 bp EC:29 Rate is 113 beats/min. Rhythm is regular, Sinus tachycardia with No ectopy. OK interval rt is normal. QRS interval is normal. QT interval is prolonged at 523 msec. No Q waves. T waves are Normal. No ST changes noted. Administered Medications: 10:07 Drug: NS 0.9% 1000 ml Route: IV; Rate: 1 bolus; Site: left antecubital; aa5 11:45 Follow up: IV Status: Completed infusion; IV Intake: 1000ml aa5 11:25 Drug: Potassium Chloride 40 mEq Route: PO; aa5 11:53 Follow up: Response: No adverse reaction aa5 11:25 Drug: D10 in Water [2 mL/kg] 2 ml/kg Route: IVP; Site: left antecubital; aa5 11:45 Follow up: Response: No adverse reaction; completed infusion aa5 Disposition Summary: 04/17/22 12:40 Discharge Ordered Location: Home rt Problem: new rt Symptoms: have improved rt Condition: Fair rt Diagnosis - Hypokalemia rt Followup: rt - With: Private Physician - When: 1 - 2 days - Reason: Discharge Instructions: - Discharge Summary Sheet rt - Hypokalemia rt Forms: - Medication Reconciliation Form rt - Thank You Letter rt - Antibiotic Education rt - Prescription Opioid Use rt Signatures: Dispatcher [employer] Marla Ordoñez, RN RN aa5 Tasha Hough RN RN jl7 Ray Steward MD MD rt Corrections: (The following items were deleted from the chart) 09:37 [place] Meds: None; kevin aa5
--- NOTE | 2022-04-17 12:41 | ER ---
Nurse's Notes [facility] Name: Lin Farley Age: 51 yrs Sex: Female : 1970 Arrival Date: 04/17/2022 Time: 09:31 Bed 7 Private MD: Diagnosis: Hypokalemia Presentation: 04/17 09:31 Chief complaint: EMS states: Pt's fiance called 911 for seizure, upon arrival pt was aa5 A\\T\\O x 4, c/o NDIAYE and given Tylenol 650mg PO FIELDWORK COORDINATOR. 20G to L AC by EMS. Coronavirus screen: At this time, the client does not indicate any symptoms associated with coronavirus-19. Ebola Screen: Patient denies travel to an Ebola-affected area in the 21 days before illness onset. Initial Sepsis Screen: Does the patient meet any 2 criteria? HR > 90 bpm. Does the patient have a suspected source of infection? No. Patient's initial sepsis screen is negative. Risk Assessment: Do you want to hurt yourself or someone else? Patient reports no desire to harm self or others. Onset of symptoms was April 17, 2022. 09:31 Acuity: IAN 3 aa5 09:31 Method Of Arrival: EMS: [facility] aa5 Triage Assessment: 13:17 General: Appears. kr3 Historical: - Allergies: 09:32 Codeine; aa5 - Home Meds: 12:07 furosemide 40 mg Oral tab 1 tab once daily [Active]; spironolactone 100 mg Oral tab 1 aa5 tab once daily [Active]; - PMHx: 09:32 Alcoholism; Asthma; elevated liver enzymes; gastric ulcer; GERD; Sepsis; aa5 09:32 Seizure; aa5 12:07 Fluid Retention (leg swelling); aa5 - PSHx: 09:32 Cholecystectomy; aa5 - Immunization history:: Adult Immunizations unknown. - Social history:: Smoking status: Patient/guardian denies using tobacco. - Family history:: not pertinent. Screenin:11 [facility] ED Fall Risk Assessment (Adult) History of falling in the last 3 months, aa5 including since admission Yes- physiologic fall (2 pts) Confusion or Disorientation No (0 pts) Intoxicated or Sedated No (0 pts) Impaired Gait No (0 pts) Mobility Assist Device Used No (0 pt) Altered Elimination No (0 pt) Score/Fall Risk Level 0 - 2 = Low Risk Maintained a safe environment, Educated pt \\T\\ family on fall prevention, incl call for assistance when getting out of bed, Assessed \\T\\ reinforced patient's understanding of fall precautions, Hourly rounding (assess needs \\T\\ fall precautionary measures) done. Abuse screen: Denies threats or abuse. Nutritional screening: No deficits noted. Tuberculosis screening: No symptoms or risk factors identified. Assessment: 09:31 General: Appears uncomfortable, slender, Behavior is calm, cooperative. Pain: Complains aa5 of pain in forehead Pain does not radiate. Pain currently is 8 out of 10 on a pain scale. Quality of pain is described as aching, Pain began today Is continuous. Neuro: Level of Consciousness is awake, alert, obeys commands, drowsy. Oriented to person, place, time, situation, Sr. [employer] Manager are equal bilaterally Moves all extremities. Speech is normal, Facial symmetry appears normal, Pupils are PERRLA, Reports headache frontal area. Cardiovascular: Heart tones S1 S2 present Rhythm is sinus tachycardia. Respiratory: Airway is patent Respiratory effort is even, unlabored, Respiratory pattern is regular, symmetrical, Breath sounds are clear bilaterally. GI: Abdomen is flat, non-distended, Bowel sounds present X 4 quads. Abd is soft and non tender X 4 quads. : No signs and/or symptoms were reported regarding the genitourinary system. EENT: dry blood noted to mouth and lips. Derm: Skin is pink, warm \\T\\ dry. Musculoskeletal: Range of motion: intact in all extremities. 09:31 Reassessment: Pt states "I just remember sitting on the toilet this morning and I guess aa5 I had a seizure and bit my lip".. 09:50 Reassessment: Fiance at bedside, reports pt sitting on toilet, got yelled out, was pale jl7 and diaphoretic, eyes rolled back and body stiffened up. Fiance laid pt on the floor and onto her side. Pt and fiance report pts last alcohol intake was approximately 4-5 months ago while on vacation. 09:55 Reassessment: Pt assisted with bedside commode by Tasha Hough RN, pt voided. . aa5 10:00 Reassessment: Patient is alert, oriented x 3, equal unlabored respirations, skin aa5 warm/dry/pink. Pt assisted with rinsing mouth with water, lacerations noted to inside of lower lip, bleeding controlled. . 10:12 Reassessment: Pt to CT via stretcher. jl7 11:20 Reassessment: Patient is alert, oriented x 3, equal unlabored respirations, skin aa5 warm/dry/pink. Pt assisted with bedside commode, pt voided. . 11:45 Reassessment: Patient is alert, oriented x 3, equal unlabored respirations, skin aa5 warm/dry/pink. Pt remains drowsy and sleepy, easy to awaken to verbal stimuli. . 12:45 Reassessment: Patient and/or family updated on plan of care and expected duration. Pain kr3 level reassessed. Patient is alert, oriented x 3, equal unlabored respirations, skin warm/dry/pink. patient is eating food tray ordered. Vital Signs: 09:31 BP 127 / 60; Pulse 118; Resp 20 S; Temp 97.6(O); Pulse Ox 100% on R/A; Weight 47.63 kg aa5 (R); Height 5 ft. 4 in. (162.56 cm) (R); 11:25 BP 118 / 60; Pulse 123; Resp 15 S; Pulse Ox 99% on R/A; aa5 13:15 BP 110 / 61; Pulse 118; Resp 16; Pulse Ox 96% on R/A; kr3 09:31 Body Mass Index 18.02 (47.63 kg, 162.56 cm) aa5 Pily Coma Score: 13:17 Eye Response: spontaneous(4). Verbal Response: oriented(5). Motor Response: obeys kr3 commands(6). Total: 15. ED Course: 09:31 Patient arrived in ED. aa5 09:31 Ray Steward MD is Attending Physician. rt 09:31 Arm band placed on. aa5 09:31 Patient has correct armband on for positive identification. Placed in gown. Bed in low aa5 position. Call light in reach. Side rails up X2. Client placed on continuous cardiac and pulse oximetry monitoring. NIBP monitoring applied. 09:32 Triage completed. aa5 09:35 Seizure precautions initiated. aa5 09:36 Tasha Hough RN is Primary Nurse. jl7 10:04 Marla Gonzalez, RN is Primary Nurse. aa5 10:07 Maintain EMS IV. Site clean \\T\\ dry. Gauge \\T\\ site: 20G L AC . aa 5 10:10 Initial lab(s) drawn, by me, sent to lab. jl7 10:10 EKG done, by ED staff, reviewed by Ray Steward MD. jl7 10:18 Head Brain Wo Cont CT In Process Unspecified. EDMS 10:24 Chest Single View XRAY In Process Unspecified. EDMS 12:00 Report given to CODEY Maloney. aa5 13:15 No provider procedures requiring assistance completed. IV discontinued, intact, kr3 bleeding controlled, No redness/swelling at site. Pressure dressing applied. Administered Medications: 10:07 Drug: NS 0.9% 1000 ml Route: IV; Rate: 1 bolus; Site: left antecubital; aa5 11:45 Follow up: IV Status: Completed infusion; IV Intake: 1000ml aa5 11:25 Drug: Potassium Chloride 40 mEq Route: PO; aa5 11:53 Follow up: Response: No adverse reaction aa5 11:25 Drug: D10 in Water [2 mL/kg] 2 ml/kg Route: IVP; Site: left antecubital; aa5 11:45 Follow up: Response: No adverse reaction; completed infusion aa5 Medication: 13:18 VIS not applicable for this client. kr3 Intake: 11:45 IV: 1000ml; Total: 1000ml. aa5 Outcome: 12:40 Discharge ordered by MD. rt 13:13 Patient left the ED. kr3 13:15 Discharged to home ambulatory. kr3 13:15 Condition: stable 13:15 Discharge instructions given to patient, Instructed on discharge instructions, follow up and referral plans. Demonstrated understanding of instructions, follow-up care. Signatures: Dispatcher [employer] EDWA Marla Gonzalez, CODEY [email or web address] Tasha Hough RN RN jl7 Amara Arango RN RN kr3 Ray Steward MD MD rt Corrections: (The following items were deleted from the chart) 09:34 09:31 Initial Sepsis Screen: Does the patient meet any 2 criteria? No. Patient's aa5 initial sepsis screen is negative. Does the patient have a suspected source of infection? No. Patient's initial sepsis screen is negative. aa5 10:13 10:11 [facility] ED Fall Risk Assessment (Adult) History of falling in the last 3 months, aa5 including since admission Yes- physiologic fall (2 pts) Confusion or Disorientation No (0 pts) Intoxicated or Sedated No (0 pts) Impaired Gait No (0 pts) Mobility Assist Device Used No (0 pt) Altered Elimination No (0 pt) Score/Fall Risk Level 0 - 2 = Low Risk Maintained a safe environment, Educated pt \\T\\ family on fall prevention, incl call for assistance when getting out of bed, Assessed \\T\\ reinforced patient's understanding of fall precautions, Hourly rounding (assess needs \\T\\ fall precautionary measures) done, aa5 11:53 09:31 Neuro: Level of Consciousness is awake, alert, obeys commands, Oriented to aa5 person, place, time, situation, Sr. [employer] Manager are equal bilaterally Moves all extremities. Speech is normal, Facial symmetry appears normal, Pupils are PERRLA, Reports headache frontal area, aa5 12:07 09:37 Home Meds: None; jl7 aa5
[2022-04-17 13:18] VITALS: TEMP 97.6
[2022-04-17 13:19] VITALS: BP 118/60; O2SAT 99
== END 2022-04-17 13:13 | disposition home or self-care (01) ==
LOC: ER 09:28
DX: E87.6 Hypokalemia (principal); F10.20 Alcohol dependence, uncomplicated; Z88.5 Allergy status to narcotic agent
CPT/HCPCS: 36415; 70450; 71045; 80053; 81003; 82140; 82550; 82947; 83735; 84146; 84484; 85025; 93005

== ENCOUNTER 2022-04-26 12:17 | Inpatient (IN) | payer OTHER ==
--- OUTSIDE RECORDS SUMMARY | 2022-04-26 12:24 | XMS REPORT | Continuity of Care Document ---
:1970 Author Organization [facility] t Address [address] [place] [address] Care Team Providers Name Role Phone Lizett ALEGRE, Romy Attending Clinician Unavailable Leslie Nevarez RN Attending Clinician Unavailable Mikhail Gomez MD Attending Clinician Francine Mattson Attending Clinician Pipo Clifford MD Attending Clinician FRANCINE HERNANDEZ Attending Clinician Unavailable Anand Hurtado MA Attending Clinician Unavailable Alonso SAM, Irma Cervantes Attending Clinician [phone] To Haynes MD Attending Clinician MIKHAIL GOMEZ Attending Clinician Unavailable Josh Menard MD Attending Clinician Unavailable Dee Hale MD Attending Clinician Willi Chaudhry MD Attending Clinician WILLI CHAUDHRY Attending Clinician Unavailable Deshawn Sher MD Attending Clinician Fei Garcia MD Attending Clinician Comfort Mcbride MD Attending Clinician [phone] TO HAYNES Admitting Clinician Unavailable RICHA, WILLI SOWMYA Admitting Clinician Unavailable Payers Payer Name Policy Type Policy Number Effective Date Expiration Date S cal [employer]IC [employer]CIAL [id number] 2022 00:00:00 Problems Condition Condition Condition Status [...] 00 Center s NO KNOWN Allergy Active [facility] Social History Social Habit Start Date Stop Date Quantity Comments Source History SDOH [facility] Alcohol Frequency Medical Center History SDOH [facility] Alcohol Std Drinks Medica l Center History SDOH [facility] Alcohol Binge Medical Derick ter History SDLA [facility] Transport Non-Med Medical [facility] Alcohol intake 2022-03-12 2022-03-12 [facility]er [facility]:00:00 of alcohol Medical Center (finding) History SDLA 2022-01-09 2022-01-09 2 weeks ago last [facility] Alcohol Comment 00:00:00 00:00:00 drink per Medical C enter patient History SDLA 2022-01-09 2022-01-[address] [facility] Transport Med 00:00:00 00:00:[address] History SDLA 2022-01-09 2022-01-[address] [facility] Housing Unable to 00:00:00 00:00:00 Medical Center Pay History SDLA 2022-01-09 2022-01-[address] [facility] Housing Places 00:00:00 00:00:00 Medical Ce nter Lived History [facility] 2022-01-09 2022-01-[address] [facility] Housing [...] Source Never smoker [facility] ical [facility] Medications Ordered Filled Start Stop Current Ordering Indication Dosage Frequency Signature Comments Components Source Medication Medication Date Date Medication? Clinician (SIG) Name Name furosemide 2021-04- Yes 40mg QD Take [address] (LASIX) 40 2-23 12-23 tablet (40 Shayla kes MG tablet 00:00: 23:59 mg total) Me dical 00 :00 by mouth Center daily. pantoprazol 2021-04 No 40mg QD Take [address] 2-09 -09 by mouth [facility] (PROTONIX) 12:31: 00:00 daily. Medi kailey 40 MG 55 :00 Center tablet pantoprazol 2021-04 No 40mg QD Take [address] [facility] 2-09 12-09 by mouth [facility] (PROTONIX) 12:31: 00:00 daily. Medi kailey 40 MG 55 :00 Center tablet metoclopram 2021-04 Yes TAKE ONE [facility] HCl 2-09 TABLET BY [facility] (REGLAN) 10 00:00: MOUTH Medic al MG tablet 00 THREE Center TIMES A DAY BEFORE A MEAL sertraline 2021-04 Yes TAKE ONE [facility] (ZOLOFT) 50 2-09 TABLET BY [facility] MG tablet 00:00: MOUTH Medical 00 DAILY Center pantoprazol 2021-04 Yes TAKE ONE [facility] 2-09 TABLET BY [facility] (PROTONIX) 00:00: MOUTH Medica l 40 MG [...] 00 DAILY FOR Center tablet 5 DAYS metoclopram 2021-04 Yes TAKE ONE [facility] HCl 2-09 TABLET BY Una (REGLAN) 10 00:00: MOUTH Medic al MG [...] 5 DAYS lactulose 2021-04- Yes Alcoholic 20g Q.[id number] Take [address] [address] (CHRONULAC) 06-06 cirrhosis, [id number] mLs (20 g [facility] 10 gram/15 00:00: 23:59 unspecified 3D total) by Medical mL solution 00 :00 whether mouth 3 Ce nter ascites (three) present times (HCC) daily for 30 days. lactulose 2021-04- Yes Alcoholic 20g Q.[id number] Take [address] (CHRONULAC) 06-06 cirrhosis, [id number] mLs (20 g [facility] 10 gram/15 00:00: 23:59 unspecified 3D total) by Medical mL solution 00 :00 whether mouth 3 Ce nter ascites (three) present times (HCC) daily for 30 days. pantoprazol 2022-1 Yes 40mg QD Take 40 mg [facility] [...] daily. (HCC) lactulose 2021-04- Yes Alcoholic 20g Q.[id number] Take [address] (CHRONULAC) 1-15 12-15 cirrhosis, [id number] mLs (20 g [facility] 10 gram/15 00:00: [...] (HCC) times daily for 30 days. lactulose 2021-04- No Alcoholic 20g Q.[id number] Take [address] (CHRONULAC) 05-12- cirrhosis, [id number] mLs (20 g [facility] 10 gram/15 00:00: 00:00 unspecified 3D total) by Medical mL solution 00 :00 whether mouth 3 Ce nter ascites (three) present times (HCC) daily for 30 days. lactulose 2021-04- No Alcoholic 20g Q.[id number] Take [address] (CHRONULAC) 05-12 12- cirrhosis, [id number] mLs (20 g [facility] 10 gram/15 00:00: [...] tablet mouth daily for 30 days. levoFLOXaci 2021-0 2- No 750mg QD Take [address] [facility] 01-12 tablet [facility] (LEVAQUIN) 00:00: 00:00 (750 mg Med ical 750 MG 00 :00 total) by Center tablet mouth daily for 5 days. acetaminoph 2021-2021- No 1{tbl} Take [address] en-codeine 01-12 tablet by Goran [facility] (Tylenol-Co 00:00: 00:00 mouth Medi kailey deine #3) 00 :00 every 4 Center 300-30 mg (four) per tablet hours as needed for Pain for up to 10 days. Max Daily Amount: 6 tablets levoFLOXaci 2021-0 2021- No 750mg QD Take [address] n 01-12 tablet [facility] (LEVAQUIN) 00:00: 00:00 (750 mg Med ical 750 MG 00 :00 total) by Center tablet mouth daily for 5 days. acetaminoph 2021-2021- No 1{tbl} Take [address] en-codeine 01-12 tablet by Goran es (Tylenol-Co 00:00: 00:00 mouth Medi kailey deine #3) 00 :00 every 4 Center 300-30 mg (four) per tablet hours as needed for Pain for up to 10 days. Max Daily Amount: 6 tablets lactulose 2021-0 2021- No 20g Q.5D Take [address] (CHRONULAC) 9-17 10-17 mLs (20 g Shayla kes 20 gram/30 00:00: 23:59 total) by M edical mL solution 00 :00 mouth 2 Cente r (two) times daily for 30 days. lactulose 2021-0 2- No 20g Q.5D Take [address] (CHRONULAC) 9-17 10-17 mLs (20 g Shayla kes 20 gram/30 00:00: 23:59 total) by M edical mL solution 00 :00 mouth 2 Cente r (two) times daily for 30 days. lactulose 2021-0 2022- No 20g Q.5D Take [address] (CHRONULAC) 9-17 10-17 mLs (20 g Shayla kes 20 gram/30 00:00: 23:59 total) by Misael edical mL solution 00 :00 mouth 2 Cente r (two) times daily for 30 days. acetaminoph No 1{tbl} Take [address] [...] :00 by mouth Center daily. sertraline 2022- No 50mg QD Take [address] (ZOLOFT) 50 12-30-04 tablet (50 L ukes MG tablet 00:00: 23:59 mg total) Me dical 00 :00 by mouth Center daily. sertraline 2021- No 50mg QD Take [address] (ZOLOFT) 50 12-30- tablet (50 L ukes MG tablet 00:00: 00:00 mg total) Me dical 00 :00 by mouth Center daily. sertraline 2021- No 50mg QD Take [address] (ZOLOFT) 50 12-30 12-09 tablet (50 L ukes MG tablet 00:00: 00:00 mg total) Me dical 00 :00 by mouth Center daily. ibuprofen 2021- No 800mg Take [address] (ADVIL,MOTR 12-29 09-03 mg by [facility]ukes IN) 800 MG 13:11: 00:00 mouth Medic al tablet 27 :00 every 6 Center (six) hours as needed for Pain. ibuprofen 2022-0 2022- No 800mg Take [address] (ADVIL,MOTR 9-03 09-03 mg by [facility]ukes IN) 800 MG 13:11: 00:00 mouth Medic al tablet 27 :00 every 6 Center (six) hours as needed for Pain. ibuprofen 2-0 2022- No 800mg Take [address] (ADVIL,MOTR 9-03 09-03 mg by Lukes IN) 800 MG 13:11: 00:00 mouth Medic al tablet 27 :00 every 6 Center (six) hours as needed for Pain. ibuprofen 2021-0 2022- No 800mg Take [address] (ADVIL,MOTR 9-03 09-03 mg by [facility] [place]) 800 MG 13:11: 00:00 mouth Medic al tablet 27 :00 every 6 Center (six) hours as needed for Pain. metoclopram 2022-0 2022- No 10mg Take [address] [facility] - 12-09 tablet (10 [facility] (REGLAN) 10 00:00: 00:00 mg total) Medical MG tablet 00 :00 by mouth 3 Cent er (three) times daily before meals for 30 days. metoclopram 2022-0 2022- No 10mg Take [address] [facility] 9- 12-09 tablet (10 [facility] (REGLAN) 10 00:00: 00:00 mg total) Medical MG tablet 00 :00 by mouth 3 Cent er (three) times daily before meals for 30 days. metoclopram 2022-0 2022- No 10mg Take [address] [facility] 9- 10-03 tablet (10 [facility] (REGLAN) 10 00:00: 23:59 mg total) Medical MG tablet 00 :00 by mouth 3 Cent er (three) times daily before meals for 30 days. pantoprazol 2022-0 2022- No 40mg Q.5D Take [address] [facility] 9- 10-03 tablet (40 [facility] (PROTONIX) 00:00: 23:59 mg total) M edical 40 MG 00 :00 by mouth 2 Center tablet (two) times daily for 30 days. metoclopram 2022-0 2022- No 10mg Take [address] [facility] 9- 10-03 tablet (10 [facility] (REGLAN) 10 00:00: [...] kg Systolic blood 2022-03-12 13:55:00 137 mm[Hg] [facility] Diastolic blood 2022-03-12 13:55:00 78 mm[Hg] [facility] Heart rate 2022-03-12 13:55:00 89 /min [facility] Body temperature 2022-03-12 13:55:00 36.5 [place] [facility] Body height 2022-03-12 13:55:00 162.6 cm [facility] Body weight 2022-03-12 13:55:00 51.801 kg [facility] BMI 2022-03-12 13:55:00 19.60 kg/m2 [facility] Oxygen saturation in 2022-03-12 13:55:00 100 /min [facility] Arterial blood by Medical Ce nter Pulse oximetry Respiratory rate 2022-01-12 11:32:00 19 /min [facility] Systolic blood 2021-12-29 12:30:00 108 mm[Hg] [facility] Diastolic blood 2021-12-29 12:30:00 62 mm[Hg] [facility] Heart rate 2021-12-29 12:30:00 87 /min [facility] Body temperature 2021-12-29 12:30:00 36.83 [place] [facility] Respiratory rate 2021-12-29 12:30:00 18 /min [facility] Oxygen saturation in 2021-12-29 12:30:00 97 /min [facility] Arterial blood by Medical Ce nter Pulse oximetry Body height 2021-12-28 08:00:00 162 cm [facility] Body weight 2021-12-28 02:00:00 61.7 kg [facility] BMI 2021-12-28 02:00:00 23.51 kg/m2 [facility] Procedures Procedure Date / Time Performing Source Performed Clinician BASIC METABOLIC PANEL 2022-03-12 Francine Hernandez [facility] St Shayla kes 15:05:00 A. [facility] HEPATIC FUNCTION PANEL 2022-03-12 Francine Hernandez [facility] L [facility] 15:05:00 A. [facility] CBC W/PLT COUNT & AUTO DIFFERENTIAL 2022-03-[address] [facility] 15:05:00 A. [facility] PROTHROMBIN TIME/INR 2022-03-12 Francine Hernandez [facility] St Goran es 15:05:00 A. [facility] ALPHA FETOPROTEIN (AFP), TUMOR 2022-03-12 Bernardino, Francine [facility] MARKER 15:05:00 A. Medical Center PHOSPHATIDYLETHANOL, BLOOD 2022-03-12 Bernardino, Tanmayi [facility] 15:05:00 A. Medical Center CBC W/PLT COUNT & AUTO DIFFERENTIAL 2022-03-[address] [facility] 15:05:00 A. [facility] Center HEPATITIS B SURFACE ANTIBODY 2022-01-12 Dadlani, Apaar [facility] 04:36:00 Medical Center HEPATITIS B CORE ANTIBODY, TOTAL 2022-01-12 Dadlani, Apaar [facility] 04:36:00 Medical Center BASIC METABOLIC PANEL 2022-01-12 Deanne, Mikhail [facility] 04:36:00 Medical [place] CALCIUM, IONIZED 2022-01-12 Deanne, Mikhail [facility] 04:36:00 [facility] Center PHOSPHORUS 2022-01-[address] [facility] 04:36:00 Medical Center CBC W/PLT COUNT & AUTO DIFFERENTIAL 2022-01-12 Deanne, A lireza [facility] 04:36:00 Medical Center MAGNESIUM 2022-01-[address] [facility] 04:36:00 Medical Center CBC W/PLT COUNT & AUTO DIFFERENTIAL 2022-01-12 Deanne, A lireza [facility] 04:36:00 [facility] Center POCT-GLUCOSE METER 2022-01-11 Deanne Mikhail CHI [...] W/PLT COUNT & AUTO DIFFERENTIAL 2022-01-[address] [facility] 04:05:00 Medical Center MAGNESIUM 2022-01-[address] [facility] 04:05:00 Medical Center CBC W/PLT COUNT & AUTO DIFFERENTIAL 2022-01-[address] [facility] 04:05:00 Medical Center SPUTUM CULTURE + GRAM STAIN 2022-01-10 Arif, Halir [facility] 09:56:00 Medical Center B-TYPE NATRIURETIC FACTOR (BNP) 2022-01-10 Arif, Sahar [facility] 04:35:00 Medical Center BASIC METABOLIC PANEL 2022-01-10 Arif, To MOTA [facility] 04:35:00 Medical Center HEPATIC FUNCTION PANEL 2022-01-10 Arif, Halir [facility]LANA [facility] 04:35:00 Medical Center MAGNESIUM 2022-01-10 Arif, Halir [facility] 04:35:00 Medical Center PROTHROMBIN TIME/INR 2022-01-10 Arif, To [facility] 04:35:00 Medical Center HEMOGLOBIN AND HEMATOCRIT 2022-01-10 Arif, Halir [facility] 04:35:00 Medical Center US ABDOMINAL WITH DOPPLER 2022-01-10 Arif, Halir [facility] 04:00:00 Medical Center US PARACENTESIS 2022-01-09 Arif, Halir [facility] 17:00:00 Medical Center ANAEROBIC CULTURE 2022-01-09 Arif, Halir [facility] 16:29:00 Medical Center CYTOLOGY 2022-01-09 Arif, Halir [facility] 16:08:00 Medical Center BODY FLUID CELL COUNT WITH 2022-01-09 To Haynes [facility] DIFFERENTIAL 16:07:00 Medical Center BODY FLUID CULTURE + GRAM STAIN 2022-01-09 Arif, Sahar [facility] 16:07:00 Medical Center PROTEIN, BODY FLUID 2022-01-09 Arif, Sahar [facility] 16:07:00 Medical Center ALBUMIN, BODY FLUID 2022-01-09 Arif, Sahar [facility] 16:07:00 Medical Center VENOUS DOPPLER LEGS BILATERAL 2022-01-09 Arif, [facility] 14:59:00 Medical Center SPUTUM CULTURE + GRAM STAIN 2022-01-09 Arireji, Halir [facility] 11:51:00 [facility] LEGIONELLA ANTIGEN, URINE 2022-01-09 Brennanf, Sahar [facility] 11:50:00 [facility] PHOSPHATIDYLETHANOL, BLOOD 2022-01-09 Toni Monroy [facility] 11:49:00 [facility] HEREDITARY HEMOCHROMATOSIS 2022-01-09 Toni Monroy [facility] 11:49:00 [facility] MRSA SCREEN 2022-01-09 Gregg, Halir [facility] 10:26:00 [facility] BLOOD CULTURE 2022-01-[address] [facility] 06:16:00 [facility] BLOOD CULTURE 2022-01-[address] [facility] 06:02:00 [facility] COMPREHENSIVE METABOLIC PANEL 2022-01-[address] [facility] 06:02:00 [facility] CBC W/PLT COUNT & AUTO DIFFERENTIAL 2022-01-[address] [facility] 06:02:00 [facility] PROTHROMBIN TIME/INR 2022-01-[address] [facility] 06:02:00 [facility] CBC W/PLT COUNT & AUTO DIFFERENTIAL 2022-01-09 Alonso, Osvaldo magana [facility] 06:02:00 [facility] PREPARE LEUKO-REDUCED RBC 2021-12-29 Roseline Sunshine [facility] 23:54:00 [facility] CBC (HEMOGRAM ONLY) 2021-12-29 [facility], Smyrnaharley Claudia [facility] 02:51:00 [facility] BASIC METABOLIC PANEL 2021-12-29 [facility] 02:51:00 [facility] MAGNESIUM 2021-12-[address] [facility] 02:51:00 [facility] HEPATITIS A ANTIBODY, IGG 2021-12-29 Goycpasquale VerSeth burch [facility] 02:51:00 [facility] HEPATITIS B CORE ANTIBODY, IGM 2021-12-[address] [facility] 02:51:00 [facility] HEPATITIS B SURFACE ANTIGEN 2021-12-29 [address]eth burch [facility] 02:51:00 E. [facility] HEPATITIS C ANTIBODY 2021-12-[address] [facility] 02:51:00 E. [facility] ANTI-NUCLEAR ANTIBODY (MARLEN) 2021-12-[address] [facility] 02:51:00 . [facility] HC LAB FLUORESC AB SCRN EA AB 2021-12-[address] [facility] 02:51:00 E. [facility] ACTIN (SMOOTH MUSCLE) ANTIBODY, IGG 2021-12-[address] [facility] 02:51:00 [facility] IRON, TIBC, % SAT. (WITHOUT 2021-12-29 [address]urch [facility] FERRITIN) 02:51:00 . [facility] CERULOPLASMIN 2021-12-[address] [facility] 02:51:00 . [facility] DZZUN-[id number]\, SERUM 2021-12-[address] [facility] 02:51:00 [facility] FERRITIN 2021-12-29 Geoffrey, Ahmed [facility] 02:51:00 [facility] PROTHROMBIN TIME/INR 2021-12-29 Geoffrey, Ahmed [facility] 02:51:00 [facility] HEPATIC FUNCTION PANEL 2021-12-29 Geoffrey, Ahmed [facility] 02:51:00 [facility] MITOCHONDRIAL AB SCREEN 2021-12-29 Elizabeth [facility]teSeth [facility] 02:51:00 . [facility] MITOCHONDRIAL AB TITER 2021-12-[address] [facility] 02:51:00 [facility] ANTI-MITOCHONDRIAL AB, REFLEX TO 2021-12-[address] [facility] TITER 02:51:00 [facility] HEMOGLOBIN AND HEMATOCRIT 2021-12-[address] [facility] 15:50:00 [facility] CBC (HEMOGRAM ONLY) 2021-12-[address] [facility] 06:12:00 [facility] BASIC METABOLIC PANEL 2021-12-28 [facility] 06:12:00 [facility] MAGNESIUM 2021-12-[address] [facility] 06:12:00 [facility] HEPATIC FUNCTION PANEL 2021-12-[address] [facility] 06:12:00 [facility] TRANSFUSE LEUKO-REDUCED RED BLOOD 2021-12-28 Sun[address] sa [facility] CELLS 02:30:00 [facility] HEMOGLOBIN AND HEMATOCRIT 2021-12-27 Richa, Willi [facility] 23:51:00 [facility] US ABDOMEN LIMITED 2021-12-27 Richa, Willi [facility] 22:35:00 [facility] ECG 12-LEAD 2021-12-27 Unknown, Hl7 [facility] 20:44:36 [facility] ECG 12-LEAD 2021-12-27 Unknown, Hl7 [facility] 20:44:36 [facility] ECG 12-LEAD 2021-12-27 Unknown, Hl7 [facility] 20:44:36 [facility] HEMOGLOBIN AND HEMATOCRIT 2021-12-[address] [facility] 19:00:00 [facility] HEPATITIS PANEL, ACUTE 2021-12-27 Richa, Willi [facility] 19:00:00 [facility] URINALYSIS W/ REFLEX URINE CULTURE 2021-12-[address] [facility] 18:59:00 [facility] REPORT OF PROCEDURE - ENDOSCOPY URL 2021-12-[address] [facility] 18:15:56 [facility] ABORH, MANUAL 2021-12-[address] [facility] 17:06:00 [facility] ESOPHAGOGASTRODUODENOSCOPY 2021-12-[address] [facility] 16:25:00 [facility] TYPE AND SCREEN, AUTOMATED 2021-12-27 Vinh Ray [facility] 15:07:00 [facility] BLOOD CULTURE 2021-12-[address] [facility] 13:23:00 [facility] LIPASE 2021-12-[address] [facility] 13:20:00 [facility] PROTHROMBIN TIME/INR 2021-12-[address] [facility] 13:20:00 [facility] APTT 2021-12-[address] [facility] 13:20:00 [facility] FIBRINOGEN 2021-12-[address] [facility] 13:20:00 [facility] PROCALCITONIN 2021-12-27 [facility] 13:20:00 [facility] CBC (HEMOGRAM ONLY) 2021-12-[address] [facility] 13:20:00 [facility] BASIC METABOLIC PANEL 2021-12-27 [facility]LANA [facility] 13:20:00 [facility] MAGNESIUM 2021-12-27 [facility] 13:20:00 [facility] CALCIUM, IONIZED 2021-12-27 [facility]za [facility] 13:20:00 [facility] BLOOD GAS, VENOUS 2021-12-27 [facility] 13:20:00 [facility] LACTIC ACID, VENOUS 2021-12-27 [facility] 13:20:00 [facility] HEPATIC FUNCTION PANEL 2021-12-27 [facility] 13:20:00 [facility] SARS-COV2/RT-PCR ([facility]) 2021-12-[address] [facility] 12:44:00 [facility] MRSA SCREEN 2021-12-[address] [facility] 12:44:00 [facility] POCT-GLUCOSE METER 2021-12-[address] [facility] 12:22:00 [facility] XR CHEST 1 VIEW PORTABLE / BEDSIDE 2021-12-[address] [facility] 11:46:00 [facility] EKG-SCANNED 2021-12-27 Provider, Default [facility] 00:00:00 Scanning [facility] Center Plan of Care Planned Activity Planned [...] [facility] 00:00:00 (12+) [code = [facility] Center DEPRESSION SCREENING (12+)] Future Scheduled 2021-04-[address] [facility] Test 00:00:00 (12+) [code = [facility] Center DEPRESSION SCREENING (12+)] Future Scheduled 2021-04-[address] [facility] Test 00:00:00 (12+) [code = [facility] Center DEPRESSION SCREENING (12+)] Future Scheduled 2021-04-[address] [facility] Test 00:00:00 (12+) [code = [facility] Center DEPRESSION SCREENING (12+)] Future Scheduled 2018 SHINGLES VACCINES ([address] [facility] Test 00:00:00 2) [code = SHINGLES Medical Center VACCINES (1 of 2)] Future Scheduled 2018 SHINGLES VACCINES ([address] [facility] Test 00:00:00 2) [code = SHINGLES [facility] Center VACCINES (1 of 2)] Future Scheduled 2018 SHINGLES VACCINES ([address] [facility] Test 00:00:00 2) [facility] Future Scheduled 2018 SHINGLES VACCINES ([address] [facility] Test 00:00:00 2[facility] Future Scheduled 2013 Lipid panel (procedure) [facility] Test 00:00:00 [code = 03511755] Medical Ce nter Future Scheduled 2013 Lipid panel (procedure) [facility] Test 00:00:00 [code = 80943051] Medical Ce nter Future Scheduled 2013 Lipid panel (procedure) [facility] Test 00:00:00 [code = 47389123] Medical Ce nter Future Scheduled 2013 Lipid panel (procedure) [facility] Test 00:00:00 [code = [id number]] Medical Ce nter Future Scheduled 1989 Screening for malignant [facility] Test 00:00:00 neoplasm of cervix Medical C enter (procedure) [code = 731705893] Future Scheduled 1989 Screening for malignant [facility] Test 00:00:00 neoplasm of cervix Medical C enter (procedure) [code = 213044260] Future Scheduled 1989 Screening for malignant [facility] Test 00:00:00 neoplasm of cervix Medical C enter (procedure) [code = 216748509] Future Scheduled 1989 Screening for malignant [facility] Test 00:00:00 neoplasm of cervix Medical C enter (procedure) [code = 522718838] Future Scheduled 1987-08-10 DTAP/TDAP/TD VACCINES CH I [...] breast Medical C enter (procedure) [code = 864428346] Future Scheduled 1968 CT Colonography (combo) [facility] Test 00:00:00 [code = CT Colonography [facility] (combo)] Future Scheduled 1968 Screening for malignant [facility] Test 00:00:00 neoplasm of colon Medical Ce nter (procedure) [code = 154858495] Future Scheduled 1968 Screening for malignant [facility] Test 00:00:00 neoplasm of colon Medical Ce nter (procedure) [code = 023344346] Future Scheduled 1968 Screening for malignant [facility] Test 00:00:00 neoplasm of colon Medical Ce nter (procedure) [code = 967346788] Future Scheduled 1968 Screening for malignant [facility] Test 00:00:00 neoplasm of colon Medical Ce nter (procedure) [code = 024878337] Future Scheduled 1968 Sigmoidoscopy [code = [facility] Test 00:00:00 Sigmoidoscopy] Medical Cente r Future Scheduled 1968 Screening for malignant [facility] Test 00:00:00 neoplasm of breast Medical C enter (procedure) [code = 945296544] Future Scheduled 1968 CT Colonography (combo) [facility] Test 00:00:00 [code = CT [facility] ([facility])] Future Scheduled 1968 Screening for malignant [facility] Test 00:00:00 neoplasm of colon Medical Ce nter (procedure) [code = 012452593] Future Scheduled 1968 Screening for malignant [facility] 00:00:00 neoplasm of colon Medical Ce nter (procedure) [code = 644947127] Future Scheduled 1968 Screening for malignant [facility] 00:00:00 neoplasm of colon Medical Ce nter (procedure) [code = 754190993] Future Scheduled 1968 Screening for malignant [facility] 00:00:00 neoplasm of colon Medical Ce nter (procedure) [code = 794518755] Future Scheduled 1968 Sigmoidoscopy [code = [facility]] [facility] Future Scheduled 1968 Screening for malignant [facility] 00:00:00 neoplasm of breast Medical C enter (procedure) [code = 952810068] Future Scheduled 1968 CT Colonography (combo) [facility] 00:00:00 [code = [facility] ([facility] Future Scheduled 1968 Screening for malignant [facility] 00:00:00 neoplasm of colon Medical Ce nter (procedure) [code = 157236366] Future Scheduled 1968 Screening for malignant [facility] 00:00:00 neoplasm of colon Medical Ce nter (procedure) [code = 996089349] Future Scheduled 1968 Screening for malignant [facility] 00:00:00 neoplasm of colon Medical Ce nter (procedure) [code = 367781624] Future Scheduled 1968 Screening for malignant [facility] 00:00:00 neoplasm of colon Medical Ce nter (procedure) [code = 239315917] Future Scheduled 1968 Sigmoidoscopy [code = [facility]] Medical Cente r Future Scheduled 1968 Screening for malignant [facility] 00:00:00 neoplasm of breast Medical C enter (procedure) [code = 256379210] Future Scheduled 1968 CT Colonography (combo) [facility] 00:00:00 [code = CT Colonography [facility] (combo)] Future Scheduled 1968 Screening for malignant [facility] 00:00:00 neoplasm of colon Medical Ce nter (procedure) [code = 575150677] Future Scheduled 1968 Screening for malignant [facility] 00:00:00 neoplasm of colon Medical Ce nter (procedure) [code = 285233681] Future Scheduled 1968 Screening for malignant [facility] 00:00:00 neoplasm of colon Medical Ce nter (procedure) [code = 860142944] Future Scheduled 1968 Screening for malignant [facility] 00:00:00 neoplasm of colon Medical Ce nter (procedure) [code = 668806157] Future Scheduled 1968 Sigmoidoscopy [code [facility] End Encounter Admission Attending Care Care Encounter Source Date/Time Date/Time Type Type Clinicians Facility Department ID 2022-06-12 2022-06-12 Outpatient EL [facility] [id number] [facility] 00:00:00 00:00:00 2022-04-19 2022-04-19 Priyanka Phoenix [facility] [id number] [facility] 00[facility]:00 [facility] 2022-04-17 2022-04-17 Karina Nevarez [facility] [id number] [facility] 00[facility]00 [facility] 2022-03-29 2022-03-29 Refill Deanne [facility] [id number] [facility] 00[facility]00 [facility] 2022-03-29 2022-03-29 Refill Deanne [facility] [id number] 00:[facility] 00:00:00 [facility] 2022-03-15 2022-03-15 Telephone Bernardino [facility] [id number] 00:[facility]00 00:00:00 [facility] 2022-03-15 2022-03-15 Telephone Bernardino, [facility] [id number] [facility] [address] 00:00:00 00:00:00 [facility] 2022-03-13 2022-03-13 Documentat Bernardino [facility] [id number] [facility] 00:00:00 00:00:00 ion [facility] 2022-03-13 2022-03-13 [facility] [id number] [facility] 00:00:00 00:00:00 ion [facility] 2022-03-12 2022-03-12 Office Pipo Clifford [facility] [id number] 13:30:00 14:30:00 Visit Bernardino, [facility] 2022-03-12 2022-03-12 Office EL Pipo Clifford [facility] [id number] 13:30:00 14:30:00 Visit Bernardino, [facility] 2022-03-12 2022-03-12 Outpatient EL CATHY HERNANDEZ [facility] [id number] SLE 13:34:37 13:34:37 FRANCINE 2022-03-12 2022-03-12 Outpatient [facility] SLE [id number] SLE 00:00:00 00:00:00 2022-03-11 2022-03-11 Telephone Bryant [facility] [id number] [facility] 00[facility] [facility] 2022-03-11 2022-03-11 Telephone Bryant [facility] [id number] [facility] 00[facility] 2022-02-19 2022-02-19 Refill Deanne, [facility] [id number] 00:00:00 00:00:00 [facility] 2022-02-19 2022-02-19 [facility] [id number] 00:00[facility]00 00:00:00 [facility] 2022-01-16 2022-01-16 Outpatient EL SLE SLE [id number] [facility] 00:00:00 00:00:00 2022-01-09 2022-01-12 [facility] [id number] [facility] 04:29:00 17:44:00 [facility] 2022-01-09 2022-01-12 [facility] [id number] 04:29:00 17:44:00 Encounter To Haynes [facility] Deanne [facility] 2022-01-09 2022-01-12 Inpatient ER [facility] Gastro [id number] SLE 04:29:00 17:44:00 [facility] 2022-01-11 2022-01-11 Outpatient EL SLE SLE [id number] [facility] 00:00:00 00:00:00 2021-12-27 2021-12-29 [facility] [id number] [facility] 10:33:00 16:22:00 Encounter Dee Hale [facility] 2021-12-27 2021-12-29 Hospital ER Josh MenardRedd [facility] [id number] [facility] 10:33:00 16:22:00 Encounter Dee Haledaniela [facility] 2021-12-27 2021-12-29 Inpatient ER [facility] Medical ICU 2 [id number] [facility] 10:33:00 16:22:00 [facility] 2021-12-28 2021-12-28 Outpatient RICHA, [facility] [id number] [place] 00:00:00 00:00:00 WILLI Seybol d 2021-12-27 2021-12-27 Anesthesia Deshawn Sher [facility] [id number] [facility] 16:25:00 17:27:00 Event GarciaFei mancuso [facility] 2021-12-27 2021-12-27 [facility] [id number] [facility] 16:25:00 17:27:00 Event Fei Garcia [facility] 2021-12-27 2021-12-27 Surgery Rae, [facility] [id number] 16:05:00 16:54:00 [facility] 2021-12-27 2021-12-27 Surgery [facility], [facility] [id number] 16:05:00 16:54:00 [facility] 2021-12-27 2021-12-27 Orders [facility] [id number] 00:00:00 00:00:00 Only [facility] 2021-12-27 2021-12-27 Travel [facility] [id number] [facility] 00:[facility]00 00:00:00 [facility] 2021-12-27 2021-12-27 Orders [facility] [id number] 00:00:00 00:00:00 Only [facility] 2021-12-27 2021-12-27 Travel [facility] [id number] [facility] 00:[facility]:00 00:00:00 [facility] Results Test Description Test Time Test Comments Results Result Comments Source PHOSPHATIDYLETHANOL, BLOOD 2022-03-18 08:53:53 Test Item Value Reference Range Interpretation Comme nts PHOSPHATIDYLETHANOL (PETH) (test code = 2879664) See scanned report See scanned reportALPHA FETOPROTEIN (AFP), TUMOR [id number] 17:49:55 Test Item Value Reference Range Interpretation Comments ALPHA-FETOPROTEIN (BEAKER) (test 5.0 ng/mL <10.0 code = 1094) Chassis Wirer ID - BSBASIC METABOLIC [id number] 17:26:12 Test Item Value Reference Range Interpretation [...] not appl icable for dialysis patien ts Chassis Wirer ID - BSSpecimen slightly ictericHEPATIC FUNCTION [id number] 17:26:12 Test Item Value Reference Range Interpretation [...] code = 58 U/L 6-55 H 347) Chassis Wirer ID - BSSpecimen slightly ictericPROTHROMBIN TIME/[id number] 16:59:25 Test Item Value Reference Range Interpretation Comments PROTIME (BEAKER) 18.6 seconds 11.9-14.2 H (test code = 759) INR (BEAKER) (test 1.66 See_Comment [Automat ed message] code = 370) The system [employer] generated this result transmitted ref erence range: <=5.90. The reference range was not used to int erpret this result as normal/abnormal . RECOMMENDED COUMADIN/WARFARIN INR THERAPY RANGESSTANDARD DOSE: 2.0 - 3.0 Includes: PROPHYLAXIS for venous thrombosis, systemic embolization; TREATMENT for venous thrombosis and/or pulmonary embolus.HIGH RISK: Target INR is 2.5-3.5 for patients with mechanical heart valves.CBC W/PLT COUNT & AUTO [id number] 16:54:03 Test Item Value Reference Range Interpretation [...] PERCENT (BEAKER) (test code = 2801) Anaerobic [id number] 10:16:44 Test Item Value Reference Range Interpretation Comments Result (test code = No anaerobes isolated 6463-4) [facility] [id number] 10:16:44 Test Item Value Reference Range Interpretation Comments Result (test code = No anaerobes isolated 6463-4) [facility] [id number] 10:16:44 Test Item Value Reference Range Interpretation Comments Result (test code = No anaerobes isolated 6463-4) [facility] [id number] 10:16:44 Test Item Value Reference Range Interpretation Comments CULTURE (BEAKER) (test No anaerobes isolated code = 1095) PHOSPHATIDYLETHANOL, [id number] 09:36:51 Test Item Value Reference Range Interpretation Comments PHOSPHATIDYLETHANOL (PETH) See scanned (test code = 6170605) report See scanned reportBLOOD [id number] 07:00:43 Test Item Value Reference Range Interpretation Comments CULTURE (BEAKER) (test No growth in 5 days code = 1095) BLOOD [id number] 07:00:43 Test Item Value Reference Range Interpretation Comments CULTURE (BEAKER) (test No growth in 5 days code = 1095) [id number] 18:18:27 Test Item Value Reference Range Interpretation Comments Case Report (test code Medical Cytology = 104) Report Case: [id number] Authorizing Provider: To Haynes MD Collected: 01/09/2022 04:08 PM Ordering Location: [address] Received: 01/10/2022 10:29 AM Service Pathologist: Lily Patino MD Specimen: Peritoneal Fluid DIAGNOSIS (test code = f3uurBJqLYKrw0apAOYsuP 3220) FuZzEwMzNcZnRuYmpcdWMx IHtccnRmMVxlcGljOTYwMl rfphKvBDDkkBJrJ7Rjyodj GZljUO6jJN1mcNnnsFGlbJ VcKNIkYyZld6jfh514fBNd j1fhSCIEdscogMs2cWbsG2 4mz3L4RaoyA92auAXzPDD3 WTJbPZWhuOTbOTEgAKM0CO JdcKSkD7shEGHoBA2gdtfk JNytTJgqQRZdwEZ3KYVocT ZxL1WgZUJwBZfrEIFvrta0 ZhEzWi8ddGIceNigQPfkBS JkXHBsYWluXGZzMjAgUEVS SVRPTkVBTCBGTFVJRCAoQ1 tTM2DFGU3BTKSSRQUHFGcA VFCJW1RBKNjzwFtkJCLvSI AcEO2KI7TYPMMHQQSYOiFD LCrKH65CYvFFDJmTBMFoH5 9NTUVOVClccGFyfXtccnRm QUjak3LwYIbtYSFiVV5leV qrFQDzQV3wCISqH4lodH3n bgy9YoVtCVNjIvV2VSVbkg A7Zwr4ZTRzNNzue8tya7Un WVSaHRq9sAgaNbBnBPTsi3 lzcyBcZmNoYXJzZXQwIEFy yLDfI252p2wgw0zvwkJnlF R3ACUpECS0CDkpdmFgyvV0 QCocwNPlQdV5AUztleHaSK xdypZtwsMfAnx7QMZgW126 QTX4zUnch9xzAXS2XTMgGY FnExSvFy0ktZXrF824XKOu BVRPRSCyvQj2VPQphyZbfo EwvFJVq222X076o8fuEZIh mxSrxZrCmnnsa2wfN146RW BhcGVydzEyMjQwXHBhcGVy qLX0HNAdQV5zjbyjXKsmCV upGKRmhcI8EAOygVXxV5Qs ZJQxNP0chvpwADC5YPacFH SzHDI4ScCfUHOtl5Foohx1 IrJvfz5oav48PLR5q6NeaL vwJLN7ZHU4LaZgEd2tdFXm FRGgQZ8gTaVxaFOwIEYqud 18iOdiVRoyUGX4CKZwwcZv h1Rdi6elZoJxkyFfY6emQ1 JyZHJoZWFkXHBnYnJkcmZv a0Sii2XioXMnxRy5o1iyFW YuTZAhaRjrv8dkHSK6VMFt qKGoM8prvG7nMROyXE4edd rvi9xpQAtrHZrtBSUlmJO5 ugU0SMZeaDHgJ3QcvO8dBU XpXIsfVYJporu4CsHgWj5t dGVyeTcyMFxzYmtwYWdlXH BnbmNvbnRccGduZGVjXHBs YWluXHBsYWluXGYwXGZzMj RccWxcbGFuZzEwMzNcaGlj aFxmMVxkYmNoXGYxXGxvY2 piLfSpYvWjYil0YEEfxPLo RMQqFvg5QLWzqXFlCWFUlE brtH9hJXTmqBeblC3agSW6 WYDetiOpgBSHyR8rJRVMbA 3rJaW1OFOiAbj6ALF5AyLm cGFyfX0= COMMENT (test code = d3upwVPkHAZaqKT4SrCdNH 1530) Xkx7wgu9TpcWBccMAxNDab lSHdphBkii40oNJ8hA00EN 7hARVeFlV1PMAszrF7Ujq3 RGLxUGDhqUCbS267c0lhh9 quhhHnsII3dAsoUQQdauzi YuF7BUlzZAJwijvuUUz7GO daPJXxnDZ2MUMorYQkF0Xc HGUnOE2fqyj3XPQ2LItnPJ TzObE7WCRulIRvZZEjhKxg NKzws116JBO8HzKqLBYiik UrjSjxsQ2xYmNdPCSPsHBr r1GbZ2tkJI2lqPBgG47oxM 9yJDFfg6UoRwFefVfdTKDm LQUzNNTrtAv6AUAabJQmTJ UepmohzBXvz8SxWKaiDFgq X7OkgRPvQFDufJxgRPQ7kS QxBNSnGBrdKUt7aEEqc3N6 dGVzLiBccGFyfQ== CPT Code(s) (test code a0nnpQDvGYQstLW0IbMiPI = 9455) Gmc7tbn6JduEFgxNOpQRrz zWIbhaZdqg04rGT2aC19SP 8zQJGyEiT6PPDitvC1Xuw1 JJLaKFJrcPHxT901l8prb1 crlaBsjCE4sTxeQMCiaczk BjR3ATslDZXplojlRTp8IN goBHIabWZ5NRFyjTKqJ9Vp SGHdQU1vnbp2YMU0OZdvDG StEnJ5BUPfcFUgTXBwpTad RKiyl650IVK9OxXsVDQmss NueUbalJ4cVjYxQPQ7OCSw OCwgODgzMDVccGFyfQ== CLINICAL DATA (test g9tszULhVUUhxRO7DnCnFS code = 3355) Jns3sfq9ScrCTxjKJrFUwo oWGvvsIjjm66dNA3pY61RJ 2vAPAjAqR1QGEhvhK6Hzd6 QKJlGFRucKUnL937o3dsr6 lvvlQowMD1zPqlIJVwsqny OhZ3FGazKXXvzrnnKQf8FL tbODUdyLM0PMRdjDVmA2Cn VTXtCW3qwem4HRM9NItiUF AeMkO0HFMlgKAjJHSjbKcy KJeex881QVB0AxPsVZFezt CtcNgbiK7iQoIaKJNRq4Ad sUNmSYCgiXAqbO6ydLJlXK QXPPHru0SxTWDtYOCoW19g d0flQVR7s3ZqOTFkT6KcdI FZSBGrHiHngTHGA7JEJDd3 WPDhLcLmGcxokuEbihE8W8 HrJYBEWSvocLMgj3IulYYh YXvlqSixXOJyr85fpbRmFS LgjP2qHNJto8XtMQKpLTR1 zRXvVWXpg4WxrdDyv48uCP JMRSBlZGVtYSBhbmQgZHlz rN2nTQ1hIb62yuYhpD0zoI O5ETIiw1UxqWHaRWQrORVl xLLnMGD6OMHqnK4suZ2dec lhLiBccGFyfQ== SPECIMEN SOURCE (test o0svvWZzSRAkkDW7BeBqMS code = 3377) Hfv4kgl4OfnTYdnLNjOPbo fUOsqeYpik70hSM6qQ37TU 4uKYObUsU9LIWgbkJ1Fir5 DVYmDDZlqKEiN676p5lnf5 siscDajBY3rNxkSJPmrlvu HyT8BCbgTRKzpoyxRTw7VE woDSQshOP0NVAdwJLnI6Ax UZOlXC5dlkt9ACD9TIagAG XnHgH8HWSxyOJaWPJqrXah BJfeh491ISC8XxPhOUXhlv QryDvxpS4qAgIlTUEHZFLL KC0GQXIPMCHNGXhKPXDvqt 0= GROSS DESCRIPTION (test p5hthXHkTJOcsXVIUBCmW1 code = 1680639410) qxqyEmYRDthKRoF9Kiwbwy XWgwCN2nES4naLtrwMUmqT XbGD5AIAKvCvOkATSovCWz noEvTrZoURBbuOKtmCW0IF FuOZ1gpvfiBBamXDzdMDIy zgD4TAAlgNNaH3PeEHOoDI 3zcakhKXR7IEcniB7vniWV DpqpBh4woSTftGtiPmNbAf NoYXJzZXQwXGZuaWwgQXJp GAm0jM4WMqffMVE5ZKBPIk kqPSFvIE6Ty7guFSPwqVZq PWK8HPjtqYFdAAByKPUfCK w1KXHbBKeesAIsLJ2rqNnw LslxvVmea9IecQMgRXlkET WuNMUhGBtwADBoGJ0ALuNl RMU7PAUgXuCzCDn6OJf3IU 9EWbSxLNRvQTEoODv7WLQn RGs0FLosBE5MGSSkHaHkEE ZhSrW7UAO4YTTlFLVyBiUn XGYgQXJpYWwgXFxmbCBcXG 5jfVxwbGFpbiBBLiBQZXJp tK2jAUGvYFCdrPtvCgumWX MiVMmxWXDmL11uq0GHs5Zh RI4YPDc9qrJcidyxjC4eYK PhuaZxZUnwxCAlA9bxOzPk MCBSZWNlaXZlZCAxNjAwIG 1sIGFtYmVyIGZsdWlkOyBw tpJrNXXpGCQ2DLB1cA5ijP fvfvPftmJwB9GdkUKkqH0u gmfIEmhjJ42kxE4axG9pLG IgMlpuAOB1gMHvU4DegGSf zS0hvvV2CNMyJad4CUBybX 7wTw9ruYIhqK7bMPXqGUhz OsHzoCBhjvW7IlM0QsQdFb INClxwbGFpblxlcGljTmVz fEYvZhHsdXygnQ03TBTxvV KmUAQ6UM6zASYqjzfrROBc LQVoOYA7BXvcdO07dRGrBR PjYEGqlKMqaI2UEBGvQSL4 HMtzzD33hXTkPJ9YQYZaVY G4UTXxoKZpLGC5JE4ixV4Q fQ== MICROSCOPIC DESCRIPTION i9xnsLBtZSXsaUU9HvWfEK (test code = 3371) Qmy4yqk1OgbQKohGTmYGnr kFLouwYtfi30oBA5rA82NU 9hDKXlZgD9STVhkcY6Xez3 ZESpLHCdgWMmK893v4ybo9 laszYacMM7ePuxNKHflekr EwL6IYcmHUTxnlluIUh9ZG mgCOSrcJR5JSEvwKNpY7Xl ZNVpZV3rafg7MKD5XDikEV ZaNgR1RNXrbSClYLKazAix BAnij819WWN5ZiDnOUZcaz VgjWhghM5xPaInTSAORCZr d1HkQZOeDWvbEYA2 STATEMENT OF ADEQUACY Satisfactory (test code = 2757) Gross assessment was [facility] performed at (test code [facility], = 2777) Department of Pathology, [address] [place] [address] 86576, Technical component was [facility] performed at ([facility] code [facility], = 2778) Department of Pathology, [address] [place] [address] 99186, Professional component [facility] was performed at ([facility], code = 2779) Department of Pathology, [address] [place] [address] 35869, [facility] 18:18:27 Test Item Value Reference Range Interpretation Comments Case Report (test code Medical Cytology = 104) Report Case: [id number] Authorizing Provider: To Haynes MD Collected: 01/09/2022 04:08 PM Ordering Location: [address] Received: 01/10/2022 10:29 AM Service Pathologist: Lily Patino MD Specimen: Peritoneal Fluid DIAGNOSIS (test code = f2wqkYGpWREbd9ttCDYgfI 3220) FuZzEwMzNcZnRuYmpcdWMx IHtccnRmMVxlcGljOTYwMl vbrgDlGBJzwOSnH8Yamvaj UIshNB6eNZ6clSeumJZojF NcXBEzCyWsm9qcd102nRSz r9cuNOTDfklweWy2pUheS8 1tm2Q1FiylC15uoTQzUPX2 CUCrIZHjyKCgTEJiXOT2LE GqqYPaX0vkDDJcGY1fawcy DSegQBawQYDvpCJ8SAGpnW XdS1EgMPItCUpsQJHtooy4 HsLxHg3neDMaaGuyBXroEJ JkXHBsYWluXGZzMjAgUEVS SVRPTkVBTCBGTFVJRCAoQ1 vJW3NYVH4ENYLUEWHXUXpS BQTQW1QOGYnxuNumFPRnGZ YbAH7TC7GMUCHLSKLXVuUV ZDtUI59IDsLPPYfTQQIoG4 9NTUVOVClccGFyfXtccnRm NPffu0MbDQobYEQbRF1vxO pfZFCzDU2tWUTqY3bakB6d dxy5ZgYcGBZwJeK5JSYyaz V5Xic3VIJwQOnok7ehx7Bw RLMwWUs2mMpkQcQbTUKye4 lzcyBcZmNoYXJzZXQwIEFy qMFmH013a8azu3kbqbSurI M0CVBtUAI9KMbnvdQczuP6 NFrkyKTlSyS7VOgtpaSyRZ vijzVkchKuAik3XZZrI253 UGO2cQjtu1vvUXK3BPJrQV XkUiMgJf2qcAUtD984VZGx GDSVSWEuoUw2TERdraBajp JyhDXKi759R033u6rgERDl fwIpyNnMspbej7dcH126TS BhcGVydzEyMjQwXHBhcGVy aVS0MCJaBL2jfvcvOMljSH cgGVJhyvU3ODAfqXByO0Im BCRzHT0hrzbqEGE8CUliSJ SfWWZ8WkYyBMVrs4Sihih9 OtGrre7dje82IDP4z6AxpE xjMOE0JQQ9XgQtNq1djIBj ZXWqZN9uCxUmgIHxAATsuv 87rSqtLJszHMJ0GOOwyxXn g3Pve3bvYeGielIqL3keV2 JyZHJoZWFkXHBnYnJkcmZv d5Aep9PzwHUhgHi7l7omKN XzCEDuhSasj0ysPFT4EVGo wEXnX7gcqP4mMOEcVS6vru acx7qpSRrwXAzaFXNitRZ2 qxL0UWOzyPIyJ9QkiP0eKS YcTZinNRYoiim0AzQmXb0o dGVyeTcyMFxzYmtwYWdlXH BnbmNvbnRccGduZGVjXHBs YWluXHBsYWluXGYwXGZzMj RccWxcbGFuZzEwMzNcaGlj aFxmMVxkYmNoXGYxXGxvY2 tyGnWlUqQqLqe0YOKeuNQj HUEcWuq0RHJvyTDeCWHLeG fwbM8nGAOdgOpszK8usKL0 TMIoysWlkHNXuU3vEFLPjF 0qNaS5NPXqLqy9VSJ3JfCa cGFyfX0= COMMENT (test code = q0gkkPSqOCEmaZV7GcKeEO 1970) Rdf5ahe4WemTZjrFSdLSyt nKGamcSvwk53aAJ7yS57YF 5yPDNkHnJ7YGEjgsD0Ybe8 SXNmZXBglSJtT303x9vbz6 cknjVbxLA1fHqcXVMztnrj NqJ8NBynCOVtgsehLYp7WK quKEUsqXJ8OBLnpFWaL4Bb ZJCsSD9uyla3CGS1LWmyWN NuZxF9JDFylOKwHIXtxVpv RHepp834PBN0KqNaTMKzwx ScvLvqpH3kVqCwBFEGaGEn s7BbU9ieLI9agRZrQ46ecU 7iUUPtx0FpWlApvWykZNSq NSYnPZXtyMc6LXBpeUIoFS FyuatagAGvc6SyXBsmEJcy X2DtzIVpJDYmsSwrTNG4mE BnYNDwYGdzGTy4eINgo6V3 dGVzLiBccGFyfQ== CPT Code(s) (test code x1dacWPgSFEteCN3FrVdWU = ) Fap8gdu7WnsZMsuYAfXMer jBUfwuPlyp73pSM8nT48FW 9yBVJaKjM8ITGreqM1Swm0 PCMqTLYcdVCjE984i3mff4 epfbWoeTV8bGtzNSRfdtgd QeA5YXjsAJKaatsiJEr1XT aeSKLemLJ2RHSuhSSaP2Pk FXGpAT5gkig6HSR6GAhuBW WuTgY1ZXEtfGPjFNAvhTwj MLhjp879DWO4HqHaREJjyn FeyYqupW7tJqLpKAM8EAAl OCwgODgzMDVccGFyfQ== CLINICAL DATA (test v5fwqRFuVGYqvHT7ChAyRR code = 3355) Fae9zpq4UprKHldQGtWLcg nVNybdGaky25xGB0oB98IO 2zBFXyQbH2FLSstqF8Zgz6 OFSmMSAflAQjO162i2xdq7 fegsJuaIJ3uSgbAKFpdxfx SjR4IGvfIUYlqupkYVc6BM cyBEUrzLC0WJGfaLNgB8Vj XEFjGR8epxm9MTZ5DLdrDI IcXgT8FIVrvFKuSVCdgMag QPzxx481EEC7WzHpMEOymh QiiBajkI6jXbWkNDYSn1Pp tIXpNCUgxLVatN8piIInWW MSODKyp5DlHKNxXTWkT70c d3jpIDH0r3TnBMWmO4YcpA YXYXViKvUogLRJA2SOFGd5 OPHpTwYqAufhvaVmruD3O6 FmUVMGAKzvvNMxl4TkrMQz FWaiqUveXYVrn37rclJbZL HctC3cBPPir7MyQFYfISE8 lZIaHCZqh3HijbGlz35uIZ JMRSBlZGVtYSBhbmQgZHlz pO9sFS9gDv88cxEcfS4trU O1WRWrg4EtaSCqYCQdJZMy wJAuTTI1GQQoeN4eeV3acs lhLiBccGFyfQ== SPECIMEN SOURCE (test m2uwgQTtEBGttDS3WiYtOO code = 3377) Uma5wfp9YpsISpaVFsIIkb bEVriuVdmo80hZC0aP17AR 8fZABsSrK0RBSgxoT2Npi2 BMLqLPMrtFCaM860e1lij7 dzrgAezLE0xDzkQFRdcfmb RzB8VKhlRRQojzayRMf2IE nmSZLcwZW1ZPIcuKXeN7Pw GFXkZH4xzzy0WWD9MXmxWA KrWzL2TIOjzWHoNQZjjYhc VByhe570TOO9YyXvTNXmtx RlhGaseH8iKpJyWRYWBPIP EP8GGBPANKBYZIcDLDGdgh 0= GROSS DESCRIPTION (test s5kwxIOfJHWscCPWHLEjC3 code = 1710188042) dajlGzPCPqkQQqR6Qbrdzr UPvdEF1gFM8zlLjtqNYhoP ZiNT5EFGCvCeHhCFZspRAr zmGaCaUcWJGlaMGtnEK8BF PwVY9kidysKRiwYHkvGNCe hyQ8LSWldASfB8BjSVLuYW 6foxcgJWP1WQdlnM9imaNM AgksHa7jwSAycPckDiQuHd NoYXJzZXQwXGZuaWwgQXJp CXi8dB4KLjdoUSM3WHIACu zeNIMhXS9Bh9bpVXAjnENi UNF3UKelmEGrUZGmTRKaNG y1AMKeSGiilGCiII3grYoz EvhsqCoci3EedGXuEGklLY UzADUgKRboDLHpGT3UPiSb YRK5NVHfKrBpPGc5BRv1UX 0HDsJtRAZdCCIuSTs5GODf KNu3MDzpEG8HPTYyRpDsIB TqQnL3VIH4FSWgUHFpZzIs XGYgQXJpYWwgXFxmbCBcXG 5jfVxwbGFpbiBBLiBQZXJp tH8jOVIlHKVdrSttRzaoTO TxALekVGMuV92gs3LFu4Ax ER5QHDi3wpMagiyygK6lSS QivbQgBGodiZMqU5vnQoEr MCBSZWNlaXZlZCAxNjAwIG 1sIGFtYmVyIGZsdWlkOyBw ruFxQEBcKKU3ZMO9aE9smT vqoeCezyVbZ8DguRZicW7s illROlulQ92icW0mnZ1nWF EaMtprNGN6tNBjG5EixQPr tE1urpN2UKCaGgy9YGLtfD 6tQx3jiEZucP5jVYZbJNwe PsFwyRYvtvT5QnV9KvWpPn INClxwbGFpblxlcGljTmVz nKHaCmIyyVumuT62ODPbkA SeOMQ7JG4kHFUomlebISXq JVZhMQC5LYomhC16tDYkLW PnXZUnhPCujF7UJTLdEYD9 MYsesF72uFTkDE1LCTPqPG B8ZCKgyFBqCRO8BD5giP7C fQ== MICROSCOPIC DESCRIPTION q2shnTUoCKOlkIF9CdEpVV (test code = 3371) Kab5rnm5NhbTWywRRfHIwu oPNpiwDejz70yYQ3wI58LB 4xFUDhZjJ9JONlmqH1Mxx6 PLGwEAUpoMJgA418w2vmj8 eltvLxwBL1oZyzSFLkxjsy ShL7JLugMDHnkvunGFy2LM tgPZDkyVD9YKBmuMFdY7Pr HPSlBV1iqlf7IEU4QAtpGK DrTlS5TKEpsBRiJWXunRyx TNdlc971YTG3NnRiDXMpko EbqEehbM8zGzEaRFKEYDNp o7QmYFLmKPzjAUL6 STATEMENT OF ADEQUACY Satisfactory (test code = 2757) Gross assessment was [facility] performed at (test code [facility], = 2777) Department of Pathology, [address] [place] [id number], Technical component was [facility] performed at ([facility], = 2778) Department of Pathology, [address] [place] [address], Professional component [facility] was performed at ([facility], code = 2779) Department of Pathology, [address] [place] [address], [facility]27 Test Item Value Reference Range Interpretation Comments Case Report (test code [facility] = 104) Report Case: [id number] Authorizing Provider: To Haynes MD Collected: 01/09/2022 04:08 PM Ordering Location: [address] Received: 01/10/2022 10:29 AM Service Pathologist: Lily Patino MD Specimen: Peritoneal Fluid DIAGNOSIS (test code = e4nilNUcEEJqe0atFXJsmX 3220) FuZzEwMzNcZnRuYmpcdWMx IHtccnRmMVxlcGljOTYwMl nvhbUqSBBvqFVtT0Ozoiql KTybHZ0oUR2ooWqblWKzoC KmCRMeAcFdr3qqw714oGUh m2xtHJMQbszmgUv3xTplN0 7uv3C5TsctV58rpWXqTGX6 JWIoNTEocEYyEERiCRB3RE BqhHPbM4uoSFJyTH5tzwbd GVwdCIysZPSjuRS3IQLvzG BcI4GfGYAgGHlkJOBsfsx1 IeAbYf5dkMZjcSjrVXkvJL JkXHBsYWluXGZzMjAgUEVS SVRPTkVBTCBGTFVJRCAoQ1 sII0IJQJ9XOGUQSIAOAFkX KCZMP7ADZFomwOzeBSLdWW CuFO2BI9RXCBOSUCXJEdPA VFvVZ72SNdMNRMjGAQZlM8 9NTUVOVClccGFyfXtccnRm SDjfv5VfMBvnHTYcLO8yiQ qnSUQiDS5uXQYhX8bziH3s dbj5UoZeLOXnZkO3FUPpii D7Scx1WGUjOVzes9pdc8Cs SMEwKMq4kOqiIhSvKJHtv0 lzcyBcZmNoYXJzZXQwIEFy gCAlR366b3whu3sxfiNneW O6TYDmPTG1NOtepzAzcbL8 JPabwJDxDuB2RJzaojFcJT gfpbVbtrEhMuw3ICGlC490 BUP7wGjak5beHWL7WZAoKZ QjOyQbLg6dfNLxI072HMWs FPUDFLSgeRr8VTKkrxDzeq GcmZAJq961O991l9unHSJe ntGfjOzEmbwrw9uuE750NT BhcGVydzEyMjQwXHBhcGVy lJW6BXAeLY7oqsnhEFobSV xbMKUuylY5WTPyoOOcS9Yy CADyFZ6axwwnTPY1ESdjWK MtFQK3OtCrADNkh4Vaaut4 CtHgza6nis24QEF9w5HboL egIMM2UVQ1JnPdHo2orTVj MNExIJ9iAbFshLEaYZQggl 29sYprATagYNK0DNTnucTl u2Hkg5ymUjYjpqFfZ6sjV8 JyZHJoZWFkXHBnYnJkcmZv m8Gza8KimBUwsSw7a5rwTA CoFUKqwJyxh7ctNXG2NENd pJSdQ8rknW3cLCWuOE5gil vnr6wtWDypLNhtESHbmHR7 wyO7OWWkdYToO2DbmG3vCI FqPKwsLDCqsxl0UqJgHz5e dGVyeTcyMFxzYmtwYWdlXH BnbmNvbnRccGduZGVjXHBs YWluXHBsYWluXGYwXGZzMj RccWxcbGFuZzEwMzNcaGlj aFxmMVxkYmNoXGYxXGxvY2 kkYmPvXcYoYvs2ZMGgkRQf YZYnYyz7BIPkoYDgHQMNuG hthQ9wOEMynZlzvN5wyVO5 PEPtrmZmvNBSvS4sYCRNrL 7nHhY8SBOiIht6XBM6IbSs cGFyfX0= COMMENT (test code = s5lckJOzPISpiEK6YsIxWE 5177) Dte0zkr4PajAEbtAYaHXyg vBCgfzDppg08oAL0pD68WF 8gZFKlFvF2YOQxpmY0Flu8 BAWdIFXltFKpV031g1pjq8 rhrlChhSA9wRlfZDJnokim TnO0DYmmYYMsqreeWMv0SB yfYTDibUW2OCGulDMqL7Jz AYVhVO2fqki5PUI7FPomHH IdThT5OVGqmNLyPOAesEwb JExuc802QHR2ChReCBKogb YwqCqfbH1mPrFuDPOTkUNc t0AxX0mtTB5qbWMkP64boD 0jLRPed2LcRsMrtMrbBRCn SZNwITGpbIq9RXSwaEGmDD NgkvfekIHqj6OjSUalSDqm B3DuoQMbJLPcoLdhMCN9eC SyKQDnNByhBUa7rLLvi8Q1 dGVzLiBccGFyfQ== CPT Code(s) (test code m7gzzSUtFHFleSL1QrSkVF = 5459) Eky2pwi0DtzEZfvMUwXWym yWQpayXfco27nHI0iY77KZ 8gOYGxMfT2SJGwtnX9Rzf8 XBGgUJVnwAPnW136q5klv4 thoiNdcBS9iTrrASWgroov JvG5DQnuCZNivqhiXCg9TD rfYZFwoHE8AFKopXVoG7Po YXKqYK4osqr6GDG4ZTatSQ QaByQ2QWHldFEbLSKzaOwo YTast310BGZ0YpShQNXsqh FvlQtbhD9wMpSbQFB2JIZz OCwgODgzMDVccGFyfQ== CLINICAL DATA (test u4zosMXtRFElwWT3BtGwPR code = 1276) Wju7iii8UzhRXtsUKyTCaw hWHsckRcbp43dNR4yS31WP 6hQMMxEcU7VVFuhuD7Cnb1 PJFjBFNudJObI321x0xdi3 sahlUasRS6xNomSUBmkiqo BwW3OKxaUCNyfrgzZIf0BD stZPTkkLU7WQOfwMQjW7Ej ABBpXV8ujdc0YSI4UUgcYF UpTyG3TRUuyTZfGNPhvDnx NGwbj386RBK4IeNoLAGcdc JhpNpenB3qVvJwHRBHn9Ed gHXzMDFvdMNciS6bpPFkSA IJJSKem7TsDATmDGBxP80e d9giBIY2a4ReQFCnX4OdoI GOZCHcDbAqyXQJP6JMRNh1 QWSoJhJfAdndwaEqowI9E9 RlSCGZGOyktQVvo7SnoCSf EJejkYcnHGVid90fivMmXE DewN0bWZDrt3PtKOKdCGA0 rLFmIWJxs5DqctLmn34cHJ JMRSBlZGVtYSBhbmQgZHlz sG0xLP3nDu84koRuwQ6mkZ A7FIYmz6KprGUhVFIkYVFe eGYxXAJ9KNUipT7csO1ylv lhLiBccGFyfQ== SPECIMEN SOURCE (test c3fhyZGdPUTsfMG8SbJrVN code = 3377) Spq6zqp8AoqBJrpOExQRci cEIolbXnsk12iYE3dC36ZU 8gMQGiCrR0KOUqfwN3Xvg4 VKVgZTJwuMNcV439m4bhq9 ssmeXpyKU1lIgbLOXmtntu WkZ5NVhdBAHshprhHKo1LO ygRDLeyUV9BEUznAUcU7El YOMyCM0ezdw7FPD9GFtcJM NeZrK5SMVorTWtUZXgoTft FMggo197DKD2MkZuTHMpdm QulJjjrT8rJdZyVZJOFDCD UT2BCHCRXNQPUKeQRARozx 0= GROSS DESCRIPTION (test o4ammBVnEPTvnFNOLYAnD8 code = 6227660316) dsrzXsJYLxmFCmC8Kpvhdy DRavUK8iML6mlNqyrIZaxT HiBF2RCQEiSuRoBTGwzPSk jyFzBgRiAOXqmVTebQD7PL UkMO3xcxoqATuvQSutFXJq fiW7GDXpyQDlN9AlVTMfOC 5kteqlYFG3RTmzmO5fasOK RkoxLl3jnHEcmQhbPnSjMa NoYXJzZXQwXGZuaWwgQXJp OXq3oW9ROrmhNGC4SPZXOx yjVMOsDF2Av3dqVBUvgWAb FZA0JDwpjTXtVGEbJOUtBE u7XKHkKMbacMHrEM9thKuj IwvuuTacg9YunLAzGPnnOM GiEVRrAZqpZSYvFO8HCzJs ELD9RRIeVfOhAAk0RPl7TI 2ADgEhNZWeVGWqANj8BMWu USy0NQlvFC9ZRZVsXlQpGN RnZsO2PMZ4XUAsPNHqBxDr XGYgQXJpYWwgXFxmbCBcXG 5jfVxwbGFpbiBBLiBQZXJp sD5jZYTlQUMtyOeoSmcvCD MhDVhiDGSrL51zu6YPz9Ll SI9ASIw9tkHiucpujM5sNR PlngBkOLvehEDfF8bjOiFt MCBSZWNlaXZlZCAxNjAwIG 1sIGFtYmVyIGZsdWlkOyBw kvFeGOMhLGM9FJK8dI2upJ atkkQqnqWiN9LouWQjzP0j eanUJjuiL75quS4phV2zZS GpBgwiBMI7oEMyX9MvyPWc bR6deqW4ZXZmFps1FVMdqL 0bQt6cwPDpsI3jQAMbPBdk ZaRrqPLvnrM9BxE2FhBjZg INClxwbGFpblxlcGljTmVz sGFaMyFvdRfhdB95VZQdeY HjLPZ4HU3nGDYxnyqtESFq MAXiJNZ2GBprwS21wTZcUF ZsCSFytMCoyC6ZJYOlUCI1 GImabQ44kGOwAR3ONGUgHG R4NSYtiQQyHEN2GG7ljO6V fQ== MICROSCOPIC DESCRIPTION a4jioPJgEXMjgOH5DfGzZH (test code = 3371) Lyf4gxe3BflYRhbLUxICgx oAQmreCull15pZZ5sW07KX 6qKHQyPdB0YTOqytZ7Ajz6 YFBxNCMlpUKsB184a3imt2 gtzgZavGM3cSzsEOQlzpfg KpC9NYmmQJBbrnmrZXw1FZ gzAURenSW9NYXasODgS1Wu BBTqYH8kpug3YOK7GOsgBU OiIyK3VBNplTPmUFZpvKkw CGqiw671XKL7TaVjUTBcxk SymGsnxF3nSvAdWZEZAGNl n6HbCCFdPTdkUCO5 STATEMENT OF ADEQUACY Satisfactory (test code = 2757) Gross assessment was [facility] performed at ([facility], = 2777) Department of Pathology, [address] [place] [address], Technical component was [facility] performed at ([facility], = 2778) Department of Pathology, [address] [place] [address] 30157, Professional component [facility] was performed at ([facility], code = 2779) Department of Pathology, [address] [place] [address], [facility] 18:18:27Medical Cytology Report Case: [id number] Authorizing Provider: To Haynes MD Collected: 01/09/2022 0 4:08 PM Ordering Location: [address] Received: 01/10/2022 10:29 AM Service Pathologist: Lily Patino MD Specimen: Peritoneal Fluid PERITONEAL FLUID (CYTOSPINS AND CELL BLOCK): - NEGATIVE FOR MALIGNANCY (SEE COMMENT) Signing Pathologist Direct Phone Line: [phone] signed by Lily Patino MD on 01/12/2022 at 6:18 PMThe specimen is composed of benign and reactive appearing mesothelial cells admixed with small lymphocytes. 18059, 70549Tmhjlfi, cirrhosis, ESLD sec to Alcohol abuse, recent GIB from NSAID's induced PUD, presented with abdominal pain associated with distension, BLE edema and dyspnea. Found to have ascites and suspected pneumonia. PERITONEAL FLUIDA. Peritoneal Fluid.Received 1600 ml mainor fluid; prepared 4 cytospins and cell block(A2)(collodion bag) - the cell block was fixed in formalin at 5:03 pm on 01/10/2022erformed. [facility], Department of Pathology, [address] [place] [address], [facility], [address] [place] [address], [facility], Department of Pathology, [address] [place] [address], Citopl Culture + Gram [id number] 13:56:33 Test Item Value Reference Range Interpretation Comments Result (test code = 2+ Normal respiratory 6463-4) meghna present Gram Stain Result <1+ yeast (test code = 1123) [facility] Gram [id number] 13:56:33 Test Item Value Reference Range Interpretation Comments Result (test code = 2+ Normal respiratory 6463-4) meghna present Gram Stain Result <1+ yeast (test code = 1123) [facility] Gram [id number] 13:56:33 Test Item Value Reference Range Interpretation Comments Result (test code = 2+ Normal respiratory 6463-4) meghna present Gram Stain Result <1+ yeast (test code = 1123) [facility] + GRAM [id number] 13:56:33 Test Item Value Reference Range Interpretation Comments CULTURE (BEAKER) 2+ Normal respiratory (test code = 1095) meghna present GRAM STAIN RESULT <1+ WBCs (BEAKER) (test code = 1123) GRAM STAIN RESULT 0-5 epithelial cells (BEAKER) (test code = 58677) GRAM STAIN RESULT <1+ gram negative rods (BEAKER) (test code = 43972) GRAM STAIN RESULT <1+ gram positive rods (BEAKER) (test code = 726853) GRAM STAIN RESULT <1+ gram negative cocci (BEAKER) (test code = in pairs 300621) GRAM STAIN RESULT <1+ gram positive cocci (BEAKER) (test code = in pairs 047123) GRAM STAIN RESULT <1+ yeast (BEAKER) (test code = 810608) U/S, [id number] 13:01:00Labs to be ordered:->No Labs NeededReason for exam:->ascites [facility]: 1970 Sex: FFINALREPORT Ultrasound guided paracentesis. Clinical History: Ascites. Sedation: None. Fuel Yard Operator: Comfort Estevez PA-C Propagation Manager: None. Estimated Blood Loss: < 1 cc. [...] was achieved with 2% lidocaine, a 5 Zambian one-step catheter was advanced into the peritoneal cavity under ultrasound guidance. After completion of drainage, the catheter was removed. There was no evidence of complication. Impression:Successful ultrasound guided paracentesis. Signed: Ty Melgar Verified Date/Time: 01/12/2022 13:01:26 Reading Location: [address] Ultrasound Reading Room Electronically signed by: TY MELGAR M.D. on 01:01 PMHEPATITIS B SURFACE [id number] 06:10:13 Test Item Value Reference Range Interpretation Comments HEPATITIS B SURFACE ANTIBODY < mIU/mL <8.0 (BEAKER) (test code = 647) Chassis Wirer ID - REYNALDO MCALCIUM, [id number] 05:57:54 Test Item Value Reference Range Interpretation Comments CALCIUM IONIZED (BEAKER) (test 1.04 mmol/L 1.12-1.27 L code = 698) PH, BLOOD (BEAKER) (test code = 7.45 1810) HEPATITIS B CORE ANTIBODY, [id number] 05:54:43 Test Item Value Reference Range Interpretation Comments HEPATITIS B CORE TOTAL ANTIBODY Nonreactive Nonreactive (BEAKER) (test code = 497) Chassis Wirer ID - REYNALDO MBASIC METABOLIC [id number] 05:53:19 Test Item Value Reference Range Interpretation [...] not appl icable for dialysis patien ts Chassis Wirer ID - REYNALDO MSpecimen moderately [id number] 05:50:40 Test Item Value Reference Range Interpretation Comments MAGNESIUM (BEAKER) (test code = 1.8 mg/dL 1.6-2.6 627) Chassis Wirer ID - REYNALDO [id number] 05:50:40 Test Item Value Reference Range Interpretation Comments PHOSPHORUS (BEAKER) (test code = 2.3 mg/dL 2.3-4.7 604) Chassis Wirer ID - REYNALDO MCBC W/PLT COUNT & AUTO [id number] 05:12:03 Test Item Value Reference Range Interpretation [...] PERCENT (BEAKER) (test code = 2801) POC-Glucose [id number] 21:06:32 Test Item Value Reference Range Interpretation Comments POC-Glucose Meter (test 127 mg/dL 70-110 H : TE STED AT [facility] code = 1538) [address] [facility] [place], 770 30: Chassis Wirer/Techni alley ID = [id number] for AUDREY, TIA Lab Interpretation (test Abnormal code = 28694-7) [facility] HospitalPOC-Glucose [id number] 21:06:32 Test Item Value Reference Range Interpretation Comments POC-Glucose Meter (test 127 mg/dL 70-110 H : TE STED AT [facility] code = 1538) [address] [facility] [place], 770 30: Chassis Wirer/Techni alley ID = [id number] for AUDREY, TIA Lab Interpretation (test Abnormal code = 03375-9) [facility] HospitalPOC-Glucose [id number] 21:06:32 Test Item Value Reference Range Interpretation Comments POC-Glucose Meter (test 127 mg/dL 70-110 H : TE STED AT [facility] code = 1538) [address] [facility] [place], 770 30: Chassis Wirer/Techni alley ID = [id number] for AUDREY, TIA Lab Interpretation (test Abnormal code = 27381-6) [facility] [id number] 21:06:32 Test Item Value Reference Range Interpretation Comments POC-GLUCOSE METER 127 mg/dL 70-110 H : TESTED A T [facility] 6720 (BEAKER) (test code = MANDA Shipley [facility], 1538) [address]: Chassis Wirer/Techni alley ID = [id number] for CR ISWELL, TIA Body fluid culture + gram [id number] 18:14:25 Test Item Value Reference Range Interpretation Comments Result (test code = 6463-4) No growth [facility] HospitalBody fluid culture + gram [id number] 18:14:25 Test Item Value Reference Range Interpretation Comments Result (test code = 6463-4) No growth [facility] HospitalBody fluid culture + gram [id number] 18:14:25 Test Item Value Reference Range Interpretation Comments Result (test code = 6463-4) No growth [facility]AM [id number] 18:14:25 Test Item Value Reference Range Interpretation Comments CULTURE (BEAKER) (test code = 1095) No growth MRSA [id number] 12:25:48 Test Item Value Reference Range Interpretation Comments Result (test code = 6463-4) No MRSA isolated [facility] HospitalMRSA [id number] 12:25:48 Test Item Value Reference Range Interpretation Comments Result (test code = 6463-4) No MRSA isolated [facility] HospitalMRSA [id number] 12:25:48 Test Item Value Reference Range Interpretation Comments Result (test code = 6463-4) No MRSA isolated [facility] HospitalMRSA [id number] 12:25:48 Test Item Value Reference Range Interpretation Comments CULTURE (BEAKER) (test code No MRSA isolated = 1095) VANCOMYCIN LEVEL, [id number] 10:26:28 Test Item Value Reference Range Interpretation Comments VANCOMYCIN TROUGH (BEAKER) (test 11.7 ug/mL 10.0-20.0 code = 522) Chassis Wirer ID - LMU/S, [id number] 07:46:00Labs to be ordered:->Body Fluid Culture (w/Gram Stain, C\T\S)Labs to be ordered:->Anaerobic Culture (w/Gram Stain)Reason for exam:->diagnostic and therapeutic [facility] : 1970 Sex: FFINALREPORT Ultrasound guided paracentesis Clinical History: Ascites. Sedation: None. Fuel Yard Operator: Sallie Hill PA-C Supervising Physician: Jacek Santo MD Propagation Manager: None. Estimated Blood Loss: < 1 mL. [...] anesthesia was achieved with lidocaine, a 5 Zambian one-step catheter was advanced into the peritoneal cavity under ultrasoundguidance. After completion of drainage, the catheter was removed. There was no evidence of complication. Impression:Successful ultrasound guided paracentesis. Signed: Jacek Santo MDRepexcelsior springs medical center Verified Date/Time: 01/11/2022 07:46:45 Reading Location: [address] Ultrasound Reading Room BASIC METABOLIC [id number] 05:42:30 Test Item Value Reference Range Interpretation [...] not appl icable for dialysis patien ts Chassis Wirer LOUIS ANAYA WSpecimen moderately [id number] 05:38:42 Test Item Value Reference Range Interpretation Comments MAGNESIUM (BEAKER) (test code = 1.5 mg/dL 1.6-2.6 L 627) Chassis Wirer LOUIS ANAYA [id number] 05:38:42 Test Item Value Reference Range Interpretation Comments PHOSPHORUS (BEAKER) (test code = 2.7 mg/dL 2.3-4.7 604) Chassis Wirer LOUIS ANAYA WCBC W/PLT COUNT & AUTO [id number] 05:16:45 Test Item Value Reference Range Interpretation [...] PERCENT (BEAKER) (test code = 2801) CALCIUM, [id number] 05:06:00 Test Item Value Reference Range Interpretation Comments CALCIUM IONIZED (BEAKER) (test 1.01 mmol/L 1.12-1.27 L code = 698) PH, BLOOD (BEAKER) (test code = 7.45 1810) Venous doppler legs [id number] 15:35:44Ejection FractionSLEH ECHO HEARTLAB [facility]Wh[facility] HospitalVenous doppler legs bilateral 2022-01-10 15:35:44Ejection FractionSLEH ECHO HEARTLAB [facility] legs [id number] 15:35:44Ejection FractionSLE ECHO HEARTLAB [facility] HospitalProtein, body [id number] 09:30:46 Test Item Value Reference Range Interpretation Comments Protein, Fluid (test <0.6 g/dL code = 2881-1) VALERIA (test code = Absence of reference VALERIA) range indicates that normals have not been defined.Assay performance has not been validated for this type of specimen. Chassis Wirer ID - JORGE [facility] HospitalProtein, body [id number] 09:30:46 Test Item Value Reference Range Interpretation Comments Protein, Fluid (test <0.6 g/dL code = 2881-1) VALERIA (test code = Absence of reference VALERIA) range indicates that normals have not been defined.Assay performance has not been validated for this type of specimen. Chassis Wirer ID - JORGE [facility] HospitalProtein, body [id number] 09:30:46 Test Item Value Reference Range Interpretation Comments Protein, Fluid (test <0.6 g/dL code = 2881-1) VALERIA (test code = Absence of reference VALERIA) range indicates that normals have not been defined.Assay performance has not been validated for this type of specimen. Chassis Wirer ID - JORGE [facility] HospitalPROTEIN, BODY [id number] 09:30:46 Test Item Value Reference Range Interpretation Comments PROTEIN FLUID (BEAKER) (test code = < g/dL 579) Absence of reference range indicates that normals have not been defined.Assay performance has not been validated for this type of specimen.Chassis Wirer ID - JORGEAlbumin, body [id number] 09:28:34 Test Item Value Reference Range Interpretation Comments Albumin, Fluid (test <0.5 gm/dL code = 1747-5) VALERIA (test code = Reference Range: No VALERIA) Normals Assay performance has not been validated for this type of specimen.Chassis Wirer ID - JORGE [facility] HospitalAlbumin, body [id number] 09:28:34 Test Item Value Reference Range Interpretation Comments Albumin, Fluid (test <0.5 gm/dL code = 1747-5) VALERIA (test code = Reference Range: No VALERIA) Normals Assay performance has not been validated for this type of specimen.Chassis Wirer LOUIS - JORGE [facility] HospitalAlbumin, body [id number] 09:28:34 Test Item Value Reference Range Interpretation Comments Albumin, Fluid (test <0.5 gm/dL code = 1747-5) VALERIA (test code = Reference Range: No VALERIA) Normals Assay performance has not been validated for this type of specimen.Chassis Wirer ID - JORGE [facility] HospitalALBUMIN, BODY [id number] 09:28:34 Test Item Value Reference Range Interpretation Comments ALBUMIN FLUID (BEAKER) (test code = < gm/dL 501) Reference Range: No Normals Assay performance has not been validated for this type of specimen.Chassis Wirer ID - DSENSONBASIC METABOLIC [id number] 07:42:35 Test Item Value Reference Range Interpretation [...] not appl icable for dialysis patien ts Chassis Wirer ID - PIAYA LSpecimen moderately [id number] 06:43:54 Test Item Value Reference Range Interpretation Comments MAGNESIUM (BEAKER) (test code = 1.6 mg/dL 1.6-2.6 627) Chassis Wirer ID - PIAYA LHEPATIC FUNCTION [id number] 06:43:54 Test Item Value Reference Range Interpretation [...] (test code = 39 U/L 6-55 347) Chassis Wirer ID - RONAL LSpecimen moderately ictericB-TYPE NATRIURETIC FACTOR (BNP) 2022-01-10 06:17:21 Test Item Value Reference Range Interpretation Comments B-TYPE NATRIURETIC PEPTIDE (BEAKER) 421 pg/mL 0-100 H (test code = 700) Chassis Wirer ID - RONAL LHEMOGLOBIN AND [id number] 06:00:04 Test Item Value Reference Range Interpretation Comments HEMOGLOBIN (BEAKER) (test code = 7.9 GM/DL 11.2-15.7 L 410) HEMATOCRIT (BEAKER) (test code = 23.6 % 34.1-44.9 L 411) Chassis Wirer ID - 6000Operator ID - [id number] TIME/[id number] 05:34:34 Test Item Value Reference Range Interpretation Comments PROTIME (BEAKER) 22.6 seconds 11.9-14.2 H (test code = 759) INR (BEAKER) (test 2.14 See_Comment [Automat ed message] code = 370) The system [employer] generated this result transmitted ref erence range: <=5.90. The reference range was not used to int erpret this result as normal/abnormal . RECOMMENDED COUMADIN/WARFARIN INR THERAPY RANGESSTANDARD DOSE: 2.0 - 3.0 Includes: PROPHYLAXIS for venous thrombosis, systemic embolization; TREATMENT for venous thrombosis and/or pulmonary embolus.HIGH RISK: Target INR is 2.5-3.5 for patients with mechanical heart valves.U/S, ABDOMINAL, WITH [id number] 04:49:00Reason for exam:->new onset ascites, rule [facility] : 1970 Sex: FFINALREPORT [...] = 50 See_Comment H [Automate d message] 87138-7) The system [employer] generated this result transmit mena reference range : <=1 /cu mm. The reference range was not used to interpret this result as normal/abnormal . Adjusted WBC Count 50 See_Comment H [Automat ed message] (test code = 82923-5) The sy stem which generated this result transmit mena reference range : <=5 /cu mm. The reference range was not used to interpret this result as normal/abnormal . Lining Cells (test code 2 See_Comment H [Au tomated message] = 37461-7) The system [employer] generated this result transmit mena reference range : <=1 /cu mm. The reference range was not used to interpret this result as normal/abnormal . % Segs (test code = 9 % 36270-8) % Lymphs (test code = 10 % 84585-8) % Monos (test code = 81 % 65014-0) % Eos (test code = 0 % 20475-8) % Baso (test code = 0 % 28580-0) Container Body Fluid EDTA Tube (test code = 2873) Lab Interpretation Abnormal (test code = 75820-6) [facility] HospitalBody fluid cell count with cdahgxerlfbw3474-31-94 19:01:00 Test Item Value Reference Range Interpretation Comments Appearance (test code = Clear Clear 9335-1) Color (test code = Yellow Colorless, Straw A 6824-7) RBCs (test code = 50 See_Comment H [Automate d message] 74606-9) The system [employer] generated this result transmit mena reference range : <=1 /cu mm. The reference range was not used to interpret this result as normal/abnormal . Adjusted WBC Count 50 See_Comment H [Automat ed message] (test code = 73478-3) The sy stem which generated this result transmit mena reference range : <=5 /cu mm. The reference range was not used to interpret this result as normal/abnormal . Lining Cells (test code 2 See_Comment H [Au tomated message] = 56427-4) The system [employer] generated this result transmit mena reference range : <=1 /cu mm. The reference range was not used to interpret this result as normal/abnormal . % Segs (test code = 9 % 91485-6) % Lymphs (test code = 10 % 52065-4) % Monos (test code = 81 % 51013-7) % Eos (test code = 0 % 10508-0) % Baso (test code = 0 % 19006-4) Container Body Fluid EDTA Tube (test code = 2873) Lab Interpretation Abnormal (test code = 92262-4) [facility] HospitalBody fluid cell count with [id number] 19:01:00 Test Item Value Reference Range Interpretation Comments Appearance (test code = Clear Clear 9335-1) Color (test code = Yellow Colorless, Straw A 6824-7) RBCs (test code = 50 See_Comment H [Automate d message] 80311-1) The system [employer] generated this result transmit mena reference range : <=1 /cu mm. The reference range was not used to interpret this result as normal/abnormal . Adjusted WBC Count 50 See_Comment H [Automat ed message] (test code = 46847-2) The sy stem which generated this result transmit mena reference range : <=5 /cu mm. The reference range was not used to interpret this result as normal/abnormal . Lining Cells (test code 2 See_Comment H [Au tomated message] = 84561-9) The system [employer] generated this result transmit mena reference range : <=1 /cu mm. The reference range was not used to interpret this result as normal/abnormal . % Segs (test code = 9 % 35411-6) % Lymphs (test code = 10 % 97725-2) % Monos (test code = 81 % 16229-6) % Eos (test code = 0 % 04912-0) % Baso (test code = 0 % 92023-9) Container Body Fluid EDTA Tube (test code = 2873) Lab Interpretation Abnormal (test code = 86836-7) [facility] HospitalBODY FLUID CELL COUNT WITH [id number] 19:01:00 Test Item Value Reference Range Interpretation [...] code = 2873) SPUTUM CULTURE + GRAM [id number] 17:53:29 Test Item Value Reference Range Interpretation Comments CULTURE (BEAKER) Oropharyngeal (test code = 1095) contamination, specimen rejected. Recollect requested. GRAM STAIN RESULT 1+ WBCs (BEAKER) (test code = 1123) GRAM STAIN RESULT >25/LPF epithelial cells (BEAKER) (test code = 14072) GRAM STAIN RESULT 1+ gram negative rods (BEAKER) (test code = 73614) GRAM STAIN RESULT 1+ gram positive rods (BEAKER) (test code = 070923) GRAM STAIN RESULT 1+ gram negative cocci in (BEAKER) (test code pairs = 108230) GRAM STAIN RESULT 2+ gram positive cocci in (BEAKER) (test code chains, pairs and = 895272) clusters Strep pneumoniae [id number] 17:04:46 Test Item Value Reference Range Interpretation Comments Strep pneumoniae Presumptive negative Presumptive Antigen (test code = [place] [address]-1) pneumonia - see pneumococcal comment pneumonia - [...] test. Lab Interpretation Normal (test code = 85413-0) [facility] [id number] 17:04:46 Test Item Value Reference Range Interpretation Comments Strep pneumoniae Presumptive negative Presumptive Antigen (test code = [place] [address]-0) pneumonia - see pneumococcal comment pneumonia - [...] test. Lab Interpretation Normal (test code = 37313-4) [facility] [id number] 17:04:46 Test Item Value Reference Range Interpretation Comments Strep pneumoniae Presumptive negative Presumptive Antigen (test code = [place] [address]-3) pneumonia - see pneumococcal comment pneumonia - [...] test. Lab Interpretation Normal (test code = 00149-8) [facility] HospitalTRE PNEUMONIAE [id number] 17:04:46 Test Item Value Reference Range Interpretation [...] detection limit of the test. Legionella antigen, [id number] 17:03:49 Test Item Value Reference Range Interpretation Comments Legionella Urine Negative - see Negative for L. Antigen (test code comment pneumophi la = 08409-4) serogroup 1 ant igen, suggesting no r ecent or current infe ction with this serog roup. Legionellosis c annot be ruled out si nce other serogroup s and species may cau se disease. [facility] HospitalLegionella antigen, [id number] 17:03:49 Test Item Value Reference Range Interpretation Comments Legionella Urine Negative - see Negative for L. Antigen (test code comment pneumophi la = 85880-8) serogroup 1 ant igen, suggesting no r ecent or current infe ction with this serog roup. Legionellosis c annot be ruled out si nce other serogroup s and species may cau se disease. [facility] HospitalLegionella antigen, [id number] 17:03:49 Test Item Value Reference Range Interpretation Comments Legionella Urine Negative - see Negative for L. Antigen (test code comment pneumophi la = 83530-7) serogroup 1 ant igen, suggesting no r ecent or current infe ction with this serog roup. Legionellosis c annot be ruled out si nce other serogroup s and species may cau se disease. [facility]ION[facility]LL[facility] ANTIGEN, [id number] 17:03:49 Test Item Value Reference Range Interpretation [...] se disease. CBC W/PLT COUNT & AUTO [id number] 07:35:58 Test Item Value Reference Range Interpretation [...] (BEAKER) (test code = 2801) COMPREHENSIVE METABOLIC [id number] 07:06:40 Test Item Value Reference Range Interpretation [...] St age Description sq m Result G1 Norm al or [...] not appl icable for dialysis patien ts Chassis Wirer ID - REYNALDO MSpecimen moderately ictericPROTHROMBIN TIME/[id number] 06:48:07 Test Item Value Reference Range Interpretation Comments PROTIME (BEAKER) 21.2 seconds 11.9-14.2 H (test code = 759) INR (BEAKER) (test 1.89 See_Comment [Automat ed message] code = 370) The system TourPal generated this result transmitted ref erence range: [...] Interpretation Comments SCAN RESULT (test code = 5803404) BLOOD [id number] 14:00:49 Test Item Value Reference Range Interpretation Comments CULTURE (BEAKER) (test No growth in 5 days code = 1095) BLOOD [id number] 14:00:49 Test Item Value Reference Range Interpretation [...] Unit ABO (test code = O Pos 1682718) UNIT NUMBER (test code = [id number] 934-0) Status (test code = 0994123) TX_TIMEINCHART Blood Bank Product (test code RED BLOOD CELLS = 2263) PRODUCT CODE (test code = [id number] 933-2) [facility]uk[facility]Red [id number] 23:54:00 Test Item Value Reference Range Interpretation Comments CROSSMATCH (test code = 2264) COMPATIBLE Unit ABO (test code = O Pos 7967070) UNIT NUMBER (test code = [id number] 934-0) Status (test code = 1032508) TX_TIMEINCHART Blood Bank Product (test code RED BLOOD CELLS = 2263) PRODUCT CODE (test code = H2038P02 933-2) [facility]uk[facility]Red [id number] 23:54:00 Test Item Value Reference Range Interpretation Comments CROSSMATCH (test code = 2264) COMPATIBLE Unit ABO (test code = O Pos 0802847) UNIT NUMBER (test code = [id number] 934-0) Status (test code = 9085802) [facility] Product (test code RED BLOOD CELLS = 2263) PRODUCT CODE (test code = [id number] 933-2) [facility] Leuko-Red [id number] 23:54:00 Test Item Value Reference Range Interpretation Comments CROSSMATCH (test code = 2264) COMPATIBLE Unit ABO (test code = O Pos 7476837) UNIT NUMBER (test code = [id number] 934-0) Status (test code = 3359837) [facility] Blood Bank Product (test code RED BLOOD CELLS = 2263) PRODUCT CODE (test code = Z0540D51 933-2) [facility] HospitalMR[facility] [id number] 10:57:18 Test Item Value Reference Range Interpretation Comments Result (test code = 6463-4) No MRSA isolated [facility] [id number] 10:57:18 Test Item Value Reference Range Interpretation Comments CULTURE (BEAKER) (test code No MRSA isolated = 1095) [id number] 06:39:34 Test Item Value Reference Range Interpretation Comments FERRITIN (BEAKER) (test code = 428.99 ng/mL 5.00-275.00 H 361) Chassis Wirer ID - REYNALDO MHEPATITIS A ANTIBODY, [id number] 04:03:23 Test Item Value Reference Range Interpretation Comments HEPATITIS A IGG ANTIBODY (BEAKER) Reactive Nonreactive A (test code = 2797) Chassis Wirer ID - REYNALDO MBASIC METABOLIC [id number] 04:01:22 Test Item Value Reference Range Interpretation [...] decreased 60-89 G3a Mildl y to moderately 45- 59 G3b Moderately to s everely 30-44 G4 Severl y decreased 15-29 G5 Kidney failure <15Reported eGF R is based on the CKD-EPI 2020 equation that d oes not use a race coefficientEsti mated GFR is not as accur ate as Creatinine Francia jeremias in predicting glom erular filtration rate . Estimated GFR is not appl icable for dialysis patien ts Chassis Wirer ID - REYNALDO MSpecimen moderately ictericHEPATITIS B CORE ANTIBODY, IGM 2021-12-29 03:59:34 Test Item Value Reference Range Interpretation Comments HEPATITIS B CORE IGM ANTIBODY Nonreactive Nonreactive (BEAKER) (test code = 645) Chassis Wirer ID - REYNALDO MHEPATITIS C [id number] 03:59:34 Test Item Value Reference Range Interpretation Comments HEPATITIS C ANTIBODY (BEAKER) Nonreactive Nonreactive (test code = 367) Chassis Wirer ID - REYNALDO MHEPATITIS B SURFACE [id number] 03:59:33 Test Item Value Reference Range Interpretation [...] % 20-55 H (test code = 2590) Chassis Wirer ID - REYNALDO [id number] 03:44:11 Test Item Value Reference Range Interpretation Comments MAGNESIUM (BEAKER) (test code = 1.9 mg/dL 1.6-2.6 627) Chassis Wirer ID - REYNALDO MHEPATIC FUNCTION [id number] 03:44:11 Test Item Value Reference Range Interpretation [...] (test code = 51 U/L 6-55 347) Chassis Wirer ID - REYNALDO MSpecimen moderately tmuzpbzJFNXP-9-NOAHVBRKLPZ8118-09-03 03:38:28 Test Item Value Reference Range Interpretation Comments ALPHA-1 ANTITRYPSIN (BEAKER) 217.60 mg/dL 90.00-200.00 H (test code = 502) Chassis Wirer ID - REYNALDO MPROTHROMBIN TIME/[id number] 03:28:23 Test Item Value Reference Range Interpretation Comments PROTIME (BEAKER) 21.8 seconds 11.9-14.2 H (test code = 759) INR (BEAKER) (test 2.04 See_Comment [Automat ed message] code = 370) The system [employer]Pal generated this result transmitted ref erence range: [...] (BEAKER) (test code = 413) HEMOGLOBIN AND [id number] 15:58:32 Test Item Value Reference Range Interpretation Comments HEMOGLOBIN (BEAKER) (test code = 7.9 GM/DL 11.2-15.7 L 410) HEMATOCRIT (BEAKER) (test code = 22.0 % 34.1-44.9 L 411) Chassis Wirer ID - 6000HEPATIC FUNCTION [id number] 08:36:48 Test Item Value Reference Range Interpretation [...] Specimen slightly (test code = 347) hemolyzed Chassis Wirer ID - REYNALDO MSpecimen moderately ictericU/S, ABDOMINAL, [id number] 08:02:00Abdomen limited area? Add comment if clarification is needed.->Right upper quadrantReason for exam:->Elevated LFTs, suspect cirrhosis [facility] : 1970 Sex: FFINALREPORT Right Upper Quadrant Ultrasound History: Abnormal liver function tests Comparison: none Findings:Liver appears echogenic, with a mildly nodular contour. No definite hepatic mass or intrahepatic biliary dilation. Patient is status post cholecystectomy per clinical history. Common bile duct measures ninemm. Main portal vein appears patent, with hepatofugal flow. The main portal vein rvnshwld84cm in diameter. Pancreas not well seen due [...] not appl icable for dialysis patien ts Chassis Wirer ID - RONAL LSpecimen moderately [id number] 06:54:35 Test Item Value Reference Range Interpretation Comments MAGNESIUM (BEAKER) 1.9 mg/dL 1.6-2.6 Specimen slightly (test code = 627) hemolyzed Chassis Wirer ID - RONAL LCBC (HEMOGRAM ONLY)2021-12-28 06:40:17 [...] (BEAKER) (test code = 413) HEMOGLOBIN AND [id number] 00:06:21 Test Item Value Reference Range Interpretation Comments HEMOGLOBIN (BEAKER) (test code = 6.7 GM/DL 11.2-15.7 L 410) HEMATOCRIT (BEAKER) (test code = 19.7 % 34.1-44.9 L 411) Chassis Wirer ID - 6000Urinalysis w/Microscopic + Reflex to [id number] 20:58:23 Test Item Value Reference Range Interpretation Comments Color, UA (test code Brown = 5778-6) Clarity, UA (test Hazy code = 5767-9) Specific Ong, UA 1.028 1.001-1.035 (test code = 5811-5) pH, UA (test code = 6.0 5.0-8.0 5803-2) Protein, UA (test 30 mg/dL Negative A code = 60086-8) Glucose, UA (test Negative Negative code = 365) Ketones, UA (test Negative Negative code = 2514-8) Bilirubin, UA (test Positive Negative A code = 11915-4) Blood, UA (test code Negative Negative = 38477-4) Nitrite, UA (test Negative Negative code = 5802-4) Leukocytes, UA (test Trace Negative A code = 5799-2) Urobilinogen, UA 0.2 mg/dL 0.2-1.0 (test code = 79415-2) RBC, UA (test code = <1 See_Comment [Autom ated 10441-7) message] The system which generated this result [...] . Bacteria, UA (test Rare code = 87195-4) Squam Epithel, UA 10 See_Comment [Automate d (test code = 85458-8) messag e] The system which generated this result transmit mena reference range : /HPF. The reference range was not used to interpret this result as normal/abnormal . Crystals, Urine (test None Seen code = 36901-3) Specimen Source (test code = 2795) VALERIA (test code = VALERIA) Chassis Wirer ID - [auto]Chassis Wirer ID - tech Lab Interpretation Abnormal (test code = 02140-4) [facility] HospitalUrinal[facility] w/Microscopic + Reflex to Culture 2021-12-27 20:58:23 Test Item Value Reference Range Interpretation Comments Color, UA (test code Brown = 5778-6) Clarity, UA (test Hazy code = 5767-9) Specific Ong, UA 1.028 1.001-1.035 (test code = 5811-5) pH, UA (test code = 6.0 5.0-8.0 5803-2) Protein, UA (test 30 mg/dL Negative A code = 93860-7) Glucose, UA (test Negative Negative code = 365) Ketones, UA (test Negative Negative code = 2514-8) Bilirubin, UA (test Positive Negative A code = 61020-8) Blood, UA (test code Negative Negative = 81722-2) Nitrite, UA (test Negative Negative code = 5802-4) Leukocytes, UA (test Trace Negative A code = 5799-2) Urobilinogen, UA 0.2 mg/dL 0.2-1.0 (test code = 78060-1) RBC, UA (test code = <1 See_Comment [Autom ated 35024-6) message] The system which generated this result [...] . Bacteria, UA (test Rare code = 83762-3) Squam Epithel, UA 10 See_Comment [Automate d (test code = 70705-0) messag e] The system which generated this result transmit mena reference range : /HPF. The reference range was not used to interpret this result as normal/abnormal . Crystals, Urine (test None Seen code = 87322-6) Specimen Source (test code = 2795) VALERIA (test code = VALERIA) Chassis Wirer ID - [auto]Chassis Wirer ID - tech Lab Interpretation Abnormal (test code = 77516-9) [facility] w/Microscopic + Reflex to Culture 2021-12-27 20:58:23 Test Item Value Reference Range Interpretation Comments Color, UA (test code Brown = 5778-6) Clarity, UA (test Hazy code = 5767-9) Specific Ong, UA 1.028 1.001-1.035 (test code = 5811-5) pH, UA (test code = 6.0 5.0-8.0 5803-2) Protein, UA (test 30 mg/dL Negative A code = 45048-2) Glucose, UA (test Negative Negative code = 365) Ketones, UA (test Negative Negative code = 2514-8) Bilirubin, UA (test Positive Negative A code = 35242-5) Blood, UA (test code Negative Negative = 83290-9) Nitrite, UA (test Negative Negative code = 5802-4) Leukocytes, UA (test Trace Negative A code = 5799-2) Urobilinogen, UA 0.2 mg/dL 0.2-1.0 (test code = 61874-5) RBC, UA (test code = <1 See_Comment [Autom ated 89522-8) message] The system which generated this result [...] . Bacteria, UA (test Rare code = 99857-1) Squam Epithel, UA 10 See_Comment [Automate d (test code = 00847-1) messag e] The system which generated this result transmit mena reference range : /HPF. The reference range was not used to interpret this result as normal/abnormal . Crystals, Urine (test None Seen code = 28342-4) Specimen Source (test code = 2795) VALERIA (test code = VALERIA) Chassis Wirer ID - [auto]Chassis Wirer ID - tech Lab Interpretation Abnormal (test code = 18443-1) [facility] w/Microscopic + Reflex to Culture 2021-12-27 20:58:23 Test Item Value Reference Range Interpretation Comments Color, UA (test code Brown = 5778-6) Clarity, UA (test Hazy code = 5767-9) Specific Ong, UA 1.028 1.001-1.035 (test code = 5811-5) pH, UA (test code = 6.0 5.0-8.0 5803-2) Protein, UA (test 30 mg/dL Negative A code = 50951-6) Glucose, UA (test Negative Negative code = 365) Ketones, UA (test Negative Negative code = 2514-8) Bilirubin, UA (test Positive Negative A code = 92574-5) Blood, UA (test code Negative Negative = 75688-8) Nitrite, UA (test Negative Negative code = 5802-4) Leukocytes, UA (test Trace Negative A code = 5799-2) Urobilinogen, UA 0.2 mg/dL 0.2-1.0 (test code = 33866-3) RBC, UA (test code = <1 See_Comment [Autom ated 25849-3) message] The system which generated this result [...] . Bacteria, UA (test Rare code = 60406-7) Squam Epithel, UA 10 See_Comment [Automate d (test code = 24949-4) messag e] The system which generated this result transmit mena reference range : /HPF. The reference range was not used to interpret this result as normal/abnormal . Crystals, Urine (test None Seen code = 24401-0) Specimen Source (test code = 2795) VALERIA (test code = VALERIA) Chassis Wirer ID - [auto]Chassis Wirer ID - tech Lab Interpretation Abnormal (test code = 94081-4) [facility]/ REFLEX URINE [id number] 20:58:23 Test Item Value Reference Range Interpretation [...] = 1521) SOURCE(BEAKER) (test code = 2795) Chassis Wirer ID - [auto]Chassis Wirer ID - techHEPATITIS PANEL, [id number] 20:23:48 Test Item Value Reference Range Interpretation Comments HEPATITIS A IGM ANTIBODY (BEAKER) Nonreactive Nonreactive (test code = 498) HEPATITIS B CORE IGM ANTIBODY Nonreactive Nonreactive (BEAKER) (test code = 645) HEPATITIS C ANTIBODY (BEAKER) Nonreactive Nonreactive (test code = 367) HEPATITIS B SURFACE ANTIGEN (2) Nonreactive Nonreactive (BEAKER) (test code = 2585) Chassis Wirer ID - ADMINHEMOGLOBIN AND [id number] 19:30:15 Test Item Value Reference Range Interpretation Comments HEMOGLOBIN (BEAKER) (test code = 7.3 GM/DL 11.2-15.7 L 410) HEMATOCRIT (BEAKER) (test code = 21.3 % 34.1-44.9 L 411) Chassis Wirer ID - 6000SARS-CoV2/RT-PCR (Asymptomatic ONLY)2021-12-27 17:24:43 Test Item Value Reference Interpretation Comments Range SARS-COV2/RT-PCR Positive Negative AA The SARS-Co V-2 (test code = target nucleic 42859-9) acids are detec mena in this specime [...] revoked sooner. Fact Sheet for Healthcare Providers: https://www.[employer]/Documents/Xp ert%20Xpress%20SAR S%20CoV-2/Fact%20S heets/302-3802%20S ARS-COV-2%20HEALTH CARE%20PROVIDERS%2 0FACT%20SHEET.pdf Fact Sheet for Healthcare Patients: https://www.[employer]/Documents/Xp ert%20Xpress%20SAR S%20CoV-2/Fact%20S heets/302-3801%20S ARS-COV-2%20PATIEN T%20FACT%20SHEET.p df Lab Interpretation Abnormal (test code = 11291-7) [facility]2021-12-27 17:24:43 Test Item Value Reference Interpretation Comments Range SARS-COV2/RT-PCR Positive Negative AA The SARS-Co V-2 (test code = target nucleic 93471-9) acids are detec mena in this specime [...] revoked sooner. Fact Sheet for Healthcare Providers: https://www.[employer]/Documents/Xp ert%20Xpress%20SAR S%20CoV-2/Fact%20S heets/3023802%20S ARS-COV-2%20HEALTH CARE%20PROVIDERS%2 0FACT%20SHEET.pdf Fact Sheet for Healthcare Patients: https://www.[employer]/Documents/Xp ert%20Xpress%20SAR S%20CoV-2/Fact%20S heets/3023801%20S ARS-COV-2%20PATIEN T%20FACT%20SHEET.p df Lab Interpretation Abnormal (test code = 86828-3) [facility] (As[facility]omatic ONLY)2021-12-27 17:24:43 Test Item Value Reference Interpretation Comments Range SARS-COV2/RT-PCR Positive Negative AA The SARS-Co V-2 (test code = target nucleic 30257-8) acids are detec mena in this specime [...] revoked sooner. Fact Sheet for Healthcare Providers: https://www.[employer]/Documents/Xp ert%20Xpress%20SAR S%20CoV-2/Fact%20S heets/302-3802%20S ARS-COV-2%20HEALTH CARE%20PROVIDERS%2 0FACT%20SHEET.pdf Fact Sheet for Healthcare Patients: https://www.[employer]/Documents/Xp ert%20Xpress%20SAR S%20CoV-2/Fact%20S heets/302-3801%20S ARS-COV-2%20PATIEN T%20FACT%20SHEET.p df Lab Interpretation Abnormal (test code = 27635-9) [facility]omatic ONLY[facility]2021-12-27 17:24:43 Test Item Value Reference Interpretation Comments Range SARS-COV2/RT-PCR Positive Negative AA The SARS-Co V-2 (test code = target nucleic 98115-2) acids are detec mena in this specime [...] revoked sooner. Fact Sheet for Healthcare Providers: https://www.[employer]/Documents/Xp ert%20Xpress%20SAR S%20CoV-2/Fact%20S heets/302-3802%20S ARS-COV-2%20HEALTH CARE%20PROVIDERS%2 0FACT%20SHEET.pdf Fact Sheet for Healthcare Patients: https://www.[employer]/Documents/Xp ert%20Xpress%20SAR S%20CoV-2/Fact%20S heets/302-3801%20S ARS-COV-2%20PATIEN T%20FACT%20SHEET.p df Lab Interpretation Abnormal (test code = 37748-6) [facility])2021-12-27 17:24:43 Test Item [...] corrected resul t. Previous result was Nega tielvia on 12/27/2021 at 163 0 CDT This [...] revoked sooner. Fact Sheet for Healthcare Providers: https://www.[employer]/Documents/Xpert%20Xpress%20SARS%20CoV-2/Fact%20Sheets/302-3802%01WBCU-XOC-3%20 HEALTHCARE%20PROVIDERS%20FACT%20SHEET.pdf Fact Sheet for Healthcare Patients: https://www.[employer]/Documents/Xpert%20Xp ress%20SARS%20CoV-2/Fact%20Sheets/302-3801%96QZCK-XRD-7%20PATIENT%20FACT%20SHEET .kjbMDWHDSHLXKBQO4785-18-00 16:11:33 Test Item Value Reference Range Interpretation Comments PROCALCITONIN (BEAKER) (test code 0.91 ng/mL <0.05 H = 3036) SEPSIS RISK (ng/mL)Low: 0.05-0.50Intermediate: 0.51-2.00High: >=2.01RAD, CHEST, 1 VIEW, NON [id number] 15:12:00Post-intubationReason for exam:- >eval for pulmonary congestionShould this be performed at the [facility]?->YesSV[facility]LANA [facility] : 1970 Sex: FFINALREPORT CLINICAL HISTORY: eval for pulmonary congestion TECHNIQUE: 1 view of thechest. COMPARISON: None IMPRESSION: There are bibasilar lung opacities with small left and trace right pleural effusions. The cardiomediastinal silhouette is magnified by technique. Signed: Chasidy Adhikari MDReprj Verified Date/Time: 12/27/2021 15:12:33 Reading Location: [address] Reading Room [facility] METABOLIC [id number] 14:25:25 Test Item Value Reference Range Interpretation [...] not appl icable for dialysis patien ts Chassis Wirer ID - ADMINSpecimen markedly [id number] 14:20:21 Test Item Value Reference Range Interpretation Comments MAGNESIUM (BEAKER) (test code = 1.8 mg/dL 1.6-2.6 627) Chassis Wirer ID - ADMINHEPATIC FUNCTION [id number] 14:20:21 Test Item Value Reference Range Interpretation [...] (test code = 54 U/L 6-55 347) Chassis Wirer ID - ADMINSpecimen markedly [id number] 14:20:21 Test Item Value Reference Range Interpretation Comments LIPASE (BEAKER) (test code = 749) 26 U/L 8-78 Chassis Wirer ID - ADMINSpecimen markedly ictericLACTIC ACID, [id number] 14:18:24 Test Item Value Reference Range Interpretation Comments LACTATE BLOOD VENOUS (2) (BEAKER) 1.25 mmol/L 0.50-2.20 (test code = 0282) Chassis Wirer ID - ADMINSpecimen markedly [id number] 14:07:20 Test Item Value Reference Range Interpretation Comments FIBRINOGEN LEVEL (BEAKER) (test 145 mg/dl 225-434 L code = 658) [id number] 14:02:54 Test Item Value Reference Range Interpretation Comments PARTIAL THROMBOPLASTIN TIME 45.1 seconds 22.5-36.0 H (BEAKER) (test code = 760) PROTHROMBIN TIME/[id number] 14:01:57 Test Item Value Reference Range Interpretation Comments PROTIME (BEAKER) 22.9 seconds 11.9-14.2 H (test code = 759) INR (BEAKER) (test 2.17 See_Comment [Automat ed message] code = 370) The system [employer] generated this result transmitted ref erence range: [...] (BEAKER) (test code = 413) BLOOD GAS, [id number] 13:40:28 Test Item Value Reference Range Interpretation [...] (BEAKER) (test code = 1819) 21.0 CALCIUM, [id number] 13:40:23 Test Item Value Reference Range Interpretation Comments CALCIUM IONIZED (BEAKER) (test 0.93 mmol/L 1.12-1.27 L code = 698) PH, BLOOD (BEAKER) (test code = 7.48 1810) POC-Glucose [id number] 12:34:41 Test Item Value Reference Range Interpretation Comments POC-Glucose Meter (test 121 mg/dL 70-110 H : TE STED AT [facility] code = 1538) [address] [facility] [place], [address] 30: Chassis Wirer/Techni alley ID = [id number] for BHAVNA BURNHAM Lab Interpretation (test Abnormal code = 63395-5) [facility] HospitalPO[facility]GLUCOSE [id number] 12:34:41 Test Item Value Reference Range Interpretation Comments POC-GLUCOSE METER 121 mg/dL 70-110 H : TESTED A T [facility] [address] (BEAKER) (test code = [facility], 1538) [address]: Chassis Wirer/Techni alley ID = [id number] for ZION DE LA ROSA
[2022-04-26] MEDS ORDERED: IBUPROFEN 400 MG TAB ONE (13:07)
[2022-04-26] MEDS ORDERED: IBUPROFEN 200 MG TAB PO ONE (13:07)
[2022-04-26 13:27] LABS: Protime INR 2.33
[2022-04-26 13:48] LABS: Urine Blood Negative (Negative); Urine Glucose Negative (Negative); Urine Protein 2+ (Negative)
[2022-04-26 14:08] LABS: Albumin 1.9 g/dL (3.4-5.0); Bilirubin Total 3.9 mg/dL (0.2-1.0); Protein, Total 5.9 g/dL (6.4-8.2)
[2022-04-26 14:11] LABS: Potassium 2.9 mmol/L (3.5-5.1)
[2022-04-26 14:19] LABS: Hematocrit 27.3 % (36.0-45.0); MCV 91.5 fL (80-100); MPV 7.5 fL (7.6-11.3); RBC Red Blood Cell Count 2.99 M/uL (3.86-4.86)
[2022-04-26 14:30] LABS: Urine Bacteria None Seen /HPF (<20); Urine Crystals Unidentified Few /HPF (None Seen); Urine RBC <5 /HPF (None Seen)
[2022-04-26 14:53] LABS: Absolute Lymphocytes (CBC) 0.2 K/uL (0.7-4.9); Lymphocytes % 11.8 % (15.3-44.8)
[2022-04-26] MEDS ORDERED: NA CHLORIDE 0.9% 1,000 ML ONE ×2 (14:53→20:39)
[2022-04-26] MEDS ORDERED: MORPHINE 4 MG/ML SYR ONE (14:53)
--- NOTE | 2022-04-26 14:57 | RAD REPORT ---
EXAM DESCRIPTION: CT - Chest Abdomen Pelvis W Cont - 04/26/2022 2:34 pm CLINICAL HISTORY: Cough and abdominal pain COMPARISON: December and March 2022 TECHNIQUE: Computed axial tomography of the chest, abdomen and pelvis was obtained. 100 cc Isovue-30 0 was administered intravenously. Oral contrast was not requested. This limits evaluation of bowel. All CT scans are performed using dose optimization technique as appropriate and may include automated exposure control or mA/KV adjustment according to patient size. FINDINGS: Right upper lobe, right middle lobe and right lower lobe consolidations are present. Lingular and left lower lobe consolidations are also present. No mediastinal or hilar lymphadenopathy. No pleural effusion. No pericardial effusion. Cirrhotic liver. The spleen is mildly enlarged. Large number of varices are present. Pancreas, kidneys and adrenals unremarkable No evidence diverticulitis Small amount of ascites IMPRESSION: Bilateral pneumonia Cirrhosis
--- NOTE | 2022-04-26 14:58 | RAD REPORT ---
EXAM DESCRIPTION: Marcela Single View04/26/2022 2:11 pm CLINICAL HISTORY: Chest pain COMPARISON: April 17, 2022 FINDINGS: Areas of consolidation involve the right lower, right upper and left lower lobes Heart is normal size IMPRESSION: Bilateral pneumonia
--- NOTE | 2022-04-26 15:11 | ER ---
Nurse's Notes [facility] Name: Lin Farley Age: 51 yrs Sex: Female : 1970 Arrival Date: 04/26/2022 Time: 12:20 Bed 5 Private MD: Diagnosis: Severe sepsis with septic shock;Pneumonia, unspecified organism;Hypoxemia;Hypokalemia Presentation: 04/26 12:42 Chief complaint: EMS states: Pt from home, called EMS for difficulty breathing, found ph to be 88% RA, improved on NC, also c/o pain "all over" hx of cirrhosis, HR elevated in 130s, temp for EMS 100.8. Coronavirus screen: Vaccine status: Patient reports receiving the 1st dose of the Covid vaccine. Ebola Screen: No symptoms or risks identified at this time. Initial Sepsis Screen: Does the patient meet any 2 criteria? HR > 90 bpm. Does the patient have a suspected source of infection? No. Patient's initial sepsis screen is negative. Risk Assessment: Do you want to hurt yourself or someone else? Patient reports no desire to harm self or others. Onset of symptoms was April 26, 2022. 12:42 Method Of Arrival: EMS: [facility] ph 12:42 Acuity: IAN 2 ph Triage Assessment: 12:54 General: Appears in no apparent distress. uncomfortable, Behavior is cooperative, ph anxious, fussy. Pain: Complains of pain in abdomen and "all over". Neuro: Level of Consciousness is awake, obeys commands, lethargic, Oriented to person, place, time, situation. Cardiovascular: Capillary refill < 3 seconds in bilateral fingers. Respiratory: Reports shortness of breath at rest Airway is patent Respiratory effort is even, unlabored, Respiratory pattern is tachypnea. GI: Abdomen is round noted to have ascites. Derm: Skin is fragile, is thin, Skin is jaundiced. Musculoskeletal: Circulation, motion, and sensation intact. Range of motion: intact in all extremities. Historical: - Allergies: 12:50 Hydrocodone-Acetaminophen; ph - Home Meds: 12:50 furosemide 40 mg Oral tab 1 tab once daily [Active]; acetaminophen-codeine 300-30 mg ph Oral tab 1 tab every 4 hours for pain [Active]; pantoprazole 40 mg oral TbEC 1 tab 2 times per day [Active]; lactulose 10 gram/15 mL (15 mL) Oral soln 30 mL 3 times per day [Active]; - PMHx: 12:50 Alcoholism; Asthma; elevated liver enzymes; Fluid Retention (leg swelling); gastric ph ulcer; GERD; Seizure; Sepsis; - PSHx: 12:50 Cholecystectomy; ph - Immunization history:: Adult Immunizations unknown. - Social history:: Smoking status: Patient denies any tobacco usage or history of. - Family history:: not pertinent. - Hospitalizations: : No recent hospitalization is reported. Screenin:49 [facility] ED Fall Risk Assessment (Adult) History of falling in the last 3 months, ph including since admission Yes- physiologic fall (2 pts) Confusion or Disorientation No (0 pts) Intoxicated or Sedated No (0 pts) Impaired Gait Yes (1 pt) Mobility Assist Device Used No (0 pt) Altered Elimination No (0 pt) Score/Fall Risk Level 0 - 2 = Low Risk Oriented to surroundings, Maintained a safe environment, Hourly rounding (assess needs \\T\\ fall precautionary measures) done. Abuse screen: Denies threats or abuse. Denies injuries from another. Nutritional screening: No deficits noted. Tuberculosis screening: No symptoms or risk factors identified. Assessment: 13:00 General: SEE TRIAGE ASSESSMENT. ph 13:26 Reassessment: PATIENT ASSISTED TO BEDSIDE COMMODE BY SPOUSE. db 14:00 Reassessment: Patient appears in no apparent distress at this time. No changes from ph previously documented assessment. 15:00 Reassessment: Patient appears in no apparent distress at this time. Patient and/or ph family updated on plan of care and expected duration. Pain level reassessed. 16:00 Reassessment: Patient appears in no apparent distress at this time. Patient and/or ph family updated on plan of care and expected duration. Pain level reassessed. Pt resting comfortably, SO at bedside. 16:51 Reassessment: Patient appears in no apparent distress at this time. Patient and/or ph family updated on plan of care and expected duration. Pain level reassessed. Pt awake but drowsy, oriented to person and place, Spo2 has dropped to 82% on 5L NC, paged RT to place pt on high flow o2, pt resting comfortably, states that pain has improved, no respiratory distress noted. 17:34 Reassessment: Patient appears in no apparent distress at this time. Patient and/or ph family updated on plan of care and expected duration. Pain level reassessed. Pt awake and alert, currently receiving o2 via NRB mask, SPo2 95%, Dr Garcia at bedside. 04/28 14:18 Reassessment: Mother Allison Rai home [phone], cell [phone]. hb Vital Signs: 04/26 12:42 BP 121 / 59; Pulse 132; Resp 21; Temp 98.7(O); Pulse Ox 94% on 3 lpm NC; Weight 52.16 ph kg; 14:00 BP 126 / 55; Pulse 134; Resp 20; Pulse Ox 89% on 4 lpm NC; ph 15:00 BP 113 / 51; Pulse 132; Resp 20; Pulse Ox 91% on 4 lpm NC; ph 16:00 BP 98 / 51; Pulse 122; Resp 22; Pulse Ox 89% on 4 lpm NC; ph 17:08 BP 87 / 68; Pulse 118; Resp 20; Pulse Ox 92% on 100% Non-rebreather mask; ph 18:00 BP 121 / 58; Pulse 112; Resp 20; Pulse Ox 95% on 100% Non-rebreather mask; ph ED Course: 12:20 Patient arrived in ED. eb 12:20 Golden Souza MD is Attending Physician. rn 12:42 Odessa Sabillon, CODEY is Primary Nurse. ph 12:49 Triage completed. ph 12:53 Arm band placed on Patient placed in an exam room, on a stretcher, on oxygen, on ph desk monitor, on pulse oximetry. 12:53 Patient has correct armband on for positive identification. Bed in low position. Call ph light in reach. Side rails up X2. Client placed on continuous cardiac and pulse oximetry monitoring. NIBP monitoring applied. Door closed. Noise minimized. Warm blanket given. 14:13 Chest Single View XRAY In Process Unspecified. EDMS 14:36 CT Chest, Abdomen, Pelvis - W/Contrast In Process Unspecified. EDMS 15:09 Jessica Garcia MD is Hospitalizing Provider. rn 15:38 Urine Dipstick-Ancillary Sent. bc6 16:00 Inserted saline lock: 22 gauge in right forearm, using aseptic technique. ph 16:07 EKG done, by ED staff. bc6 17:36 No provider procedures requiring assistance completed. ph 17:37 Maintain EMS IV. Dressing intact. Good blood return noted. Site clean \\T\\ dry. Gauge \\T\\ ph site: 22 LFA. Patient admitted, IV remains in place. 19:27 Primary Nurse role handed off by Odessa Sabillon RN 20:20 Karime Rooney is Primary Nurse. tw5 23:23 Notified Nurse Practitioner and/or Physician Chief Human Resources Officer of a critical lab result(s), bb aerobic blood culture positive for gram positive cocci and pairs Maddi COE notified. 04/27 20:36 Attending Physician role handed off by Golden Souza MD [facility] 20:36 Meet Fink MD is Attending Physician. [facility] 04/28 20:00 Esther Lim from [facility] called to see if we were still seeking mw2 placement for the patient. I told her "we are" she said " okay then I will resume it her chart was on hold because she was unstable.". 20:57 initiated a transfer with Deb from [facility] Transfer [place]. mw2 Administered Medications: 04/26 13:26 Drug: Motrin (ibuprofen) 600 mg Route: PO; db 17:42 Follow up: Response: No adverse reaction ph 13:26 Drug: NS 0.9% 500 ml Route: IV; Rate: bolus; Site: left antecubital; db 14:10 Follow up: Response: No adverse reaction; IV Status: Completed infusion; IV Intake: ph 500ml 15:10 Drug: NS 0.9% (30 ml/kg) 30 ml/kg Route: IV; Rate: bolus; Site: right forearm; ph 16:30 Follow up: Response: No adverse reaction; IV Status: Completed infusion; IV Intake: ph 1000ml 15:11 Drug: morphine 4 mg Route: IVP; Infused Over: 4 mins; Site: right forearm; ph 15:30 Follow up: Response: No adverse reaction; Pain is decreased; RASS: Drowsy (-1) ph 16:27 Drug: Cefepime 1 grams Route: IVPB; Rate: 200 ml/hr; Infused Over: 30 mins; Site: right ph forearm; 17:00 Follow up: Response: No adverse reaction; IV Status: Completed infusion ph 16:27 Drug: Potassium Chloride 20 mEq Route: IV; Rate: calculated rate; Site: left forearm; ph 17:41 Follow up: IV Status: Infusion continued upon admission ph 17:41 Follow up: Response: No adverse reaction ph 16:28 Drug: NS 0.9% 250 ml Route: IV; Rate: 125 ml/hr; Site: left forearm; ph 17:40 Follow up: Response: No adverse reaction; IV Status: Infusion continued upon admission ph 17:08 Drug: LevaQUIN (levofloxacin) 750 mg Volume: 150 ml; Route: IVPB; Infused Over: 90 ph mins; Site: right forearm; 18:30 Follow up: Response: No adverse reaction; IV Status: Completed infusion; IV Intake: ph 150ml 04/27 21:48 Drug: Midazolam 4 mg Route: IVP; Site: right antecubital; kd3 Medication: 04/26 12:53 VIS not applicable for this client. ph Intake: 14:10 IV: 500ml; Total: 500ml. ph 16:30 IV: 1000ml; Total: 1500ml. ph 18:30 IV: 150ml; Total: 1650ml. ph Outcome: 15:10 Decision to Hospitalize by Provider. rn 21:39 Condition: good tw5 21:41 Admitted to ER Hold. Please see [facility] for further documentation. tw5 21:41 Instructed on the need for admit. 04/30 18:58 Patient left the ED. ph Signatures: Dispatcher [employer] EDMeet Key MD MD cha Ballard, Brenda, RN RN Golden Cifuentes MD MD rn Hall, Patricia, RN RN Kelin Membreno RN RN hb Gatti, MyKena 2 Kristi Buchanan Wendy wm Wood, Tiffany tw5 Joanna Rodríguez RN RN kd3 Lupe Dawson RN RN db Carowatson, Breana bc6 Corrections: (The following items were deleted from the chart) 04/26 12:53 12:50 Allergies: Codeine; ph ph 21:41 21:39 Discharged to [facility]. tw5 tw5 :41 21:39 Discharge instructions given to patient, Instructed on discharge instructions, tw5 Demonstrated understanding of instructions, follow-up care, tw5
--- NOTE | 2022-04-26 15:11 | EDPHYS ---
Physician Documentation [facility] Name: Lin Farley Age: 51 yrs Sex: Female : 1970 Arrival Date: 04/26/2022 Time: 12:20 Bed 5 Private MD: ED Physician Meet Fink HPI: 04/26 13:32 This 51 yrs old Female presents to ER via EMS with complaints of fever, cough, abd pain.rn 13:32 The patient reports fever, not measured (subjective). Onset: The symptoms/episode rn began/occurred yesterday. Modifying factors: there are no obvious modifying factors. Associated signs and symptoms: Pertinent positives: abdominal pain, chills, cough, shortness of breath, Pertinent negatives: chest pain, hemoptysis, vomiting. Severity of symptoms: At their worst the symptoms were moderate in the emergency department the symptoms are unchanged. The patient has experienced similar episodes in the past. The patient has not recently seen a physician. Historical: - Allergies: 12:50 Hydrocodone-Acetaminophen; ph - Home Meds: 12:50 furosemide 40 mg Oral tab 1 tab once daily [Active]; acetaminophen-codeine 300-30 mg ph Oral tab 1 tab every 4 hours for pain [Active]; pantoprazole 40 mg oral TbEC 1 tab 2 times per day [Active]; lactulose 10 gram/15 mL (15 mL) Oral soln 30 mL 3 times per day [Active]; - PMHx: 12:50 Alcoholism; Asthma; elevated liver enzymes; Fluid Retention (leg swelling); gastric ph ulcer; GERD; Seizure; Sepsis; - PSHx: 12:50 Cholecystectomy; ph - Immunization history:: Adult Immunizations unknown. - Social history:: Smoking status: Patient denies any tobacco usage or history of. - Family history:: not pertinent. - Hospitalizations: : No recent hospitalization is reported. ROS: 13:32 Constitutional: + fever and chills Eyes: Negative for injury, pain, redness, and furnace feeder, Cardiovascular: Negative for chest pain, palpitations Respiratory: + cough and sob Abdomen/GI: + abd pain and abd swelling Back: Negative for injury and pain, : Negative for injury, bleeding, discharge, and swelling, MS/Extremity: Negative for injury and deformity, Skin: Negative for injury, rash, and discoloration, Neuro: Negative for numbness, tingling, and seizure. Exam: 13:32 Constitutional: This is a well developed, well nourished patient who is awake, alert, rn moaning Head/Face: Normocephalic, atraumatic. ENT: dry MM Cardiovascular: Tachycardic, regular Respiratory: Mild tachypnea, no retractions Abdomen/GI: soft, + tender in all 4 quadrants, no masses, no peritoneal signs Skin: Warm, dry MS/ Extremity: Pulses equal, no cyanosis. Neuro: Awake and alert, GCS 15 16:15 ECG was reviewed by the Attending Physician. rn Vital Signs: 12:42 BP 121 / 59; Pulse 132; Resp 21; Temp 98.7(O); Pulse Ox 94% on 3 lpm NC; Weight 52.16 ph kg; 14:00 BP 126 / 55; Pulse 134; Resp 20; Pulse Ox 89% on 4 lpm NC; ph 15:00 BP 113 / 51; Pulse 132; Resp 20; Pulse Ox 91% on 4 lpm NC; ph 16:00 BP 98 / 51; Pulse 122; Resp 22; Pulse Ox 89% on 4 lpm NC; ph 17:08 BP 87 / 68; Pulse 118; Resp 20; Pulse Ox 92% on 100% Non-rebreather mask; ph 18:00 BP 121 / 58; Pulse 112; Resp 20; Pulse Ox 95% on 100% Non-rebreather mask; ph Procedures: 04/27 20:36 Intubation: Intubated orally using # 4 Damian blade with 7.5 mm ETT. was successful edgar on first attempt. Ventilated with ventilator. Tube secured at right side of mouth measured 22 cm at lip. Placement verified by CXR, CO2 detector with (+) color change, auscultating bilateral breath sounds, O2 saturation after procedure was 90 %. Central Line: the site was prepped with Betadine, in sterile fashion, a triple lumen catheter was inserted, in the right in 1 attempts. placement was verified, by blood return, the site was dressed with using sterile technique, the patient tolerated the procedure, well. MDM: 04/26 12:20 Patient medically screened. rn 15:05 Differential diagnosis: viral Infection, bacterial infection, pneumonia UTI. Data rn reviewed: vital signs, nurses notes, lab test result(s), radiologic studies, CT scan, plain films. 15:05 Counseling: I had a detailed discussion with the patient and/or guardian regarding: the rn historical points, exam findings, and any diagnostic results supporting the discharge/admit diagnosis, lab results, radiology results, the need for further work-up and treatment in the hospital. Response to treatment: the patient's symptoms have mildly improved after treatment, and as a result, I will admit patient. Admission orders: after a detailed discussion of the patient's condition and case, the admit orders are written by me. ED course: Pt with severe sepsis, source is bilateral pneumonia. Lactate elevated, 7, getting 30ml/kg bolus, BP has never been low, sepsis reevaluation complete. . 17:54 ED course: Patient made ICU admission by Dr. Garcia. SPoke with patient and son regarding furnace puncher out since we don't have ICU beds. Told them we have been transferring ICU patients. Patient and son do not want to be transferred, they understand they will be staying in ER until bed opens up. . 04/26 12:26 Order name: Blood Culture Adult (2) rn 04/26 12:26 Order name: CBC with Diff; Complete Time: 07:46 rn 04/26 12:26 Order name: CMP; Complete Time: 14:58 rn 04/26 12:26 Order name: Lactate w/ 2H reflex if indic.; Complete Time: 14:58 rn 04/26 12:26 Order name: Protime (+inr); Complete Time: 13:43 rn 30 12:26 Order name: Ptt, Activated; Complete Time: 13:43 rn 04/26 12:26 Order name: Urine Culture; Complete Time: 14:04 rn 04/26 12:26 Order name: Urine Microscopic Only; Complete Time: 14:58 rn 30 12:26 Order name: AMMONIA; Complete Time: 13:43 rn 30 12:26 Order name: COVID-19/FLU A+B; Complete Time: 21:28 rn 30 13:48 Order name: Urine Dipstick-Ancillary EDVT 04/26 18:01 Order name: CBC with Automated Diff EDMS 04/26 18:01 Order name: CBC with Automated Diff; Complete Time: 07:46 EDMS 04/26 18:01 Order name: Comprehensive Metabolic Panel EDVT 04/26 18:01 Order name: Comprehensive Metabolic Panel; Complete Time: 07:46 EDMS 04/26 18:01 Order name: Lactate w/ 2H reflex if indic. EDMS 04/26 18:01 Order name: Lactate w/ 2H reflex if indic.; Complete Time: 07:46 EDMS 04/26 18:01 Order name: Magnesium EDMS 04/26 18:01 Order name: Magnesium; Complete Time: 07:46 EDMS 04/26 18:01 Order name: NT PRO-BNP EDMS 04/26 18:01 Order name: NT PRO-BNP; Complete Time: 07:46 EDMS 04/26 18:01 Order name: Phosphorus EDMS 04/26 18:01 Order name: Phosphorus; Complete Time: 07:46 EDMS 04/26 18:01 Order name: T4 Free EDMS 04/26 18:01 Order name: T4 Free; Complete Time: 07:46 EDMS 04/26 18:01 Order name: Thyroid Stimulating Hormone EDMS 04/26 18:01 Order name: Thyroid Stimulating Hormone; Complete Time: 07:46 EDMS 04/26 20:01 Order name: Lactate Sepsis 2 HR Follow-up; Complete Time: 21:28 EDMS 04/26 21:38 Order name: Manual Differential; Complete Time: 07:46 EDMS 04/26 23:22 Order name: Gram Stain--Aerobic Bottle EDMS 04/26 23:47 Order name: ABG Arterial Blood Gas; Complete Time: 07:46 EDMS 04/27 01:15 Order name: Glucose, Ancillary Testing; Complete Time: 07:46 EDMS 04/27 01:49 Order name: Glucose, Ancillary Testing; Complete Time: 07:46 EDMS 04/27 04:09 Order name: Manual Differential; Complete Time: 07:46 EDMS 04/27 04:15 Order name: Procalcitonin; Complete Time: 07:46 EDMS 04/27 05:54 Order name: Lactate w/ 2H reflex if indic.; Complete Time: 07:46 EDMS 04/27 06:16 Order name: ABG Arterial Blood Gas; Complete Time: 07:46 EDMS 04/27 07:53 Order name: Glucose, Ancillary Testing; Complete Time: 19:30 EDMS 04/27 08:55 Order name: Lactate Sepsis 2 HR Follow-up; Complete Time: 19:30 EDMS 04/27 11:51 Order name: Glucose, Ancillary Testing; Complete Time: 19:30 EDMS 04/27 13:14 Order name: Gram Stain--Anaerobic Bottle EDMS 04/27 14:06 Order name: Gram Stain--Aerobic Bottle EDMS 04/27 14:06 Order name: Gram Stain--Anaerobic Bottle EDMS 04/27 16:24 Order name: Potassium; Complete Time: 19:30 EDMS 04/27 18:18 Order name: Glucose, Ancillary Testing; Complete Time: 19:30 EDMS 04/27 20:07 Order name: SARS RAPID ds4 04/27 20:55 Order name: ABG Arterial Blood Gas; Complete Time: 21:55 EDMS 04/27 20:59 Order name: ABG Arterial Blood Gas; Complete Time: 21:55 EDMS 04/27 21:25 Order name: Protime (+INR); Complete Time: 21:55 EDMS 04/27 21:25 Order name: PTT, Activated Partial Thromb; Complete Time: 21:55 EDMS 04/27 21:37 Order name: SARS-COV-2 Antigen Rapid; Complete Time: 21:55 EDMS 04/27 21:38 Order name: Comprehensive Metabolic Panel; Complete Time: 21:55 EDMS 04/27 21:38 Order name: Magnesium; Complete Time: 21:55 EDMS 04/27 23:07 Order name: CBC with Automated Diff; Complete Time: 14:04 EDMS 04/27 23:37 Order name: Ammonia; Complete Time: 14:04 EDMS 04/28 05:15 Order name: Glucose, Ancillary Testing; Complete Time: 14:04 EDMS 04/28 06:15 Order name: Vancomycin Level Trough; Complete Time: 14:04 EDMS 04/28 12:19 Order name: Glucose, Ancillary Testing; Complete Time: 14:04 EDMS 04/28 17:14 Order name: Glucose, Ancillary Testing EDMS 04/28 21:33 Order name: Glucose, Ancillary Testing EDMS 04/29 00:27 Order name: ABG Arterial Blood Gas EDMS 04/29 00:49 Order name: Basic Metabolic Panel EDMS 04/26 12:26 Order name: Chest Single View XRAY; Complete Time: 14:58 rn 04/26 12:26 Order name: EKG; Complete Time: 12:27 rn 04/26 12:26 Order name: Accucheck; Complete Time: 12:55 rn 04/26 12:26 Order name: Cardiac monitoring; Complete Time: 12:55 rn 04/26 12:26 Order name: EKG - Nurse/Tech; Complete Time: 16:07 rn 04/26 12:26 Order name: IV Saline Lock - Large Bore; Complete Time: 12:55 rn 04/26 12:26 Order name: Labs collected and sent; Complete Time: 13:11 rn 04/26 12:26 Order name: O2 Per Protocol; Complete Time: 12:56 rn 04/26 12:26 Order name: O2 Sat Monitoring; Complete Time: 12:55 rn 04/26 12:26 Order name: Urine Dipstick-Ancillary (obtain specimen); Complete Time: 00:21 rn 04/26 12:26 Order name: Vital Signs; Complete Time: 12:56 rn 04/26 12:27 Order name: CT Chest, Abdomen, Pelvis - W/Contrast; Complete Time: 14:58 rn 04/26 13:48 Order name: Labs - recollect needed: recollect the lavender/ need to verify levels/ lab eb paged; Complete Time: 15:11 04/26 18:01 Order name: CONS Physician Consult EDMS 04/26 18:01 Order name: Heart Healthy EDMS 04/27 07:43 Order name: RAD; Complete Time: 07:46 EDMS 04/27 20:46 Order name: RAD; Complete Time: 21:55 EDMS 04/27 20:47 Order name: RAD; Complete Time: 21:55 EDMS 04/27 20:47 Order name: RAD; Complete Time: 21:55 EDMS 04/28 10:50 Order name: RAD; Complete Time: 14:04 EDMS 04/29 00:58 Order name: Lactate w/ 2H reflex if indic. EDMS 04/29 04:49 Order name: CBC with Automated Diff EDMS 04/29 05:14 Order name: Comprehensive Metabolic Panel EDMS 04/29 05:14 Order name: Phosphorus EDMS 04/29 05:14 Order name: Magnesium EDMS 04/29 05:17 Order name: Lactate Sepsis 2 HR Follow-up EDMS 04/29 06:54 Order name: ABG Arterial Blood Gas EDMS 04/29 06:58 Order name: Manual Differential EDMS 04/29 07:45 Order name: RAD EDMS 04/29 08:13 Order name: Glucose, Ancillary Testing EDMS 04/29 11:35 Order name: Glucose, Ancillary Testing EDMS 04/29 17:22 Order name: Glucose, Ancillary Testing EDMS 04/29 20:10 Order name: Vancomycin Level Trough EDMS 04/29 22:44 Order name: US EDMS 04/29 23:12 Order name: Glucose, Ancillary Testing EDMS 04/30 02:23 Order name: CBC with Automated Diff EDMS 04/30 02:37 Order name: Comprehensive Metabolic Panel EDMS 04/30 06:57 Order name: Blood Culture EDMS 04/30 06:57 Order name: Blood Culture EDMS 04/30 07:36 Order name: ABG Arterial Blood Gas EDMS 04/30 07:59 Order name: RAD EDMS 04/30 13:02 Order name: Glucose, Ancillary Testing EDMS EC:15 Rate is 126 beats/min. Rhythm is regular. QRS [facility] is Normal. OR interval is normal. rn QRS interval is normal. QT interval is normal. No Q waves. T waves are Normal. No ST changes noted. Clinical impression: Sinus tachycardia. Interpreted by me. Reviewed by me. Administered Medications: 13:26 Drug: Motrin (ibuprofen) 600 mg Route: PO; db 17:42 Follow up: Response: No adverse reaction ph 13:26 Drug: NS 0.9% 500 ml Route: IV; Rate: bolus; Site: left antecubital; db 14:10 Follow up: Response: No adverse reaction; IV Status: Completed infusion; IV Intake: ph 500ml 15:10 Drug: NS 0.9% (30 ml/kg) 30 ml/kg Route: IV; Rate: bolus; Site: right forearm; ph 16:30 Follow up: Response: No adverse reaction; IV Status: Completed infusion; IV Intake: ph 1000ml 15:11 Drug: morphine 4 mg Route: IVP; Infused Over: 4 mins; Site: right forearm; ph 15:30 Follow up: Response: No adverse reaction; Pain is decreased; RASS: Drowsy (-1) ph 16:27 Drug: Cefepime 1 grams Route: IVPB; Rate: 200 ml/hr; Infused Over: 30 mins; Site: right ph forearm; 17:00 Follow up: Response: No adverse reaction; IV Status: Completed infusion ph 16:27 Drug: Potassium Chloride 20 mEq Route: IV; Rate: calculated rate; Site: left forearm; ph 17:41 Follow up: IV Status: Infusion continued upon admission ph 17:41 Follow up: Response: No adverse reaction ph 16:28 Drug: NS 0.9% 250 ml Route: IV; Rate: 125 ml/hr; Site: left forearm; ph 17:40 Follow up: Response: No adverse reaction; IV Status: Infusion continued upon admission ph 17:08 Drug: LevaQUIN (levofloxacin) 750 mg Volume: 150 ml; Route: IVPB; Infused Over: 90 ph mins; Site: right forearm; 18:30 Follow up: Response: No adverse reaction; IV Status: Completed infusion; IV Intake: ph 150ml 04/27 21:48 Drug: Midazolam 4 mg Route: IVP; Site: right antecubital; kd3 Disposition Summary: 04/26/22 15:10 Hospitalization Ordered Hospitalization Status: Inpatient Admission rn Provider: Jessica Garcia rn Condition: Stable rn Problem: new rn Symptoms: have improved rn Bed/Room Type: Standard rn Location: [facility] ER HOLD(04/28/22 18:42) Room Assignment: ERHOLD-(04/28/22 20:02) Diagnosis - Severe sepsis with septic shock rn - Pneumonia, unspecified organism rn - Hypoxemia rn - Hypokalemia rn Forms: - Medication Reconciliation Form rn - 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 Total rn time: 40 minutes Signatures: Dispatcher [employer] EDMS Kelly Ford RN Michelle Johnson RN RN Meet Levi MD MD cha Nieto, Roman, MD MD rn Hall, Patricia RN RN Kristi Buchanan Kyli RN RN kd3 Lupe Dawson, RN RN Kelsey Vinson PA-C PABeatriz [email or web address] Corrections: (The following items were deleted from the chart) 12:53 12:50 Allergies: Codeine; ph ph 18:50 15:10 Telemetry/MedSurg (Inpatient) rn catracho 18:50 15:10 rn catracho 04/28 18:34 12 18:50 [facility] ER HOLD [facility] 04/28 18:34 12/30 18:50 ERHOLD- dw dw 04/28 18:42 18:34 Intensive Care Unit dw dw 18:42 18:34 7- dw dw 20:02 18:42 dw mw
[2022-04-26] MEDS ORDERED: KCL 20 MEQ/100 mL IVPB 100 ML IV ONE (15:41)
[2022-04-26] MEDS ORDERED: NA CHLORIDE 0.9% 100 ML IV ONE (15:41)
[2022-04-26] MEDS ORDERED: Levofloxacin 750mg IV 750 MG/150 ML BAG IV ONE (15:42)
[2022-04-26] MEDS ORDERED: CEFEPIME 1 GM/VIAL ONE (15:42)
[2022-04-26 16:08] LABS: SARS-COV-2 RT PCR NEGATIVE (NEGATIVE)
[2022-04-26] MEDS ORDERED: NA CHLORIDE 0.9% 250 ML ONE ×2 (16:09→20:31)
[2022-04-26] MEDS ORDERED: ACETAMINOPHEN 500 MG TAB PO PRN (17:50)
[2022-04-26] MEDS ORDERED: ONDANSETRON 4 MG/2 ML VIAL IV PRN (17:50)
[2022-04-26] MEDS ORDERED: VANCOMYCIN 1 GM in NA CHLORIDE 0.9% 250 ML IVPB SCH (17:58)
--- NOTE | 2022-04-26 18:01 | P.HP ---
Certification for Inpatient Patient admitted to: Inpatient With expected LOS: >2 Midnights Patient will require the following post-hospital care: None Practitioner: I am a practitioner with admitting privileges, knowledge of patient current condition, hospital course, and medical plan of care. Services: Services provided to patient in accordance with Admission requirements found in Title 42 Section 412.3 of the Code of Federal Regulations Patient History Date of Service: 04/26/22 Reason for admission: Dyspnea History of Present Illness: Patient is a 51-year-old female who has a history of cirrhosis secondary to alcohol use who comes into the emergency room with shortness of breath. Patient was in the emergency room about a week ago with hypokalemia and seizure-like activity.Patient was discharged and since discharge she has been getting worse. 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 Pate in a few months. She has been taking care of her boyfriend's children who have had an upper respiratory infection. She started feeling worse this morning and has been brought her into the ER. She was severely hypoxic and placed on a nonrebreather. She was also tachycardic and hypertensive. We will resume her liver medications and get her blood pressure and heart rate control. Continue with nonrebreather. We do not have ICU available and have notified consultants regarding this. I did speak with the ER physician as well about transferring the patient but they stated that ICU [facility] does not have any ICU beds available. Patient will be admitted to the hospital for further treatment. Allergies novahistamine Allergy (Uncoded 01/21/20 04:10) Anaphylaxis - Past Medical/Surgical History Diabetic: No -: Gerd -: Gastric ulcer -: Asthma -: Alcoholic cirrhosis of liver -: Cholecystectomy Psychosocial/ Personal History: Lives at home with . - Family History Father Family History: Reviewed- Non-Contributory - Social History Smoking Status: Former smoker Alcohol use: Yes CD- Drugs: No Review of Systems 10-point ROS is otherwise unremarkable Physical Examination - Vital Signs Temperature: 98 F Blood Pressure: 140/80 Pulse: 80 Respirations: 18 Pulse Ox (%): 95 - Physical Exam General: Alert, In no apparent distress, Oriented x3 HEENT: Atraumatic, PERRLA, Mucous membr. moist/pink, EOMI, Sclerae nonicteric Neck: Supple, 2+ carotid pulse no bruit, No LAD, Without JVD or thyroid abnormality Respiratory: Diminished, Expiratory wheezes Cardiovascular: Regular rate/rhythm, Normal S1 S2, Systolic murmur Gastrointestinal: Normal bowel sounds, Soft and benign, Non-distended, No tenderness Musculoskeletal: No clubbing, No swelling, No tenderness Integumentary: No rashes Neurological: Normal tone, Sensation intact, Cranial nerves 3-12 intact, Normal affect, Abnormal gait, Abnormal strength Lymphatics: No axilla or inguinal lymphadenopathy - Studies Laboratory Data (last 24 hrs) 04/26/22 14:00: WBC 2.00 L, Hgb 9.1 L, Hct 27.3 L, Plt Count 95 L 04/26/22 13:00: PT 25.6 H, INR 2.33, APTT 38.9 H 04/26/22 13:00: Sodium 136, Potassium 2.9 L*, BUN 30 H, Creatinine 1.22 H, Glucose 85, Total Bilirubin 3.9 H, AST 76 H, ALT 51, Alkaline Phosphatase 69 Assessment & Plan - Problems (Diagnosis) (1) Multifocal lung consolidation Current Visit: Yes Status: Acute (2) Cirrhosis of liver Current Visit: Yes Status: Acute (3) Hypokalemia Current Visit: Yes Status: Acute (4) PUD (peptic ulcer disease) Current Visit: Yes Status: Acute - Plan 1. Continue with IV antibiotics 2. Awaiting sputum and blood culture 3. Repeat chest x-ray 4. CT scan of the chest reviewed 5. Strict BP control 6. Continue with nebs as needed 7. O2 per protocol 8. Continue with gentle hydration 9. Repeat labs including CBC and renal function in a.m. 10. Lactulose/rifaximin 11. Aldactone if BP tolerates it 12. GI and DVT prophylaxis Discharge Plan: Home Plan to discharge in: Greater than 2 days - Advance Directives Does patient have a Living Will: No Does patient have a Durable POA for Healthcare: No - Code Status/Comfort Care Code Status Assessed: Yes Code Status: Full Code Critical Care: Yes Time Spent Managing PTS Care (In Minutes): 45
[2022-04-26] MEDS ORDERED: LACTULOSE 20 GM/30 ML UCUP PO PRN (18:02)
[2022-04-26] MEDS ORDERED: ALBUMIN HUMAN 25% 100 ML IV ONE ×2 (18:02→23:16)
[2022-04-26] MEDS ORDERED: METHYLPREDNISOLONE 40 MG INJ IV ONE (18:12)
[2022-04-26] MEDS ORDERED: NA CHLORIDE 0.9% 1,000 ML IV SCH (19:00)
[2022-04-26] MEDS ORDERED: VANCOMYCIN 1 GM in NA CHLORIDE 0.9% 250 ML IVPB ONE (19:00)
[2022-04-26] MEDS ORDERED: IPRATROPIUM BROM 0.5MG/2.5ML ONE (19:53)
[2022-04-26] MEDS ORDERED: ALBUTEROL 2.5 MG/3 ML NEB SOL ONE (19:53)
[2022-04-26 19:58] VITALS: BMI 16.5
[2022-04-26] MEDS: IPRATROPIUM BROM 0.5MG/2.5ML NEB SCH (19:58)
[2022-04-26] MEDS: ALBUTEROL 2.5 MG/3 ML NEB SOL NEB SCH (19:58)
[2022-04-26] MEDS ORDERED: VANCOMYCIN 1 GM/VIAL ONE (20:31)
[2022-04-26] MEDS ORDERED: SODIUM BICARB 50 MEQ/50ML VIAL ONE (20:32)
[2022-04-26] MEDS ORDERED: ALBUMIN HUMAN 25% 50 ML IV ONE ×2 (20:32→20:47)
[2022-04-26] MEDS ORDERED: METHYLPREDNISOLONE 40 MG INJ ONE (20:33)
[2022-04-26] MEDS ORDERED: Rifaximin 550 MG Tab PO SCH (21:00)
[2022-04-26] MEDS ORDERED: SPIRONOLACTONE 25 MG TABLET ONE (21:28)
[2022-04-26] MEDS: SPIRONOLACTONE 25 MG TABLET PO SCH (21:29)
[2022-04-26 21:37] LABS: Blood Morphology Comment NOTED (NOT SEEN); Platelet Estimate DECR; Polychromasia 1+
[2022-04-26] MEDS: ALBUMIN HUMAN 25% 50 ML IV SCH (23:00)
[2022-04-26 23:45] LABS: Arterial Blood Carboxyhemoglob 1.1 % (0-1.5); Blood Gas Oxyhemoglobin 89.1 % (94-97); Blood O2 Saturation 90.9 % (92-98.5)
[2022-04-27] MEDS: ALBUMIN HUMAN 25% 50 ML IV SCH (00:25)
[2022-04-27] MEDS ORDERED: D10W 250 ML IV ONE (01:03)
[2022-04-27] MEDS ORDERED: IPRATROPIUM BROM 0.5MG/2.5ML ONE ×4 (01:24→21:04)
[2022-04-27] MEDS: ALBUTEROL 2.5 MG/3 ML NEB SOL NEB SCH ×5 (01:40→20:00)
[2022-04-27] MEDS: IPRATROPIUM BROM 0.5MG/2.5ML NEB SCH ×4 (01:40→20:00)
[2022-04-27] MEDS: D5.45NS W/KCL 20MEQ 20 MEQ/1,000 ML BAG IV SCH ×3 (02:00→21:46)
[2022-04-27] MEDS ORDERED: D10W 250 ML IV SCH (02:00)
[2022-04-27] MEDS: CEFEPIME 1 GM in NA CHLORIDE 0.9% 100 ML IV SCH ×3 (02:48→15:08)
[2022-04-27] MEDS ORDERED: NA CHLORIDE 0.9% 100 ML IV ONE ×2 (02:54→13:45)
[2022-04-27] MEDS ORDERED: CEFEPIME 1 GM/VIAL ONE ×2 (02:54→13:45)
[2022-04-27] MEDS ORDERED: D5.45NS W/KCL 20MEQ 1,000 ML IV ONE ×2 (02:55→21:41)
[2022-04-27 03:17] LABS: Absolute Lymphocytes (CBC) 0.3 K/uL (0.7-4.9); Hematocrit 26.4 % (36.0-45.0); Lymphocytes % 12.2 % (15.3-44.8); MCV 93.3 fL (80-100); RBC Red Blood Cell Count 2.83 M/uL (3.86-4.86)
[2022-04-27 03:33] LABS: Albumin 2.3 g/dL (3.4-5.0); Bilirubin Total 3.3 mg/dL (0.2-1.0); Phosphorus 2.9 mg/dL (2.5-4.9); Protein, Total 5.4 g/dL (6.4-8.2); Thyroid Stimulating Hormone 0.357 uIU/mL (0.358-3.740)
[2022-04-27 03:51] LABS: Potassium 2.6 mmol/L (3.5-5.1)
[2022-04-27 04:07] LABS: Blood Morphology Comment NOTED (NOT SEEN); Burr Cells 2+; Ovalocytes 1+; Platelet Estimate DECR; Toxic Granulation 2+
[2022-04-27] MEDS ORDERED: POTASSIUM PHOS 20 MM in NA CHLORIDE 0.9% 500 ML IV ONE (05:06)
[2022-04-27] MEDS ORDERED: KCL 20 MEQ/100 mL IVPB 20 MEQ/100 ML BAG IV SCH ×2 (06:00→22:00)
[2022-04-27 06:15] LABS: Arterial Blood Carboxyhemoglob 0.9 % (0-1.5); Blood Gas Oxyhemoglobin 90.6 % (94-97); Blood O2 Saturation 92.4 % (92-98.5)
[2022-04-27] MEDS ORDERED: KCL 20 MEQ/100 mL IVPB 100 ML IV ONE ×2 (07:22→22:49)
[2022-04-27] MEDS ORDERED: ENOXAPARIN 40 MG/0.4 ML SQ ONE (07:39)
--- NOTE | 2022-04-27 07:43 | RAD REPORT ---
EXAM DESCRIPTION: RAD - Chest Single View - 04/27/2022 6:48 am CLINICAL HISTORY: pneumonia COMPARISON: Chest Single View dated 04/26/2022; Chest Single View dated 04/17/2022; Chest Single Vie w dated 03/25/2022; Chest Single View dated 01/08/2022; Chest Abdomen Pelvis W Cont dated 04/26/2022 FINDINGS: Lines: None. Lungs: Bilateral consolidative airspace disease with areas of consolidation bilaterally. The consolid ation is worse in the left lung. Mild decrease lung volumes. Pleural: No significant pleural effusions or pneumothorax. Cardiac: The heart size is within normal limits. Mediastinum: Within normal limits. Bones: No acute fractures. Other: None IMPRESSION: Bilateral consolidative airspace disease without significant change compared with 2021 .
[2022-04-27] MEDS ORDERED: SPIRONOLACTONE 25 MG TABLET ONE (08:05)
[2022-04-27] MEDS: SPIRONOLACTONE 25 MG TABLET PO SCH ×2 (08:06→21:00)
[2022-04-27] MEDS ORDERED: ALBUTEROL 2.5 MG/3 ML NEB SOL ONE ×2 (08:40→15:36)
[2022-04-27] MEDS ORDERED: ENOXAPARIN 40 MG/0.4 ML SQ SCH (09:00)
[2022-04-27] MEDS: MORPHINE 2 MG/ML SYR IV PRN ×2 (09:28→14:50)
[2022-04-27] MEDS ORDERED: MORPHINE 2 MG/ML SYR ONE ×2 (09:30→14:49)
--- NOTE | 2022-04-27 09:40 | P.PN ---
Subjective Date of Service: 04/27/22 Chief Complaint: Respiratory failure pneumonia Patient is 51 years of age with a history of cirrhosis alcohol abuse. 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 With pneumonia respiratory failure hypoxemia currently on BiPAP and at the bedside Cultures are positive ID pending Review of Systems is unable to be obtained Physical Examination - Vital Signs Temperature: 96.5 F Blood Pressure: 103/49 Pulse: 115 Respirations: 30 Pulse Ox (%): 91 - Physical Exam General: Alert, Moderate distress Respiratory: Crackles/rales Cardiovascular: No edema, Normal S1 S2, Edema Gastrointestinal: Normal bowel sounds, Soft and benign, Non-distended - Studies Laboratory Data (last 24 hrs) 04/26/22 14:00: WBC 2.00 L, Hgb 9.1 L, Hct 27.3 L, Plt Count 95 L 04/26/22 13:00: PT 25.6 H, INR 2.33, APTT 38.9 H 04/26/22 13:00: Sodium 136, Potassium 2.9 L*, BUN 30 H, Creatinine 1.22 H, Glucose 85, Total Bilirubin 3.9 H, AST 76 H, ALT 51, Alkaline Phosphatase 69 Microbiology Data (last 24 hrs): 04/26/22 14:00 Blood - Blood Blood Culture Gram Stain - Final 04/26/22 14:00 Blood - Blood Gram Stain - Final 04/26/22 13:00 Blood - Blood Blood Culture Gram Stain - Final 04/26/22 13:00 Blood - Blood Gram Stain - Final Assessment And Plan - Current Problems (Diagnosis) (1) Respiratory failure Current Visit: Yes Status: Acute Plan: Patient is 51 years of age with a history of cirrhosis admitted with respiratory failure patient is pancytopenic with neutrophilia and bandemia PT/INR elevated suspect is from her cirrhosis CT scan shows presumed dense bilateral pneumonia continue with cefepime vancomycin blood cultures positive await ID pain relief patient is currently on BiPAP will titrate her O2 down Qualifiers: Chronicity: acute
[2022-04-27] MEDS: METHYLPREDNISOLONE 40 MG INJ IV SCH ×2 (13:31→21:00)
[2022-04-27] MEDS ORDERED: METHYLPREDNISOLONE 40 MG INJ ONE ×2 (13:33→21:42)
[2022-04-27] MEDS ORDERED: RSI MEDICATION KIT IV ONE (19:35)
[2022-04-27] MEDS ORDERED: MIDAZOLAM HCL 2 MG/2 ML INJ ONE ×3 (19:40→21:42)
[2022-04-27] MEDS ORDERED: NA CHLORIDE 0.9% 1,000 ML ONE (19:47)
[2022-04-27] MEDS ORDERED: propofoL 1,000 MG/100 ML VIAL IV ONE (20:00)
[2022-04-27] MEDS ORDERED: NA CHLORIDE 0.9% 1,000 ML IV ONE (20:17)
[2022-04-27] MEDS ORDERED: MIDAZOLAM HCL 2 MG/2 ML INJ IV ONE (20:17)
[2022-04-27] MEDS ORDERED: propofoL 500 MG/50 ML ML IV PRN (20:17)
[2022-04-27] MEDS ORDERED: SUCCINYLCHOLINE 20 MG/ML (10 ML) IV ONE (20:18)
[2022-04-27] MEDS ORDERED: ETOMIDATE 20 MG/10 ML VIAL IV ONE (20:18)
--- NOTE | 2022-04-27 20:21 | P.PN ---
Date of Service: 04/27/22 Patient with increasing work of breathing. RR consistently in the 40s. Code blue called at 1930. Patient given versed, etomidate, and succ. ER physician, Dr. Fink, successfully intubated with 7.5 ET tube, first attempt. Chest xray confirmed placement. Propofol ordered for continuous sedation. Femoral central line also inserted by ER physician. Transfer initiated for higher level of care, as we do not have ICU availability.
--- NOTE | 2022-04-27 20:45 | RAD REPORT ---
EXAM DESCRIPTION: RAD - Chest Single View - 04/27/2022 8:38 pm CLINICAL HISTORY: ET placement COMPARISON: Chest Single View dated 04/27/2022; Chest Single View dated 04/26/2022; Chest Single Vie w dated 04/17/2022; Chest Single View dated 03/25/2022; Chest Single View dated 04/27/2022 FINDINGS: Interval placement endotracheal tube. The tip of the tube is angulated toward the right ma instem bronchus. Worsening airspace disease bilaterally. Enteric tube below the diaphragm. IMPRESSION: Enteric tube angulated toward the right mainstem bronchus. The tube subsequently retract ed.
--- NOTE | 2022-04-27 20:46 | RAD REPORT ---
EXAM DESCRIPTION: RAD - Chest Single View - 04/27/2022 8:38 pm CLINICAL HISTORY: ET placement COMPARISON: Chest Single View dated 04/27/2022; Chest Single View dated 04/27/2022; Chest Single Vie w dated 04/26/2022; Chest Single View dated 04/17/2022; Chest Single View dated 04/27/2022 FINDINGS: Slightly retracted endotracheal tube which is now above the kuldeep in satisfactory positio n. Severe bilateral airspace disease which is increased since earlier in the day. Cardiac silhouette is obscured. IMPRESSION: 1. Endotracheal tube has been retracted and is in satisfactory position. 2. Compared with the exam from the same morning, marked worsening in bilateral airspace disease with increasing consolidation.
--- NOTE | 2022-04-27 20:47 | RAD REPORT ---
EXAM DESCRIPTION: RAD - Chest Single View - 04/27/2022 8:38 pm CLINICAL HISTORY: ET placement COMPARISON: Chest Single View dated 04/27/2022; Chest Single View dated 04/27/2022; Chest Single Vie w dated 04/27/2022; Chest Single View dated 04/26/2022 FINDINGS/IMPRESSION: Endotracheal tube is in satisfactory position above the level the kuldeep and at the aortic arch. Enteric tube below the diaphragm. Widespread consolidative airspace disease concern ing for pneumonia.
[2022-04-27 20:54] LABS: Arterial Blood Carboxyhemoglob 0.9 % (0-1.5); Blood Gas Oxyhemoglobin 84.6 % (94-97); Blood O2 Saturation 86.2 % (92-98.5)
[2022-04-27 20:56] LABS: Arterial Blood Carboxyhemoglob 0.9 % (0-1.5); Blood Gas Oxyhemoglobin 81.1 % (94-97); Blood O2 Saturation 82.8 % (92-98.5)
[2022-04-27] MEDS ORDERED: ALBUMIN HUMAN 25% 100 ML IV ONE ×2 (20:57→21:18)
[2022-04-27] MEDS ORDERED: NA CHLORIDE 0.9% 500 ML IV ONE ×2 (20:57→23:16)
[2022-04-27] MEDS ORDERED: MIDAZOLAM HCL 100 MG in NA CHLORIDE 0.9% 80 ML IV SCH (21:00)
[2022-04-27 21:25] LABS: Protime INR 2.91
[2022-04-27] MEDS ORDERED: NA CHLORIDE 0.9% 500 ML ONE ×2 (21:34→23:19)
[2022-04-27 21:37] LABS: SARS-CoV-2 Antigen Rapid Res Negative (Negative)
[2022-04-27 21:37] LABS: Bilirubin Total 3.4 mg/dL (0.2-1.0); Magnesium 2.2 mg/dL (1.6-2.4); Potassium 3.1 mmol/L (3.5-5.1); Protein, Total 5.2 g/dL (6.4-8.2)
[2022-04-27] MEDS ORDERED: CLINDAMYCIN 900MG/D5W 900 MG/50 ML IVPB IV ONE ×2 (22:26→22:48)
[2022-04-27] MEDS ORDERED: PANTOPRAZOLE 40 MG INJ IVP ONE (22:30)
[2022-04-27] MEDS ORDERED: SODIUM CHLORIDE 0.9% 10ML INJ IV PRN (22:30)
[2022-04-27] MEDS ORDERED: PANTOPRAZOLE 40 MG INJ ONE (22:48)
[2022-04-27 22:52] LABS: Absolute Lymphocytes (CBC) 0.3 K/uL (0.7-4.9); Hematocrit 26.3 % (36.0-45.0); Lymphocytes % 3.3 % (15.3-44.8); RBC Red Blood Cell Count 2.82 M/uL (3.86-4.86)
[2022-04-27] MEDS ORDERED: NOREPINEPHRINE BITARTRATE/D5W 4 MG/250 ML BAG IV ONE (23:25)
[2022-04-27] MEDS ORDERED: HYDROCORTISONE SUC 100 MG INJ IV ONE (23:32)
[2022-04-27] MEDS ORDERED: NOREPINEPHRINE 4 MG in D5W 250 ML IV SCH (23:45)
[2022-04-28] MEDS ORDERED: HYDROCORTISONE SUC 100 MG INJ ONE (00:06)
[2022-04-28] MEDS ORDERED: NA CHLORIDE 0.9% 500 ML ONE (00:10)
[2022-04-28] MEDS ORDERED: DIGOXIN 0.25 MG/ML AMP IV ONE (01:29)
[2022-04-28] MEDS ORDERED: METOPROLOL TARTRATE 5 MG/5 ML INJ IV STA (01:30)
[2022-04-28] MEDS ORDERED: DIGOXIN 0.25 MG/ML AMP ONE (01:47)
[2022-04-28] MEDS ORDERED: METOPROLOL TARTRATE 5 MG/5 ML INJ IV ONE (01:48)
[2022-04-28] MEDS: ALBUTEROL 2.5 MG/3 ML NEB SOL NEB SCH ×5 (02:00→20:35)
[2022-04-28] MEDS: IPRATROPIUM BROM 0.5MG/2.5ML NEB SCH ×4 (02:00→20:35)
[2022-04-28] MEDS ORDERED: NOREPINEPHRINE BITARTRATE/D5W 4 MG/250 ML BAG IV ONE ×3 (06:15→18:30)
[2022-04-28] MEDS ORDERED: VANCOMYCIN 750 MG in NA CHLORIDE 0.9% 150 ML IVPB SCH (07:00)
[2022-04-28] MEDS ORDERED: ALBUTEROL 2.5 MG/3 ML NEB SOL ONE ×2 (07:44→13:43)
[2022-04-28] MEDS ORDERED: IPRATROPIUM BROM 0.5MG/2.5ML ONE ×3 (07:44→20:23)
[2022-04-28] MEDS ORDERED: VANCOMYCIN 1 GM in NA CHLORIDE 0.9% 250 ML IVPB SCH (08:00)
[2022-04-28] MEDS ORDERED: NOREPINEPHRINE BITARTRATE/D5W 4 MG/250 ML BAG IV SCH (08:00)
[2022-04-28] MEDS: CEFEPIME 1 GM in NA CHLORIDE 0.9% 100 ML IV SCH ×2 (08:00→16:00)
[2022-04-28] MEDS ORDERED: MIDAZOLAM HCL IN 0.9 % NACL/PF 100 MG/100 ML BAG IVPB SCH (08:00)
[2022-04-28] MEDS ORDERED: MIDAZOLAM HCL IN 0.9 % NACL/PF 100 MG/100 ML BAG IVPB ONE (08:56)
[2022-04-28] MEDS: METHYLPREDNISOLONE 40 MG INJ IV SCH ×2 (09:00→20:35)
[2022-04-28] MEDS: SPIRONOLACTONE 25 MG TABLET PO SCH (09:00)
[2022-04-28] MEDS ORDERED: NA CHLORIDE 0.9% 50 ML IV ONE (09:30)
[2022-04-28] MEDS ORDERED: CEFEPIME 1 GM/VIAL ONE ×2 (09:31→18:23)
[2022-04-28] MEDS ORDERED: VANCOMYCIN 1 GM/VIAL ONE (09:33)
[2022-04-28] MEDS ORDERED: NA CHLORIDE 0.9% 250 ML ONE (09:34)
--- NOTE | 2022-04-28 09:58 | P.PN ---
Subjective Date of Service: 04/28/22 Chief Complaint: Respiratory failure pneumonia His condition is worsened and she was intubated last night currently hypotensive on Levophed quiring sedation 100% FiO2 chest x-ray shows diffuse bilateral opacification Review of Systems is unable to be obtained Physical Examination - Vital Signs Temperature: 98.1 F Blood Pressure: 120/54 Pulse: 126 Respirations: 28 Pulse Ox (%): 89 - Physical Exam General: Moderate distress Respiratory: Crackles/rales, Expiratory wheezes Cardiovascular: No edema, Regular rate/rhythm, Normal S1 S2 - Studies Microbiology Data (last 24 hrs): 04/26/22 13:47 Catheterized Urine [place] Count - Final No growth. 04/26/22 13:47 Catheterized Urine - Final No growth. 04/26/22 14:00 Blood - Blood Blood Culture Gram Stain - Final 04/26/22 14:00 Blood - Blood Gram Stain - Final 04/26/22 13:00 Blood - Blood Blood Culture Gram Stain - Final 04/26/22 13:00 Blood - Blood Gram Stain - Final Assessment And Plan - Current Problems (Diagnosis) (1) Respiratory failure Current Visit: Yes Status: Acute Plan: Patient admitted with respiratory failure severe pneumonia really intubated rest x-ray has worsened only on vasopressors patient continues to remain very hypoxic 100% FiO2 levels of PEEP blood cultures positive prognosis very poor underlying cirrhosis from cultures cannot stable to be transferred to a tertiary care center yet also added levofloxacin x-ray reviewed Qualifiers: Chronicity: acute
[2022-04-28] MEDS ORDERED: Levofloxacin 750mg IV 750 MG/150 ML BAG IV SCH (10:00)
[2022-04-28] MEDS ORDERED: propofoL 1,000 MG/100 ML VIAL IV SCH (10:00)
[2022-04-28] MEDS ORDERED: Levofloxacin500mg IV 500 MG/100 ML BAG IV SCH (10:00)
[2022-04-28] MEDS: FENTANYL CITR 100 MCG/2 ML IV PRN ×2 (10:11→14:43)
[2022-04-28] MEDS ORDERED: FENTANYL CITR 100 MCG/2 ML ONE ×2 (10:12→14:40)
--- NOTE | 2022-04-28 10:50 | RAD REPORT ---
EXAM DESCRIPTION: RAD - Abdomen 1 View (KUB) - 04/28/2022 10:28 am CLINICAL HISTORY: Placement of NGT/OGT. Post Insertion. COMPARISON: No comparisons FINDINGS: NG/OG tube has been placed curled in the left upper quadrant. This is good positioning. No free air or pneumatosis. No suspicious calcifications. IMPRESSION: NG/OG tube is curled in the stomach, properly positioned.
[2022-04-28] MEDS ORDERED: Levofloxacin 750mg IV 750 MG/150 ML BAG IV ONE (10:52)
[2022-04-28] MEDS ORDERED: METHYLPREDNISOLONE 40 MG INJ ONE ×2 (10:52→20:21)
[2022-04-28] MEDS ORDERED: D5.45NS W/KCL 20MEQ 1,000 ML IV ONE (10:53)
[2022-04-28] MEDS ORDERED: propofoL 1,000 MG/100 ML VIAL IV ONE ×2 (13:13→19:28)
[2022-04-28] MEDS ORDERED: ETOMIDATE 20 MG/10 ML VIAL IV ONE (14:24)
[2022-04-28] MEDS ORDERED: SUCCINYLCHOLINE 20 MG/ML (10 ML) IV ONE (14:24)
[2022-04-28] MEDS: D5.45NS W/KCL 20MEQ 20 MEQ/1,000 ML BAG IV SCH (18:00)
[2022-04-28] MEDS ORDERED: NA CHLORIDE 0.9% 100 ML IV ONE (18:23)
--- NOTE | 2022-04-28 19:08 | EKG ---
Test Date: 2022-04-26 Test Time: 15:50:00 Teletray Operator: RHIANNA MEASUREMENT RESULTS: Intervals: Rate: 126 MA: 128 QRSD: 88 QT: 336 QTc: 486 [place]: P: 53 MA: 128 QRS: -20 T: 69 INTERPRETIVE STATEMENTS: Sinus tachycardia Nonspecific ST abnormality Abnormal ECG Compared to ECG 04/17/2022 10:02:52 ST (T wave) deviation now present Prolonged QT interval no longer present Electronically Signed On 04-28-22 19:07:01 CROWN AND BRIDGE TECHNICIAN by Johnathan Schilling
[2022-04-28] MEDS ORDERED: ACETAMINOPHEN 650MG/RECT SUPP PR ONE ×2 (19:47→20:22)
[2022-04-29 00:13] LABS: Arterial Blood Carboxyhemoglob 1.2 % (0-1.5); Blood Gas Oxyhemoglobin 93.5 % (94-97); Blood O2 Saturation 95.5 % (92-98.5)
[2022-04-29 00:49] LABS: Potassium 3.2 mmol/L (3.5-5.1)
[2022-04-29] MEDS: PIPER TAZO 2.25 GM in NA CHLORIDE 0.9% 50 ML IV SCH ×2 (01:00→01:12)
[2022-04-29] MEDS ORDERED: PIPERACIL/TAZO 2.25 GM VIAL IV ONE (01:23)
[2022-04-29] MEDS ORDERED: NA CHLORIDE 0.9% 100 ML IV ONE ×2 (01:23→08:05)
[2022-04-29] MEDS ORDERED: NOREPINEPHRINE BITARTRATE/D5W 4 MG/250 ML BAG IV ONE ×4 (01:31→20:37)
[2022-04-29] MEDS: ALBUTEROL 2.5 MG/3 ML NEB SOL NEB SCH ×5 (02:00→20:00)
[2022-04-29] MEDS ORDERED: propofoL 1,000 MG/100 ML VIAL IV ONE ×2 (02:56→06:45)
[2022-04-29] MEDS: IPRATROPIUM BROM 0.5MG/2.5ML NEB SCH ×4 (03:00→20:00)
[2022-04-29] MEDS ORDERED: IPRATROPIUM BROM 0.5MG/2.5ML ONE ×4 (03:02→19:59)
[2022-04-29] MEDS ORDERED: ACETAMINOPHEN 650MG/RECT SUPP PR ONE ×2 (03:10→11:40)
[2022-04-29] MEDS: ACETAMINOPHEN 650MG/RECT SUPP PR PRN ×2 (03:11→11:45)
[2022-04-29] MEDS ORDERED: NA CHLORIDE 0.9% 1,000 ML ONE (03:39)
[2022-04-29] MEDS ORDERED: THIAMINE 200 MG/2 ML INJ ONE (03:39)
[2022-04-29] MEDS ORDERED: FOLIC ACID 5 MG/ML VIAL ONE (03:40)
[2022-04-29] MEDS ORDERED: MULTIVITAMINS 10 ML VIAL (INJ) IV ONE (03:40)
[2022-04-29 04:45] LABS: Absolute Lymphocytes (CBC) 0.7 K/uL (0.7-4.9); Hematocrit 24.1 % (36.0-45.0); Lymphocytes % 2.3 % (15.3-44.8); MCV 91.8 fL (80-100); MPV 8.3 fL (7.6-11.3); RBC Red Blood Cell Count 2.62 M/uL (3.86-4.86)
[2022-04-29 05:14] LABS: Bilirubin Total 4.2 mg/dL (0.2-1.0); Magnesium 2.2 mg/dL (1.6-2.4); Phosphorus 3.9 mg/dL (2.5-4.9); Potassium 3.2 mmol/L (3.5-5.1); Protein, Total 4.9 g/dL (6.4-8.2)
[2022-04-29] MEDS ORDERED: PIPER TAZO 2.25 GM in NA CHLORIDE 0.9% 50 ML IV SCH (06:00)
[2022-04-29] MEDS ORDERED: AMIODARONE IN DEXTROSE,ISO-OSM 360 MG/200 ML BAG IV ONE ×2 (06:32→13:03)
[2022-04-29] MEDS ORDERED: AMIODARONE HCL 150 MG/3 ML INJ IV ONE (06:32)
[2022-04-29] MEDS ORDERED: D5W 100 ML IV ONE (06:33)
[2022-04-29] MEDS ORDERED: ALBUMIN HUMAN 25% 100 ML IV ONE ×2 (06:36→06:43)
[2022-04-29] MEDS ORDERED: KCL 20 MEQ/100 mL IVPB 100 ML IV ONE (06:43)
[2022-04-29 06:52] LABS: Arterial Blood Carboxyhemoglob 1.1 % (0-1.5); Blood Gas Oxyhemoglobin 94.7 % (94-97); Blood O2 Saturation 96.9 % (92-98.5)
[2022-04-29 06:57] LABS: Hypochromasia 1+; Platelet Estimate DECR
[2022-04-29 06:58] LABS: Blood Morphology Comment NOTED (NOT SEEN)
[2022-04-29] MEDS ORDERED: KCL 20 MEQ/100 mL IVPB 20 MEQ/100 ML BAG IV SCH (07:00)
[2022-04-29] MEDS ORDERED: AMIODARONE HCL 150 MG in D5W 100 ML IV STA (07:14)
--- NOTE | 2022-04-29 07:44 | RAD REPORT ---
EXAM DESCRIPTION: RAD - Chest Single View - 04/29/2022 5:27 am CLINICAL HISTORY: resp failure COMPARISON: Portable 04/27/2022 TECHNIQUE: AP portable chest image was obtained 04/29/2022 5:27 am . FINDINGS: Endotracheal tube is in place. Tip is in the mid aortic arch level 4 cm above the kuldeep, well positioned. NG/OG tube is in place curled in the stomach is, stable in position. Extensive bilateral airspace opacification is present in the mid and lower lung espinosa. Findings are not substantially different when adjusting for the slight differences in technique. Each lung apex is relatively spared. Heart and vasculature are normal. No measurable pleural effusion and no pneumotho rax. IMPRESSION: Extensive bilateral mid and lower lung field airspace opacification from infiltrate or e jordan. Lung parenchymal findings are stable from April 27 imaging. ET tube and NG/OG tube are in good position.
[2022-04-29] MEDS ORDERED: METHYLPREDNISOLONE 40 MG INJ ONE (08:05)
[2022-04-29] MEDS ORDERED: PIPERACIL/TAZO 3.375 GM VIAL IV ONE (08:06)
[2022-04-29] MEDS: METHYLPREDNISOLONE 40 MG INJ IV SCH (08:34)
[2022-04-29] MEDS ORDERED: PIPER TAZO 3.375 GM in NA CHLORIDE 0.9% 100 ML IV SCH (09:00)
[2022-04-29] MEDS ORDERED: FOLIC ACID 1 MG, MULTIVITAMINS INJ 10 ML, THIAMINE HCL 100 MG in NA CHLORIDE 0.9% 1,000 ML IV SCH (09:00)
[2022-04-29] MEDS ORDERED: ALBUTEROL 2.5 MG/3 ML NEB SOL ONE ×2 (10:32→15:07)
[2022-04-29] MEDS: CEFTRIAXONE 1,000 MG in NA CHLORIDE 0.9% 50 ML IVPB SCH (11:30)
[2022-04-29] MEDS ORDERED: NA CHLORIDE 0.9% 50 ML IV ONE (11:41)
[2022-04-29] MEDS ORDERED: CEFTRIAXONE 1000 MG/VIAL ONE (11:41)
[2022-04-29] MEDS ORDERED: AMIODARONE HCL 900 MG in Dextrose 5%-Water 482 ML IV SCH (12:00)
--- NOTE | 2022-04-29 12:20 | P.CNS ---
Date of Consult: 04/29/22 Reason for Consult: KAREN Requesting Physician: Mick Perkins Chief Complaint: Respiratory failure pneumonia History of Present Illness: Patient is a 51-year-old female who has a history of cirrhosis secondary to alcohol use who comes into the emergency room with shortness of breath. Patient was in the emergency room about a week ago with hypokalemia and seizure-like activity.Patient was discharged and since discharge she has been getting worse. She has not followed up with her java developer with security clearance Dr. Pate in a few months. She has been taking care of her boyfriend's children who have had an upper respiratory infection. She started feeling worse this morning and has been brought her into the ER. She was severely hypoxic and placed on a nonrebreather. She was also tachycardic and hypertensive. We will resume her liver medications and get her blood pressure and heart rate control. Continue with nonrebreather. We do not have ICU available and have notified consultants regarding this. I did speak with the ER physician as well about transferring the patient but they stated that ICU [facility] does not have any ICU beds available. Patient will be admitted to the hospital for further treatment. 13:32 This 51 yrs old Female presents to ER via EMS with complaints of fever, cough, abd pain.rn 13:32 The patient reports fever, not measured (subjective). Onset: The symptoms/episode rn began/occurred yesterday. Modifying factors: there are no obvious modifying factors. Associated signs and symptoms: Pertinent positives: abdominal pain, chills, cough, shortness of breath, Pertinent negatives: chest pain, hemoptysis, vomiting. Severity of symptoms: At their worst the symptoms were moderate in the emergency department the symptoms are unchanged. The patient has experienced similar episodes in the past. The patient has not recently seen a physician. Allergies novahistamine Allergy (Uncoded 01/21/20 04:10) Anaphylaxis Home medications list reviewed: Yes Home Medications: Acetaminophen with Codeine [Acetaminophen-Cod #3 Tablet] 1 each PO Q4H 04/27/22 Furosemide [Lasix] 40 mg PO DAILY 04/27/22 Lactulose 30 ml PO TID 04/27/22 Pantoprazole Sodium [Protonix] 40 mg PO BID 04/27/22 - Past Medical/Surgical History Diabetic: No -: Gerd -: Gastric ulcer -: Asthma -: Alcoholic cirrhosis of liver -: Cholecystectomy Psychosocial/ Personal History: Lives at home with . - Family History Father Family History: Reviewed- Non-Contributory - Social History Smoking Status: Current some day smoker Alcohol use: Yes CD- Drugs: No Caffeine use: Yes Review of Systems is unable to be obtained Physical Examination Temp Pulse Resp BP Pulse Ox 99.5 F 113 H 33 H 123/69 96 04/29/22 07:45 04/29/22 11:45 04/29/22 11:45 04/29/22 11:45 04/29/22 11:45 General: In no apparent distress, Unresponsive HEENT: Atraumatic Neck: Supple Respiratory: Clear to auscultation bilaterally Cardiovascular: Regular rate/rhythm, Edema Gastrointestinal: Non-distended, No masses Musculoskeletal: No clubbing, No contractures Integumentary: No rashes, No cyanosis Blood work reviewed in the chart Imagings Data: EXAM DESCRIPTION: RAD - Chest Single View - 04/29/2022 5:27 am CLINICAL HISTORY: resp failure COMPARISON: Portable 04/27/2022 TECHNIQUE: AP portable chest image was obtained 04/29/2022 5:27 am . FINDINGS: Endotracheal tube is in place. Tip is in the mid aortic arch level 4 cm above the kuldeep, well positioned. NG/OG tube is in place curled in the stomach is, stable in position. Extensive bilateral airspace opacification is present in the mid and lower lung espinosa. Findings are not substantially different when adjusting for the slight differences in technique. Each lung apex is relatively spared. Heart and vasculature are normal. No measurable pleural effusion and no pneumothorax. IMPRESSION: Extensive bilateral mid and lower lung field airspace opacification from infiltrate or edema. Lung parenchymal findings are stable from April 27 imaging. ET tube and NG/OG tube are in good position. Conclusions/Impression: Stage III KAREN likely ATN in the setting of hypotension complicated by sepsis Proteinuria -No NSAIDs Hypokalemia -Replete potassium Acidosis Hypoalbuminemia -Start TF Hyperglycemia -RISS prn Anemia in chronic illness Thrombocytopenia -Monitor CBC Alcoholic liver cirrhosis Sepsis Strep Pneumoniae Bacteremia -Continue Rocephin Acute hypoxic respiratory failure Multifocal PNA -Continue ventilatory support -Continue Rocephin Case reviewed with Dr. Perkins & Dr. Iverson Thank you kindly for the consultation Critical Care: Yes (>30min)
[2022-04-29] MEDS ORDERED: POTASSIUM 25 MEQ EFFERV TAB FT ONE (12:30)
[2022-04-29] MEDS ORDERED: FENTANYL CITR 100 MCG/2 ML ONE (12:58)
[2022-04-29] MEDS: FENTANYL CITR 100 MCG/2 ML IV PRN (13:22)
[2022-04-29] MEDS ORDERED: POTASSIUM 25 MEQ EFFERV TAB ONE (13:44)
--- NOTE | 2022-04-29 19:13 | P.PN ---
Subjective Date of Service: 04/29/22 Chief Complaint: Respiratory failure pneumonia I received a call from RN at 06:26 AM stating that Ms. Farley went into atrial fibrillation with rapid ventricular response. I arrived at bedside shortly after. EKG confirmed atrial fibrillation with RVR, with heart rates in the [id number]. Blood pressure was soft. She was started on an amiodarone drip, and her heart rate became controlled to the 110s. Cardiology has been consulted. Spoke with transfer center, we are still awaiting ICU bed availability at [facility]. Review of Systems is unable to be obtained Physical Examination - Vital Signs Temperature: 98.7 F Blood Pressure: 114/53 Pulse: 106 Respirations: 34 Pulse Ox (%): 91 - Physical Exam General: In no apparent distress, Other (intubated, sedated) HEENT: Atraumatic, Sclerae nonicteric Neck: JVD not distended Respiratory: Crackles/rales, Rhonchi/gurgles Cardiovascular: No edema, No gallops, No rubs, No murmurs, Irregular heart rate/rhythm Gastrointestinal: Hypoactive, Soft and benign, Non-distended, No tenderness, No rebound, No guarding Musculoskeletal: No clubbing Integumentary: No rashes Neurological: Other (sedated) - Studies Microbiology Data (last 24 hrs): 04/26/22 13:00 Blood - Blood Aerobic Blood Culture - Final Strep Pneumoniae 04/26/22 13:00 Blood - Blood Blood Culture Gram Stain - Final 04/26/22 13:00 Blood - Blood Anaerobic Blood Culture - Final Strep Pneumoniae 04/26/22 13:00 Blood - Blood Gram Stain - Final 04/26/22 14:00 Blood - Blood Aerobic Blood Culture - Final Strep Pneumoniae 04/26/22 14:00 Blood - Blood Blood Culture Gram Stain - Final 04/26/22 14:00 Blood - Blood Anaerobic Blood Culture - Final Strep Pneumoniae 04/26/22 14:00 Blood - Blood Gram Stain - Final Assessment And Plan - Plan # Septic Shock likely secondary to Multifocal Pneumonia with Streptococcus Pneumoniae Bacteremia # Acute Hypoxemic Respiratory Failure secondary to above She meets sepsis criteria based on HR > 90 bpm, RR > 20 breaths/min, and WBC > 12,000, and the identified source is bacteremia. Severe sepsis is suspected due to concern for tissue hypoperfusion/organ dysfunction based on acute respiratory failure requiring intubation, bilirubin > 2, creatinine >2.0 mg/dL (without ESRD), platelet count < 100,000, coagulopathy (INR > 1.5), and lactic acid > 2 mmol/L. Septic shock is suspected due to initial lactate > 4 mmol/L. - Pulmonary Medicine consulted and spoke with Dr. Iverson - recommendations appreciated - Infectious evaluation: - CT chest/abdomen/pelvis = "bilateral pneumonia. Cirrhosis." - Blood cultures x 4 = ramirez-sensitive Streptococcus Pneumoniae - Repeat blood cultures requested - Transthoracic echocardiogram requested to evaluate for infective endocarditis - CXR (04/29) = "extensive bilateral mid and lower lung field airspace opacification from infiltrate or edema. Lung parenchymal findings are stable from April 27 imaging." - Lactate trend = 7.7 -> 6.2 -> 7.7 -> 7.9 -> 7.4 -> 4.7 -> 4.3 - Broad spectrum antibiotics started: Vancomycin + Piperacillin-Tazobactam - In regards to fluids: - 30 mL/kg of IV Normal Saline was given based on patient's actual body weight - Continue norepinephrine drip - If blood pressures remain soft, low threshold to start stress-dose steroids and albumin - Spoke with [facility], currently waiting for ICU bed availability to initiate transfer # Paroxysmal Atrial Fibrillation with Rapid Ventricular Response Her [id number] = 1 (Sex=1). - Her heart rate is in the 100s-110s with amiodarone drip - Consulted Cardiology - recommendations appreciated # KDIGO Stage III Acute Kidney Injury - Nephrology consulted and spoke with Dr. Feliciano - recommendations appreciated - Creatinine = 1.22 -> 1.44 -> 1.99 -> 3.22 -> 3.43 - Urinalysis = 2+ protein, negative nitrite, negative leukocyte esterase - Monitor creatinine and urine output - If worsening, obtain renal ultrasound - Renally dose medications # Alcoholic Cirrhosis - MELD = 36, which equates to a 52.6 % estimated 3-month mortality. I had an extensive discussion with her boyfriend, Mr. Bush, who was at bedside. I explained that her prognosis is poor and he verbalized understanding. He asked that we continue aggressive medical management as we have been doing. He states that this would be most consistent with her wishes. Mick Perkins M.D.
--- NOTE | 2022-04-29 22:44 | RAD REPORT ---
EXAM DESCRIPTION: US - Renal Ultrasound-Complete - 04/29/2022 9:06 pm CLINICAL HISTORY: Acute renal failure COMPARISON: None FINDINGS: The right kidney measures 10 cm with a normal echotexture. The left kidney measures 9 cm with a normal echotexture. Hydronephrosis is not seen. A Mcdonald catheter is present within a collapsed bladder IMPRESSION: Unremarkable renal ultrasound.
[2022-04-30] MEDS ORDERED: NOREPINEPHRINE BITARTRATE/D5W 4 MG/250 ML BAG IV ONE ×4 (01:49→17:53)
[2022-04-30] MEDS: ALBUTEROL 2.5 MG/3 ML NEB SOL NEB SCH ×4 (02:00→09:05)
[2022-04-30] MEDS: IPRATROPIUM BROM 0.5MG/2.5ML NEB SCH ×2 (02:15→09:05)
[2022-04-30] MEDS ORDERED: AMIODARONE IN DEXTROSE,ISO-OSM 360 MG/200 ML BAG IV ONE ×2 (02:20→17:53)
[2022-04-30 02:22] LABS: Absolute Lymphocytes (CBC) 0.9 K/uL (0.7-4.9); Lymphocytes % 3.4 % (15.3-44.8); MCV 91.8 fL (80-100); MPV 7.6 fL (7.6-11.3); RBC Red Blood Cell Count 2.61 M/uL (3.86-4.86)
[2022-04-30] MEDS ORDERED: IPRATROPIUM BROM 0.5MG/2.5ML ONE ×2 (02:22→09:02)
[2022-04-30 02:31] LABS: Albumin 2.2 g/dL (3.4-5.0); Bilirubin Total 4.4 mg/dL (0.2-1.0); Protein, Total 5.5 g/dL (6.4-8.2)
[2022-04-30 02:36] LABS: Potassium 3.1 mmol/L (3.5-5.1)
[2022-04-30] MEDS ORDERED: propofoL 1,000 MG/100 ML VIAL IV ONE ×3 (03:17→14:12)
[2022-04-30 07:33] LABS: Blood Gas Oxyhemoglobin 89.9 % (94-97); Blood O2 Saturation 91.9 % (92-98.5)
[2022-04-30] MEDS ORDERED: POTASSIUM 25 MEQ EFFERV TAB FT ONE (07:43)
--- NOTE | 2022-04-30 07:59 | RAD REPORT ---
EXAM DESCRIPTION: Marcela Single View04/30/2022 5:52 am CLINICAL HISTORY: Respiratory failure COMPARISON: April 29, 2022 FINDINGS: Mild worsening in extensive bilateral alveolar lung opacities Heart is probably borderline enlarged Endotracheal tube in good position Nasogastric tube enters the stomach. Tip is not included in the field of view IMPRESSION: Mild worsening in extensive bilateral pulmonary opacities are opacities which may repres ent pulmonary edema or pneumonia
[2022-04-30] MEDS: CEFTRIAXONE 1,000 MG in NA CHLORIDE 0.9% 50 ML IVPB SCH (09:00)
[2022-04-30] MEDS ORDERED: FENTANYL CITR 100 MCG/2 ML ONE (09:49)
[2022-04-30] MEDS ORDERED: POTASSIUM 25 MEQ EFFERV TAB ONE (09:50)
[2022-04-30] MEDS ORDERED: NA CHLORIDE 0.9% 50 ML IV ONE (09:50)
[2022-04-30] MEDS ORDERED: CEFTRIAXONE 1000 MG/VIAL ONE (09:50)
[2022-04-30] MEDS ORDERED: ACETAMINOPHEN 650MG/RECT SUPP PR ONE (10:21)
--- NOTE | 2022-04-30 10:59 | P.DS ---
Admission Date: 04/26/22 Discharge Date: 04/30/22 Disposition: TRANSFER TO [facility] Discharge Condition: FAIR Reason for Admission: Respiratory failure pneumonia Consultations: 1. Pulmonary Medicine 2. Nephrology Hospital Course: DIAGNOSES: # Septic Shock likely secondary to Multifocal Pneumonia with Streptococcus Pneumoniae Bacteremia # Acute Hypoxemic Respiratory Failure secondary to above # Paroxysmal Atrial Fibrillation with Rapid Ventricular Response # KDIGO Stage III Acute Kidney Injury # Alcoholic Cirrhosis - (MELD = 36) HOSPITAL COURSE: Ms. Lin Farley is a 51 year old female with a past medical history significant for alcoholic cirrhosis who was admitted to the [facility] on 04/26/2022 for shortness of breath and hypoxemia. She was admitted to the Medicine service. Shortly after admission, she continued to decline from a respiratory standpoint, necessitating endotracheal intubation on 04/27/2022. We do not have any ICU beds available at [facility], so a transfer request was initiated. Her evaluation was notable for multifocal pneumonia and Streptococcus Pneumoniae bacteremia. Her hospital course was further complicated by multiorgan failure including respiratory failure and progressively worsening acute kidney injury. Additionally, on 04/29/2022, she developed atrial fibrillation with rapid ventricular response, which required an amiodarone drip. Currently, she remains in critical condition on the amiodarone drip, a norepinephrine drip, and propofol drip. She is receiving continuous IV infusion with a banana bag. She was also started on ceftriaxone for her bacteremia. Today, the transfer center was able to secure an ICU bed at [facility]. A doctodoc was completed with Dr. Gonzalo Tay ([facility] foreign languages department chair), who has generously accepted her for transfer. On 04/30/2022, she was seen on morning rounds and deemed stable for medical transfer. Today, I personally spent 45 minutes on her case, of which greater than 50% of the time was spent in coordination of care as described above. - Physical Exam General: In no apparent distress, Other (intubated, sedated) HEENT: Atraumatic, Sclerae nonicteric Neck: JVD not distended Respiratory: Crackles/rales, Rhonchi/gurgles Cardiovascular: No edema, No gallops, No rubs, No murmurs, Irregular heart rate/rhythm Gastrointestinal: Hypoactive, Soft and benign, Non-distended Musculoskeletal: No clubbing Integumentary: No rashes Neurological: Other (sedated) Vital Signs/Physical Exam: Temp Pulse Resp BP Pulse Ox 98.7 F 109 H 30 H 115/56 L 92 04/30/22 03:03 04/30/22 03:03 04/30/22 03:03 04/30/22 03:03 04/30/22 03:03 Laboratory Data at Discharge: WBC 27.50 K/uL (4.3-10.9) H* 04/30/22 01:54 Hgb 8.3 g/dL (12.0-15.0) L 04/30/22 01:54 Hct 24.0 % (36.0-45.0) L 04/30/22 01:54 Plt Count 50 K/uL (152-406) L D 04/30/22 01:54 PT 32.0 SECONDS (9.5-12.5) H 04/27/22 20:43 INR 2.91 04/27/22 20:43 APTT 39.1 SECONDS (24.3-36.9) H 04/27/22 20:43 Sodium 136 mmol/L (136-145) 04/30/22 01:54 Potassium 3.1 mmol/L (3.5-5.1) L 04/30/22 01:54 BUN 99 mg/dL (7-18) H 04/30/22 01:54 Creatinine 4.59 mg/dL (0.55-1.02) H 04/30/22 01:54 Glucose 169 mg/dL (74-106) H 04/30/22 01:54 Phosphorus 3.9 mg/dL (2.5-4.9) 04/29/22 04:25 Magnesium 2.2 mg/dL (1.6-2.4) 04/29/22 04:25 Total Bilirubin 4.4 mg/dL (0.2-1.0) H 04/30/22 01:54 AST 201 U/L (15-37) H 04/30/22 01:54 ALT 40 U/L (13-56) 04/30/22 01:54 Alkaline Phosphatase 58 U/L (45-117) 04/30/22 01:54 Home Medications: Acetaminophen with Codeine [Acetaminophen-Cod #3 Tablet] 1 each PO Q4H 04/27/22 Furosemide [Lasix] 40 mg PO DAILY 04/27/22 Pantoprazole Sodium [Protonix] 40 mg PO BID 04/27/22 RX: Lactulose 30 ml PO TID 04/27/22 Diet: Tube Feeds Activity: Bedrest Time spent managing pt's care (in minutes): 45
[2022-04-30] MEDS: FENTANYL CITR 100 MCG/2 ML IV PRN ×2 (11:02→16:48)
[2022-04-30] MEDS: ACETAMINOPHEN 650MG/RECT SUPP PR PRN (11:03)
--- NOTE | 2022-04-30 12:03 | P.PN ---
Subjective Date of Service: 04/29/22 Chief Complaint: Respiratory failure pneumonia Patient is not doing well developed A. fib last night respiratory failure blood cultures positive for strep pneumonia agitated unresponsive Review of Systems is unable to be obtained Physical Examination - Vital Signs Temperature: 99.8 F Blood Pressure: 115/56 Pulse: 109 Respirations: 30 Pulse Ox (%): 93 - Physical Exam General: Unresponsive Respiratory: Expiratory wheezes, Rhonchi/gurgles Cardiovascular: No edema, Regular rate/rhythm - Studies Microbiology Data (last 24 hrs): 04/26/22 13:00 Blood - Blood Aerobic Blood Culture - Final Strep Pneumoniae 04/26/22 13:00 Blood - Blood Blood Culture Gram Stain - Final 04/26/22 13:00 Blood - Blood Anaerobic Blood Culture - Final Strep Pneumoniae 04/26/22 13:00 Blood - Blood Gram Stain - Final 04/26/22 14:00 Blood - Blood Aerobic Blood Culture - Final Strep Pneumoniae 04/26/22 14:00 Blood - Blood Blood Culture Gram Stain - Final 04/26/22 14:00 Blood - Blood Anaerobic Blood Culture - Final Strep Pneumoniae 04/26/22 14:00 Blood - Blood Gram Stain - Final Assessment And Plan - Current Problems (Diagnosis) (1) Respiratory failure Current Visit: Yes Status: Acute Plan: Patient is currently in respiratory failure ARDS ATN streptococcal pneumonia bacteremia Niccoli ill on 100% FiO2 multiorgan failure we will start low-dose tube feeds patient is on assist control White count has increased will DC steroids changed to Rocephin DC vancomycin nephrology has been consulted prognosis poor family members at the bedside stable for transfer Qualifiers: Chronicity: acute
--- NOTE | 2022-04-30 12:07 | P.PN ---
Subjective Date of Service: 04/30/22 Chief Complaint: Respiratory failure pneumonia Patient's condition still remains critical on 100% FiO2 in A. fib renal failure Review of Systems is unable to be obtained Physical Examination - Vital Signs Temperature: 99.8 F Blood Pressure: 115/56 Pulse: 109 Respirations: 30 Pulse Ox (%): 93 - Physical Exam General: Unresponsive Respiratory: Diminished, Rhonchi/gurgles Cardiovascular: Edema - Studies Microbiology Data (last 24 hrs): 04/26/22 13:00 Blood - Blood Aerobic Blood Culture - Final Strep Pneumoniae 04/26/22 13:00 Blood - Blood Blood Culture Gram Stain - Final 04/26/22 13:00 Blood - Blood Anaerobic Blood Culture - Final Strep Pneumoniae 04/26/22 13:00 Blood - Blood Gram Stain - Final 04/26/22 14:00 Blood - Blood Aerobic Blood Culture - Final Strep Pneumoniae 04/26/22 14:00 Blood - Blood Blood Culture Gram Stain - Final 04/26/22 14:00 Blood - Blood Anaerobic Blood Culture - Final Strep Pneumoniae 04/26/22 14:00 Blood - Blood Gram Stain - Final Assessment And Plan - Current Problems (Diagnosis) (1) Respiratory failure Current Visit: Yes Status: Acute Plan: Respiratory failure 100% FiO2 sats around 90% renal function has worsened significantly patient is becoming acidotic and gases reviewed PO2 is 71 on 100 % FiO2 PT/INR elevated chest x-ray endotracheal tube satisfactory position lateral pneumonia prognosis poor Qualifiers: Chronicity: acute
--- NOTE | 2022-04-30 12:14 | P.PN ---
Subjective Date of Service: 04/29/22 Chief Complaint: Respiratory failure pneumonia His condition is worsened and she was intubated last night currently hypotensive on Levophed quiring sedation 100% FiO2 chest x-ray shows diffuse bilateral opacification Physical Examination - Vital Signs Temperature: 99.8 F Blood Pressure: 115/56 Pulse: 109 Respirations: 30 Pulse Ox (%): 93 - Studies Microbiology Data (last 24 hrs): 04/26/22 13:00 Blood - Blood Aerobic Blood Culture - Final Strep Pneumoniae 04/26/22 13:00 Blood - Blood Blood Culture Gram Stain - Final 04/26/22 13:00 Blood - Blood Anaerobic Blood Culture - Final Strep Pneumoniae 04/26/22 13:00 Blood - Blood Gram Stain - Final 04/26/22 14:00 Blood - Blood Aerobic Blood Culture - Final Strep Pneumoniae 04/26/22 14:00 Blood - Blood Blood Culture Gram Stain - Final 04/26/22 14:00 Blood - Blood Anaerobic Blood Culture - Final Strep Pneumoniae 04/26/22 14:00 Blood - Blood Gram Stain - Final Assessment And Plan - Current Problems (Diagnosis) (1) Respiratory failure Current Visit: Yes Status: Acute Plan: Patient admitted with respiratory failure severe pneumonia really intubated rest x-ray has worsened only on vasopressors patient continues to remain very hypoxic 100% FiO2 levels of PEEP blood cultures positive prognosis very poor underlying cirrhosis from cultures cannot stable to be transferred to a tertiary care center yet also added levofloxacin x-ray reviewed Qualifiers: Chronicity: acute
[2022-04-30] MEDS ORDERED: CISATRACURIUM INJECTION 2 MG/ML (10 ML Vial) IV ONE ×2 (16:34→16:40)
[2022-04-30 17:36] VITALS: O2SAT 93
[2022-04-30 18:08] VITALS: BP 115/48; TEMP 99.1
--- NOTE | 2022-04-30 20:58 | CON ---
Date of Consultation: 04/30/2022 Reason For Consultation: Atrial fibrillation with rapid ventricular response. History Of Present Illness: This is a 51-year-old female who is in acute respiratory failure due to pneumonia status post intubation. She apparently had an episode of atrial fibrillation with rapid ve ntricular response and then she converted to sinus rhythm. She is known to have history of liver cir rhosis due to an ongoing alcoholism problem and has acid reflux and asthma. Unable to get much histo ry from the patient as she is sedated on the ventilator. Past Medical History: As outlined above in the HPI. Medications: Refer to reconciliation sheet for detailed list. Allergies: NOVAHISTINE. Family History: No premature coronary artery disease or cancer. Social History: Does not smoke or drink. Does not use any drugs. Review of Systems: All systems reviewed and they were negative except for mentioned in HPI. Physical Examination: Vital Signs: Reviewed. Head And Neck: Pupils are equal and reactive to light. Intact eye movements. No JVD. No cervical lymphadenopathy. Neck is supple. Thyroid is not enlarged. Lungs: Positive bilateral air entry with rhonchi. No accessory muscle use or muscle retraction. Sh e is breathing comfortably on the vent. Heart: Regular rate and rhythm. No extra sounds. Abdomen: Soft, nontender. Bowel sounds positive. No organomegaly. No masses or hernia. No rigidi ty or rebound. Extremities: No clubbing or cyanosis. Intact pulses. Skin: No rash or nodules. Neuro: She is sedated on the vent, unable to perform full neuro exam due to that. Lymph Nodes: No cervical or axillary lymphadenopathy. Investigations: BUN 99, creatinine 4.59. White blood cell count is 27,000 and hemoglobin 8.3. Assessment/recommendation: 1.Atrial fibrillation with rapid ventricular response converted to sinus rhythm. Liver function alexandro ts are normal. She was initiated on amiodarone and currently rhythm and rate are controlled. While on amiodarone, please monitor liver function tests closely as the patient has history of liver cirrho sis. 2.Acute hypoxic respiratory failure due to multifocal pneumonia, on wide-spectrum antibiotics and re quiring mechanical ventilation. SR/MODL Voice ID: [id number] Report ID: [id number]
[2022-04-30] MEDS ORDERED: CEFTRIAXONE 1,000 MG in NA CHLORIDE 0.9% 50 ML IVPB SCH (21:00)
--- NOTE | 2022-05-01 06:52 | ECHO ---
HEIGHT: 5 ft 4 in WEIGHT: 96 lb 0 oz DATE OF STUDY: 04/30/[address]: Mick Perkins MD 2-DIMENSIONAL: YES M.MODE: YES DOPPLER: YES COLOR FLOW: YES TDS: PORTABLE: YES DEFINITY: BUBBLE STUDY: DIAGNOSIS: EVALUATE FOR INFECTIVE ENDOCARDITIS CARDIAC HISTORY: CATHERIZATION: NO SURGERY: NO PROSTHETIC VALVE: NO PACEMAKER: NO MEASUREMENTS (cm) DIASTOLIC (NORMALS) SYSTOLIC (NORMALS) IVSd 0.7 (0.6-1.2) LA Diam 2.4 (1.9-4.0) LVEF 60-65% LVIDd 4.4 (3.5-5.7) LVIDs 2.6 (2.0-3.5) %FS 42% LVPWd 0.9 (0.6-1.2) Ao Diam 2.5 (2.0-3.7) 2 DIMENSIONAL ASSESSMENT: RIGHT ATRIUM: NORMAL LEFT ATRIUM: NORMAL RIGHT VENTRICLE: NORMAL LEFT VENTRICLE: NORMAL TRICUSPID VALVE: TRACE TRICUSPID REGURGITATION MITRAL VALVE: MILD MITRAL REGURGITATION PULMONIC VALVE: NORMAL AORTIC VALVE: NORMAL PERICARDIAL EFFUSION: NONE AORTIC ROOT: NORMAL LEFT VENTRICULAR WALL MOTION: NORMAL DOPPLER/COLOR FLOW: SEE BELOW COMMENTS: 1. NORMAL LEFT VENTRICULAR EJECTION FRACTION 60-65% 2. NORMAL WALL MOTION 3. MILD MITRAL REGURGITATION 4. MILD TRICUSPID REGURGITATION TECHNOLOGIST: SONIA ARMSTRONG
--- NOTE | 2022-05-01 16:08 | EKG ---
Test Date: 2022-04-29 Test Time: 06:33:26 Manager Export: RT-O MEASUREMENT RESULTS: Intervals: Rate: 180 [place]: QRSD: 76 QT: 238 QTc: 412 [place]: P: [place]: QRS: 10 T: 178 INTERPRETIVE STATEMENTS: Atrial fibrillation with rapid ventricular response ST & T wave abnormality, consider lateral ischemia Abnormal ECG Compared to ECG 04/28/2022 01:36:11 ST (T wave) deviation now present Possible ischemia now present Sinus tachycardia no longer present Electronically Signed On 05-01-22 16:05:36 LEAN MANUFACTURING COORDINATOR by Johnathan Schilling
--- NOTE | 2022-05-01 16:10 | EKG ---
Test Date: 2022-04-28 Test Time: 01:36:11 Propellant Charge Loader: NARCISO MEASUREMENT RESULTS: Intervals: Rate: 125 HI: 128 QRSD: 84 QT: 330 QTc: 476 [place]: P: 61 HI: 128 QRS: 13 T: 55 INTERPRETIVE STATEMENTS: Sinus tachycardia Low voltage QRS Borderline ECG Compared to ECG 04/26/2022 15:50:00 Low QRS voltage now present ST (T wave) deviation no longer present Electronically Signed On 05-01-22 16:06:48 PERFECT BINDER OPERATOR by Johnathan Schilling
== END 2022-04-30 18:35 | disposition short-term general hospital (02) | DRG 871 ==
LOC: ER 12:17 → ERHOLD 17:51
PROVIDERS: ADMIT Hospitalist; ATTEND Internal Medicine
PROC: 0T9B70Z Drainage of Bladder with Drainage Device, Via Natural or Artificial Opening (ICD-10-PCS; 2022-04-26)
PROC: 5A09357 Assistance with Respiratory Ventilation, Less than 24 Consecutive Hours, Continuous Positive Airway Pressure (ICD-10-PCS; 2022-04-26)
PROC: 0BH18EZ Insertion of Endotracheal Airway into Trachea, Via Natural or Artificial Opening Endoscopic (ICD-10-PCS; principal; 2022-04-27)
PROC: 06HY33Z Insertion of Infusion Device into Lower Vein, Percutaneous Approach (ICD-10-PCS; 2022-04-27)
PROC: 3E043XZ Introduction of Vasopressor into Central Vein, Percutaneous Approach (ICD-10-PCS; 2022-04-27)
PROC: 5A1945Z Respiratory Ventilation, 24-96 Consecutive Hours (ICD-10-PCS; 2022-04-27)
DX: A40.3 Sepsis due to Streptococcus pneumoniae (principal); J18.9 Pneumonia, unspecified organism; J96.01 Acute respiratory failure with hypoxia; R65.21 Severe sepsis with septic shock; N17.0 Acute kidney failure with tubular necrosis; D61.818 Other pancytopenia; E87.20 Acidosis, unspecified; I48.19 Other persistent atrial fibrillation; E46 Unspecified protein-calorie malnutrition; Z68.1 Body mass index [BMI] 19.9 or less, adult; D63.8 Anemia in other chronic diseases classified elsewhere; D69.6 Thrombocytopenia, unspecified; K70.30 Alcoholic cirrhosis of liver without ascites; F10.20 Alcohol dependence, uncomplicated; E88.09 Other disorders of plasma-protein metabolism, not elsewhere classified; K21.9 Gastro-esophageal reflux disease without esophagitis; J45.909 Unspecified asthma, uncomplicated; Z20.822 Contact with and (suspected) exposure to COVID-19
CPT/HCPCS: 0240U; 31500; 36415; 71045; 71260; 74018; 74177; 76770; 80048; 80053; 80202; 81003; 81015; 82140; 82805; 82947; 83605; 83735; 83880; 84100; 84132; 84145; 84439; 84443; 85025; 85610; 85730; 87040; 87077; 87086; 87088; 87186; 87205; 87811; 93005; 93306; 94002; 94003; 94660; 99285; C9113; J0282; J0330; J0692; J1160; J1650; J1720; J2250; J2270; J2543; J2704; J2920; J3010; J3370; J3411; J3480; J7030; J7040; J7050; J7613; J7644; P9047; Q9967